=== PATIENT | female | born 1930 | race Two or more races ===

== ENCOUNTER 2016-06-03 15:42 | Emergency (ER) | payer MEDICARE, OTHER ==
[2016-06-03] MEDS ORDERED: IPRATROPIUM/ALBUTEROL 0.5-2.5 MG/3 ML AMPUL NEB ONE (15:55)
[2016-06-03] MEDS ORDERED: PREDNISONE 20 MG TABLET PO ONE (15:56)
--- NOTE | 2016-06-03 15:57 | ER Document Report ---
ED Medical Screen (RME) - General Stated Complaint: DIFFICULTY BREATHING Mode of Arrival: Wheelchair Information source: Patient Notes: Patient presents with difficulty breathing for the past 5 days. Patient has had cough. Patient without any chest pain. No fever. hx: Hypertension, diabetes I have greeted and performed a rapid initial assessment of this patient. A comprehensive ED assessment and evaluation of the patient, analysis of test results and completion of the medical decision making process will be conducted by additional ED providers. TRAVEL OUTSIDE OF THE [place] IN LAST 30 DAYS: No - Related Data Allergies/Adverse Reactions: morphine Allergy (Verified 06/03/16 15:53) Shellfish * [Shellfish] Allergy (Verified 06/03/16 15:53) richardson Allergy (Uncoded 06/03/16 15:53) Past Medical History - Past Medical History Cardiac Medical History: Reports: Hx Hypercholesterolemia, Hx Hypertension Pulmonary Medical History: Denies: Hx Tuberculosis Neurological Medical History: Denies: Hx Seizures Renal/ Medical History: Reports: Hx Ovarian Cysts GI Medical History: Reports: Hx Gastroesophageal Reflux Disease Musculoskeltal Medical History: Reports Hx Arthritis Psychiatric Medical History: Reports: Hx Depression Past Surgical History: Reports: Hx Section, Hx Hysterectomy. Denies: Hx Cholecystectomy, Hx Pacemaker - Immunizations Hx Diphtheria, Pertussis, Tetanus Vaccination: No Physical Exam - Vital signs Vitals: Temp Pulse Resp BP Pulse Ox 97.7 F 73 17 174/65 H 100 06/03/16 15:51 06/03/16 15:51 06/03/16 15:51 06/03/16 15:51 06/03/16 15:51 - Respiratory Respiratory status: No respiratory distress Breath sounds: Nonproductive cough, Wheezing - Faint wheeze to right lower lobe Course - Vital Signs Vital signs: Temp Pulse Resp BP Pulse Ox 97.7 F 73 17 174/65 H 100 06/03/16 15:51 06/03/16 15:51 06/03/16 15:51 06/03/16 15:51 06/03/16 15:51
[2016-06-03 16:53] LABS: ABSOLUTE BASOPHILS # (AUTO) 0.1 10^3/uL (0.0-0.2); ABSOLUTE EOSINOPHILS # (AUTO) 0.1 10^3/uL (0.0-0.6); ABSOLUTE LYMPHOCYTES (AUTO) 0.9 10^3/uL (0.5-4.7); ABSOLUTE MONOCYTES (AUTO) 0.5 10^3/uL (0.1-1.4); ABSOLUTE NEUT (AUTO) 2.6 10^3/uL (1.7-8.2); BASOPHILS % (AUTO) 1.3 % (0-2); EOSINOPHILS % (AUTO) 1.3 % (0-6); HEMATOCRIT 32.5 % (36.0-47.0); HEMOGLOBIN 11.1 g/dL (12.0-15.5); HGB HCT DIFFERENCE 0.8; LYMPHOCYTES % (AUTO) 21.9 % (13-45); MEAN CORPUSCULAR HEMOGLOBIN 30.3 pg (27.0-33.4); MEAN CORPUSCULAR VOLUME 89 fl (80-97); MONOCYTES % (AUTO) 11.6 % (3-13); RED BLOOD COUNT 3.65 10^6/uL (3.72-5.28); RED CELL DISTRIBUTION WIDTH 13.5 % (11.5-14.0); SEGMENTED NEUTROPHILS % (AUTO) 63.9 % (42-78)
--- NOTE | 2016-06-03 16:57 | EKG REPORT ---
SEVERITY:- ABNORMAL ECG - ACCELERATED JUNCTIONAL RHYTHM BORDERLINE T ABNORMALITIES, ANT-LAT LEADS : Confirmed by: Marta Burton MD 03-Jun-2016 16:57:15
[2016-06-03 17:18] LABS: ALANINE AMINOTRANSFERASE 34 U/L (9-52); ALBUMIN 4.2 g/dL (3.5-5.0); ALKALINE PHOSPHATASE 60 U/L (38-126); ANION GAP 13 (5-19); ASPARTATE AMINO TRANSFERASE 23 U/L (14-36); BILIRUBIN,TOTAL 0.5 mg/dL (0.2-1.3); BLOOD UREA NITROGEN 21 mg/dL (7-20); CALCIUM 9.7 mg/dL (8.4-10.2); CARBON DIOXIDE 21 mmol/L (22-30); CHLORIDE 91 mmol/L (98-107); CREATINE KINASE 62 U/L (30-135); GLUCOSE 101 mg/dL (75-110); SODIUM 125.3 mmol/L (137-145); TOTAL PROTEIN 6.8 g/dL (6.3-8.2)
[2016-06-03 17:30] LABS: CREATINE KINASE MB 0.79 ng/mL (<4.55)
[2016-06-03 17:33] LABS: TROPONIN I < 0.012 ng/mL
--- NOTE | 2016-06-03 17:34 | ER Document Report ---
ED Respiratory Problem - General Chief Complaint: Breathing Difficulty Stated Complaint: DIFFICULTY BREATHING Time seen by provider: 17:25 Mode of Arrival: Wheelchair TRAVEL OUTSIDE OF THE [place] IN LAST 30 DAYS: No - HPI Patient complains to provider of: Other - 86-year-old female with history of asthma and diabetes presents with cough for 3 days much worse since yesterday. It is nonproductive. She has no fever but feels like she has chest congestion. Today she developed some mild shortness of breath. She has a family member who is currently sick as well. No changes otherwise. No confusion. Symptoms are [id number] - Related Data Allergies/Adverse Reactions: morphine Allergy (Verified 06/03/16 15:53) Shellfish * [Shellfish] Allergy (Verified 06/03/16 15:53) richardson Allergy (Uncoded 06/03/16 15:53) Past Medical History - General Information source: Patient - Social History Smoking Status: Never Smoker Chew tobacco use (# tins/day): No Frequency of alcohol use: None Drug Abuse: None Family History: Reviewed & Not Pertinent Patient has suicidal ideation: No Patient has homicidal ideation: No - Past Medical History Cardiac Medical History: Reports: Hx Hypercholesterolemia, Hx Hypertension Pulmonary Medical History: Denies: Hx Tuberculosis Neurological Medical History: Denies: Hx Seizures Renal/ Medical History: Reports: Hx Ovarian Cysts. Denies: Hx Peritoneal Dialysis GI Medical History: Reports: Hx Gastroesophageal Reflux Disease Musculoskeltal Medical History: Reports Hx Arthritis Psychiatric Medical History: Reports: Hx Depression Past Surgical History: Reports: Hx Section, Hx Hysterectomy. Denies: Hx Cholecystectomy, Hx Pacemaker - Immunizations Hx Diphtheria, Pertussis, Tetanus Vaccination: No Hx Pneumococcal Vaccination: 01/08/09 Review of Systems - Review of Systems -: Yes All other systems reviewed and negative Physical Exam - Vital signs Vitals: Temp Pulse Resp BP Pulse Ox 97.7 F 73 17 174/65 H 100 06/03/16 15:51 06/03/16 15:51 06/03/16 15:51 06/03/16 15:51 06/03/16 15:51 - Notes Notes: GENERAL: Well-appearing, well-nourished and in no acute distress. Dry, noted HEAD: Atraumatic, normocephalic. EYES: sclera anicteric, conjunctiva are normal. ENT: nares patent, oropharynx clear without exudates. Moist mucous membranes. NECK: Normal range of motion, supple without lymphadenopathy LUNGS: Good air movement but there is mild wheezing noted. HEART: Regular rate and rhythm without murmurs ABDOMEN: Soft, normoactive bowel sounds. No guarding, no rebound. No masses appreciated. EXTREMITIES: Normal range of motion, no pitting or edema. No cyanosis. NEUROLOGICAL: Cranial nerves grossly intact. Normal speech, normal gait. Normal sensory, motor, and reflex exams. PSYCH: Normal mood, normal affect. SKIN: Warm, Dry, no rashes or lesions noted. Course - Re-evaluation Re-evalutation: 06/03/16 18:05 Patient is improved overall. I discussed lab findings including the hyponatremia with her family and the patient. They will have it rechecked again next week and her PCP is in the middle of evaluating this. We discussed water restrictions as well. Her oxygen level here has been 100% on room air. This appears consistent with acute bronchitis causing an asthma exacerbation. We will prescribe her prednisone for home as well. We discussed risks including hyperglycemia as well. She will return immediately if she is worsening at all. We will prescribe an inhaler and she has not currently using any - Vital Signs Vital signs: Temp Pulse Resp BP Pulse Ox 97.7 F 73 17 174/65 H 100 06/03/16 15:51 06/03/16 15:51 06/03/16 15:51 06/03/16 15:51 06/03/16 15:51 - Laboratory Result Diagrams: 06/03/16 16:20 06/03/16 16:20 Laboratory results interpreted by me: 06/03/16 06/03/16 06/03/16 16:20 16:20 16:20 RBC 3.65 L Hgb 11.1 L Hct 32.5 L Sodium 125.3 L Chloride 91 L Carbon Dioxide 21 L BUN 21 H Est GFR ( Amer) 57 L Est GFR (Non-Af Amer) 47 L Urine Protein 30 H - Diagnostic Test Radiology reviewed: Image reviewed, Reports reviewed - EKG Interpretation by Me Rate: Normal Rhythm: NSR [place]/QRS: No: RBBB, LBBB Heart block present: 1st Degree Discharge - Discharge Clinical Impression: Acute bronchitis, Asthma exacerbation Condition: Good Disposition: HOME, SELF-CARE Additional Instructions: Start the prednisone as well as the Zithromax tomorrow since you are receiving her first dose here. Return immediately if worsening. Make sure your primary care physician follows up on the low sodium this next week. ASTHMA: You have been diagnosed as having asthma. This is a condition where there is episodic tightness in the bronchial tubes. Allergies, infections, and polluted or cold air may be contributing factors. Emergency treatment of a severe asthma attack may include adrenaline shots , or bronchodilator aerosol. You may feel lightheaded, have a decreased exercise tolerance and a rapid pulse for an hour or two. Rest and get plenty of fluids. Home treatment of asthma requires bronchodilator drugs. These can be administered by injection, inhalation, or by mouth. Antibiotics and corticosteroids may be required for some patients. You should avoid chemical fumes, dusts, pollens, and exercising in very cold or dry air. If you smoke, stop!! If you develop a fever, increased wheezing, chest pain, or severe shortness of breath, you should contact the doctor immediately. STEROID MEDICATION: You have been given an oral medicine of the cortisone/steroid class. This medication is used to control inflammation or allergy. It is usually only given for a short period of time, until the acute process subsides. There are usually no side effects from short-term use of cortisone-like medications. Some persons feel an increased sense of well-being and are not sleepy at bedtime. Long-term use of cortisone medications is best avoided, unless required for a severe condition. If your condition does not remit, or relapses after the course of corticosteroid medication, you should consult your physician. INHALED BRONCHODILATORS: You have received treatment(s) of and/or prescription for an inhaled bronchodilator -- a medication which stimulates the airways in the lung to dilate. This improves the flow of air in asthma, bronchitis, and emphysema. These medicines have some similarity to adrenaline, and can cause similar side effects: shakiness, racing heart, and a sense of nervousness. These side effects decrease with time. Contact your doctor if these side effects are severe. Do not over-use the medicine. Too-frequent use of the inhaler may make it ineffective. Call your doctor if the inhaler is not controlling your symptoms at the prescribed doses. ANTIBIOTIC THERAPY: You have been given an antibiotic prescription. It's important that you take all the medication, unless instructed otherwise by your physician. Failure to complete the entire course can result in relapse of your condition. Common side effects of antibiotics include nausea, intestinal cramping, or diarrhea. Women may develop vaginal yeast infections, and babies can get yeast (thrush) in the mouth following the use of antibiotics. Contact your physician if you develop significant side effects from this medication. Allergy to this antibiotic can result in hives, wheezing, faintness, or itching. If symptoms of allergy occur, stop the medication and call your doctor. AZITHROMYCIN: Azithromycin (Zithromax) is a broad spectrum antibiotic in the same class as erythromycin. It can treat a variety of bacterial infections, but is most frequently used for respiratory infections. Azithromycin is extremely long-lasting. It accumulates in body tissues and continues to kill bacteria for many days. In order to improve absorption, Azithromycin should be taken at least one hour before or two hours after a meal. It does not have the same strong tendency to upset the stomach as erythromycin and is usually very well tolerated. Patients who have had a rash or other true allergic reactions to erythromycin should not take this medication. Call if you develop gastrointestinal distress, severe diarrhea, rash, hives, itching, or shortness of breath. FOLLOW-UP CARE: If you have been referred to a physician for follow-up care, call the physician s office for an appointment as you were instructed or within the next two days. If you experience worsening or a significant change in your symptoms, notify the physician immediately or return to the Emergency Department at any time for re-evaluation. Prescriptions: Albuterol Sulfate [Proair HFA Inhalation Aerosol 8.5 gm MDI] 2 puff IH Q4H PRN # 1 mdi PRN Reason: Azithromycin [Zithromax 250 mg Tablet] 250 mg PO DAILY #4 tablet Prednisone [Deltasone 20 mg Tablet] 2 tab PO DAILY 5 Days Forms: Elevated Blood Pressure
[2016-06-03 17:59] LABS: APPEARANCE,URINE CLEAR; BILIRUBIN,URINE NEGATIVE (NEGATIVE); GLUCOSE, URINE NEGATIVE (NEGATIVE); KETONES,URINE NEGATIVE (NEGATIVE); LEUKOCYTE ESTERASE,URINE NEGATIVE (NEGATIVE); NITRITE,URINE NEGATIVE (NEGATIVE); PROTEIN,URINE 30 mg/dL (NEGATIVE); URINE SPECIFIC GRAVITY 1.013; UROBILINOGEN,URINE NEGATIVE mg/dL (<2.0)
[2016-06-03] MEDS ORDERED: AZITHROMYCIN 250 MG TABLET PO ONE (18:10)
[2016-06-03 18:46] VITALS: BP 162/69
== END 2016-06-03 18:53 | disposition home or self-care (01) ==
LOC: ER 15:42
DX: J20.9 Acute bronchitis, unspecified (principal); J45.901 Unspecified asthma with (acute) exacerbation; R05 Cough; R06.02 Shortness of breath; I44.0 Atrioventricular block, first degree; E11.9 Type 2 diabetes mellitus without complications; I10 Essential (primary) hypertension; Z88.5 Allergy status to narcotic agent; Z91.013 Allergy to seafood; Z91.018 Allergy to other foods; E87.1 Hypo-osmolality and hyponatremia
CPT/HCPCS: 93005; 94640; 99285; 36415; 87040; 82553; 82550; 85025; 80053; 81001; 84484; 71020; 93010; A9270 ×3; J7512; J7620

== ENCOUNTER 2016-07-28 07:47 | Emergency (ER) | payer MEDICARE, OTHER ==
--- NOTE | 2016-07-28 08:28 | ER Document Report ---
ED General - General Stated Complaint: FALL,HEAD INJURY Mode of Arrival: Medic Information source: Patient, Relative Cannot obtain history due to: Altered mental status Notes: 86 yr old female presents by ems as a level 2 trauma, after striking her head on a dresser. pt is not on any blood thinners. pt noted ot be confused and not following commands appropriately. injury occured just prior to arrival. TRAVEL OUTSIDE OF THE [place] IN LAST 30 DAYS: No - HPI Onset: Just prior to arrival Onset/Duration: Sudden Quality of pain: No pain Severity: Moderate Pain Level: Denies Associated symptoms: Slow to respond, Weakness Exacerbated by: Denies Relieved by: Denies Similar symptoms previously: No Recently seen / treated by doctor: No - Related Data Allergies/Adverse Reactions: morphine Allergy (Verified 06/03/16 15:53) Shellfish * [Shellfish] Allergy (Verified 06/03/16 15:53) richardson Allergy (Uncoded 06/03/16 15:53) Past Medical History - General Information source: Patient Cannot obtain history due to: Altered mental status - Social History Smoking Status: Never Smoker Cigarette use (# per day): No Chew tobacco use (# tins/day): No Smoking Education Provided: No Family History: Reviewed & Not Pertinent - Past Medical History Cardiac Medical History: Reports: Hx Hypercholesterolemia, Hx Hypertension Pulmonary Medical History: Denies: Hx Tuberculosis Neurological Medical History: Denies: Hx Seizures Renal/ Medical History: Reports: Hx Ovarian Cysts. Denies: Hx Peritoneal Dialysis GI Medical History: Reports: Hx Gastroesophageal Reflux Disease Musculoskeltal Medical History: Reports Hx Arthritis Psychiatric Medical History: Reports: Hx Depression Past Surgical History: Reports: Hx Section, Hx Hysterectomy. Denies: Hx Cholecystectomy, Hx Pacemaker - Immunizations Hx Diphtheria, Pertussis, Tetanus Vaccination: No Hx Pneumococcal Vaccination: 01/08/09 Review of Systems - Review of Systems Notes: REVIEW OF SYSTEMS: CONSTITUTIONAL : Denies fever, chills, or sweats. Denies recent illness. EENT: Denies eye, ear, throat, or mouth pain or symptoms. Denies nasal or sinus congestion or discharge. Denies throat, tongue, or mouth swelling or difficulty swallowing. CARDIOVASCULAR: Denies chest pain. Denies palpitations or racing or irregular heart beat. Denies ankle edema. RESPIRATORY: Denies cough, cold, or chest congestion. Denies shortness of breath, difficulty breathing, or wheezing. GASTROINTESTINAL: Denies abdominal pain or distention. Denies nausea, vomiting , or diarrhea. Denies blood in vomitus, stools, or per rectum. Denies black, tarry stools. Denies constipation. GENITOURINARY: Denies difficulty urinating, painful urination, burning, frequency, blood in urine, or discharge. FEMALE GENITOURINARY: Denies vaginal bleeding, heavy or abnormal periods, irregular periods. Denies vaginal discharge or odor. MUSCULOSKELETAL: Denies back or neck pain or stiffness. Denies joint pain or swelling. SKIN: HEMATOLOGIC : Denies easy bruising or bleeding. LYMPHATIC: Denies swollen, enlarged glands. NEUROLOGICAL: Denies confusion or altered mental status. Denies passing out or loss of consciousness. Denies dizziness or lightheadedness. Denies headache. Denies weakness or paralysis or loss of use of either side. Denies problems with gait or speech. Denies sensory loss, numbness, or tingling. Denies seizures. PSYCHIATRIC: Denies anxiety or stress. Denies depression, suicidal ideation, or homicidal ideation. ALL OTHER SYSTEMS REVIEWED AND NEGATIVE. Dictation was performed using [employer] voice recognition software PHYSICAL EXAMINATION: GENERAL: Well-appearing, well-nourished and in no acute distress. HEAD: hematoma to head EYES: Pupils equal round and reactive to light, extraocular movements intact, conjunctiva are normal. ENT: Nares patent, oropharynx clear without exudates. Moist mucous membranes. NECK: Normal range of motion, supple without lymphadenopathy LUNGS: Breath sounds clear to auscultation bilaterally and equal. No wheezes rales or rhonchi. HEART: Regular rate and rhythm without murmurs ABDOMEN: Soft, nontender, nondistended abdomen. No guarding, no rebound. No masses appreciated. Female : deferred Musculoskeletal: Normal range of motion, no pitting or edema. No cyanosis. NEUROLOGICAL: not following commands appropriately PSYCH: Normal mood, normal affect. SKIN: Warm, Dry, normal turgor, no rashes or lesions noted. Course - Re-evaluation Re-evalutation: 07/28/16 08:27 Notified regarding subdural and subarrachnoid bleeds, [facility] paged 07/28/16 08:34 Dr Puga accepts patient for transfer, attempting ot fly patient out , bp 184/ 75 - Laboratory Result Diagrams: 07/28/16 08:19 07/28/16 08:19 Critical Care Note - Critical Care Note Total time excluding time spent on procedures (mins): 35 Comments: 35 minutes of critical care time spent in direct contact evaluating and reevaluating the patient, treating symptoms, reviewing labs and studies and speaking with family and consultants excluding any procedures Discharge - Discharge Clinical Impression: Subdural hematoma, Confusion Traumatic subarachnoid hematoma with loss of consciousness Qualifiers: Encounter type: initial encounter Loss of consciousness presence/duration: with LOC of 30 min or less Qualified Code(s): S06.6X1A - Traumatic subarachnoid hemorrhage with loss of consciousness of 30 minutes or less, initial encounter Injury of head Qualifiers: Encounter type: initial encounter Qualified Code(s): S09.90XA - Unspecified injury of head, initial encounter Condition: Fair Disposition: [facility]
[2016-07-28 08:35] LABS: ABSOLUTE BASOPHILS # (AUTO) 0.1 10^3/uL (0.0-0.2); ABSOLUTE EOSINOPHILS # (AUTO) 0.1 10^3/uL (0.0-0.6); ABSOLUTE LYMPHOCYTES (AUTO) 2.2 10^3/uL (0.5-4.7); ABSOLUTE MONOCYTES (AUTO) 0.5 10^3/uL (0.1-1.4); ABSOLUTE NEUT (AUTO) 4.8 10^3/uL (1.7-8.2); BASOPHILS % (AUTO) 0.8 % (0-2); EOSINOPHILS % (AUTO) 1.6 % (0-6); HEMATOCRIT 35.3 % (36.0-47.0); HEMOGLOBIN 12.6 g/dL (12.0-15.5); HGB HCT DIFFERENCE 2.5; MEAN CORPUSCULAR HEMOGLOBIN 30.6 pg (27.0-33.4); MEAN CORPUSCULAR HGB CONC 35.6 g/dL (32.0-36.0); MEAN CORPUSCULAR VOLUME 86 fl (80-97); RED BLOOD COUNT 4.11 10^6/uL (3.72-5.28); RED CELL DISTRIBUTION WIDTH 14.4 % (11.5-14.0); SEGMENTED NEUTROPHILS % (AUTO) 62.6 % (42-78); WHITE BLOOD COUNT 7.7 10^3/uL (4.0-10.5)
[2016-07-28 08:37] LABS: PROTHROMBIN TIME 12.2 SEC (11.4-15.4)
[2016-07-28 08:50] LABS: ALANINE AMINOTRANSFERASE 34 U/L (9-52); ALKALINE PHOSPHATASE 66 U/L (38-126); ANION GAP 12 (5-19); ASPARTATE AMINO TRANSFERASE 26 U/L (14-36); BILIRUBIN,DIRECT 0.2 mg/dL (0.0-0.4); BLOOD UREA NITROGEN 15 mg/dL (7-20); CALCIUM 9.3 mg/dL (8.4-10.2); CARBON DIOXIDE 24 mmol/L (22-30); CHLORIDE 79 mmol/L (98-107); CREATININE RESULT 0.76 mg/dL (0.52-1.25); GLUCOSE 167 mg/dL (75-110); POTASSIUM 4.6 mmol/L (3.6-5.0); TOTAL PROTEIN 7.6 g/dL (6.3-8.2)
[2016-07-28 08:56] LABS: SODIUM 114.8 mmol/L (137-145)
[2016-07-28] MEDS ORDERED: SODIUM CHLORIDE 3% 500 ML IV ONE (08:59)
[2016-07-28 09:47] VITALS: BP 173/68
== END 2016-07-28 09:50 | disposition short-term general hospital (02) ==
LOC: ER 07:47
DX: S06.6X1A Traumatic subarachnoid hemorrhage with loss of consciousness of 30 minutes or less, initial encounter (principal); S06.5X1A Traumatic subdural hemorrhage with loss of consciousness of 30 minutes or less, initial encounter; W22.03XA Walked into furniture, initial encounter; R41.0 Disorientation, unspecified; I10 Essential (primary) hypertension; Z88.5 Allergy status to narcotic agent; Z91.013 Allergy to seafood; Z91.018 Allergy to other foods
CPT/HCPCS: 36415; 70450; 72125; 72128; 72131; 80053; 82962; 85025; 85610; 96365; 99291; J3490

== ENCOUNTER 2016-09-01 11:02 | Inpatient (IN) | payer MEDICARE, OTHER ==
[2016-09-01 14:15] LABS: HEMATOCRIT 32.6 % (36.0-47.0); HEMOGLOBIN 11.2 g/dL (12.0-15.5); MEAN CORPUSCULAR HEMOGLOBIN 30.6 pg (27.0-33.4); MEAN CORPUSCULAR HGB CONC 34.4 g/dL (32.0-36.0); MEAN CORPUSCULAR VOLUME 89 fl (80-97); RED BLOOD COUNT 3.67 10^6/uL (3.72-5.28); RED CELL DISTRIBUTION WIDTH 15.4 % (11.5-14.0); WHITE BLOOD COUNT 5.2 10^3/uL (4.0-10.5)
[2016-09-01 14:31] LABS: ALANINE AMINOTRANSFERASE 45 U/L (9-52); ALKALINE PHOSPHATASE 53 U/L (38-126); ANION GAP 10 (5-19); ASPARTATE AMINO TRANSFERASE 28 U/L (14-36); BILIRUBIN,DIRECT 0.4 mg/dL (0.0-0.4); BILIRUBIN,TOTAL 0.7 mg/dL (0.2-1.3); BLOOD UREA NITROGEN 16 mg/dL (7-20); CALCIUM 9.5 mg/dL (8.4-10.2); CARBON DIOXIDE 20 mmol/L (22-30); CHLORIDE 88 mmol/L (98-107); CREATININE RESULT 0.89 mg/dL (0.52-1.25); GLUCOSE 76 mg/dL (75-110); POTASSIUM 4.9 mmol/L (3.6-5.0); TOTAL PROTEIN 6.3 g/dL (6.3-8.2)
[2016-09-01 14:35] LABS: SODIUM 118.1 mmol/L (137-145)
[2016-09-01 15:04] LABS: THYROID STIMULATING HORMONE 1.4 uIU/mL (0.47-4.68)
--- NOTE | 2016-09-01 15:29 | RADIOLOGY REPORT (SQ) ---
EXAM DESCRIPTION: CHEST SINGLE VIEW COMPLETED DATE/TIME: 09/01/2016 3:16 pm REASON FOR STUDY: HYPONATREMIC/ ENCEPHALOPATHY COMPARISON: 06/03/2016 EXAM PARAMETERS: NUMBER OF VIEWS: One view. TECHNIQUE: Single frontal radiographic view of the chest acquired. RADIATION DOSE: NA LIMITATIONS: None. FINDINGS: LUNGS AND PLEURA: No opacities, masses or pneumothorax. No pleural effusion. MEDIASTINUM AND HILAR STRUCTURES: No masses. Contour normal. HEART AND VASCULAR STRUCTURES: Heart normal in size. Normal vasculature. BONES: No acute findings. HARDWARE: None in the chest. OTHER: No other significant finding. IMPRESSION: NO ACUTE RADIOGRAPHIC FINDING IN THE CHEST. TECHNICAL DOCUMENTATION: JOB ID: [id number]
[2016-09-01 16:39] LABS: APPEARANCE,URINE CLEAR; BILIRUBIN,URINE NEGATIVE (NEGATIVE); GLUCOSE, URINE NEGATIVE (NEGATIVE); KETONES,URINE NEGATIVE (NEGATIVE); LEUKOCYTE ESTERASE,URINE NEGATIVE (NEGATIVE); NITRITE,URINE NEGATIVE (NEGATIVE); PROTEIN,URINE NEGATIVE (NEGATIVE); URINE SPECIFIC GRAVITY 1.006; UROBILINOGEN,URINE NEGATIVE mg/dL (<2.0)
[2016-09-01] MEDS ORDERED: ALBUTEROL SULFATE HFA (90 MCG/PUFF) 200 PUFF/8.5 GM MDI IH PRN (16:45)
[2016-09-01] MEDS ORDERED: (PENDING PHARMACY ID) (Diclofenac Sodium [Voltaren] 1 APPLIC) TP SCH (18:00)
[2016-09-01] MEDS ORDERED: ALPRAZOLAM 0.25 MG TABLET PO ONE (18:30)
[2016-09-01] MEDS: NORMAL SALINE 1000 ML 1,000 ML IV PRN (18:37)
[2016-09-01] MEDS: GLIPIZIDE 5 MG TABLET PO SCH (18:37)
[2016-09-01] MEDS: POTASSIUM CHLORIDE 10 MEQ TABLET.SA PO SCH (18:37)
--- NOTE | 2016-09-01 19:49 | PDOC H&P ---
History of Present Illness Admission Date/PCP: 09/01/16 11:02 MIRYAM DANIEL MD History of Present Illness: JEAN PAUL JURADO is a 86 year old female, she was admitted because of hyponatremic encephalopathy, she was confused and stuporous, she was seen in the office, she had that showed sodium of 114. She was admitted directly from the office to the hospital she has syndrome of inappropriate ADH secretion Past Medical History Cardiac Medical History: Reports: Hyperlipidema, Hypertension Pulmonary Medical History: Denies: Tuberculosis Endocrine Medical History: Reports: Diabetes Mellitus Type 2 GI Medical History: Reports: Gastroesophageal Reflux Disease Musculoskeltal Medical History: Reports: Arthritis Psychiatric Medical History: Reports: Depression Past Surgical History Past Surgical History: Reports: Section, Hysterectomy Social History Smoking Status: Never Smoker Frequency of Alcohol Use: None Hx Recreational Drug Use: No Hx Prescription Drug Abuse: No Family History Family History: Reviewed & Not Pertinent Parental Family History Reviewed: Yes Children Family History Reviewed: Yes Sibling(s) Family History Reviewed.: Yes Medication/Allergy Home Medications: Albuterol Sulfate [Proair HFA] 2 puff IH Q4 PRN 09/01/16 Alprazolam [Xanax 0.25 mg Tablet] 0.25 mg PO TID 09/01/16 Carvedilol [Coreg 25 mg Tablet] 25 mg PO Q12 09/01/16 Diclofenac Sodium [Voltaren] 1 applic TP QID 09/01/16 Esomeprazole Magnesium [Nexium] 40 mg PO DAILY 09/01/16 Furosemide [Lasix 20 mg Tablet] 20 mg PO QAM 09/01/16 Gabapentin [Neurontin 300 mg Capsule] 300 mg PO Q8 09/01/16 Glipizide [Glocotrol 5 Mg Tablet] 5 mg PO BID 09/01/16 Megestrol Acetate 40 mg PO DAILY 09/01/16 Metformin HCl [Glucophage] 500 mg PO BIDACBS 09/01/16 Montelukast Sodium [Singulair 10 mg Tablet] 10 mg PO QHS 09/01/16 Polyethylene Glycol 3350 [Miralax Powder 17 gm/Packet] 1 packet PO DAILY Potassium Chloride [Klor-Con Sprinkle] 10 meq PO QPM 09/01/16 Telmisartan [Micardis 40 mg Tablet] 40 mg PO DAILY 09/01/16 Triamcinolone Acetonide [Aristocort 0.1% Cream 15 gm] 1 applic TP BID 09/01/16 Allergies/Adverse Reactions: morphine Allergy (Verified 06/03/16 15:53) Shellfish * [Shellfish] Allergy (Verified 06/03/16 15:53) richardson Allergy (Uncoded 06/03/16 15:53) Review of Systems Constitutional: ABSENT: chills, fever(s), headache(s), weight gain, weight loss Eyes: ABSENT: visual disturbances Ears: ABSENT: hearing changes Cardiovascular: ABSENT: chest pain, dyspnea on exertion, edema, orthropnea, palpitations Respiratory: ABSENT: cough, hemoptysis Gastrointestinal: ABSENT: abdominal pain, constipation, diarrhea, hematemesis, hematochezia, nausea, vomiting Genitourinary: ABSENT: dysuria, hematuria Musculoskeletal: ABSENT: joint swelling Integumentary: ABSENT: rash, wounds Neurological: PRESENT: confusion Psychiatric: ABSENT: anxiety, depression, homidical ideation, suicidal ideation Endocrine: ABSENT: cold intolerance, heat intolerance, menstrual abnormalities, polydipsia, polyuria Hematologic/Lymphatic: ABSENT: easy bleeding, easy bruising, lymphadenopathy Physical Exam Vital Signs: Temp Pulse Resp BP Pulse Ox 97.9 F 71 24 H 147/85 H 100 09/01/16 17:08 09/01/16 17:08 09/01/16 17:08 09/01/16 17:08 09/01/16 17:08 Intake & Output 08/31/16 09/01/16 09/02/16 06:59 06:59 06:59 Intake Total 572 Balance 572 Weight 71.724 kg General appearance: PRESENT: no acute distress Head exam: PRESENT: atraumatic, normocephalic Eye exam: PRESENT: conjunctiva pink, EOMI, PERRLA Ear exam: PRESENT: normal external ear exam Mouth exam: PRESENT: moist, tongue midline Neck exam: PRESENT: full ROM Cardiovascular exam: PRESENT: RRR, +S1, +S2 Vascular exam: PRESENT: normal capillary refill GI/Abdominal exam: PRESENT: normal bowel sounds, soft Rectal exam: PRESENT: deferred Neurological exam: PRESENT: alert Skin exam: PRESENT: dry, intact, warm Results Laboratory Results: 09/01/16 14:00 09/01/16 14:00 09/01/16 09/01/16 09/01/16 14:00 14:00 14:00 WBC 5.2 RBC 3.67 L Hgb 11.2 L Hct 32.6 L MCV 89 MCH 30.6 MCHC 34.4 RDW 15.4 H Plt Count 179 Sodium 118.1 L* Potassium 4.9 Chloride 88 L Carbon Dioxide 20 L Anion Gap 10 BUN 16 Creatinine 0.89 Est GFR ( Amer) > 60 Est GFR (Non-Af Amer) > 60 Glucose 76 Serum Osmolality 248 L Calcium 9.5 Total Bilirubin 0.7 AST 28 ALT 45 Alkaline Phosphatase 53 Total Protein 6.3 Albumin 4.0 TSH Free T4 Urine Color Urine Appearance Urine pH Ur Specific [place] Urine Protein Urine Glucose (UA) Urine Ketones Urine Blood Urine Nitrite Ur Leukocyte Esterase Urine WBC (Auto) Urine RBC (Auto) Urine Osmolality 09/01/16 09/01/16 09/01/16 14:00 14:46 14:46 WBC RBC Hgb Hct MCV MCH MCHC RDW Plt Count Sodium Potassium Chloride Carbon Dioxide Anion Gap BUN Creatinine Est GFR ( Amer) Est GFR (Non-Af Amer) Glucose Serum Osmolality Calcium Total Bilirubin AST ALT Alkaline Phosphatase Total Protein Albumin TSH 1.40 Free T4 1.60 Urine Color YELLOW Urine Appearance CLEAR Urine pH 7.0 Ur Specific [place] 1.006 Urine Protein NEGATIVE Urine Glucose (UA) NEGATIVE Urine Ketones NEGATIVE Urine Blood NEGATIVE Urine Nitrite NEGATIVE Ur Leukocyte Esterase NEGATIVE Urine WBC (Auto) 0 Urine RBC (Auto) 1 Urine Osmolality 240 L Impressions: Chest X-Ray 09/01/16 12:44 IMPRESSION: NO ACUTE RADIOGRAPHIC FINDING IN THE CHEST. Assessment & Plan - Diagnosis (1) Hyponatremia Is this a current diagnosis for this admission?: YesPlan: History of hyponatremia, she is symptomatic with low serum sodium she was given normal saline infusion (2) SIADH (syndrome of inappropriate ADH production) Is this a current diagnosis for this admission?: YesPlan: She has a history of SIADH,fluid restriction is not effective in this patient patient will be started on low-dose tolvaptan
[2016-09-01] MEDS: MONTELUKAST SODIUM 10 MG TABLET PO SCH (22:02)
[2016-09-01] MEDS: CARVEDILOL 12.5 MG TABLET PO SCH (22:03)
[2016-09-01] MEDS: GABAPENTIN 300 MG CAPSULE PO SCH (22:03)
[2016-09-01] MEDS: ALPRAZOLAM 0.25 MG TABLET PO SCH (22:08)
[2016-09-01] MEDS: TRIAMCINOLONE ACETONIDE 0.1% CREAM 15 GM TOP SCH (22:09)
[2016-09-02] MEDS: GABAPENTIN 300 MG CAPSULE PO SCH ×3 (05:44→21:06)
[2016-09-02] MEDS: ALPRAZOLAM 0.25 MG TABLET PO SCH ×3 (05:45→21:03)
[2016-09-02] MEDS ORDERED: FUROSEMIDE 20 MG TABLET PO SCH (08:00)
[2016-09-02] MEDS ORDERED: (PENDING PHARMACY ID) (Telmisartan [Micardis 40 Mg Tablet] 40 MG) PO SCH (10:00)
[2016-09-02 10:04] LABS: ABSOLUTE MONOCYTES (AUTO) 0.4 10^3/uL (0.1-1.4); ABSOLUTE NEUT (AUTO) 3.3 10^3/uL (1.7-8.2); BASOPHILS % (AUTO) 0.3 % (0-2); EOSINOPHILS % (AUTO) 0.5 % (0-6); LYMPHOCYTES % (AUTO) 21.4 % (13-45); MEAN CORPUSCULAR HEMOGLOBIN 31.2 pg (27.0-33.4); MEAN CORPUSCULAR HGB CONC 35.4 g/dL (32.0-36.0); MEAN CORPUSCULAR VOLUME 88 fl (80-97); MONOCYTES % (AUTO) 8.8 % (3-13); RED BLOOD COUNT 3.52 10^6/uL (3.72-5.28); RED CELL DISTRIBUTION WIDTH 15.4 % (11.5-14.0); WHITE BLOOD COUNT 4.8 10^3/uL (4.0-10.5)
[2016-09-02 10:20] LABS: BLOOD UREA NITROGEN 11 mg/dL (7-20); CALCIUM 9.3 mg/dL (8.4-10.2); CARBON DIOXIDE 18 mmol/L (22-30); CHLORIDE 91 mmol/L (98-107); CREATININE RESULT 0.77 mg/dL (0.52-1.25); GLUCOSE 99 mg/dL (75-110); MAGNESIUM 1.6 mg/dL (1.6-2.3); POTASSIUM 4.6 mmol/L (3.6-5.0)
[2016-09-02 10:31] LABS: ANION GAP 11 (5-19)
[2016-09-02] MEDS: LOSARTAN POTASSIUM 50 MG TABLET PO SCH (11:26)
[2016-09-02] MEDS: GLIPIZIDE 5 MG TABLET PO SCH ×2 (11:27→18:32)
[2016-09-02] MEDS: LANSOPRAZOLE 30 MG TAB.RAP.DR PO SCH (11:27)
[2016-09-02] MEDS: CARVEDILOL 12.5 MG TABLET PO SCH ×2 (11:27→21:03)
[2016-09-02] MEDS: METFORMIN HCL 500 MG TABLET PO SCH ×2 (11:27→18:34)
[2016-09-02] MEDS: MEGESTROL ACETATE 20 MG TABLET PO SCH (11:28)
[2016-09-02] MEDS: POLYETHYLENE GLYCOL 3350 POWDER 17 GM/1 PACKET PO SCH (11:33)
[2016-09-02] MEDS: TRIAMCINOLONE ACETONIDE 0.1% CREAM 15 GM TOP SCH ×2 (11:33→22:26)
--- NOTE | 2016-09-02 16:59 | PDOC PROGRESS REPORT ---
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 The serum sodium from today's lab is 120, the goal of treatment is to achieve serum sodium of 125 once this is achieved she will be started on TOLVAPTAN Physical Exam Vital Signs: Temp Pulse Resp BP Pulse Ox 98.0 F 71 20 125/65 98 09/02/16 11:04 09/02/16 11:04 09/02/16 11:04 09/02/16 11:04 09/02/16 11:04 Intake & Output 09/01/16 09/02/16 09/03/16 06:59 06:59 06:59 Intake Total 1172 237 Output Total 2024 650 Balance -853 -413 Weight 72.3 kg General appearance: PRESENT: no acute distress Head exam: PRESENT: atraumatic, normocephalic Eye exam: PRESENT: conjunctiva pink, EOMI, PERRLA Neck exam: PRESENT: full ROM Respiratory exam: PRESENT: clear to auscultation corazon Cardiovascular exam: PRESENT: RRR, +S1, +S2 Vascular exam: PRESENT: normal capillary refill GI/Abdominal exam: PRESENT: normal bowel sounds, soft Rectal exam: PRESENT: deferred Neurological exam: PRESENT: alert, CN II-XII grossly intact Psychiatric exam: PRESENT: appropriate affect, normal mood Skin exam: PRESENT: dry, intact, warm Results Laboratory Results: 09/02/16 09:27 09/02/16 09:27 09/02/16 09/02/16 09:27 09:27 WBC 4.8 RBC 3.52 L Hgb 11.0 L Hct 31.0 L MCV 88 MCH 31.2 MCHC 35.4 RDW 15.4 H Plt Count 177 Seg Neutrophils % 69.0 Lymphocytes % 21.4 Monocytes % 8.8 Eosinophils % 0.5 Basophils % 0.3 Absolute Neutrophils 3.3 Absolute Lymphocytes 1.0 Absolute Monocytes 0.4 Absolute Eosinophils 0.0 Absolute Basophils 0.0 Sodium 120.0 L* Potassium 4.6 Chloride 91 L Carbon Dioxide 18 L Anion Gap 11 BUN 11 Creatinine 0.77 Est GFR ( Amer) > 60 Est GFR (Non-Af Amer) > 60 Glucose 99 Calcium 9.3 Magnesium 1.6 Impressions: Chest X-Ray 09/01/16 12:44 IMPRESSION: NO ACUTE RADIOGRAPHIC FINDING IN THE CHEST. Assessment & Plan - Diagnosis (1) Hyponatremia Is this a current diagnosis for this admission?: YesPlan: Symptomatic hyponatremia, she will continue normal saline at the present infusion rate (2) SIADH (syndrome of inappropriate ADH production) Is this a current diagnosis for this admission?: YesPlan: She has a history of SIADH,fluid restriction is not effective in this patient patient will be started on low-dose tolvaptan
[2016-09-02] MEDS: POTASSIUM CHLORIDE 10 MEQ TABLET.SA PO SCH (18:32)
[2016-09-02] MEDS: MONTELUKAST SODIUM 10 MG TABLET PO SCH (21:03)
[2016-09-03] MEDS: ALPRAZOLAM 0.25 MG TABLET PO SCH ×3 (05:14→21:16)
[2016-09-03] MEDS: METFORMIN HCL 500 MG TABLET PO SCH ×2 (08:12→16:31)
[2016-09-03] MEDS: MEGESTROL ACETATE 20 MG TABLET PO SCH (09:40)
[2016-09-03] MEDS: GLIPIZIDE 5 MG TABLET PO SCH ×2 (09:40→17:16)
[2016-09-03] MEDS: LANSOPRAZOLE 30 MG TAB.RAP.DR PO SCH (09:41)
[2016-09-03] MEDS: CARVEDILOL 12.5 MG TABLET PO SCH ×2 (09:41→21:16)
[2016-09-03] MEDS: LOSARTAN POTASSIUM 50 MG TABLET PO SCH (09:41)
[2016-09-03] MEDS: POLYETHYLENE GLYCOL 3350 POWDER 17 GM/1 PACKET PO SCH (09:44)
[2016-09-03] MEDS: TRIAMCINOLONE ACETONIDE 0.1% CREAM 15 GM TOP SCH ×2 (09:46→19:04)
[2016-09-03 10:25] LABS: ANION GAP 11 (5-19); BLOOD UREA NITROGEN 13 mg/dL (7-20); CALCIUM 9.6 mg/dL (8.4-10.2); CARBON DIOXIDE 18 mmol/L (22-30); CHLORIDE 92 mmol/L (98-107); GLUCOSE 114 mg/dL (75-110); POTASSIUM 5.1 mmol/L (3.6-5.0)
[2016-09-03 10:35] LABS: SODIUM 121.2 mmol/L (137-145)
--- NOTE | 2016-09-03 11:53 | PDOC PROGRESS REPORT ---
Subjective Progress Note for:: 09/03/16 Subjective:: She was seen by the bedside, she continues to require normal saline at a low infusion rate Physical Exam Vital Signs: Temp Pulse Resp BP Pulse Ox 97.8 F 73 18 148/80 H 99 09/03/16 03:23 09/03/16 03:23 09/03/16 03:23 09/03/16 03:23 09/03/16 03:23 Intake & Output 09/02/16 09/03/16 09/04/16 06:59 06:59 06:59 Intake Total 1172 1887 Output Total 2024 0850 Balance -853 -1813 Weight 72.3 kg 72.2 kg General appearance: PRESENT: no acute distress Eye exam: PRESENT: PERRLA Respiratory exam: PRESENT: clear to auscultation corazon Cardiovascular exam: PRESENT: +S1, +S2 GI/Abdominal exam: PRESENT: soft Neurological exam: PRESENT: alert, CN II-XII grossly intact Results Laboratory Results: 09/02/16 09:27 09/03/16 09:53 09/03/16 09:53 Sodium 121.2 L Potassium 5.1 H Chloride 92 L Carbon Dioxide 18 L Anion Gap 11 BUN 13 Creatinine 0.80 Est GFR ( Amer) > 60 Est GFR (Non-Af Amer) > 60 Glucose 114 H Calcium 9.6 Impressions: Chest X-Ray 09/01/16 12:44 IMPRESSION: NO ACUTE RADIOGRAPHIC FINDING IN THE CHEST. Assessment & Plan - Diagnosis (1) Hyponatremia Is this a current diagnosis for this admission?: Yes (2) SIADH (syndrome of inappropriate ADH production) Is this a current diagnosis for this admission?: Yes
[2016-09-03] MEDS: POTASSIUM CHLORIDE 10 MEQ TABLET.SA PO SCH (17:16)
[2016-09-03] MEDS: MONTELUKAST SODIUM 10 MG TABLET PO SCH (21:16)
[2016-09-03] MEDS: GABAPENTIN 300 MG CAPSULE PO SCH (21:16)
[2016-09-04] MEDS: ALPRAZOLAM 0.25 MG TABLET PO SCH ×3 (05:09→21:09)
[2016-09-04 06:14] LABS: ANION GAP 9 (5-19); BLOOD UREA NITROGEN 16 mg/dL (7-20); CALCIUM 9.3 mg/dL (8.4-10.2); CARBON DIOXIDE 17 mmol/L (22-30); CHLORIDE 92 mmol/L (98-107); CREATININE RESULT 0.85 mg/dL (0.52-1.25); GLUCOSE 144 mg/dL (75-110); POTASSIUM 4.6 mmol/L (3.6-5.0)
[2016-09-04 06:22] LABS: SODIUM 118.1 mmol/L (137-145)
[2016-09-04] MEDS: METFORMIN HCL 500 MG TABLET PO SCH ×2 (08:41→16:42)
[2016-09-04] MEDS: POLYETHYLENE GLYCOL 3350 POWDER 17 GM/1 PACKET PO SCH (08:56)
[2016-09-04] MEDS: GLIPIZIDE 5 MG TABLET PO SCH ×2 (09:09→17:30)
[2016-09-04] MEDS: LANSOPRAZOLE 30 MG TAB.RAP.DR PO SCH (09:09)
[2016-09-04] MEDS: MEGESTROL ACETATE 20 MG TABLET PO SCH (09:09)
[2016-09-04] MEDS: CARVEDILOL 12.5 MG TABLET PO SCH ×2 (09:14→21:10)
[2016-09-04] MEDS: LOSARTAN POTASSIUM 50 MG TABLET PO SCH (09:14)
[2016-09-04] MEDS: TRIAMCINOLONE ACETONIDE 0.1% CREAM 15 GM TOP SCH ×2 (09:26→21:13)
[2016-09-04] MEDS ORDERED: TOLVAPTAN 15 MG TABLET PO ONE (11:30)
--- NOTE | 2016-09-04 13:07 | PDOC PROGRESS REPORT ---
Subjective Progress Note for:: 09/04/16 Subjective:: She was seen by the bedside, the serum sodium from today's lab work is 118, she is started on tolvaptan Physical Exam Vital Signs: Temp Pulse Resp BP Pulse Ox 97.2 F 75 16 113/56 L 100 09/04/16 11:01 09/04/16 11:01 09/04/16 11:01 09/04/16 11:01 09/04/16 11:01 Intake & Output 09/03/16 09/04/16 09/05/16 06:59 06:59 06:59 Intake Total 1887 2313 237 Output Total 3700 9650 350 Balance -1813 -377 -113 Weight 72.2 kg General appearance: PRESENT: no acute distress, well-developed Eye exam: PRESENT: PERRLA Respiratory exam: PRESENT: clear to auscultation corazon Cardiovascular exam: PRESENT: +S1, +S2 GI/Abdominal exam: PRESENT: soft Neurological exam: PRESENT: alert, CN II-XII grossly intact Results Laboratory Results: 09/02/16 09:27 09/04/16 05:42 09/04/16 05:42 Sodium 118.1 L* Potassium 4.6 Chloride 92 L Carbon Dioxide 17 L Anion Gap 9 BUN 16 Creatinine 0.85 Est GFR ( Amer) > 60 Est GFR (Non-Af Amer) > 60 Glucose 144 H Calcium 9.3 Impressions: Chest X-Ray 09/01/16 12:44 IMPRESSION: NO ACUTE RADIOGRAPHIC FINDING IN THE CHEST. Assessment & Plan - Diagnosis (1) Hyponatremia Is this a current diagnosis for this admission?: Yes (2) SIADH (syndrome of inappropriate ADH production) Is this a current diagnosis for this admission?: YesPlan: She is started on tolvaptan
[2016-09-04] MEDS: POTASSIUM CHLORIDE 10 MEQ TABLET.SA PO SCH (17:30)
[2016-09-04] MEDS: GABAPENTIN 300 MG CAPSULE PO SCH (21:09)
[2016-09-04] MEDS: MONTELUKAST SODIUM 10 MG TABLET PO SCH (21:09)
[2016-09-04] MEDS: NORMAL SALINE 1000 ML 1,000 ML IV PRN (21:16)
[2016-09-05 05:11] LABS: ANION GAP 9 (5-19); BLOOD UREA NITROGEN 19 mg/dL (7-20); CALCIUM 9.8 mg/dL (8.4-10.2); CARBON DIOXIDE 15 mmol/L (22-30); CHLORIDE 105 mmol/L (98-107); CREATININE RESULT 0.95 mg/dL (0.52-1.25); GLUCOSE 97 mg/dL (75-110); POTASSIUM 4.8 mmol/L (3.6-5.0)
[2016-09-05] MEDS: ALPRAZOLAM 0.25 MG TABLET PO SCH (05:45)
[2016-09-05] MEDS: METFORMIN HCL 500 MG TABLET PO SCH (08:24)
[2016-09-05] MEDS ORDERED: TOLVAPTAN 15 MG TABLET PO SCH (10:00)
[2016-09-05] MEDS: GLIPIZIDE 5 MG TABLET PO SCH (10:57)
[2016-09-05] MEDS: LOSARTAN POTASSIUM 50 MG TABLET PO SCH (10:57)
[2016-09-05] MEDS: CARVEDILOL 12.5 MG TABLET PO SCH (10:57)
[2016-09-05] MEDS: LANSOPRAZOLE 30 MG TAB.RAP.DR PO SCH (10:57)
[2016-09-05] MEDS: MEGESTROL ACETATE 20 MG TABLET PO SCH (10:58)
[2016-09-05] MEDS: TRIAMCINOLONE ACETONIDE 0.1% CREAM 15 GM TOP SCH (11:01)
[2016-09-05] MEDS: POLYETHYLENE GLYCOL 3350 POWDER 17 GM/1 PACKET PO SCH (11:02)
--- NOTE | 2016-09-05 11:39 | PDOC DISCHARGE SUMMARY ---
General - Admit/Disc Date/PCP Admission Date/Primary Care Provider: 09/01/16 11:02 MIRYAM DANIEL MD Discharge Date: 09/05/16 - Discharge Diagnosis (1) Hyponatremia Is this a current diagnosis for this admission?: Yes (2) SIADH (syndrome of inappropriate ADH production) Is this a current diagnosis for this admission?: Yes (3) Type 2 diabetes mellitus Is this a current diagnosis for this admission?: Yes (4) Metabolic encephalopathy Is this a current diagnosis for this admission?: Yes - Additional Information Discharge Diet: Diabetic Discharge Activity: Activity As Tolerated Home Medications: Albuterol Sulfate [Proair HFA] 2 puff IH Q4 PRN 09/01/16 Alprazolam [Xanax 0.25 mg Tablet] 0.25 mg PO TID 09/01/16 Carvedilol [Coreg 25 mg Tablet] 25 mg PO Q12 09/01/16 Diclofenac Sodium [Voltaren] 1 applic TP QID 09/01/16 Esomeprazole Magnesium [Nexium] 40 mg PO DAILY 09/01/16 Gabapentin [Neurontin 300 mg Capsule] 300 mg PO Q8 09/01/16 Glipizide [Glucotrol 5 mg Tablet] 5 mg PO BID 09/01/16 Megestrol Acetate 40 mg PO DAILY 09/01/16 Metformin HCl [Glucophage] 500 mg PO BIDACBS 09/01/16 Montelukast Sodium [Singulair 10 mg Tablet] 10 mg PO QHS 09/01/16 Polyethylene Glycol 3350 [Miralax Powder 17 gm/Packet] 1 packet PO DAILY Telmisartan [Micardis 40 mg Tablet] 40 mg PO DAILY 09/01/16 Triamcinolone Acetonide [Aristocort 0.1% Cream] 1 applic TP BID 09/01/16 Melatonin 1 mg PO QHS 09/02/16 Tolvaptan [Samsca 15 mg Tablet] 15 mg PO DAILY #30 tablet 09/05/16 History of Present Illness History of Present Illness: JEAN PAUL JURADO is a 86 year old female, she was admitted because of hyponatremic encephalopathy, she was confused and stuporous, she was seen in the office, The serum sodium done in the office was 114. She was admitted directly from the office to the hospital, she has syndrome of inappropriate ADH secretion. Hospital Course Hospital Course: Patient was admitted because of symptomatic severe hyponatremia, the serum sodium was 114, she was treated with fluid restriction, low dose sodium chloride infusion. She has a history of hyponatremia due to SIADH, on this admission she was treated with tolvaptan, the most recent serum sodium is 129. We will continue tolvaptan for the next 3-6 months. Physical Exam Vital Signs: Temp Pulse Resp BP Pulse Ox 98.8 F 74 20 108/52 L 100 09/05/16 04:01 09/05/16 04:01 09/05/16 04:01 09/05/16 04:01 09/05/16 04:01 Intake & Output 09/04/16 09/05/16 09/06/16 06:59 06:59 06:59 Intake Total 2313 2432 Output Total 2690 2050 Balance -377 -918 Weight 72 kg General appearance: PRESENT: no acute distress Eye exam: PRESENT: PERRLA Respiratory exam: PRESENT: clear to auscultation corazon Cardiovascular exam: PRESENT: +S1, +S2 GI/Abdominal exam: PRESENT: soft Neurological exam: PRESENT: alert, CN II-XII grossly intact Results Laboratory Results: 09/02/16 09:27 09/05/16 04:40 09/05/16 04:40 Sodium 129.0 L Potassium 4.8 Chloride 105 Carbon Dioxide 15 L Anion Gap 9 BUN 19 Creatinine 0.95 Est GFR ( Amer) > 60 Est GFR (Non-Af Amer) 56 L Glucose 97 Calcium 9.8 Impressions: Chest X-Ray 09/01/16 12:44 IMPRESSION: NO ACUTE RADIOGRAPHIC FINDING IN THE CHEST.
[2016-09-05 11:56] VITALS: BP 129/65
== END 2016-09-05 12:42 | disposition home or self-care (01) | DRG 643 ==
LOC: 3S 11:02 → 3N 11:52
PROVIDERS: ADMIT Internal Medicine; ATTEND Internal Medicine
DX: E22.2 Syndrome of inappropriate secretion of antidiuretic hormone (principal); G93.41 Metabolic encephalopathy; E11.9 Type 2 diabetes mellitus without complications; E78.5 Hyperlipidemia, unspecified; I10 Essential (primary) hypertension; K21.9 Gastro-esophageal reflux disease without esophagitis; M19.90 Unspecified osteoarthritis, unspecified site; F32.9 Major depressive disorder, single episode, unspecified; Z79.84 Long term (current) use of oral hypoglycemic drugs; Z79.51 Long term (current) use of inhaled steroids; Z79.899 Other long term (current) drug therapy
CPT/HCPCS: 36415; 71010; 80048; 80076; 81001; 82962; 83036; 83735; 83930; 83935; 84300; 84439; 84443; 85025; 85027; A9270-GY; J3490; J7030

== ENCOUNTER → 2016-09-22 | Outpatient (CLI) | payer MEDICARE, OTHER ==
--- NOTE | 2016-09-22 21:44 | RADIOLOGY REPORT (SQ) ---
EXAM DESCRIPTION: CT ABD/PELVIS WITH IV ORAL COMPLETED DATE/TIME: 09/22/2016 8:16 pm REASON FOR STUDY: Cystocele, unspecified N81.10 CYSTOCELE, UNSPECIFIED COMPARISON: 01/25/2016 TECHNIQUE: CT scan of the abdomen and pelvis performed using helical scanning technique with dynamic intravenous contrast injection. No oral contrast. Images reviewed with lung, soft tissue, and bone windows. Reconstructed coronal and sagittal MPR images reviewed. Delayed images for evaluation of the urinary system also acquired. All images stored on PACS. All CT scanners at this facility use dose modulation, iterative reconstruction, and/or weight based d osing when appropriate to reduce radiation dose to as low as reasonably achievable (ALARA). [facility]: Dose Right [facility]: CareDose [facility]: Dose Right [facility]: Teradose 4D [facility]: Zhou Heiya CONTRAST TYPE AND DOSE: contrast/concentration: Isovue 370.00 mg/ml; Total Contrast Delivered: 81.0 ml; Total Saline Delivered: 68.0 ml RENAL FUNCTION: GFR > 60. RADIATION DOSE: 16.97. LIMITATIONS: None. FINDINGS: LOWER CHEST: No significant findings. No nodules or infiltrates. LIVER: Normal size. No masses or dilated ducts. SPLEEN: Normal size. No focal lesions. PANCREAS: No masses. No significant calcifications. No adjacent inflammation or peripancreatic fluid collections. Pancreatic duct not dilated. GALLBLADDER: No identified stones by CT criteria. No inflammatory changes to suggest cholecystitis. ADRENAL GLANDS: No significant masses or asymmetry. RIGHT KIDNEY AND URETER: No solid masses. Similar cysts. No significant calcifications. No hydron ephrosis or hydroureter. LEFT KIDNEY AND URETER: No solid masses. Similar cysts. No significant calcifications. No hydrone phrosis or hydroureter. AORTA AND VESSELS: No aneurysm. No dissection. Renal arteries, SMA, celiac without significant stenos is. RETROPERITONEUM: No retroperitoneal adenopathy, hemorrhage or masses. BOWEL AND PERITONEAL CAVITY: Colonic diverticulosis. No masses or inflammatory changes. No free flui d or peritoneal masses. APPENDIX: Normal. PELVIS: Prior hysterectomy. No mass or free fluid. Normal bladder. ABDOMINAL WALL: No masses. No hernias. BONES: No significant or acute findings. OTHER: No other significant finding. IMPRESSION: NO ACUTE FINDING IN THE ABDOMEN OR PELVIS ON CT SCAN WITH IV CONTRAST. TECHNICAL DOCUMENTATION: JOB ID: [id number] Quality ID # [id number]: Final reports with documentation of one or more dose reduction techniques (e.g., Au tomated exposure control, adjustment of the mA and/or kV according to patient size, use of iterative reconstruction technique) 2010 [employer]- All Rights Reserved
== END ==
LOC: RAD 17:21
PROVIDERS: ATTEND Internal Medicine
DX: N81.10 Cystocele, unspecified (principal)
CPT/HCPCS: 74177; 82565

== ENCOUNTER 2016-09-28 16:25 | Observation (INO) | payer MEDICARE, OTHER ==
[2016-09-28] MEDS ORDERED: DEXTROSE 40% GEL 15 GM TUBE PO PRN (18:01)
[2016-09-28] MEDS ORDERED: DEXTROSE 50%-WATER SYRINGE 12.5 GM/25 ML DOSE IV PRN (18:01)
[2016-09-28] MEDS ORDERED: INSULIN LISPRO 100 UNIT/ML 3 ML VIAL SUBCUT PRN (18:01)
[2016-09-28] MEDS ORDERED: DEXTROSE 40% GEL 15 GM TUBE X 2 PO PRN (18:01)
[2016-09-28] MEDS ORDERED: DEXTROSE 50%-WATER SYRINGE 25 GM/50 ML DOSE IV PRN (18:01)
[2016-09-28] MEDS ORDERED: GLUCAGON,HUMAN RECOMB 1 MG INJ IM PRN (18:01)
[2016-09-28 18:50] LABS: PROTHROMBIN TIME 12.2 SEC (11.4-15.4)
[2016-09-28 18:51] LABS: PARTIAL THROMBOPLASTIN TIME 27.8 SEC (23.5-35.8)
[2016-09-28 18:53] LABS: ALANINE AMINOTRANSFERASE 39 U/L (9-52); ALBUMIN 3.9 g/dL (3.5-5.0); ALKALINE PHOSPHATASE 62 U/L (38-126); ANION GAP 13 (5-19); ASPARTATE AMINO TRANSFERASE 19 U/L (14-36); BILIRUBIN,DIRECT 0.3 mg/dL (0.0-0.4); BILIRUBIN,TOTAL 0.5 mg/dL (0.2-1.3); BLOOD UREA NITROGEN 26 mg/dL (7-20); CALCIUM 9.7 mg/dL (8.4-10.2); CARBON DIOXIDE 20 mmol/L (22-30); CHLORIDE 99 mmol/L (98-107); CREATININE RESULT 1.11 mg/dL (0.52-1.25); GLUCOSE 89 mg/dL (75-110); POTASSIUM 5.3 mmol/L (3.6-5.0); TOTAL PROTEIN 6.4 g/dL (6.3-8.2)
[2016-09-28 18:55] LABS: APPEARANCE,URINE CLEAR; BILIRUBIN,URINE NEGATIVE (NEGATIVE); GLUCOSE, URINE NEGATIVE (NEGATIVE); KETONES,URINE NEGATIVE (NEGATIVE); LEUKOCYTE ESTERASE,URINE NEGATIVE (NEGATIVE); NITRITE,URINE NEGATIVE (NEGATIVE); PROTEIN,URINE NEGATIVE (NEGATIVE); URINE SPECIFIC GRAVITY 1.006; UROBILINOGEN,URINE NEGATIVE mg/dL (<2.0)
--- NOTE | 2016-09-28 18:55 | RADIOLOGY REPORT (SQ) ---
EXAM DESCRIPTION: CHEST SINGLE VIEW COMPLETED DATE/TIME: 09/28/2016 6:38 pm REASON FOR STUDY: possible pnemonia COMPARISON: 09/01/2016 EXAM PARAMETERS: NUMBER OF VIEWS: One view. TECHNIQUE: Single frontal radiographic view of the chest acquired. RADIATION DOSE: NA LIMITATIONS: None. FINDINGS: LUNGS AND PLEURA: No acute opacities, masses or pneumothorax. No pleural effusion. MEDIASTINUM AND HILAR STRUCTURES: Stable. HEART AND VASCULAR STRUCTURES: Stable. BONES: No acute findings. HARDWARE: None in the chest. OTHER: No other significant finding. IMPRESSION: NO ACUTE RADIOGRAPHIC FINDING IN THE CHEST. TECHNICAL DOCUMENTATION: JOB ID: [id number]
[2016-09-28 19:09] LABS: FREE T3 3.37 pg/mL (2.77-5.27)
[2016-09-28 19:23] LABS: THYROID STIMULATING HORMONE 2.89 uIU/mL (0.47-4.68)
[2016-09-28 19:25] LABS: ABSOLUTE LYMPHOCYTES (AUTO) 2.1 10^3/uL (0.5-4.7); ABSOLUTE MONOCYTES (AUTO) 0.4 10^3/uL (0.1-1.4); ABSOLUTE NEUT (AUTO) 4.3 10^3/uL (1.7-8.2); BASOPHILS % (AUTO) 0.5 % (0-2); EOSINOPHILS % (AUTO) 0.3 % (0-6); HEMOGLOBIN 11.4 g/dL (12.0-15.5); HGB HCT DIFFERENCE 0.2; LYMPHOCYTES % (AUTO) 30.5 % (13-45); MEAN CORPUSCULAR HEMOGLOBIN 30.9 pg (27.0-33.4); MEAN CORPUSCULAR HGB CONC 33.6 g/dL (32.0-36.0); MONOCYTES % (AUTO) 6.3 % (3-13); RED BLOOD COUNT 3.69 10^6/uL (3.72-5.28); RED CELL DISTRIBUTION WIDTH 15.8 % (11.5-14.0); SEGMENTED NEUTROPHILS % (AUTO) 62.4 % (42-78); WHITE BLOOD COUNT 6.8 10^3/uL (4.0-10.5)
[2016-09-28 19:30] LABS: MEAN CORPUSCULAR VOLUME 92 fl (80-97)
[2016-09-28] MEDS ORDERED: ENOXAPARIN SODIUM INJ 30 MG/0.3 ML DISP.SYRIN SUBCUT ONE (19:30)
[2016-09-28] MEDS: MONTELUKAST SODIUM 10 MG TABLET PO SCH (20:04)
[2016-09-28] MEDS: ACETAMINOPHEN 325 MG TABLET PO PRN (20:04)
[2016-09-28] MEDS: GABAPENTIN 300 MG CAPSULE PO SCH (20:04)
[2016-09-28] MEDS ORDERED: LOSARTAN POTASSIUM 50 MG TABLET PO ONE (20:45)
[2016-09-28] MEDS ORDERED: LANSOPRAZOLE 30 MG TAB.RAP.DR PO ONE (20:45)
[2016-09-28] MEDS ORDERED: METFORMIN HCL 500 MG TABLET PO ONE (20:45)
[2016-09-28] MEDS ORDERED: GLIPIZIDE 5 MG TABLET PO ONE (20:45)
[2016-09-28] MEDS ORDERED: (PENDING PHARMACY ID) (Melatonin [Melatonin] 3 MG) PO SCH (21:00)
[2016-09-28] MEDS: ALPRAZOLAM 0.25 MG TABLET PO PRN (21:04)
[2016-09-28] MEDS: CARVEDILOL 12.5 MG TABLET PO SCH (21:04)
[2016-09-29] MEDS: MEGESTROL ACETATE 20 MG TABLET PO SCH (08:22)
[2016-09-29] MEDS: METFORMIN HCL 500 MG TABLET PO SCH ×2 (08:23→17:54)
[2016-09-29] MEDS: CARVEDILOL 12.5 MG TABLET PO SCH ×2 (08:23→21:29)
[2016-09-29] MEDS: GLIPIZIDE 5 MG TABLET PO SCH ×2 (08:23→17:54)
[2016-09-29] MEDS: ENOXAPARIN SODIUM INJ 30 MG/0.3 ML DISP.SYRIN SUBCUT SCH (08:24)
[2016-09-29] MEDS: TOLVAPTAN 15 MG TABLET PO SCH (08:26)
[2016-09-29 08:33] LABS: ANION GAP 11 (5-19); BLOOD UREA NITROGEN 23 mg/dL (7-20); CALCIUM 9.9 mg/dL (8.4-10.2); CARBON DIOXIDE 22 mmol/L (22-30); CHLORIDE 101 mmol/L (98-107); CREATININE RESULT 1.06 mg/dL (0.52-1.25); GLUCOSE 97 mg/dL (75-110); POTASSIUM 5.1 mmol/L (3.6-5.0)
[2016-09-29] MEDS: ALPRAZOLAM 0.25 MG TABLET PO PRN ×2 (13:50→21:29)
[2016-09-29] MEDS ORDERED: (PENDING PHARMACY ID) (Telmisartan [Micardis 40 Mg Tablet] 40 MG) PO SCH (17:00)
[2016-09-29] MEDS: LANSOPRAZOLE 30 MG TAB.RAP.DR PO SCH (17:54)
[2016-09-29] MEDS: LOSARTAN POTASSIUM 50 MG TABLET PO SCH (17:54)
--- NOTE | 2016-09-29 18:49 | PDOC H&P ---
History of Present Illness Admission Date/PCP: 09/28/16 23:35 MIRYAM DANIEL MD History of Present Illness: JEAN PAUL JURADO is a 86 year old female, she has multiple comorbid conditions, patient spouse called the office because she was confused and she slumped into unconsiouness, he was concerned that she may have hyponatremia with associated encephalopathy, he was requesting that patient needed to the admitted directly to the hospital. She was admitted for observation, the blood work that was done in the office yesterday demonstrated serum sodium 126, he was concerned that the serum sodium will drop to below 120. The blood work that was done in the hospital revealed serum sodium ,132. MRI of the brain was done, there is no acute pathology, she complained of vaginal burning, she was seen by [employer] physician, she was diagnosed as having candidiasis. Patient spouse is is upset because she says she was dying and she made phone calls to family in [place] and across the country to wish them bye from this world. Past Medical History Cardiac Medical History: Reports: Hyperlipidema, Hypertension Endocrine Medical History: Reports: Diabetes Mellitus Type 2 GI Medical History: Reports: Gastroesophageal Reflux Disease Musculoskeltal Medical History: Reports: Arthritis Psychiatric Medical History: Reports: Depression Past Surgical History Past Surgical History: Reports: Section, Hysterectomy Social History Smoking Status: Never Smoker Frequency of Alcohol Use: None Hx Recreational Drug Use: No Hx Prescription Drug Abuse: No Family History Family History: Reviewed & Not Pertinent Parental Family History Reviewed: Yes Children Family History Reviewed: Yes Sibling(s) Family History Reviewed.: Yes Medication/Allergy Home Medications: Alprazolam [Xanax 0.25 mg Tablet] 0.5 tab PO Q8HP PRN 09/28/16 Carvedilol [Coreg 25 mg Tablet] 25 mg PO Q12 09/28/16 Gabapentin [Neurontin 300 mg Capsule] 300 mg PO DAILY@209909/28/16 Glipizide [Glucotrol 5 mg Tablet] 5 mg PO BID 09/28/16 Megestrol Acetate 40 mg PO QAM 09/28/16 Melatonin 3 mg PO DAILY@209909/28/16 Metformin HCl [Glucophage] 500 mg PO BID 09/28/16 Montelukast Sodium [Singulair 10 mg Tablet] 10 mg PO DAILY@199909/28/16 Pantoprazole Sodium [Protonix] 40 mg PO DAILY@1700 09/28/16 Telmisartan [Micardis 40 mg Tablet] 40 mg PO DAILY@1700 09/28/16 Tolvaptan [Samsca 15 mg Tablet] 15 mg PO QAM 09/28/16 Allergies/Adverse Reactions: morphine Allergy (Verified 06/03/16 15:53) Shellfish * [Shellfish] Allergy (Verified 06/03/16 15:53) richardson Allergy (Uncoded 06/03/16 15:53) Review of Systems Constitutional: PRESENT: anorexia Eyes: ABSENT: visual disturbances Ears: ABSENT: hearing changes Cardiovascular: ABSENT: chest pain, dyspnea on exertion, edema, orthropnea, palpitations Respiratory: ABSENT: cough, hemoptysis Gastrointestinal: ABSENT: abdominal pain, constipation, diarrhea, hematemesis, hematochezia, nausea, vomiting Genitourinary: ABSENT: dysuria, hematuria Musculoskeletal: ABSENT: joint swelling Integumentary: ABSENT: rash, wounds Neurological: ABSENT: abnormal gait, abnormal speech, confusion, dizziness, focal weakness, syncope Psychiatric: ABSENT: anxiety, depression, homidical ideation, suicidal ideation Endocrine: ABSENT: cold intolerance, heat intolerance, menstrual abnormalities, polydipsia, polyuria Hematologic/Lymphatic: ABSENT: easy bleeding, easy bruising, lymphadenopathy Physical Exam Vital Signs: Temp Pulse Resp BP Pulse Ox 97.5 F 87 20 115/52 L 100 09/29/16 15:02 09/29/16 15:02 09/29/16 15:02 09/29/16 15:02 09/29/16 15:02 Intake & Output 09/28/16 09/29/16 09/30/16 06:59 06:59 06:59 Intake Total 235 20 Balance 235 20 Weight 69.4 kg General appearance: PRESENT: no acute distress Eye exam: PRESENT: PERRLA Respiratory exam: PRESENT: clear to auscultation corazon Cardiovascular exam: PRESENT: +S1, +S2 GI/Abdominal exam: PRESENT: soft Neurological exam: PRESENT: alert, CN II-XII grossly intact Results Laboratory Results: 09/28/16 19:16 09/29/16 07:59 09/28/16 09/28/16 09/28/16 17:49 18:13 18:13 WBC Cancelled RBC Cancelled Hgb Cancelled Hct Cancelled MCV Cancelled MCH Cancelled MCHC Cancelled RDW Cancelled Plt Count Cancelled Seg Neutrophils % Cancelled Lymphocytes % Cancelled Monocytes % Cancelled Eosinophils % Cancelled Basophils % Cancelled Absolute Neutrophils Cancelled Absolute Lymphocytes Cancelled Absolute Monocytes Cancelled Absolute Eosinophils Cancelled Absolute Basophils Cancelled Sodium 132.0 L Potassium 5.3 H Chloride 99 Carbon Dioxide 20 L Anion Gap 13 BUN 26 H Creatinine 1.11 Est GFR ( Amer) 56 L Est GFR (Non-Af Amer) 46 L Glucose 89 Calcium 9.7 Total Bilirubin 0.5 AST 19 ALT 39 Alkaline Phosphatase 62 Total Protein 6.4 Albumin 3.9 TSH Free T4 Free T3 pg/mL Urine Color YELLOW Urine Appearance CLEAR Urine pH 6.0 Ur Specific Bivins 1.006 Urine Protein NEGATIVE Urine Glucose (UA) NEGATIVE Urine Ketones NEGATIVE Urine Blood NEGATIVE Urine Nitrite NEGATIVE Ur Leukocyte Esterase NEGATIVE Urine WBC (Auto) 1 09/28/16 09/28/16 09/29/16 18:13 19:16 07:59 WBC 6.8 RBC 3.69 L Hgb 11.4 L Hct 34.0 L MCV 92 D MCH 30.9 MCHC 33.6 RDW 15.8 H Plt Count 177 Seg Neutrophils % 62.4 Lymphocytes % 30.5 Monocytes % 6.3 Eosinophils % 0.3 Basophils % 0.5 Absolute Neutrophils 4.3 Absolute Lymphocytes 2.1 Absolute Monocytes 0.4 Absolute Eosinophils 0.0 Absolute Basophils 0.0 Sodium 134.0 L Potassium 5.1 H Chloride 101 Carbon Dioxide 22 Anion Gap 11 BUN 23 H Creatinine 1.06 Est GFR ( Amer) 59 L Est GFR (Non-Af Amer) 49 L Glucose 97 Calcium 9.9 Total Bilirubin AST ALT Alkaline Phosphatase Total Protein Albumin TSH 2.89 Free T4 1.51 Free T3 pg/mL 3.37 Urine Color Urine Appearance Urine pH Ur Specific Bivins Urine Protein Urine Glucose (UA) Urine Ketones Urine Blood Urine Nitrite Ur Leukocyte Esterase Urine WBC (Auto) Impressions: Chest X-Ray 09/28/16 00:00 IMPRESSION: NO ACUTE RADIOGRAPHIC FINDING IN THE CHEST. Assessment & Plan - Diagnosis (1) Hyponatremia Is this a current diagnosis for this admission?: YesPlan: She was admitted for observation, the hyponatremia is normal on this admission (2) Metabolic encephalopathy Is this a current diagnosis for this admission?: Yes (3) SIADH (syndrome of inappropriate ADH production) Is this a current diagnosis for this admission?: Yes (4) Type 2 diabetes mellitus Qualifiers: Diabetes mellitus complication status: without complication Diabetes mellitus residential insulin use: unspecified terminal supervisor insulin use status Qualified Code(s): E11.9 - Type 2 diabetes mellitus without complications Is this a current diagnosis for this admission?: Yes
[2016-09-29] MEDS: MONTELUKAST SODIUM 10 MG TABLET PO SCH (20:13)
[2016-09-29] MEDS: GABAPENTIN 300 MG CAPSULE PO SCH (20:13)
--- NOTE | 2016-09-29 23:01 | RADIOLOGY REPORT (SQ) ---
EXAM DESCRIPTION: MRI HEAD WITHOUT COMPLETED DATE/TIME: 09/29/2016 9:44 pm REASON FOR STUDY: confusion COMPARISON: Brain CT scan dated 07/28/2016 TECHNIQUE: Multiplanar imaging includes non-contrasted T1, T2, FLAIR, and Diffusion with ADC map seq uences. Images stored on PACS. LIMITATIONS: None. FINDINGS: ANATOMY: No anomalies. Normal vascular flow voids. Pituitary fossa normal. CSF SPACES: Normal in size and contour. No hemorrhage. CEREBRUM: A few high-signal intensity lesions scattered throughout the white matter on FLAIR imaging with distribution suggesting chronic micro-vascular ischemic change. Sulci and gyri normal in size a nd contour. No evidence of hemorrhage, mass or extraaxial fluid collection. POSTERIOR FOSSA: No signal alteration. No hemorrhage. No edema, masses or mass effect. Internal erik tory canals, cerebello-pontine angles, mastoids normal. DIFFUSION: Negative for acute or sub-acute infarction. ORBITS: No masses. Globes normal. PARANASAL SINUSES: No fluid levels. Mucosa normal. OTHER: No other significant finding. IMPRESSION: MINIMAL MICROVASCULAR ISCHEMIC CHANGE. OTHERWISE NORMAL STUDY. TECHNICAL DOCUMENTATION: JOB ID: [id number]- All Rights Reserved
[2016-09-30] MEDS: MEGESTROL ACETATE 20 MG TABLET PO SCH (08:26)
[2016-09-30] MEDS: TOLVAPTAN 15 MG TABLET PO SCH (08:27)
[2016-09-30] MEDS: CARVEDILOL 12.5 MG TABLET PO SCH (09:45)
[2016-09-30] MEDS: METFORMIN HCL 500 MG TABLET PO SCH ×2 (09:45→17:07)
[2016-09-30] MEDS: GLIPIZIDE 5 MG TABLET PO SCH ×2 (09:45→17:07)
[2016-09-30] MEDS: ENOXAPARIN SODIUM INJ 30 MG/0.3 ML DISP.SYRIN SUBCUT SCH (09:46)
[2016-09-30] MEDS: ACETAMINOPHEN 325 MG TABLET PO PRN (14:50)
[2016-09-30] MEDS: LANSOPRAZOLE 30 MG TAB.RAP.DR PO SCH (17:07)
[2016-09-30] MEDS: LOSARTAN POTASSIUM 50 MG TABLET PO SCH (17:07)
--- NOTE | 2016-09-30 17:17 | PDOC DISCHARGE SUMMARY ---
General - Admit/Disc Date/PCP Admission Date/Primary Care Provider: 09/28/16 23:35 MIRYAM DANIEL MD Discharge Date: 09/30/16 - Discharge Diagnosis (1) Hyponatremia Is this a current diagnosis for this admission?: Yes (2) Metabolic encephalopathy Is this a current diagnosis for this admission?: Yes (3) SIADH (syndrome of inappropriate ADH production) Is this a current diagnosis for this admission?: Yes (4) Type 2 diabetes mellitus Is this a current diagnosis for this admission?: Yes - Additional Information Discharge Diet: Diabetic Discharge Activity: Activity As Tolerated Home Medications: Alprazolam [Xanax 0.25 mg Tablet] 0.5 tab PO Q8HP PRN 09/28/16 Carvedilol [Coreg 25 mg Tablet] 25 mg PO Q12 09/28/16 Gabapentin [Neurontin 300 mg Capsule] 300 mg PO DAILY@209909/28/16 Glipizide [Glucotrol 5 mg Tablet] 5 mg PO BID 09/28/16 Megestrol Acetate 40 mg PO QAM 09/28/16 Melatonin 3 mg PO DAILY@209909/28/16 Metformin HCl [Glucophage] 500 mg PO BID 09/28/16 Montelukast Sodium [Singulair 10 mg Tablet] 10 mg PO DAILY@199909/28/16 Pantoprazole Sodium [Protonix] 40 mg PO DAILY@169909/28/16 Telmisartan [Micardis 40 mg Tablet] 40 mg PO DAILY@169909/28/16 Tolvaptan [Samsca 15 mg Tablet] 15 mg PO QAM 09/28/16 History of Present Illness History of Present Illness: JEAN PAUL JURADO is a 86 year old female, she has multiple comorbid conditions, patient spouse called the office because she was confused and she slumped into unconsiouness, he was concerned that she may have hyponatremia with associated encephalopathy, he was requesting that patient needed to the admitted directly to the hospital. She was admitted for observation, the blood work that was done in the office yesterday demonstrated serum sodium 126, he was concerned that the serum sodium will drop to below 120. The blood work that was done in the hospital revealed serum sodium ,132. MRI of the brain was done, there is no acute pathology, she complained of vaginal burning, she was seen by [employer] physician, she was diagnosed as having candidiasis. Patient spouse is is upset because she says she was dying and she made phone calls to family in [place] and across the country to wish them bye from this world. Hospital Course Hospital Course: Patient was admitted for evaluation of hyponatremia. See H&P for details, she was seen by [employer] because of vaginal burning. Physical Exam Vital Signs: Temp Pulse Resp BP Pulse Ox 97.6 F 81 20 126/59 H 100 09/30/16 11:33 09/30/16 14:00 09/30/16 11:33 09/30/16 11:33 09/30/16 11:33 Intake & Output 09/29/16 09/30/16 10/01/16 06:59 06:59 06:59 Intake Total 235 383 237 Output Total 3883 500 Balance 239 -9510 -368 Weight 69.4 kg 71.4 kg General appearance: PRESENT: no acute distress Head exam: PRESENT: atraumatic, normocephalic Neck exam: PRESENT: full ROM Cardiovascular exam: PRESENT: RRR, +S1, +S2 Vascular exam: PRESENT: normal capillary refill GI/Abdominal exam: PRESENT: normal bowel sounds, soft Rectal exam: PRESENT: deferred Neurological exam: PRESENT: alert, awake, oriented to person, oriented to place , oriented to time, oriented to situation, CN II-XII grossly intact Psychiatric exam: PRESENT: appropriate affect, normal mood Skin exam: PRESENT: dry, intact, warm Results Laboratory Results: 09/28/16 19:16 09/29/16 07:59 09/28/16 17:49 Catheterized Urine Urine Culture - Final NO GROWTH 2 DAYS Impressions: Chest X-Ray 09/28/16 00:00 IMPRESSION: NO ACUTE RADIOGRAPHIC FINDING IN THE CHEST. Head MRI 09/29/16 00:00 IMPRESSION: MINIMAL MICROVASCULAR ISCHEMIC CHANGE. OTHERWISE NORMAL STUDY.
[2016-09-30 17:52] LABS: ANION GAP 14 (5-19); BLOOD UREA NITROGEN 19 mg/dL (7-20); CALCIUM 9.6 mg/dL (8.4-10.2); CARBON DIOXIDE 19 mmol/L (22-30); CHLORIDE 99 mmol/L (98-107); CREATININE RESULT 0.89 mg/dL (0.52-1.25); GLUCOSE 107 mg/dL (75-110); POTASSIUM 5.4 mmol/L (3.6-5.0); SODIUM 132.3 mmol/L (137-145)
[2016-09-30 18:08] VITALS: BP 143/64
== END 2016-09-30 18:59 | disposition home or self-care (01) ==
LOC: UNDOADMIN 16:25 → 3N 16:25 → INTOOBSV 23:35
PROVIDERS: ADMIT Internal Medicine; ATTEND Internal Medicine
DX: E87.1 Hypo-osmolality and hyponatremia (principal); G93.41 Metabolic encephalopathy; E22.2 Syndrome of inappropriate secretion of antidiuretic hormone; E11.9 Type 2 diabetes mellitus without complications; B37.89 Other sites of candidiasis; F03.90 Unspecified dementia, unspecified severity, without behavioral disturbance, psychotic disturbance, mood disturbance, and anxiety; I10 Essential (primary) hypertension; F32.9 Major depressive disorder, single episode, unspecified; K21.9 Gastro-esophageal reflux disease without esophagitis; Z79.899 Other long term (current) drug therapy; Z79.84 Long term (current) use of oral hypoglycemic drugs; Z79.818 Long term (current) use of other agents affecting estrogen receptors and estrogen levels; Z90.710 Acquired absence of both cervix and uterus
CPT/HCPCS: 36415 ×3; 87086; 84439; 82962 ×3; 84443; 85025; 85610; 85730; 80076; 80048 ×3; 81001; 84481; 70551; 71010; G0378 ×3; G0379; A9270 ×22; J1650 ×3

== ENCOUNTER 2016-10-19 12:43 | Inpatient (IN) | payer MEDICARE, OTHER ==
[2016-10-19] MEDS ORDERED: FENTANYL 25 MCG/HR PATCH.TD72 TD ONE (13:21)
[2016-10-19 13:50] LABS: ALANINE AMINOTRANSFERASE 36 U/L (9-52); ALKALINE PHOSPHATASE 52 U/L (38-126); ANION GAP 10 (5-19); ASPARTATE AMINO TRANSFERASE 21 U/L (14-36); BILIRUBIN,DIRECT 0.3 mg/dL (0.0-0.4); BILIRUBIN,TOTAL 0.7 mg/dL (0.2-1.3); BLOOD UREA NITROGEN 14 mg/dL (7-20); CALCIUM 9.4 mg/dL (8.4-10.2); CARBON DIOXIDE 20 mmol/L (22-30); CHLORIDE 91 mmol/L (98-107); CREATININE RESULT 0.78 mg/dL (0.52-1.25); GLUCOSE 173 mg/dL (75-110); POTASSIUM 5.2 mmol/L (3.6-5.0); TOTAL PROTEIN 6.6 g/dL (6.3-8.2)
[2016-10-19 14:07] LABS: ABSOLUTE LYMPHOCYTES (AUTO) 1.3 10^3/uL (0.5-4.7); ABSOLUTE MONOCYTES (AUTO) 0.4 10^3/uL (0.1-1.4); ABSOLUTE NEUT (AUTO) 2.7 10^3/uL (1.7-8.2); BASOPHILS % (AUTO) 0.5 % (0-2); EOSINOPHILS % (AUTO) 0.5 % (0-6); HEMATOCRIT 34.2 % (36.0-47.0); HEMOGLOBIN 11.7 g/dL (12.0-15.5); HGB HCT DIFFERENCE 0.9; LYMPHOCYTES % (AUTO) 29.7 % (13-45); MEAN CORPUSCULAR HGB CONC 34.1 g/dL (32.0-36.0); MEAN CORPUSCULAR VOLUME 91 fl (80-97); MONOCYTES % (AUTO) 8.1 % (3-13); RED BLOOD COUNT 3.76 10^6/uL (3.72-5.28); RED CELL DISTRIBUTION WIDTH 15.3 % (11.5-14.0); SEGMENTED NEUTROPHILS % (AUTO) 61.2 % (42-78); WHITE BLOOD COUNT 4.5 10^3/uL (4.0-10.5)
[2016-10-19] MEDS ORDERED: NORMAL SALINE 1000 ML 250 ML IV ONE (14:14)
[2016-10-19] MEDS ORDERED: FENTANYL CITRATE INJ/PF 100 MCG/2 ML AMPUL IV ONE (14:49)
--- NOTE | 2016-10-19 15:16 | RADIOLOGY REPORT (SQ) ---
EXAM DESCRIPTION: CT HEAD WITHOUT COMPLETED DATE/TIME: 10/19/2016 1:49 pm REASON FOR STUDY: fall, pain, hx brain bleed COMPARISON: 07/28/2016 TECHNIQUE: Axial images acquired through the brain without intravenous contrast. Images reviewed wi th bone, brain and subdural windows. Images stored on PACS. All CT scanners at this facility use dose modulation, iterative reconstruction, and/or weight based d osing when appropriate to reduce radiation dose to as low as reasonably achievable (ALARA). [facility]: Dose Right [facility]: CareDose [facility]: Dose Right [facility]: Teradose 4D [facility]: Comprehend Systems RADIATION DOSE: Up-to-date CT equipment and radiation dose reduction techniques were employed. CTDIv ol: 64.6 mGy. DLP: 1163 mGy-cm. mGy. LIMITATIONS: None. FINDINGS: VENTRICLES: Prominent. CEREBRUM: No masses. No hemorrhage. No midline shift. Areas of low density in the white matter mos t likely due to chronic micro-vascular ischemic change. No evidence for acute infarction. CEREBELLUM: No masses. No hemorrhage. No alteration of density. No evidence for acute infarction. EXTRAAXIAL SPACES: Mild age-related involutional change. No fluid collections. No masses. ORBITS AND GLOBE: No intra- or extraconal masses. Normal contour of globe without masses. CALVARIUM: No fracture. PARANASAL SINUSES: No fluid or mucosal thickening. SOFT TISSUES: No mass or hematoma. OTHER: No other significant finding. IMPRESSION: MILD CHRONIC CHANGES OF ATROPHY AND MICROVASCULAR ISCHEMIA. NO ACUTE PROCESS. TECHNICAL DOCUMENTATION: JOB ID: [id number] Quality ID # [id number]: Final reports with documentation of one or more dose reduction techniques (e.g., Au tomated exposure control, adjustment of the mA and/or kV according to patient size, use of iterative reconstruction technique) 2010 [employer]- All Rights Reserved
--- NOTE | 2016-10-19 15:16 | RADIOLOGY REPORT (SQ) ---
EXAM DESCRIPTION: HIP LEFT AP/LATERAL COMPLETED DATE/TIME: 10/19/2016 1:45 pm REASON FOR STUDY: fall, pain, hx brain bleed COMPARISON: None. NUMBER OF VIEWS: Two views. TECHNIQUE: AP and frog-leg view of the left hip. LIMITATIONS: None. FINDINGS: MINERALIZATION: Normal. LEFT HIP: There is a subcapital left hip fracture. There resulting varus deformity. OPPOSITE HIP: No fracture or dislocation. No worrisome bone lesions. SOFT TISSUES: No findings. OTHER: No other significant finding. IMPRESSION: Subcapital left hip fracture. TECHNICAL DOCUMENTATION: JOB ID: [id number] [employer]- All Rights Reserved
--- NOTE | 2016-10-19 15:16 | RADIOLOGY REPORT (SQ) ---
EXAM DESCRIPTION: CHEST SINGLE VIEW COMPLETED DATE/TIME: 10/19/2016 1:45 pm REASON FOR STUDY: pre op, probably hip fx COMPARISON: 06/03/2016 EXAM PARAMETERS: NUMBER OF VIEWS: One view. TECHNIQUE: Single frontal radiographic view of the chest acquired. RADIATION DOSE: NA LIMITATIONS: None. FINDINGS: LUNGS AND PLEURA: No opacities, masses or pneumothorax. No pleural effusion. MEDIASTINUM AND HILAR STRUCTURES: No masses. Contour normal. HEART AND VASCULAR STRUCTURES: Heart normal in size. Normal vasculature. BONES: No acute findings. HARDWARE: None in the chest. OTHER: No other significant finding. IMPRESSION: NO ACUTE RADIOGRAPHIC FINDING IN THE CHEST. TECHNICAL DOCUMENTATION: JOB ID: [id number]
--- NOTE | 2016-10-19 15:24 | ER Document Report ---
ED Hip Pain/Injury - General Chief Complaint: Hip Injury Stated Complaint: HIP INJURY Time Seen by Provider: 10/19/16 13:03 Mode of Arrival: Medic Information source: Relative, Emergency Med Personnel Notes: Patient is an 86-year-old female who presents to the ER today after fall via EMS with left hip pain and deformity. Patient also hit her head and has a history of a brain bleed per her . Patient is unstable on her feet usually and was leaving the doctor's office whenever she tried to turn, lost her footing and not when she fell on the left hip. states that she did not lose consciousness. He denies that she had any nausea or vomiting since the incident. He states that she has been acting normally but complaining of a lot of pain to the hip. TRAVEL OUTSIDE OF THE [place] IN LAST 30 DAYS: No - Related Data Allergies/Adverse Reactions: morphine Allergy (Verified 06/03/16 15:53) Shellfish * [Shellfish] Allergy (Verified 06/03/16 15:53) richardson Allergy (Uncoded 06/03/16 15:53) Past Medical History - General Information source: Relative, Emergency Med Personnel - Social History Smoking Status: Never Smoker Chew tobacco use (# tins/day): No Frequency of alcohol use: None Drug Abuse: None Family History: Reviewed & Not Pertinent - Past Medical History Cardiac Medical History: Reports: Hx Hypercholesterolemia, Hx Hypertension Pulmonary Medical History: Denies: Hx Tuberculosis Neurological Medical History: Denies: Hx Seizures Endocrine Medical History: Reports: Hx Diabetes Mellitus Type 2 Renal/ Medical History: Reports: Hx Ovarian Cysts. Denies: Hx Peritoneal Dialysis GI Medical History: Reports: Hx Gastroesophageal Reflux Disease Musculoskeltal Medical History: Reports Hx Arthritis Psychiatric Medical History: Reports: Hx Depression Past Surgical History: Reports: Hx Section, Hx Hysterectomy. Denies: Hx Cholecystectomy, Hx Pacemaker - Immunizations Hx Diphtheria, Pertussis, Tetanus Vaccination: No Hx Pneumococcal Vaccination: 01/08/09 Review of Systems - Review of Systems Constitutional: No symptoms reported EENT: No symptoms reported Cardiovascular: No symptoms reported Respiratory: No symptoms reported Gastrointestinal: No symptoms reported Genitourinary: No symptoms reported Female Genitourinary: No symptoms reported Musculoskeletal: See HPI Skin: No symptoms reported Hematologic/Lymphatic: No symptoms reported Neurological/Psychological: See HPI Physical Exam - Vital signs Vitals: Temp Pulse Resp BP Pulse Ox 97.9 F 69 16 156/61 H 96 10/19/16 12:53 10/19/16 12:53 10/19/16 12:53 10/19/16 12:53 10/19/16 12:53 - Notes Notes: PHYSICAL EXAMINATION: GENERAL: in no acute distress. HEAD: Atraumatic, normocephalic. EYES: Pupils equal round and reactive to light, extraocular movements intact, sclera anicteric, conjunctiva are normal. ENT: ear canals without erythema or foreign body, TMs pearly roberts with good bony landmarks, nares patent, oropharynx clear without exudates. Moist mucous membranes. NECK: Normal range of motion, supple without lymphadenopathy LUNGS: CTAB and equal. No wheezes rales or rhonchi. HEART: Regular rate and rhythm without murmurs ABDOMEN: Soft, no tenderness. No guarding, no rebound EXTREMITIES: left leg externally rotated and shortened, no pitting edema. No cyanosis. NEUROLOGICAL: Cranial nerves grossly intact. Normal sensory/motor exams. PSYCH: on pain medications, drowsy SKIN: Warm, Dry, normal turgor, no rashes or lesions noted Course - Re-evaluation Re-evalutation: 10/19/16 15:54 X-ray of the left hip reveals a subcapital femoral neck fracture, displaced. 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 Jacksonoh her primary care provider except the admission at this time. 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
[2016-10-19] MEDS ORDERED: HYDROMORPHONE HCL INJ/PF 2 MG/ML AMPULE IV ONE (16:01)
[2016-10-19] MEDS ORDERED: NORMAL SALINE 1000 ML 1,000 ML IV PRN (16:13)
[2016-10-19] MEDS ORDERED: DEXTROSE 50%-WATER 25 GM/50 ML DISP.SYRIN IV PRN ×2 (16:19)
[2016-10-19] MEDS ORDERED: GLUCAGON,HUMAN RECOMB 1 MG INJ IM PRN (16:19)
[2016-10-19] MEDS ORDERED: DEXTROSE 40% GEL 15 GM TUBE PO PRN ×2 (16:19)
[2016-10-19 16:54] LABS: LIPASE 157.5 U/L (23-300); MAGNESIUM 1.8 mg/dL (1.6-2.3); PHOSPHORUS 3.9 mg/dL (2.5-4.5)
[2016-10-19 17:31] LABS: THYROID STIMULATING HORMONE 1.68 uIU/mL (0.47-4.68)
[2016-10-19 17:47] LABS: PROTHROMBIN TIME 13.2 SEC (11.4-15.4)
[2016-10-19 18:08] LABS: CREATINE KINASE MB 1.23 ng/mL (<4.55); TROPONIN I 0.015 ng/mL
[2016-10-19] MEDS: OXYCODONE-ACETAMINOPHEN 5-325 MG TABLET PO PRN ×2 (18:27→22:38)
--- NOTE | 2016-10-19 18:54 | PDOC CONSULTATION ---
Consultation Consult Date: 10/19/16 Attending physician:: MIRYAM DANIEL Consult reason:: Left femoral neck fracture History of Present Illness Admission Date/PCP: 10/19/16 16:14 MIRYAM DANIEL MD Patient complains of: Left hip pain History of Present Illness: JEAN PAUL JURADO is a 86 year old female status post fall onto her left hip. Patient had significant pain and inability to get up and ambulate and weight- bear. Patient has chronic hyponatremia after discussing with her she has gone as low as 114 and as high as 132 and lives between 125-130. Currently she has sodium of 121. Patient is Frisian and was difficult to converse a therefore the gave most of the history. She denies any other extremity injuries. Mostly complains of left hip pain denies any numbness or tingling or paresthesias. Denies any previous surgeries on left hip. Past Medical History Cardiac Medical History: Reports: Hyperlipidema, Hypertension Pulmonary Medical History: Denies: Tuberculosis Neurological Medical History: Denies: Seizures Endocrine Medical History: Reports: Diabetes Mellitus Type 2 GI Medical History: Reports: Gastroesophageal Reflux Disease Musculoskeltal Medical History: Reports: Arthritis Psychiatric Medical History: Reports: Depression Past Surgical History Past Surgical History: Reports: Section, Hysterectomy Denies: Cholecystectomy, Pacemaker Social History Smoking Status: Never Smoker Frequency of Alcohol Use: None Hx Recreational Drug Use: No Hx Prescription Drug Abuse: No Family History Family History: Reviewed & Not Pertinent Parental Family History Reviewed: No Children Family History Reviewed: No Sibling(s) Family History Reviewed.: No Medication/Allergy Allergies/Adverse Reactions: morphine Allergy (Verified 06/03/16 15:53) Shellfish * [Shellfish] Allergy (Verified 06/03/16 15:53) richardson Allergy (Uncoded 06/03/16 15:53) Review of Systems All systems: reviewed and no additional remarkable complaints except as stated - For musculoskeletal which showed deformity and pain on the left lower extremity and groin area. Physical Exam Vital Signs: Temp Pulse Resp BP Pulse Ox 36.3 C 84 13 167/86 H 100 10/19/16 18:22 10/19/16 18:22 10/19/16 18:22 10/19/16 18:22 10/19/16 18:22 Intake & Output 10/18/16 10/19/1617 06:59 06:59 06:59 Output Total 700 Balance -700 Weight 71.8 kg General appearance: PRESENT: no acute distress Eye exam: PRESENT: EOMI. ABSENT: nystagmus Respiratory exam: PRESENT: symmetrical, unlabored. ABSENT: accessory muscle use , tachypnea Pulses: PRESENT: +2 pedal pulses bilateral Adult Front & Back Image: 1 - Left lower extremity is shortened and externally rotated. Tender to palpation over the groin. Any attempted range of motion of the hip causes significant pain. She does have full neurovascular status distally with flexion and extension of the ankle and toes. Good sensation to gross light touch. Good capillary refill. Results Laboratory Results: 10/19/16 17:23 Ammonia < 8.7 L 10/19/16 10/19/16 10/19/16 17:00 17:23 17:23 Creatine Kinase 31 CK-MB (CK-2) 1.23 Troponin I 0.015 NT-Pro-B Natriuret Pep 857 H Impressions: Head CT 10/19/16 13:03 IMPRESSION: MILD CHRONIC CHANGES OF ATROPHY AND MICROVASCULAR ISCHEMIA. NO ACUTE PROCESS. Hip X-Ray 10/19/16 13:03 IMPRESSION: Subcapital left hip fracture. Chest X-Ray 10/19/16 13:05 IMPRESSION: NO ACUTE RADIOGRAPHIC FINDING IN THE CHEST. Status: Image reviewed by me Assessment & Plan - Diagnosis (1) Fracture of femoral neck, left, closed Qualifiers: Encounter type: initial encounter Qualified Code(s): S72.002A - Fracture of unspecified part of neck of left femur, initial encounter for closed fracture Is this a current diagnosis for this admission?: Yes - Plan Summary Plan Summary: 86-year-old female with displaced left femoral neck fracture. Patient will require left hip hemiarthroplasty. The risk and benefits were discussed with the who agreed and consented for surgery. Patient will be placed n.p.o. after midnight and continue IV normal saline. Will discuss with Dr. Daniel and anesthesia about her chronic hyponatremia and see if she can proceed with surgery tomorrow. In the meantime bedrest, Orellana and pain control.
[2016-10-19] MEDS ORDERED: CARVEDILOL 12.5 MG TABLET PO ONE (19:00)
--- NOTE | 2016-10-19 19:51 | EKG REPORT ---
SEVERITY:- ABNORMAL ECG - ACCELERATED JUNCTIONAL RHYTHM : Confirmed by: Omer Patricia MD 19-Oct-2016 19:50:19
[2016-10-19] MEDS ORDERED: CARVEDILOL 12.5 MG TABLET PO SCH (22:00)
[2016-10-19] MEDS ORDERED: HEPARIN SOD (PORCINE) 5,000 UNIT/ML 1 ML SYRINGE SUBCUT SCH (22:00)
[2016-10-19] MEDS: ALPRAZOLAM 0.25 MG TABLET PO PRN (23:23)
[2016-10-20 00:14] LABS: CREATINE KINASE MB 1.21 ng/mL (<4.55); TROPONIN I 0.021 ng/mL
[2016-10-20] MEDS: OXYCODONE-ACETAMINOPHEN 5-325 MG TABLET PO PRN ×5 (02:32→21:38)
[2016-10-20] MEDS: CARVEDILOL 12.5 MG TABLET PO SCH ×2 (05:07→17:50)
[2016-10-20 06:04] LABS: ABSOLUTE LYMPHOCYTES (AUTO) 0.9 10^3/uL (0.5-4.7); ABSOLUTE MONOCYTES (AUTO) 0.4 10^3/uL (0.1-1.4); ABSOLUTE NEUT (AUTO) 3.9 10^3/uL (1.7-8.2); BASOPHILS % (AUTO) 0.5 % (0-2); EOSINOPHILS % (AUTO) 0.6 % (0-6); HEMATOCRIT 35.8 % (36.0-47.0); HEMOGLOBIN 12.2 g/dL (12.0-15.5); HGB HCT DIFFERENCE 0.8; LYMPHOCYTES % (AUTO) 16.3 % (13-45); MEAN CORPUSCULAR HGB CONC 34.2 g/dL (32.0-36.0); MEAN CORPUSCULAR VOLUME 91 fl (80-97); RED BLOOD COUNT 3.94 10^6/uL (3.72-5.28); RED CELL DISTRIBUTION WIDTH 15.4 % (11.5-14.0); SEGMENTED NEUTROPHILS % (AUTO) 74.6 % (42-78); WHITE BLOOD COUNT 5.2 10^3/uL (4.0-10.5)
[2016-10-20 06:25] LABS: ANION GAP 10 (5-19); BLOOD UREA NITROGEN 11 mg/dL (7-20); CALCIUM 9.3 mg/dL (8.4-10.2); CARBON DIOXIDE 20 mmol/L (22-30); CHLORIDE 95 mmol/L (98-107); CHOLESTEROL 197.99 mg/dL (0-200); CREATINE KINASE 34 U/L (30-135); CREATININE RESULT 0.66 mg/dL (0.52-1.25); Direct HDL 53 mg/dL (>40); GLUCOSE 143 mg/dL (75-110); POTASSIUM 4.6 mmol/L (3.6-5.0); SODIUM 124.9 mmol/L (137-145); TRIGLYCERIDES 124 mg/dL (<150)
[2016-10-20 06:34] LABS: CREATINE KINASE MB 1.25 ng/mL (<4.55); TROPONIN I 0.019 ng/mL
[2016-10-20 06:35] LABS: DIRECT LDL 124 mg/dL (<100)
[2016-10-20 07:44] LABS: APPEARANCE,URINE CLEAR; BILIRUBIN,URINE NEGATIVE (NEGATIVE); GLUCOSE, URINE 150 mg/dL (NEGATIVE); KETONES,URINE NEGATIVE (NEGATIVE); LEUKOCYTE ESTERASE,URINE NEGATIVE (NEGATIVE); NITRITE,URINE NEGATIVE (NEGATIVE); PROTEIN,URINE NEGATIVE (NEGATIVE); URINE SPECIFIC GRAVITY 1.005; UROBILINOGEN,URINE NEGATIVE mg/dL (<2.0)
[2016-10-20 08:10] LABS: URINE BARBITURATES SCREEN NEGATIVE; URINE METHADONE SCREEN NEGATIVE; URINE OPIATES LOW NEGATIVE; URINE PHENCYCLIDINE SCREEN NEGATIVE
[2016-10-20] MEDS: ALPRAZOLAM 0.25 MG TABLET PO PRN ×2 (09:11→21:37)
[2016-10-20] MEDS ORDERED: ONDANSETRON HCL INJ/PF 4 MG/2 ML SDV ONE (10:47)
[2016-10-20] MEDS ORDERED: LIDOCAINE 2% INJ-PF (20 MG/ML) 10 ML AMPUL ONE (10:47)
[2016-10-20] MEDS ORDERED: THROMBIN (BOVINE) 5000 UNIT EPITAXIS KIT ONE (17:01)
[2016-10-20] MEDS ORDERED: BUPIVACAINE INJ/PF LIPOSOME/PF 266 MG/20 ML SDV ONE (17:02)
[2016-10-20] MEDS ORDERED: FENTANYL CITRATE INJ/PF 100 MCG/2 ML AMPUL ONE ×2 (18:08→18:09)
[2016-10-20] MEDS ORDERED: PROPOFOL INJ 200 MG/20 ML VIAL IV ONE (18:09)
--- NOTE | 2016-10-20 18:57 | PDOC H&P ---
History of Present Illness Admission Date/PCP: 10/19/16 16:14 MIRYAM DANIEL MD History of Present Illness: Patient is a 86-year-old female, with a history of type 2 diabetes mellitus, she fell and sustained fracture of the left hip, there was no antecedent history of loss of consciousness, no chest pain or shortness of breath. She has a history of SIADH, the sodium was 120. She was treated previously with tolvaptan for the last 30 days with very good result. There was no encephalopathic symptoms Past Medical History Cardiac Medical History: Reports: Hyperlipidema, Hypertension Endocrine Medical History: Reports: Diabetes Mellitus Type 2 GI Medical History: Reports: Gastroesophageal Reflux Disease Musculoskeltal Medical History: Reports: Arthritis Psychiatric Medical History: Reports: Depression Past Surgical History Past Surgical History: Reports: Section, Hysterectomy Social History Smoking Status: Never Smoker Frequency of Alcohol Use: None Hx Recreational Drug Use: No Hx Prescription Drug Abuse: No - Advance Directive Resuscitation Status: Other Family History Family History: Reviewed & Not Pertinent Parental Family History Reviewed: Yes Children Family History Reviewed: Yes Sibling(s) Family History Reviewed.: Yes Medication/Allergy Home Medications: Alprazolam [Xanax 0.25 mg Tablet] 0.25 mg PO Q8HP PRN 10/19/16 Carvedilol [Coreg 25 mg Tablet] 1 tab PO BID@0800,169910/19/16 Megestrol Acetate 40 mg PO BID@0800,169910/19/16 Melatonin/Pyridoxine HCl (B6) [Melatonin 3 mg Tablet] 1 each PO DAILY@10/19 Montelukast Sodium [Singulair 10 mg Tablet] 10 mg PO DAILY@199910/19/16 Pantoprazole Sodium [Protonix] 40 mg PO DAILY@169910/19/16 Polyethylene Glycol 3350 [Miralax Powder 17 gm/Packet] 1 packet PO QAM 10/19/16 Telmisartan [Micardis 40 mg Tablet] 40 mg PO DAILY@169910/19/16 Tramadol HCl/Acetaminophen [Ultracet 37.5 mg/325 mg Tablet] 1 each PO Q6HP PRN 10/19/16 Allergies/Adverse Reactions: morphine Allergy (Verified 06/03/16 15:53) Shellfish * [Shellfish] Allergy (Verified 06/03/16 15:53) richardson Allergy (Uncoded 06/03/16 15:53) Review of Systems Constitutional: ABSENT: chills, fever(s), headache(s), weight gain, weight loss Eyes: ABSENT: visual disturbances Ears: ABSENT: hearing changes Cardiovascular: ABSENT: chest pain, dyspnea on exertion, edema, orthropnea, palpitations Respiratory: ABSENT: cough, hemoptysis Gastrointestinal: ABSENT: abdominal pain, constipation, diarrhea, hematemesis, hematochezia, nausea, vomiting Genitourinary: ABSENT: dysuria, hematuria Musculoskeletal: PRESENT: as per HPI Integumentary: ABSENT: rash, wounds Neurological: ABSENT: abnormal gait, abnormal speech, confusion, dizziness, focal weakness, syncope Psychiatric: ABSENT: anxiety, depression, homidical ideation, suicidal ideation Endocrine: ABSENT: cold intolerance, heat intolerance, menstrual abnormalities, polydipsia, polyuria Hematologic/Lymphatic: ABSENT: easy bleeding, easy bruising, lymphadenopathy Physical Exam Vital Signs: Temp Pulse Resp BP Pulse Ox 97.6 F 79 19 146/50 H 97 10/20/16 16:16 10/20/16 16:16 10/20/16 16:16 10/20/16 16:16 10/20/16 16:16 Intake & Output 10/19/16 10/20/16 10/21/16 06:59 06:59 06:59 Intake Total 510 0 Output Total 1450 600 Balance -940 -600 Weight 67.614 kg General appearance: PRESENT: mild distress Head exam: PRESENT: atraumatic, normocephalic Eye exam: PRESENT: conjunctiva pink, EOMI, PERRLA Ear exam: PRESENT: normal external ear exam Mouth exam: PRESENT: moist, tongue midline Neck exam: PRESENT: full ROM Respiratory exam: PRESENT: clear to auscultation corazon Cardiovascular exam: PRESENT: RRR, +S1, +S2 Vascular exam: PRESENT: normal capillary refill GI/Abdominal exam: PRESENT: normal bowel sounds, soft Rectal exam: PRESENT: deferred Musculoskeletal exam: PRESENT: deformity Neurological exam: PRESENT: alert, awake, oriented to person, oriented to place , oriented to time, oriented to situation, CN II-XII grossly intact Psychiatric exam: PRESENT: appropriate affect, normal mood Skin exam: PRESENT: dry, intact, warm Results Laboratory Results: 10/20/16 05:52 10/20/16 05:52 10/20/16 10/20/16 10/20/16 05:52 05:52 06:50 WBC 5.2 RBC 3.94 Hgb 12.2 Hct 35.8 L MCV 91 MCH 31.0 MCHC 34.2 RDW 15.4 H Plt Count 149 L Seg Neutrophils % 74.6 Lymphocytes % 16.3 Monocytes % 8.0 Eosinophils % 0.6 Basophils % 0.5 Absolute Neutrophils 3.9 Absolute Lymphocytes 0.9 Absolute Monocytes 0.4 Absolute Eosinophils 0.0 Absolute Basophils 0.0 Sodium 124.9 L Potassium 4.6 Chloride 95 L Carbon Dioxide 20 L Anion Gap 10 BUN 11 Creatinine 0.66 Est GFR ( Amer) > 60 Est GFR (Non-Af Amer) > 60 Glucose 143 H Calcium 9.3 Triglycerides 124 Cholesterol 197.99 LDL Cholesterol Direct 124 H VLDL Cholesterol 25.0 HDL Cholesterol 53 Urine Color STRAW Urine Appearance CLEAR Urine pH 7.0 Ur Specific [place] 1.005 Urine Protein NEGATIVE Urine Glucose (UA) 150 H Urine Ketones NEGATIVE Urine Blood NEGATIVE Urine Nitrite NEGATIVE Ur Leukocyte Esterase NEGATIVE Urine WBC (Auto) 1 Urine RBC (Auto) 0 10/19/16 10/19/16 10/19/16 17:00 17:23 17:23 Creatine Kinase 31 CK-MB (CK-2) 1.23 Troponin I 0.015 NT-Pro-B Natriuret Pep 857 H 10/19/16 10/19/16 10/20/16 23:36 23:36 05:52 Creatine Kinase 35 34 CK-MB (CK-2) 1.21 Troponin I 0.021 NT-Pro-B Natriuret Pep 10/20/16 05:52 Creatine Kinase CK-MB (CK-2) 1.25 Troponin I 0.019 NT-Pro-B Natriuret Pep Impressions: Head CT 10/19/16 13:03 IMPRESSION: MILD CHRONIC CHANGES OF ATROPHY AND MICROVASCULAR ISCHEMIA. NO ACUTE PROCESS. Hip X-Ray 10/19/16 13:03 IMPRESSION: Subcapital left hip fracture. Chest X-Ray 10/19/16 13:05 IMPRESSION: NO ACUTE RADIOGRAPHIC FINDING IN THE CHEST. Assessment & Plan - Diagnosis (1) Fracture of femoral neck, left, closed Is this a current diagnosis for this admission?: YesPlan: Orthopedic consultation is requested for ORIF (2) Hyponatremia Is this a current diagnosis for this admission?: YesPlan: The hypernatremia will be treated with sodium chloride infusion at 50 cc/h (3) SIADH (syndrome of inappropriate ADH production) Is this a current diagnosis for this admission?: Yes (4) Type 2 diabetes mellitus Qualifiers: Diabetes mellitus complication status: with neurologic complications Diabetes mellitus complication detail: with polyneuropathy 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
[2016-10-20] MEDS ORDERED: CEFAZOLIN INJ 1 GM VIAL ONE (18:58)
--- NOTE | 2016-10-20 18:59 | PDOC PROGRESS REPORT ---
Subjective Progress Note for:: 10/20/16 Subjective:: Patient was admitted yesterday when she fell and sustained fracture of the left hip, she was in the OR today for left hip hemiarthroplasty. The sodium is improved compared to yesterday, she has a history of SIADH. Physical Exam Vital Signs: Temp Pulse Resp BP Pulse Ox 97.6 F 79 19 146/50 H 97 10/20/16 16:16 10/20/16 16:16 10/20/16 16:16 10/20/16 16:16 10/20/16 16:16 Intake & Output 10/19/16 10/20/16 10/21/16 06:59 06:59 06:59 Intake Total 510 720 Output Total 1450 600 Balance -940 120 Weight 67.614 kg General appearance: PRESENT: no acute distress Eye exam: PRESENT: PERRLA Respiratory exam: PRESENT: clear to auscultation corazon Cardiovascular exam: PRESENT: +S1, +S2 GI/Abdominal exam: PRESENT: soft Neurological exam: PRESENT: alert, CN II-XII grossly intact Results Laboratory Results: 10/20/16 05:52 10/20/16 05:52 10/20/16 10/20/16 10/20/16 05:52 05:52 06:50 WBC 5.2 RBC 3.94 Hgb 12.2 Hct 35.8 L MCV 91 MCH 31.0 MCHC 34.2 RDW 15.4 H Plt Count 149 L Seg Neutrophils % 74.6 Lymphocytes % 16.3 Monocytes % 8.0 Eosinophils % 0.6 Basophils % 0.5 Absolute Neutrophils 3.9 Absolute Lymphocytes 0.9 Absolute Monocytes 0.4 Absolute Eosinophils 0.0 Absolute Basophils 0.0 Sodium 124.9 L Potassium 4.6 Chloride 95 L Carbon Dioxide 20 L Anion Gap 10 BUN 11 Creatinine 0.66 Est GFR ( Amer) > 60 Est GFR (Non-Af Amer) > 60 Glucose 143 H Calcium 9.3 Triglycerides 124 Cholesterol 197.99 LDL Cholesterol Direct 124 H VLDL Cholesterol 25.0 HDL Cholesterol 53 Urine Color STRAW Urine Appearance CLEAR Urine pH 7.0 Ur Specific [place] 1.005 Urine Protein NEGATIVE Urine Glucose (UA) 150 H Urine Ketones NEGATIVE Urine Blood NEGATIVE Urine Nitrite NEGATIVE Ur Leukocyte Esterase NEGATIVE Urine WBC (Auto) 1 Urine RBC (Auto) 0 10/19/16 10/19/16 10/19/16 17:00 17:23 17:23 Creatine Kinase 31 CK-MB (CK-2) 1.23 Troponin I 0.015 NT-Pro-B Natriuret Pep 857 H 10/19/16 10/19/16 10/20/16 23:36 23:36 05:52 Creatine Kinase 35 34 CK-MB (CK-2) 1.21 Troponin I 0.021 NT-Pro-B Natriuret Pep 10/20/16 05:52 Creatine Kinase CK-MB (CK-2) 1.25 Troponin I 0.019 NT-Pro-B Natriuret Pep Impressions: Head CT 10/19/16 13:03 IMPRESSION: MILD CHRONIC CHANGES OF ATROPHY AND MICROVASCULAR ISCHEMIA. NO ACUTE PROCESS. Hip X-Ray 10/19/16 13:03 IMPRESSION: Subcapital left hip fracture. Chest X-Ray 10/19/16 13:05 IMPRESSION: NO ACUTE RADIOGRAPHIC FINDING IN THE CHEST. 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) Is this a current diagnosis for this admission?: YesPlan: She has a history of SIADH that was managed previously with tolvaptan, fluid restriction is not effective in the management of SIADH. Patient's is concerned about the potential side effect of tolvaptan (4) Type 2 diabetes mellitus Qualifiers: Diabetes mellitus complication status: with neurologic complications Diabetes mellitus complication detail: with polyneuropathy Diabetes mellitus shelter insulin use: without shelter use Qualified Code(s): E11.42 - Type 2 diabetes mellitus with diabetic polyneuropathy; Z79.4 - assisted (current) use of insulin Is this a current diagnosis for this admission?: Yes
[2016-10-20] MEDS ORDERED: EPHEDRINE SULFATE INJ 50 MG/1 ML AMPULE ONE (19:14)
[2016-10-20] MEDS ORDERED: FENTANYL CITRATE INJ/PF 100 MCG/2 ML AMPUL IV PRN (19:35)
--- NOTE | 2016-10-20 21:32 | Operative Report ---
Operative Report DATE OF SURGERY: 10/20/16 PREOPERATIVE DIAGNOSIS: Displaced left femoral neck fracture POSTOPERATIVE DIAGNOSIS: Same OPERATION: Left hip hemiarthroplasty SURGEON: SIRIA CAPONE ANESTHESIA: GA TISSUE REMOVED OR ALTERED: Femoral head COMPLICATIONS: None ESTIMATED BLOOD LOSS: 100 mL INTRAOPERATIVE FINDINGS: As above PROCEDURE: Procedure In Detail: Patient was seen and evaluated in the preoperative holding area. The left lower extremity was initialized and marked. Patient received 2g of Ancef IV for bacterial prophylaxis. Patient was taken back to the operative room where transferred to the operative table and placed under spinal anesthesia. Once they were adequately anesthetized patient was placed in the lateral position an axillary roll was placed in nonoperative left lower extremity was carefully padded.. A surgical team debriefing was performed ensuring all instrumentation was available, the surgical procedure was discussed with possible concerns reviewed. The upper extremity was prepped with chlor prep draped in a sterile fashion. A timeout was done identifying correct patient, procedure and extremity everyone in attendance agree with this and verbalized no concerns. A posterior skin incision was made just posterior to the greater trochanter. Dissection was done down to the gluteus ananda and iliotibial band fascia this was split in line with the skin incision. Any peripheral vasculature was carefully coagulated. A Charley retractor was placed after palpation of the sciatic nerve and the sciatic nerve was safely retracted from the wound throughout the entirety of the case. I then identified the external rotators with the use of a Bovie this was carefully elevated off along with underlying capsule from the neck in a T-shaped capsulotomy was made just superior to the piriformis. This was then tagged. The femoral neck was identified and approximately 1 fingerbreadth above the lesser trochanter a freshening cut was made. Any excess bone remaining was carefully removed. I then used the corkscrew to remove the femoral head from the acetabulum which was then measured on the back table. The excess bone was removed and removed the scopes irrigated with normal saline. I then trial the femoral head according to what was measured on the back table and got good fit within the acetabulum. I then turned my attention to femoral preparation. A box osteotome was first used to get laterally along the trochanter. I then used the lateralizing reamer to avoid medialization of the stem and ultimately varus malalignment. I then began broaching with a 0 broach and broached up to a #6 broach which was somewhat countersunk. I then utilized the calcar reamer reamed out the appropriate level. I then broached up to a #6 broach which I got good proximal fit. I began trialing all the way up to a +4 neck length and had good stability through flexion, internal rotation and adduction. There is no instability with external rotation. Leg lengths were found to be compatible and equal to the other side. At this point the trial implants were removed. The wound was irrigated with normal saline. I then implanted my appropriate size stem the good peripheral fit and placement at my predetermined broach level. I then implanted the final unipolar head. The hip was reduced once again measures stability and good stability throughout all range of motion with no palpable impingement. Leg lengths were equivalent to the nonoperative side. I then want to get gregorio irrigated the wound with normal saline. Utilizing a #5 FiberWire suture I secured the capsule posteriorly into the trochanter. I then irrigated once again with normal saline. The gluteus ananda and tensor fascia bandar was closed with a running 0 Prolene suture. I then injected Exparel in multiple locations throughout the subcutaneous tissues , hip wound and the fascia. I then closed the subcutaneous tissues with interrupted 2-0 Vicryl suture. Skin was closed with the qiana and the incision was covered with Acticoat and OpSite dressing. Sponge counts, instrument counts and needle counts were correct. Patient was then awoken from anesthesia laid supine at which point her leg lengths were once again checked and found to be equal to the nonoperative extremity. Patient was then transferred to the operating stretcher and placed in an abduction pillow. The was no intraoperative crepitations patient tolerated she will was stable to PACU. Postoperative plan: Patient will be started on Lovenox for DVT prophylaxis. She will begin physical therapy on postop day #1. Implants: Accolade II Size 6, 48 Biipolar Head, +4 Neck Length
[2016-10-20] MEDS: NORMAL SALINE 1000 ML 1,000 ML IV PRN (22:15)
[2016-10-20] MEDS: CEFAZOLIN 2 GM/D5W RTU 2 GM/50 ML RTUPB IV SCH (22:16)
[2016-10-21] MEDS: OXYCODONE-ACETAMINOPHEN 5-325 MG TABLET PO PRN ×4 (02:01→17:32)
[2016-10-21 05:41] LABS: ABSOLUTE LYMPHOCYTES (AUTO) 1.1 10^3/uL (0.5-4.7); ABSOLUTE MONOCYTES (AUTO) 0.5 10^3/uL (0.1-1.4); ABSOLUTE NEUT (AUTO) 5.4 10^3/uL (1.7-8.2); BASOPHILS % (AUTO) 0.4 % (0-2); EOSINOPHILS % (AUTO) 0.3 % (0-6); HEMATOCRIT 31.3 % (36.0-47.0); HEMOGLOBIN 10.5 g/dL (12.0-15.5); HGB HCT DIFFERENCE 0.2; LYMPHOCYTES % (AUTO) 15.9 % (13-45); MEAN CORPUSCULAR HEMOGLOBIN 31.1 pg (27.0-33.4); MEAN CORPUSCULAR HGB CONC 33.7 g/dL (32.0-36.0); MEAN CORPUSCULAR VOLUME 92 fl (80-97); MONOCYTES % (AUTO) 6.7 % (3-13); RED BLOOD COUNT 3.39 10^6/uL (3.72-5.28); RED CELL DISTRIBUTION WIDTH 15.3 % (11.5-14.0); SEGMENTED NEUTROPHILS % (AUTO) 76.7 % (42-78)
[2016-10-21 06:00] LABS: ANION GAP 7 (5-19); BLOOD UREA NITROGEN 12 mg/dL (7-20); CALCIUM 8.2 mg/dL (8.4-10.2); CARBON DIOXIDE 20 mmol/L (22-30); CHLORIDE 99 mmol/L (98-107); CREATININE RESULT 0.75 mg/dL (0.52-1.25); GLUCOSE 145 mg/dL (75-110); POTASSIUM 4.3 mmol/L (3.6-5.0); SODIUM 126.4 mmol/L (137-145)
[2016-10-21] MEDS: CARVEDILOL 12.5 MG TABLET PO SCH (06:16)
[2016-10-21] MEDS: CEFAZOLIN 2 GM/D5W RTU 2 GM/50 ML RTUPB IV SCH (06:17)
[2016-10-21] MEDS: NORMAL SALINE 1000 ML 1,000 ML IV PRN ×2 (07:49→16:08)
[2016-10-21] MEDS: ALPRAZOLAM 0.25 MG TABLET PO PRN ×2 (10:02→21:07)
[2016-10-21] MEDS: INSULIN LISPRO 100 UNIT/ML 3 ML VIAL SUBCUT PRN ×3 (11:37→23:36)
[2016-10-21] MEDS ORDERED: DEXTROSE 40% GEL 15 GM TUBE PO PRN ×2 (17:56)
[2016-10-21] MEDS ORDERED: DEXTROSE 50%-WATER 25 GM/50 ML DISP.SYRIN IV PRN ×2 (17:56)
[2016-10-21] MEDS ORDERED: GLUCAGON,HUMAN RECOMB 1 MG INJ IM PRN (17:56)
[2016-10-21] MEDS ORDERED: ONDANSETRON HCL INJ/PF 4 MG/2 ML SDV IV PRN (18:03)
--- NOTE | 2016-10-21 18:10 | PDOC PROGRESS REPORT ---
Subjective Progress Note for:: 10/21/16 Subjective:: No issues overnight complaining of some pain. Physical Exam Vital Signs: Temp Pulse Resp BP Pulse Ox 37.1 C 84 18 115/49 L 97 10/21/16 15:17 10/21/16 15:17 10/21/16 15:17 10/21/16 15:17 10/21/16 15:17 Intake & Output 10/20/16 10/21/16 10/22/16 06:59 06:59 06:59 Intake Total 510 5250 Output Total 1450 1080 Balance -940 4170 Weight 67.614 kg 69.031 kg Adult Front & Back Image: 1 - Dressing is dry clean and intact. Limb lengths are grossly equal. There is sensation to light touch normal ankle range of motion in extension and flexion. Good capillary refill. Results Laboratory Results: 10/21/16 05:02 10/21/16 05:02 10/21/16 10/21/16 05:02 05:02 WBC 7.0 RBC 3.39 L Hgb 10.5 L Hct 31.3 L MCV 92 MCH 31.1 MCHC 33.7 RDW 15.3 H Plt Count 148 L Seg Neutrophils % 76.7 Lymphocytes % 15.9 Monocytes % 6.7 Eosinophils % 0.3 Basophils % 0.4 Absolute Neutrophils 5.4 Absolute Lymphocytes 1.1 Absolute Monocytes 0.5 Absolute Eosinophils 0.0 Absolute Basophils 0.0 Sodium 126.4 L Potassium 4.3 Chloride 99 Carbon Dioxide 20 L Anion Gap 7 BUN 12 Creatinine 0.75 Est GFR ( Amer) > 60 Est GFR (Non-Af Amer) > 60 Glucose 145 H Calcium 8.2 L 10/19/16 10/19/16 10/19/16 17:00 17:23 17:23 Creatine Kinase 31 CK-MB (CK-2) 1.23 Troponin I 0.015 NT-Pro-B Natriuret Pep 857 H 10/19/16 10/19/16 10/20/16 23:36 23:36 05:52 Creatine Kinase 35 34 CK-MB (CK-2) 1.21 Troponin I 0.021 NT-Pro-B Natriuret Pep 10/20/16 05:52 Creatine Kinase CK-MB (CK-2) 1.25 Troponin I 0.019 NT-Pro-B Natriuret Pep Impressions: Head CT 10/19/16 13:03 IMPRESSION: MILD CHRONIC CHANGES OF ATROPHY AND MICROVASCULAR ISCHEMIA. NO ACUTE PROCESS. Hip X-Ray 10/19/16 13:03 IMPRESSION: Subcapital left hip fracture. Chest X-Ray 10/19/16 13:05 IMPRESSION: NO ACUTE RADIOGRAPHIC FINDING IN THE CHEST. Assessment & Plan - Diagnosis (1) Fracture of femoral neck, left, closed Qualifiers: Encounter type: initial encounter Qualified Code(s): S72.002A - Fracture of unspecified part of neck of left femur, initial encounter for closed fracture Is this a current diagnosis for this admission?: Yes - Plan Summary Plan Summary: Patient is 86-year-old female POD #1 from left hip hemiarthroplasty. Continue physical therapy Continue pain control Continue DVT prophylaxis Awaiting residential facility placement
--- NOTE | 2016-10-21 19:31 | PDOC PROGRESS REPORT ---
Subjective Progress Note for:: 10/21/16 Subjective:: She was seen by the bedside, she complained of constipation, urine culture grew gram negative rods, She will be empirically be started on ciprofloxacin. Patient spouse expresses the fact that she no longer communicates in Bengali and she now communicates much more in the [place] language, Bulgarian Physical Exam Vital Signs: Temp Pulse Resp BP Pulse Ox 98.8 F 84 18 115/49 L 97 10/21/16 15:17 10/21/16 15:17 10/21/16 15:17 10/21/16 15:17 10/21/16 15:17 Intake & Output 10/20/16 10/21/16 10/22/16 06:59 06:59 06:59 Intake Total 510 5250 1815 Output Total 1450 1080 700 Balance -940 4170 1115 Weight 67.614 kg 69.031 kg General appearance: PRESENT: no acute distress Eye exam: PRESENT: PERRLA Respiratory exam: PRESENT: clear to auscultation corazon Cardiovascular exam: PRESENT: +S1, +S2 GI/Abdominal exam: PRESENT: soft Neurological exam: PRESENT: alert, CN II-XII grossly intact Results Laboratory Results: 10/21/16 05:02 10/21/16 05:02 10/21/16 10/21/16 05:02 05:02 WBC 7.0 RBC 3.39 L Hgb 10.5 L Hct 31.3 L MCV 92 MCH 31.1 MCHC 33.7 RDW 15.3 H Plt Count 148 L Seg Neutrophils % 76.7 Lymphocytes % 15.9 Monocytes % 6.7 Eosinophils % 0.3 Basophils % 0.4 Absolute Neutrophils 5.4 Absolute Lymphocytes 1.1 Absolute Monocytes 0.5 Absolute Eosinophils 0.0 Absolute Basophils 0.0 Sodium 126.4 L Potassium 4.3 Chloride 99 Carbon Dioxide 20 L Anion Gap 7 BUN 12 Creatinine 0.75 Est GFR ( Amer) > 60 Est GFR (Non-Af Amer) > 60 Glucose 145 H Calcium 8.2 L 10/19/16 10/19/16 10/19/16 17:00 17:23 17:23 Creatine Kinase 31 CK-MB (CK-2) 1.23 Troponin I 0.015 NT-Pro-B Natriuret Pep 857 H 10/19/16 10/19/16 10/20/16 23:36 23:36 05:52 Creatine Kinase 35 34 CK-MB (CK-2) 1.21 Troponin I 0.021 NT-Pro-B Natriuret Pep 10/20/16 05:52 Creatine Kinase CK-MB (CK-2) 1.25 Troponin I 0.019 NT-Pro-B Natriuret Pep Impressions: Head CT 10/19/16 13:03 IMPRESSION: MILD CHRONIC CHANGES OF ATROPHY AND MICROVASCULAR ISCHEMIA. NO ACUTE PROCESS. Hip X-Ray 10/19/16 13:03 IMPRESSION: Subcapital left hip fracture. Chest X-Ray 10/19/16 13:05 IMPRESSION: NO ACUTE RADIOGRAPHIC FINDING IN THE CHEST. 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) Is this a current diagnosis for this admission?: Yes (4) Type 2 diabetes mellitus Qualifiers: Diabetes mellitus complication status: with neurologic complications Diabetes mellitus complication detail: with polyneuropathy Diabetes mellitus meterman insulin use: without chcf use Qualified Code(s): E11.42 - Type 2 diabetes mellitus with diabetic polyneuropathy; Z79.4 - retirement (current) use of insulin Is this a current diagnosis for this admission?: Yes (5) Constipation Qualifiers: Constipation type: unspecified constipation type Qualified Code(s): K59.00 - Constipation, unspecified Is this a current diagnosis for this admission?: Yes - Plan Summary Plan Summary: She is started on intravenous ciprofloxacin for gram-negative grzegorz UTI, she also have constipation, molases enema is ordered for the constipation.
[2016-10-21] MEDS ORDERED: BISACODYL 10 MG SUPP.RECT PR ONE (20:30)
[2016-10-21] MEDS: CIPROFLOXACIN 400 MG/D5W RTU 400 MG/200 ML RTUPB IV SCH (22:08)
[2016-10-21] MEDS: RIVAROXABAN 10 MG TABLET PO SCH (23:59)
[2016-10-22 05:43] LABS: ABSOLUTE LYMPHOCYTES (AUTO) 0.9 10^3/uL (0.5-4.7); ABSOLUTE MONOCYTES (AUTO) 0.6 10^3/uL (0.1-1.4); BASOPHILS % (AUTO) 0.4 % (0-2); EOSINOPHILS % (AUTO) 0.4 % (0-6); HEMOGLOBIN 9.8 g/dL (12.0-15.5); HGB HCT DIFFERENCE 0.4; LYMPHOCYTES % (AUTO) 10.4 % (13-45); MEAN CORPUSCULAR HEMOGLOBIN 31.3 pg (27.0-33.4); MEAN CORPUSCULAR HGB CONC 33.9 g/dL (32.0-36.0); MEAN CORPUSCULAR VOLUME 92 fl (80-97); MONOCYTES % (AUTO) 6.6 % (3-13); RED BLOOD COUNT 3.14 10^6/uL (3.72-5.28); RED CELL DISTRIBUTION WIDTH 15.3 % (11.5-14.0); SEGMENTED NEUTROPHILS % (AUTO) 82.2 % (42-78); WHITE BLOOD COUNT 8.5 10^3/uL (4.0-10.5)
[2016-10-22 05:57] LABS: ANION GAP 10 (5-19); BLOOD UREA NITROGEN 10 mg/dL (7-20); CALCIUM 8.5 mg/dL (8.4-10.2); CARBON DIOXIDE 18 mmol/L (22-30); CHLORIDE 99 mmol/L (98-107); CREATININE RESULT 0.62 mg/dL (0.52-1.25); GLUCOSE 147 mg/dL (75-110); POTASSIUM 4.4 mmol/L (3.6-5.0); SODIUM 127.1 mmol/L (137-145)
[2016-10-22] MEDS ORDERED: BISACODYL 10 MG SUPP.RECT PR ONE (06:30)
[2016-10-22] MEDS: CARVEDILOL 12.5 MG TABLET PO SCH ×2 (06:39→18:49)
--- NOTE | 2016-10-22 08:27 | PDOC PROGRESS REPORT ---
Subjective Progress Note for:: 10/22/16 Subjective:: Communication is difficult because the patient has reverted to speaking only Guatemalan Physical Exam Vital Signs: Temp Pulse Resp BP Pulse Ox 36.8 C 95 16 133/61 H 99 10/22/16 03:12 10/22/16 03:12 10/22/16 03:12 10/22/16 03:12 10/22/16 03:12 Intake & Output 10/21/16 10/22/16 10/23/16 06:59 06:59 06:59 Intake Total 5250 3245 Output Total 1080 1575 Balance 4170 1670 Weight 69.031 kg General appearance: PRESENT: no acute distress Head exam: PRESENT: normocephalic Respiratory exam: PRESENT: unlabored Results Laboratory Results: 10/22/16 05:04 10/22/16 05:04 10/22/16 10/22/16 05:04 05:04 WBC 8.5 RBC 3.14 L Hgb 9.8 L Hct 29.0 L MCV 92 MCH 31.3 MCHC 33.9 RDW 15.3 H Plt Count 144 L Seg Neutrophils % 82.2 H Lymphocytes % 10.4 L Monocytes % 6.6 Eosinophils % 0.4 Basophils % 0.4 Absolute Neutrophils 7.0 Absolute Lymphocytes 0.9 Absolute Monocytes 0.6 Absolute Eosinophils 0.0 Absolute Basophils 0.0 Sodium 127.1 L Potassium 4.4 Chloride 99 Carbon Dioxide 18 L Anion Gap 10 BUN 10 Creatinine 0.62 Est GFR ( Amer) > 60 Est GFR (Non-Af Amer) > 60 Glucose 147 H Calcium 8.5 10/19/16 10/19/16 10/19/16 17:00 17:23 17:23 Creatine Kinase 31 CK-MB (CK-2) 1.23 Troponin I 0.015 NT-Pro-B Natriuret Pep 857 H 10/19/16 10/19/16 10/20/16 23:36 23:36 05:52 Creatine Kinase 35 34 CK-MB (CK-2) 1.21 Troponin I 0.021 NT-Pro-B Natriuret Pep 10/20/16 05:52 Creatine Kinase CK-MB (CK-2) 1.25 Troponin I 0.019 NT-Pro-B Natriuret Pep Impressions: Head CT 10/19/16 13:03 IMPRESSION: MILD CHRONIC CHANGES OF ATROPHY AND MICROVASCULAR ISCHEMIA. NO ACUTE PROCESS. Hip X-Ray 10/19/16 13:03 IMPRESSION: Subcapital left hip fracture. Chest X-Ray 10/19/16 13:05 IMPRESSION: NO ACUTE RADIOGRAPHIC FINDING IN THE CHEST. Status: Imported from PACS Assessment & Plan - Diagnosis (1) Fracture of femoral neck, left, closed Is this a current diagnosis for this admission?: YesPlan: Status post hemiarthroplasty with limited progress with physical therapy. Anticipate discharge to a half-way facility when bed available. - Time Time Spent with patient: 15-24 minutes Anticipated discharge: SNF Within: when bed available
[2016-10-22] MEDS ORDERED: MAGNESIUM CITRATE 296 ML BOTTLE PO ONE (10:00)
[2016-10-22] MEDS: NORMAL SALINE 1000 ML 1,000 ML IV PRN (10:06)
[2016-10-22] MEDS: ALPRAZOLAM 0.25 MG TABLET PO PRN ×2 (10:08→21:17)
[2016-10-22] MEDS: OXYCODONE-ACETAMINOPHEN 5-325 MG TABLET PO PRN ×3 (10:08→18:49)
[2016-10-22] MEDS: CIPROFLOXACIN 400 MG/D5W RTU 400 MG/200 ML RTUPB IV SCH ×2 (10:09→21:17)
--- NOTE | 2016-10-22 16:04 | PDOC PROGRESS REPORT ---
Subjective Progress Note for:: 10/22/16 Subjective:: She was seen by the bedside she is alert, she said she has symptoms of discharge from the eyes I did not really appreciate any discharge or infections when I inspected both eyes but I reassured her that she is on IV ciprofloxacin antibiotic and that it would help if there is any apparent infection in the eyes, if I was to prescribe eyedrop it would be Cipro eyedrop anyway Physical Exam Vital Signs: Temp Pulse Resp BP Pulse Ox 97.5 F 94 16 102/50 L 100 10/22/16 11:09 10/22/16 11:09 10/22/16 11:09 10/22/16 11:09 10/22/16 11:09 Intake & Output 10/21/16 10/22/16 10/23/16 06:59 06:59 06:59 Intake Total 5250 3245 Output Total 1080 1575 Balance 4170 1670 Weight 69.031 kg General appearance: PRESENT: no acute distress Eye exam: PRESENT: PERRLA Respiratory exam: PRESENT: clear to auscultation corazon Cardiovascular exam: PRESENT: +S1, +S2 GI/Abdominal exam: PRESENT: soft Neurological exam: PRESENT: alert, CN II-XII grossly intact Results Laboratory Results: 10/22/16 05:04 10/22/16 05:04 10/22/16 10/22/16 05:04 05:04 WBC 8.5 RBC 3.14 L Hgb 9.8 L Hct 29.0 L MCV 92 MCH 31.3 MCHC 33.9 RDW 15.3 H Plt Count 144 L Seg Neutrophils % 82.2 H Lymphocytes % 10.4 L Monocytes % 6.6 Eosinophils % 0.4 Basophils % 0.4 Absolute Neutrophils 7.0 Absolute Lymphocytes 0.9 Absolute Monocytes 0.6 Absolute Eosinophils 0.0 Absolute Basophils 0.0 Sodium 127.1 L Potassium 4.4 Chloride 99 Carbon Dioxide 18 L Anion Gap 10 BUN 10 Creatinine 0.62 Est GFR ( Amer) > 60 Est GFR (Non-Af Amer) > 60 Glucose 147 H Calcium 8.5 10/19/16 10/19/16 10/19/16 17:00 17:23 17:23 Creatine Kinase 31 CK-MB (CK-2) 1.23 Troponin I 0.015 NT-Pro-B Natriuret Pep 857 H 10/19/16 10/19/16 10/20/16 23:36 23:36 05:52 Creatine Kinase 35 34 CK-MB (CK-2) 1.21 Troponin I 0.021 NT-Pro-B Natriuret Pep 10/20/16 05:52 Creatine Kinase CK-MB (CK-2) 1.25 Troponin I 0.019 NT-Pro-B Natriuret Pep Impressions: Head CT 10/19/16 13:03 IMPRESSION: MILD CHRONIC CHANGES OF ATROPHY AND MICROVASCULAR ISCHEMIA. NO ACUTE PROCESS. Hip X-Ray 10/19/16 13:03 IMPRESSION: Subcapital left hip fracture. Chest X-Ray 10/19/16 13:05 IMPRESSION: NO ACUTE RADIOGRAPHIC FINDING IN THE CHEST. 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) Is this a current diagnosis for this admission?: Yes (4) Type 2 diabetes mellitus Qualifiers: Diabetes mellitus complication status: with neurologic complications Diabetes mellitus complication detail: with polyneuropathy Diabetes mellitus long term care social worker insulin use: without long term care social worker use Qualified Code(s): E11.42 - Type 2 diabetes mellitus with diabetic polyneuropathy; Z79.4 - oil heaterman (current) use of insulin Is this a current diagnosis for this admission?: Yes (5) Constipation Qualifiers: Constipation type: unspecified constipation type Qualified Code(s): K59.00 - Constipation, unspecified Is this a current diagnosis for this admission?: Yes (6) Urinary tract infection Is this a current diagnosis for this admission?: Yes - Plan Summary Plan Summary: Continue IV antibiotic, the plan is to transfer to the group home for rehabilitation on Monday or Monday
[2016-10-22] MEDS: RIVAROXABAN 10 MG TABLET PO SCH (21:16)
[2016-10-23] MEDS: CARVEDILOL 12.5 MG TABLET PO SCH ×2 (06:01→18:16)
[2016-10-23] MEDS: OXYCODONE-ACETAMINOPHEN 5-325 MG TABLET PO PRN ×4 (06:32→18:34)
[2016-10-23] MEDS: CIPROFLOXACIN 400 MG/D5W RTU 400 MG/200 ML RTUPB IV SCH ×2 (09:25→21:01)
[2016-10-23] MEDS: ALPRAZOLAM 0.25 MG TABLET PO PRN ×2 (09:25→21:01)
[2016-10-23] MEDS: NORMAL SALINE 1000 ML 1,000 ML IV PRN (10:34)
[2016-10-23 13:06] LABS: ABSOLUTE LYMPHOCYTES (AUTO) 0.8 10^3/uL (0.5-4.7); ABSOLUTE MONOCYTES (AUTO) 0.4 10^3/uL (0.1-1.4); ABSOLUTE NEUT (AUTO) 4.2 10^3/uL (1.7-8.2); BASOPHILS % (AUTO) 0.2 % (0-2); EOSINOPHILS % (AUTO) 0.9 % (0-6); HEMATOCRIT 23.9 % (36.0-47.0); HGB HCT DIFFERENCE 0.1; LYMPHOCYTES % (AUTO) 15.5 % (13-45); MEAN CORPUSCULAR HGB CONC 33.4 g/dL (32.0-36.0); MEAN CORPUSCULAR VOLUME 93 fl (80-97); MONOCYTES % (AUTO) 6.8 % (3-13); RED BLOOD COUNT 2.58 10^6/uL (3.72-5.28); RED CELL DISTRIBUTION WIDTH 15.2 % (11.5-14.0); SEGMENTED NEUTROPHILS % (AUTO) 76.6 % (42-78); WHITE BLOOD COUNT 5.4 10^3/uL (4.0-10.5)
[2016-10-23 13:16] LABS: ALANINE AMINOTRANSFERASE 24 U/L (9-52); ALBUMIN 2.2 g/dL (3.5-5.0); ALKALINE PHOSPHATASE 47 U/L (38-126); ANION GAP 9 (5-19); ASPARTATE AMINO TRANSFERASE 15 U/L (14-36); BILIRUBIN,DIRECT 0.4 mg/dL (0.0-0.4); BILIRUBIN,TOTAL 0.6 mg/dL (0.2-1.3); BLOOD UREA NITROGEN 14 mg/dL (7-20); CARBON DIOXIDE 17 mmol/L (22-30); CHLORIDE 101 mmol/L (98-107); CREATININE RESULT 0.59 mg/dL (0.52-1.25); GLUCOSE 191 mg/dL (75-110); POTASSIUM 4.1 mmol/L (3.6-5.0); SODIUM 127.1 mmol/L (137-145); TOTAL PROTEIN 4.5 g/dL (6.3-8.2)
[2016-10-23] MEDS ORDERED: TOLVAPTAN 15 MG TABLET PO SCH (13:45)
[2016-10-23] MEDS ORDERED: (PENDING PHARMACY ID) (Tramadol Hcl/Acetaminophen [Ultracet 37.5 Mg/325 Mg Tablet] 1 EACH) PO PRN (13:50)
--- NOTE | 2016-10-23 13:50 | PDOC PROGRESS REPORT ---
Subjective Progress Note for:: 10/23/16 Subjective:: She was seen by the bedside, she recently had left hip hemiarthroplasty, the plan is to transfer to the senior living for rehabilitation. She has SIADH, fluid restriction is not effective in maintaining normal serum sodium she will need to take tolvaptan probably twice a week. Physical Exam Vital Signs: Temp Pulse Resp BP Pulse Ox 98.2 F 77 16 114/63 100 10/23/16 11:20 10/23/16 11:20 10/23/16 11:20 10/23/16 11:20 10/23/16 11:20 Intake & Output 10/22/16 10/23/16 10/24/16 06:59 06:59 06:59 Intake Total 3245 4319 Output Total 1575 1200 Balance 1670 3119 Weight 69 kg General appearance: PRESENT: no acute distress Eye exam: PRESENT: PERRLA Respiratory exam: PRESENT: clear to auscultation corazon Cardiovascular exam: PRESENT: +S1, +S2 GI/Abdominal exam: PRESENT: soft Neurological exam: PRESENT: alert, CN II-XII grossly intact Results Laboratory Results: 10/23/16 12:55 10/23/16 12:55 10/23/16 10/23/16 12:55 12:55 WBC 5.4 RBC 2.58 L Hgb 8.0 L Hct 23.9 L MCV 93 MCH 31.0 MCHC 33.4 RDW 15.2 H Plt Count 138 L Seg Neutrophils % 76.6 Lymphocytes % 15.5 Monocytes % 6.8 Eosinophils % 0.9 Basophils % 0.2 Absolute Neutrophils 4.2 Absolute Lymphocytes 0.8 Absolute Monocytes 0.4 Absolute Eosinophils 0.0 Absolute Basophils 0.0 Sodium 127.1 L Potassium 4.1 Chloride 101 Carbon Dioxide 17 L Anion Gap 9 BUN 14 Creatinine 0.59 Est GFR ( Amer) > 60 Est GFR (Non-Af Amer) > 60 Glucose 191 H Calcium 8.0 L Total Bilirubin 0.6 AST 15 ALT 24 Alkaline Phosphatase 47 Total Protein 4.5 L Albumin 2.2 L 10/20/16 06:50 Orellana Catheter Urine Culture - Final Klebsiella Pneumoniae 10/19/16 10/19/16 10/19/16 17:00 17:23 17:23 Creatine Kinase 31 CK-MB (CK-2) 1.23 Troponin I 0.015 NT-Pro-B Natriuret Pep 857 H 10/19/16 10/19/16 10/20/16 23:36 23:36 05:52 Creatine Kinase 35 34 CK-MB (CK-2) 1.21 Troponin I 0.021 NT-Pro-B Natriuret Pep 10/20/16 05:52 Creatine Kinase CK-MB (CK-2) 1.25 Troponin I 0.019 NT-Pro-B Natriuret Pep Impressions: Head CT 10/19/16 13:03 IMPRESSION: MILD CHRONIC CHANGES OF ATROPHY AND MICROVASCULAR ISCHEMIA. NO ACUTE PROCESS. Hip X-Ray 10/19/16 13:03 IMPRESSION: Subcapital left hip fracture. Chest X-Ray 10/19/16 13:05 IMPRESSION: NO ACUTE RADIOGRAPHIC FINDING IN THE CHEST. 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) Is this a current diagnosis for this admission?: Yes (4) Type 2 diabetes mellitus Qualifiers: Diabetes mellitus complication status: with neurologic complications Diabetes mellitus complication detail: with polyneuropathy Diabetes mellitus ad terminal makeup operator insulin use: without alf use Qualified Code(s): E11.42 - Type 2 diabetes mellitus with diabetic polyneuropathy; Z79.4 - long-term (current) use of insulin Is this a current diagnosis for this admission?: Yes (5) Constipation Qualifiers: Constipation type: unspecified constipation type Qualified Code(s): K59.00 - Constipation, unspecified Is this a current diagnosis for this admission?: Yes (6) Urinary tract infection Qualifiers: Urinary tract infection type: catheter-associated UTI Indwelling urinary catheter type: unspecified Encounter type: initial encounter Qualified Code(s): T83.511A - Infection and inflammatory reaction due to indwelling urethral catheter, initial encounter; N39.0 - Urinary tract infection , site not specified Is this a current diagnosis for this admission?: Yes (7) UTI due to Klebsiella species Is this a current diagnosis for this admission?: YesPlan: She has UTI due to Klebsiella, she was empirically started on ciprofloxacin, the pathogen is sensitive to ciprofloxacin.
[2016-10-23] MEDS ORDERED: ACETAMINOPHEN 325 MG TABLET PO PRN (15:58)
[2016-10-23] MEDS ORDERED: (PENDING PHARMACY ID) (Megestrol Acetate [Megestrol Acetate] 40 MG) PO SCH (17:00)
[2016-10-23] MEDS ORDERED: (PENDING PHARMACY ID) (Carvedilol [Coreg 25 Mg Tablet] 1 TAB) PO SCH (17:00)
[2016-10-23] MEDS ORDERED: (PENDING PHARMACY ID) (Telmisartan [Micardis 40 Mg Tablet] 40 MG) PO SCH (17:00)
[2016-10-23] MEDS ORDERED: CARVEDILOL 12.5 MG TABLET PO SCH (17:00)
[2016-10-23] MEDS: LANSOPRAZOLE 30 MG TAB.RAP.DR PO SCH (18:15)
[2016-10-23] MEDS: LOSARTAN POTASSIUM 50 MG TABLET PO SCH (18:16)
[2016-10-23] MEDS: TOLVAPTAN 15 MG TABLET PO SCH (18:17)
[2016-10-23] MEDS: MEGESTROL ACETATE 20 MG TABLET PO SCH (18:17)
[2016-10-23] MEDS ORDERED: MONTELUKAST SODIUM 10 MG TABLET PO SCH (20:00)
[2016-10-23] MEDS ORDERED: (PENDING PHARMACY ID) (Melatonin/Pyridoxine Hcl (B6) [Melatonin 3 Mg Tablet] 1 EACH) PO SCH (21:00)
[2016-10-23] MEDS: TRAMADOL HCL 50 MG TABLET PO PRN (21:02)
[2016-10-23] MEDS: RIVAROXABAN 10 MG TABLET PO SCH (21:03)
[2016-10-24] MEDS: OXYCODONE-ACETAMINOPHEN 5-325 MG TABLET PO PRN ×4 (02:32→18:33)
[2016-10-24] MEDS: NORMAL SALINE 1000 ML 1,000 ML IV PRN (02:35)
[2016-10-24] MEDS: TRAMADOL HCL 50 MG TABLET PO PRN (04:15)
[2016-10-24 05:37] LABS: ABSOLUTE LYMPHOCYTES (AUTO) 0.8 10^3/uL (0.5-4.7); ABSOLUTE MONOCYTES (AUTO) 0.4 10^3/uL (0.1-1.4); ABSOLUTE NEUT (AUTO) 4.5 10^3/uL (1.7-8.2); BASOPHILS % (AUTO) 0.4 % (0-2); EOSINOPHILS % (AUTO) 0.8 % (0-6); HEMATOCRIT 26.1 % (36.0-47.0); HEMOGLOBIN 8.8 g/dL (12.0-15.5); HGB HCT DIFFERENCE 0.3; MEAN CORPUSCULAR HGB CONC 33.9 g/dL (32.0-36.0); MEAN CORPUSCULAR VOLUME 92 fl (80-97); MONOCYTES % (AUTO) 7.3 % (3-13); RED BLOOD COUNT 2.84 10^6/uL (3.72-5.28); RED CELL DISTRIBUTION WIDTH 15.1 % (11.5-14.0); SEGMENTED NEUTROPHILS % (AUTO) 77.5 % (42-78); WHITE BLOOD COUNT 5.8 10^3/uL (4.0-10.5)
[2016-10-24 05:40] LABS: ALANINE AMINOTRANSFERASE 36 U/L (9-52); ALBUMIN 2.4 g/dL (3.5-5.0); ALKALINE PHOSPHATASE 65 U/L (38-126); ANION GAP 10 (5-19); ASPARTATE AMINO TRANSFERASE 25 U/L (14-36); BILIRUBIN,DIRECT 0.5 mg/dL (0.0-0.4); BILIRUBIN,TOTAL 0.9 mg/dL (0.2-1.3); BLOOD UREA NITROGEN 10 mg/dL (7-20); CALCIUM 8.5 mg/dL (8.4-10.2); CARBON DIOXIDE 17 mmol/L (22-30); CHLORIDE 106 mmol/L (98-107); CREATININE RESULT 0.58 mg/dL (0.52-1.25); GLUCOSE 144 mg/dL (75-110); SODIUM 133.3 mmol/L (137-145); TOTAL PROTEIN 4.8 g/dL (6.3-8.2)
[2016-10-24] MEDS: CARVEDILOL 12.5 MG TABLET PO SCH ×2 (06:09→18:32)
[2016-10-24] MEDS: MEGESTROL ACETATE 20 MG TABLET PO SCH ×2 (07:40→18:34)
[2016-10-24] MEDS ORDERED: POLYETHYLENE GLYCOL 3350 POWDER 17 GM/1 PACKET PO SCH (08:00)
[2016-10-24] MEDS: ALPRAZOLAM 0.25 MG TABLET PO PRN (10:20)
[2016-10-24] MEDS: CIPROFLOXACIN 400 MG/D5W RTU 400 MG/200 ML RTUPB IV SCH (10:21)
--- NOTE | 2016-10-24 12:20 | PDOC TRANSFER SUMMARY ---
General - Admit/Disc Date/PCP Admission Date/Primary Care Provider: 10/19/16 16:14 MIRYAM DANIEL MD Discharge Date: 10/24/16 - Discharge Diagnosis (1) Fracture of femoral neck, left, closed Is this a current diagnosis for this admission?: Yes (2) Hyponatremia Is this a current diagnosis for this admission?: Yes (3) SIADH (syndrome of inappropriate ADH production) Is this a current diagnosis for this admission?: Yes (4) Type 2 diabetes mellitus Is this a current diagnosis for this admission?: Yes (5) Constipation Is this a current diagnosis for this admission?: Yes (6) Urinary tract infection Is this a current diagnosis for this admission?: Yes (7) UTI due to Klebsiella species Is this a current diagnosis for this admission?: Yes (8) Diabetes mellitus Is this a current diagnosis for this admission?: YesSummary: Diet controlled - Additional Information Resuscitation Status: Other Home Medications: Carvedilol [Coreg 25 mg Tablet] 1 tab PO BID@0800,169910/19/16 Megestrol Acetate 40 mg PO BID@0800,169910/19/16 Melatonin/Pyridoxine HCl (B6) [Melatonin 3 mg Tablet] 1 each PO DAILY@10/19 Montelukast Sodium [Singulair 10 mg Tablet] 10 mg PO DAILY@199910/19/16 Pantoprazole Sodium [Protonix] 40 mg PO DAILY@169910/19/16 Polyethylene Glycol 3350 [Miralax Powder 17 gm/Packet] 1 packet PO QAM 10/19/16 Telmisartan [Micardis 40 mg Tablet] 40 mg PO DAILY@169910/19/16 Alprazolam [Xanax 0.25 mg Tablet] 0.25 mg PO Q8HP PRN #60 10/24/16 Rivaroxaban [Xarelto 10 mg Tablet] 10 mg PO QHS #0 tablet 10/24/16 Tolvaptan [Samsca 15 mg Tablet] 15 mg PO QPM #30 tablet 10/24/16 Tramadol HCl/Acetaminophen [Ultracet 37.5 mg/325 mg Tablet] 1 each PO Q6HP PRN # 120 tablet 10/24/16 History of Present Illness Admission Date/PCP: 10/19/16 16:14 MIRYAM DANIEL MD History of Present Illness: Patient is a 86-year-old female, with a history of type 2 diabetes mellitus, she fell and sustained fracture of the left hip, there was no antecedent history of loss of consciousness, no chest pain or shortness of breath. She has a history of SIADH, the sodium was 120. She was treated previously with tolvaptan for the last 30 days with very good result. There was no encephalopathic symptoms Hospital Course Hospital Course: She was admitted for the management of fracture of the left hip, she fell and sustained fracture of the left hip, she was seen by orthopedic she underwent left hip hemiarthroplasty without complications. She has a history of syndrome of inappropriate ADH secretion, SIADH she used fluid restriction in the past without much success she also used tolvaptan medication for 30 days this was quite effective in maintaining normal serum sodium but family was concerned about potential side effects especially regarding liver side effects, she was taken on the medication but the sodium has been dropping ever since then. At this point it would be prudent to use this medication probably twice a week. She be transferred to senior living for rehabilitation Physical Exam Vital Signs: Temp Pulse Resp BP Pulse Ox 97.9 F 80 19 153/81 H 100 10/24/16 07:27 10/24/16 07:27 10/24/16 07:27 10/24/16 07:27 10/24/16 07:27 Intake & Output 10/23/16 10/24/16 10/25/16 06:59 06:59 06:59 Intake Total 4319 3551 Output Total 1200 3375 Balance 3119 176 Weight 69 kg 69 kg General appearance: PRESENT: no acute distress, well-developed, well-nourished Head exam: PRESENT: atraumatic, normocephalic Eye exam: PRESENT: conjunctiva pink, EOMI, PERRLA Ear exam: PRESENT: normal external ear exam Mouth exam: PRESENT: moist, tongue midline Neck exam: ABSENT: carotid bruit, JVD, lymphadenopathy, thyromegaly Respiratory exam: PRESENT: clear to auscultation corazon Cardiovascular exam: PRESENT: RRR, +S1, +S2 Vascular exam: PRESENT: normal capillary refill GI/Abdominal exam: PRESENT: normal bowel sounds, soft Rectal exam: PRESENT: deferred Extremities exam: PRESENT: full ROM Neurological exam: PRESENT: alert, awake, oriented to person, oriented to place , oriented to time, oriented to situation, CN II-XII grossly intact Psychiatric exam: PRESENT: appropriate affect, normal mood. ABSENT: homicidal ideation, suicidal ideation Skin exam: PRESENT: dry, intact, warm. ABSENT: cyanosis, rash Results Laboratory Results: 10/24/16 04:46 10/24/16 04:46 10/23/16 10/23/16 10/24/16 12:55 12:55 04:46 WBC 5.4 5.8 RBC 2.58 L 2.84 L Hgb 8.0 L 8.8 L Hct 23.9 L 26.1 L MCV 93 92 MCH 31.0 31.0 MCHC 33.4 33.9 RDW 15.2 H 15.1 H Plt Count 138 L 186 Seg Neutrophils % 76.6 77.5 Lymphocytes % 15.5 14.0 Monocytes % 6.8 7.3 Eosinophils % 0.9 0.8 Basophils % 0.2 0.4 Absolute Neutrophils 4.2 4.5 Absolute Lymphocytes 0.8 0.8 Absolute Monocytes 0.4 0.4 Absolute Eosinophils 0.0 0.0 Absolute Basophils 0.0 0.0 Sodium 127.1 L Potassium 4.1 Chloride 101 Carbon Dioxide 17 L Anion Gap 9 BUN 14 Creatinine 0.59 Est GFR ( Amer) > 60 Est GFR (Non-Af Amer) > 60 Glucose 191 H Calcium 8.0 L Total Bilirubin 0.6 AST 15 ALT 24 Alkaline Phosphatase 47 Total Protein 4.5 L Albumin 2.2 L 10/24/16 04:46 WBC RBC Hgb Hct MCV MCH MCHC RDW Plt Count Seg Neutrophils % Lymphocytes % Monocytes % Eosinophils % Basophils % Absolute Neutrophils Absolute Lymphocytes Absolute Monocytes Absolute Eosinophils Absolute Basophils Sodium 133.3 L Potassium 4.0 Chloride 106 Carbon Dioxide 17 L Anion Gap 10 BUN 10 Creatinine 0.58 Est GFR ( Amer) > 60 Est GFR (Non-Af Amer) > 60 Glucose 144 H Calcium 8.5 Total Bilirubin 0.9 AST 25 ALT 36 Alkaline Phosphatase 65 Total Protein 4.8 L Albumin 2.4 L 10/19/16 10/19/16 10/19/16 17:00 17:23 17:23 Creatine Kinase 31 CK-MB (CK-2) 1.23 Troponin I 0.015 NT-Pro-B Natriuret Pep 857 H 10/19/16 10/19/16 10/20/16 23:36 23:36 05:52 Creatine Kinase 35 34 CK-MB (CK-2) 1.21 Troponin I 0.021 NT-Pro-B Natriuret Pep 10/20/16 05:52 Creatine Kinase CK-MB (CK-2) 1.25 Troponin I 0.019 NT-Pro-B Natriuret Pep Impressions: Head CT 10/19/16 13:03 IMPRESSION: MILD CHRONIC CHANGES OF ATROPHY AND MICROVASCULAR ISCHEMIA. NO ACUTE PROCESS. Hip X-Ray 10/19/16 13:03 IMPRESSION: Subcapital left hip fracture. Chest X-Ray 10/19/16 13:05 IMPRESSION: NO ACUTE RADIOGRAPHIC FINDING IN THE CHEST. Plan Discharge Plan: She was admitted for the management of fracture of the left hip, she fell and sustained fracture of the left hip, she was seen by orthopedic she underwent left hip hemiarthroplasty without complications. She has a history of syndrome of inappropriate ADH secretion, SIADH she used fluid restriction in the past without much success she also adopted tolvaptan medication for 30 days this was quite effective in maintaining normal serum sodium but family was concerned about side effects especially regarding liver side effects, she was taken on the medication but the sodium has been dropping ever since then. At this point it would be prudent to use this medication probably twice a week. She be transferred to senior living for rehabilitation CHECK CHEM 7 WEEKLY Time Spent: Greater than 30 Minutes
[2016-10-24 16:28] VITALS: BP 185/78
[2016-10-24] MEDS: LANSOPRAZOLE 30 MG TAB.RAP.DR PO SCH (18:30)
[2016-10-24] MEDS: TOLVAPTAN 15 MG TABLET PO SCH (18:34)
[2016-10-24] MEDS: LOSARTAN POTASSIUM 50 MG TABLET PO SCH (18:34)
[2016-10-24] MEDS ORDERED: CIPROFLOXACIN HCL 500 MG TABLET PO SCH (22:00)
== END 2016-10-24 19:30 | DRG 470 ==
LOC: ER 12:43 → UNDOADMIN 16:06 → EH 16:06 → 3S 18:05
PROVIDERS: ADMIT Internal Medicine; ATTEND Internal Medicine
PROC: 0SRS0JA Replacement of Left Hip Joint, Femoral Surface with Synthetic Substitute, Uncemented, Open Approach (ICD-10-PCS; principal; 2016-10-20 16:30)
DX: S72.012A Unspecified intracapsular fracture of left femur, initial encounter for closed fracture (principal); E22.2 Syndrome of inappropriate secretion of antidiuretic hormone; T83.511A Infection and inflammatory reaction due to indwelling urethral catheter, initial encounter; N39.0 Urinary tract infection, site not specified; B96.1 Klebsiella pneumoniae [K. pneumoniae] as the cause of diseases classified elsewhere; W19.XXXA Unspecified fall, initial encounter; Y93.9 Activity, unspecified; Y92.9 Unspecified place or not applicable; Y99.9 Unspecified external cause status; E11.42 Type 2 diabetes mellitus with diabetic polyneuropathy; E78.5 Hyperlipidemia, unspecified; K21.9 Gastro-esophageal reflux disease without esophagitis; M19.90 Unspecified osteoarthritis, unspecified site; F32.9 Major depressive disorder, single episode, unspecified; K59.00 Constipation, unspecified; Z79.899 Other long term (current) drug therapy; Z90.710 Acquired absence of both cervix and uterus; Z88.8 Allergy status to other drugs, medicaments and biological substances; Z91.013 Allergy to seafood
CPT/HCPCS: 01210; 36415; 70450; 71010; 80048; 80053; 80061; 80307; 81001; 82140; 82150; 82550; 82553; 82962; 83036; 83690; 83735; 83880; 84100; 84439; 84443; 84484; 85025; 85610; 87040; 87086; 87088; 87186; 88305; 88311; 93005; 93010; 96361; 96374; 99285; A9270-GY; C9290; G8978-GP; G8979-GP; G8987-GO; G8988-GO; G8989-GO; J0690; J0744; J1170; J1815; J2405; J2704; J3010; J3490; J7030

== ENCOUNTER 2016-10-26 04:07 | Emergency (ER) | payer MEDICARE, OTHER ==
--- NOTE | 2016-10-26 04:39 | ER Document Report ---
ED General - General Chief Complaint: Fall Injury Stated Complaint: FALL/HIP PAIN Time Seen by Provider: 10/26/16 04:31 Mode of Arrival: Medic Information source: Patient, Emergency Med Personnel TRAVEL OUTSIDE OF THE [place] IN LAST 30 DAYS: No - HPI Notes: Patient is an 86-year-old female currently on Xarelto recovering in the [facility] after a left total hip replacement presents with report that she needed to go urinate and could not get assistance so she went to get out of bed on her own and fell striking her head. She reports no loss of consciousness, but does report a mild headache. She reports no neck pain or back pain. She does not feel that she is injured her hip in the fall, but is requesting an xray of the same. She denies any chest pain, difficulty breathing, numbness, paresthesia. - Related Data Allergies/Adverse Reactions: morphine Allergy (Verified 06/03/16 15:53) Shellfish * [Shellfish] Allergy (Verified 06/03/16 15:53) richardson Allergy (Uncoded 06/03/16 15:53) Past Medical History - General Information source: Patient, Emergency Med Personnel - Social History Smoking Status: Never Smoker Frequency of alcohol use: None Drug Abuse: None Lives with: [facility] Family History: Reviewed & Not Pertinent - Past Medical History Cardiac Medical History: Reports: Hx Hypercholesterolemia, Hx Hypertension Pulmonary Medical History: Denies: Hx Tuberculosis Neurological Medical History: Denies: Hx Seizures Endocrine Medical History: Reports: Hx Diabetes Mellitus Type 2 Renal/ Medical History: Reports: Hx Ovarian Cysts. Denies: Hx Peritoneal Dialysis GI Medical History: Reports: Hx Gastroesophageal Reflux Disease Musculoskeltal Medical History: Reports Hx Arthritis Psychiatric Medical History: Reports: Hx Depression Past Surgical History: Reports: Hx Section, Hx Hysterectomy. Denies: Hx Cholecystectomy, Hx Pacemaker - Immunizations Hx Diphtheria, Pertussis, Tetanus Vaccination: No Hx Pneumococcal Vaccination: 01/08/09 Review of Systems - Review of Systems Notes: REVIEW OF SYSTEMS: CONSTITUTIONAL : Denies fever, chills, or sweats. Denies recent illness. EENT: Denies eye, ear, throat, or mouth pain or symptoms. Denies nasal or sinus congestion or discharge. Denies throat, tongue, or mouth swelling or difficulty swallowing. CARDIOVASCULAR: Denies chest pain. Denies palpitations or racing or irregular heart beat. Denies ankle edema. RESPIRATORY: Denies cough, cold, or chest congestion. Denies shortness of breath, difficulty breathing, or wheezing. GASTROINTESTINAL: Denies abdominal pain or distention. Denies nausea, vomiting , or diarrhea. Denies blood in vomitus, stools, or per rectum. Denies black, tarry stools. Denies constipation. GENITOURINARY: Denies difficulty urinating, painful urination, burning, frequency, blood in urine, or discharge. FEMALE GENITOURINARY: Denies vaginal bleeding, heavy or abnormal periods, irregular periods. Denies vaginal discharge or odor. MUSCULOSKELETAL: Denies back or neck pain or stiffness. Denies joint pain or swelling. SKIN: Denies rash, lesions or sores. HEMATOLOGIC : Denies easy bruising or bleeding. LYMPHATIC: Denies swollen, enlarged glands. NEUROLOGICAL: Denies confusion or altered mental status. Denies passing out or loss of consciousness. Denies dizziness or lightheadedness. Denies weakness or paralysis or loss of use of either side. Denies problems with gait or speech. Denies sensory loss, numbness, or tingling. Denies seizures. PSYCHIATRIC: Denies anxiety or stress. Denies depression, suicidal ideation, or homicidal ideation. ALL OTHER SYSTEMS REVIEWED AND NEGATIVE. Dictation was performed using [employer] voice recognition software -: Yes All other systems reviewed and negative Physical Exam - Vital signs Vitals: BP 152/99 H 10/26/16 04:12 - Notes Notes: PHYSICAL EXAMINATION: GENERAL: Well-appearing, well-nourished and in no acute distress. HEAD: Patient has occipital contusion with mild venous bleeding. No obvious deeper laceration noted. No bony deformity or step-off. EYES: Pupils equal round and reactive to light, extraocular movements intact, conjunctiva are normal. ENT: Nares patent, oropharynx clear without exudates. Moist mucous membranes. NECK: Normal range of motion, supple without lymphadenopathy. Nontender. No pain on axial loading. Good range of motion. LUNGS: Breath sounds clear to auscultation bilaterally and equal. No wheezes rales or rhonchi. HEART: Regular rate and rhythm without murmurs ABDOMEN: Soft, nontender, nondistended abdomen. No guarding, no rebound. No masses appreciated. Female : deferred Musculoskeletal: Normal range of motion, no pitting or edema. No cyanosis. Contusion appreciated left hip region which appears old from recent surgical repair. Dressing is in place And appears clear. NEUROLOGICAL: Cranial nerves grossly intact. Normal speech, normal gait. Normal sensory, motor exams. Patient was alert and oriented 3. PSYCH: Normal mood, normal affect. SKIN: Warm, Dry, normal turgor, no rashes or lesions noted. Course - Re-evaluation Re-evalutation: 10/26/16 06:33 There is concern regarding the patient's use of Xarelto with the head injury. Patient also has a previous history of a intracranial hemorrhage after a fall. Patient's neck is completely nontender. CT scan of the head and a left hip x-ray are ordered. Lab studies are ordered including PT/INR and chemistries regarding patient's history of chronic hyponatremia. 10/26/16 06:[address] over to Dr. Zaragoza at 0610. - Vital Signs Vital signs: Temp Pulse Resp BP Pulse Ox 26 H 152/99 H 100 10/26/16 05:00 10/26/16 04:12 10/26/16 05:00 - Laboratory Result Diagrams: 10/26/16 04:57 10/26/16 04:57 Laboratory results interpreted by me: 10/26/16 10/26/16 04:57 04:57 RBC 3.31 L Hgb 9.9 L Hct 29.8 L RDW 15.2 H Sodium 132.9 L Potassium 3.5 L Carbon Dioxide 21 L Glucose 171 H Direct Bilirubin 0.7 H AST 63 H ALT 60 H Total Protein 6.1 L Albumin 3.2 L - EKG Interpretation by Nv EKG shows normal: Sinus rhythm Rate: Tachycardia Additional EKG results interpreted by me: 10/26/16 04:39 EKG as interpreted by ma showed sinus tachycardia heart rate of 102. There is no gross evidence for acute ND or ischemia noted. There is no old EKG available for comparison. 10/26/16 04:39 Discharge - Discharge Clinical Impression: Accidental fall Qualifiers: Encounter type: initial encounter Qualified Code(s): W19.XXXA - Unspecified fall, initial encounter Injury of head Qualifiers: Encounter type: initial encounter Qualified Code(s): S09.90XA - Unspecified injury of head, initial encounter
[2016-10-26 05:25] LABS: ABSOLUTE LYMPHOCYTES (AUTO) 1.1 10^3/uL (0.5-4.7); ABSOLUTE MONOCYTES (AUTO) 0.5 10^3/uL (0.1-1.4); ABSOLUTE NEUT (AUTO) 4.9 10^3/uL (1.7-8.2); BASOPHILS % (AUTO) 0.6 % (0-2); EOSINOPHILS % (AUTO) 0.5 % (0-6); HEMATOCRIT 29.8 % (36.0-47.0); HEMOGLOBIN 9.9 g/dL (12.0-15.5); HGB HCT DIFFERENCE -0.1; LYMPHOCYTES % (AUTO) 16.5 % (13-45); MEAN CORPUSCULAR HGB CONC 33.3 g/dL (32.0-36.0); MEAN CORPUSCULAR VOLUME 90 fl (80-97); MONOCYTES % (AUTO) 7.4 % (3-13); RED BLOOD COUNT 3.31 10^6/uL (3.72-5.28); RED CELL DISTRIBUTION WIDTH 15.2 % (11.5-14.0); WHITE BLOOD COUNT 6.6 10^3/uL (4.0-10.5)
[2016-10-26 05:29] LABS: ALANINE AMINOTRANSFERASE 60 U/L (9-52); ALBUMIN 3.2 g/dL (3.5-5.0); ALKALINE PHOSPHATASE 111 U/L (38-126); ANION GAP 11 (5-19); ASPARTATE AMINO TRANSFERASE 63 U/L (14-36); BILIRUBIN,DIRECT 0.7 mg/dL (0.0-0.4); BILIRUBIN,TOTAL 1.3 mg/dL (0.2-1.3); BLOOD UREA NITROGEN 16 mg/dL (7-20); CARBON DIOXIDE 21 mmol/L (22-30); CHLORIDE 101 mmol/L (98-107); CREATININE RESULT 0.77 mg/dL (0.52-1.25); GLUCOSE 171 mg/dL (75-110); POTASSIUM 3.5 mmol/L (3.6-5.0); SODIUM 132.9 mmol/L (137-145); TOTAL PROTEIN 6.1 g/dL (6.3-8.2)
--- NOTE | 2016-10-26 06:12 | RADIOLOGY REPORT (SQ) ---
EXAM DESCRIPTION: CT HEAD WITHOUT COMPLETED DATE/TIME: 10/26/2016 6:00 am REASON FOR STUDY: fall with head injury COMPARISON: 10/19/2016. TECHNIQUE: Axial images acquired through the brain without intravenous contrast. Images reviewed wi th bone, brain and subdural windows. Images stored on PACS. All CT scanners at this facility use dose modulation, iterative reconstruction, and/or weight based d osing when appropriate to reduce radiation dose to as low as reasonably achievable (ALARA). [facility]: Dose Right [facility]: CareDose [facility]: Dose Right [facility]: Teradose 4D [facility]: [employer] RADIATION DOSE: Up-to-date CT equipment and radiation dose reduction techniques were employed. CTDIv ol: 55.2 mGy. DLP: 1194 mGy-cm.mGy. LIMITATIONS: None. FINDINGS: VENTRICLES: Prominent. CEREBRUM: No masses. No hemorrhage. No midline shift. Areas of low density in the white matter mos t likely due to chronic micro-vascular ischemic change. No evidence for acute infarction. CEREBELLUM: No masses. No hemorrhage. No alteration of density. No evidence for acute infarction. EXTRAAXIAL SPACES: Age-related involutional change. No fluid collections. No masses. ORBITS AND GLOBE: No intra- or extraconal masses. Normal contour of globe without masses. CALVARIUM: No fracture. PARANASAL SINUSES: No fluid or mucosal thickening. SOFT TISSUES: No mass or hematoma. OTHER: No other significant finding. IMPRESSION: CHRONIC CHANGES OF ATROPHY AND MICROVASCULAR ISCHEMIA. NO ACUTE PROCESS. TECHNICAL DOCUMENTATION: JOB ID: [id number] Quality ID # [id number]: Final reports with documentation of one or more dose reduction techniques (e.g., Au tomated exposure control, adjustment of the mA and/or kV according to patient size, use of iterative reconstruction technique) 2010 [email or web address]- All Rights Reserved
--- NOTE | 2016-10-26 06:29 | RADIOLOGY REPORT (SQ) ---
EXAM DESCRIPTION: HIP LEFT AP/LATERAL COMPLETED DATE/TIME: 10/26/2016 6:13 am REASON FOR STUDY: fall with recent LHR COMPARISON: None. NUMBER OF VIEWS: Two views. TECHNIQUE: AP pelvis and additional frog-leg view of the left hip. LIMITATIONS: None. FINDINGS: MINERALIZATION: Normal. LEFT HIP: Intact hip prosthesis. RIGHT HIP: No fracture or dislocation. Degenerative changes. No worrisome bone lesions. PUBIS AND ISCHIUM: No fracture. PELVIS: No fracture. SACRUM: No fracture or dislocation. No worrisome bone lesions. LOWER LUMBAR SPINE: No fracture or dislocation. No worrisome bone lesions. Degenerative disc disease . SOFT TISSUES: Skin qiana. No acute findings. OTHER: No other significant finding. IMPRESSION: INTACT LEFT HIP PROSTHESIS. NO ACUTE TRAUMATIC FINDINGS. TECHNICAL DOCUMENTATION: JOB ID: [id number] [employer]- All Rights Reserved
[2016-10-26 06:35] LABS: PROTHROMBIN TIME 14.2 SEC (11.4-15.4)
[2016-10-26 09:12] VITALS: BP 146/66
--- NOTE | 2016-10-26 12:05 | EKG REPORT ---
SEVERITY:- OTHERWISE NORMAL ECG - SINUS TACHYCARDIA : Confirmed by: Marta Burton MD 26-Oct-2016 12:03:18
== END 2016-10-26 09:14 | disposition home or self-care (01) ==
LOC: ER 04:07
DX: S09.90XA Unspecified injury of head, initial encounter (principal); M25.552 Pain in left hip; W19.XXXA Unspecified fall, initial encounter; Z79.01 Long term (current) use of anticoagulants; Z96.642 Presence of left artificial hip joint
CPT/HCPCS: 36415; 70450; 80053; 85025; 85610; 93005; 93010; 99284

== ENCOUNTER 2016-10-31 17:07 | Emergency (ER) | payer MEDICARE, OTHER ==
--- NOTE | 2016-10-31 18:47 | RADIOLOGY REPORT (SQ) ---
EXAM DESCRIPTION: HIP LEFT AP/LATERAL COMPLETED DATE/TIME: 10/31/2016 6:36 pm REASON FOR STUDY: left hip pain, fall COMPARISON: 10/26/2016 NUMBER OF VIEWS: Two views. TECHNIQUE: AP pelvis and additional frog-leg view of the left hip. LIMITATIONS: None. FINDINGS: MINERALIZATION: Normal. LEFT HIP: No fracture or dislocation. No worrisome bone lesions. Bipolar prosthesis. RIGHT HIP: No fracture or dislocation. No worrisome bone lesions. PUBIS AND ISCHIUM: No fracture. PELVIS: No fracture. SACRUM: No fracture or dislocation. No worrisome bone lesions. LOWER LUMBAR SPINE: Degenerative disc disease. SOFT TISSUES: Surgical qiana OTHER: No other significant finding. IMPRESSION: Bipolar prosthesis left hip. No acute fracture. TECHNICAL DOCUMENTATION: JOB ID: [id number]- All Rights Reserved
--- NOTE | 2016-10-31 20:02 | ER Document Report ---
ED Extremity Problem, Lower - General Chief Complaint: Leg Pain Stated Complaint: LEFT LEG PAIN Time Seen by Provider: 10/31/16 18:03 Notes: Patient is an 86-year-old female, past medical history left hip replacement 2 weeks ago, presents with increasing swelling of her left lower extremity over the past few days. She is on Xarelto daily. Patient denies pain, fevers, numbness, tingling or rash. TRAVEL OUTSIDE OF THE [place] IN LAST 30 DAYS: No - Related Data Allergies/Adverse Reactions: morphine Allergy (Verified 06/03/16 15:53) Shellfish * [Shellfish] Allergy (Verified 06/03/16 15:53) richardson Allergy (Uncoded 06/03/16 15:53) Past Medical History - General Information source: Patient, Relative - Social History Smoking Status: Never Smoker Chew tobacco use (# tins/day): No Frequency of alcohol use: None Drug Abuse: None Family History: Reviewed & Not Pertinent - Past Medical History Cardiac Medical History: Reports: Hx Hypercholesterolemia, Hx Hypertension Pulmonary Medical History: Denies: Hx Tuberculosis Neurological Medical History: Denies: Hx Seizures Endocrine Medical History: Reports: Hx Diabetes Mellitus Type 2 Renal/ Medical History: Reports: Hx Ovarian Cysts. Denies: Hx Peritoneal Dialysis GI Medical History: Reports: Hx Gastroesophageal Reflux Disease Musculoskeltal Medical History: Reports Hx Arthritis Psychiatric Medical History: Reports: Hx Depression Past Surgical History: Reports: Hx Section, Hx Hysterectomy. Denies: Hx Cholecystectomy, Hx Pacemaker - Immunizations Hx Diphtheria, Pertussis, Tetanus Vaccination: No Hx Pneumococcal Vaccination: 01/08/09 Review of Systems - Review of Systems Notes: REVIEW OF SYSTEMS: CONSTITUTIONAL: -fevers, -chills EENT: -eye pain, -difficulty swallowing, -nasal congestion CARDIOVASCULAR:-chest pain, -syncope. RESPIRATORY: -cough, -SOB GASTROINTESTINAL: -abdominal pain, - nausea, -vomiting, -diarrhea GENITOURINARY: -dysuria, -hematuria MUSCULOSKELETAL: +left leg swelling, -back pain, -neck pain SKIN: -rash or skin lesions. HEMATOLOGIC: -easy bruising or bleeding. LYMPHATIC: -swollen, enlarged glands. NEUROLOGICAL: -altered mental status or loss of consciousness, -headache, - neurologic symptoms PSYCHIATRIC: -anxiety, -depression. ALL OTHER SYSTEMS REVIEWED AND NEGATIVE. Physical Exam - Vital signs Vitals: Temp Pulse Resp BP Pulse Ox 97.9 F 81 16 132/55 H 99 10/31/16 17:11 10/31/16 17:11 10/31/16 17:11 10/31/16 17:11 10/31/16 17:11 - Notes Notes: PHYSICAL EXAMINATION: GENERAL: Well-appearing, well-nourished and in no acute distress. HEAD: Atraumatic, normocephalic. EYES: Pupils equal round and reactive to light, extraocular movements intact, sclera anicteric, conjunctiva are normal. ENT: nares patent, oropharynx clear without exudates. Moist mucous membranes. NECK: Normal range of motion, supple without lymphadenopathy LUNGS: Breath sounds clear to auscultation bilaterally and equal. No wheezes rales or rhonchi. HEART: Regular rate and rhythm without murmurs ABDOMEN: Soft, nontender, normoactive bowel sounds. No guarding, no rebound. No masses appreciated. EXTREMITIES: 2+ pitting edema up to left knee, no redness or tenderness of left leg, well-healing left hip surgical wound, normal range of motion, strong distal pulses. No cyanosis. NEUROLOGICAL: Cranial nerves grossly intact. Normal speech, normal gait. Normal sensory and motor exams. PSYCH: Normal mood, normal affect. SKIN: Warm, Dry, normal turgor, no rashes or lesions noted. Course - Re-evaluation Re-evalutation: Patient appears well. Her left hip x-ray shows her prosthesis without any complications. No DVT on ultrasound. Patient is already on Eliquis. Instructed her to continue the compression stockings and elevation of the leg with follow-up at her primary care physician. - Vital Signs Vital signs: Temp Pulse Resp BP Pulse Ox 97.8 F 77 16 147/79 H 98 10/31/16 20:19 10/31/16 20:19 10/31/16 20:19 10/31/16 20:19 10/31/16 20:19 - Diagnostic Test Radiology reviewed: Image reviewed, Reports reviewed Radiology results interpreted by me: [place] US: No DVT Discharge - Discharge Clinical Impression: Leg edema, left Condition: Stable Disposition: HOME, SELF-CARE Additional Instructions: You ultrasound looking at your left leg does not show any evidence of blood clot in your deep veins. Your x-ray looking at your left hip does not show any abnormalities of your prosthesis. Follow-up with your primary care physician for further evaluation and treatment. Keep the leg elevated and wear the compression stockings as much as possible. Edema, Peripheral You have swelling in your legs. This is called peripheral edema. It can be caused by "leaky capillaries," inflammation, disease of the leg veins, or excess salt and water in your body. Edema may be a sign of heart, kidney, or liver disease. A medical evaluation can determine if there is a serious underlying cause for your edema. Avoid prolonged standing. If you must sit for a long time, occasionally get up and walk around or elevate your legs. Support stockings can be helpful in limiting swelling. Often diuretic or water pills are used to remove excess salt and water from your body. Call the doctor or return if you develop increased swelling, pain, or redness, shortness of breath, chest pain, or any other significant change. Referrals: MIRYAM DANIEL MD [Primary Care Provider] - Follow up as needed
[2016-10-31 20:22] VITALS: BP 147/79
--- NOTE | 2016-10-31 21:11 | RADIOLOGY REPORT (SQ) ---
EXAM DESCRIPTION: VENOUS UNILATERAL LOWER COMPLETED DATE/TIME: 10/31/2016 8:09 pm REASON FOR STUDY: LLE swelling COMPARISON: None. TECHNIQUE: Dynamic and static mejia scale and color images acquired of the left leg venous system. Se lected spectral images acquired with additional compression and augmentation maneuvers. The contralat eral common femoral vein and saphenofemoral junction were also imaged. Images stored on PACS. LIMITATIONS: None. FINDINGS: COMMON FEMORAL: Normal phasicity, compression and augmentation. No visualized echogenic ma terial on mejia scale. No defects on color images. FEMORAL: Normal compression and augmentation. No visualized echogenic material on mejia scale. No defe cts on color images. POPLITEAL: Normal compression, augmentation. No visualized echogenic material on mejia scale. No defec ts on color images. CALF VESSELS: Normal compression, augmentation. No visualized echogenic material on mejia scale. No de fects on color images. GSV and SSV: Normal greater saphenous vein. Subacute thrombus small saphenous vein. ANY DEEP VENOUS INSUFFICIENCY: Not evaluated. ANY EVIDENCE OF POPLITEAL CYST: No. OTHER: No other significant finding. CONTRALATERAL COMMON FEMORAL VEIN AND SAPHENOFEMORAL JUNCTION: Normal phasicity, compression and augmentation. No visualized echogenic material on mejia scale. No de fects on color images. IMPRESSION: No DVT. Subacute thrombus small saphenous. COMMENT: Pertinent findings on the imaging study reported as a CRITICAL RESULT to SHAHAB POWELL MD at18:08 on 10/31/2016. Category of Critical Result: Positive venous doppler TECHNICAL DOCUMENTATION: JOB ID: [id number] [employer]- All Rights Reserved
== END 2016-10-31 20:19 | disposition home or self-care (01) ==
LOC: ER 17:07
DX: R60.0 Localized edema (principal); Z96.642 Presence of left artificial hip joint; E11.9 Type 2 diabetes mellitus without complications; I10 Essential (primary) hypertension; Z79.01 Long term (current) use of anticoagulants; Z88.5 Allergy status to narcotic agent; Z91.013 Allergy to seafood; Z91.018 Allergy to other foods
CPT/HCPCS: 93971; 99284

== ENCOUNTER 2016-12-10 07:55 | Emergency (ER) | payer MEDICARE, OTHER ==
--- NOTE | 2016-12-10 08:20 | ER Document Report ---
ED Hip Pain/Injury - General Mode of Arrival: Ambulatory Information source: Patient TRAVEL OUTSIDE OF THE [place] IN LAST 30 DAYS: No - HPI Patient complains to provider of: Pain, Hip Occurred: This morning Where: Home Onset/Duration: Sudden Quality of pain: Sharp Pain Level: 4 Skin Color: Normal Skin Temperature: Warm Rotation of extremity: Inward Pain with palpation of the pelvis: Yes <CLAUDIA WHITTAKER - Last Filed: 12/10/16 11:43> <SHAHAB RIVAS - Last Filed: 12/10/16 12:54> - General Chief Complaint: Hip Injury Stated Complaint: LEFT HIP PAIN Time Seen by Provider: 12/10/16 08:01 Notes: Patient was attempting to get up to the bedside commode and felt her left hip pop and come out of place. Patient is recent status post left total hip replacement about 6 weeks ago. Patient denies any fall. (CLAUDIA WHITTAKER) - Related Data Allergies/Adverse Reactions: morphine Allergy (Verified 12/10/16 08:13) Shellfish * [Shellfish] Allergy (Verified 12/10/16 08:13) richardson Allergy (Uncoded 12/10/16 08:13) Past Medical History - General Information source: Patient - Social History Smoking Status: Never Smoker Frequency of alcohol use: None Drug Abuse: None Lives with: Spouse/Significant other Family History: Reviewed & Not Pertinent - Past Medical History Cardiac Medical History: Reports: Hx Hypercholesterolemia, Hx Hypertension Pulmonary Medical History: Denies: Hx Tuberculosis Neurological Medical History: Denies: Hx Seizures Endocrine Medical History: Reports: Hx Diabetes Mellitus Type 2 Renal/ Medical History: Reports: Hx Ovarian Cysts. Denies: Hx Peritoneal Dialysis GI Medical History: Reports: Hx Gastroesophageal Reflux Disease Musculoskeltal Medical History: Reports Hx Arthritis Psychiatric Medical History: Reports: Hx Depression Past Surgical History: Reports: Hx Section, Hx Hysterectomy. Denies: Hx Cholecystectomy, Hx Pacemaker - Immunizations Hx Diphtheria, Pertussis, Tetanus Vaccination: No Hx Pneumococcal Vaccination: 01/08/09 <CLAUDIA WHITTAKER - Last Filed: 12/10/16 11:43> Review of Systems - Review of Systems Constitutional: No symptoms reported. denies: Fever EENT: No symptoms reported Cardiovascular: No symptoms reported Respiratory: No symptoms reported Gastrointestinal: No symptoms reported Genitourinary: Frequency - due to medications Female Genitourinary: No symptoms reported Musculoskeletal: Joint pain - left hip Skin: No symptoms reported Hematologic/Lymphatic: No symptoms reported Neurological/Psychological: No symptoms reported <CLAUDIA WHITTAKER - Last Filed: 12/10/16 11:43> Physical Exam - General General appearance: Appears well, Alert In distress: None - Respiratory Respiratory status: No respiratory distress Chest status: Nontender Breath sounds: Normal. No: Rales, Rhonchi, Stridor, Wheezing Chest palpation: Normal - Cardiovascular Rhythm: Regular Heart sounds: S1 appreciated, S2 appreciated Murmur: No Pulses: Normal: Dorsalis pedis - Abdominal Inspection: Normal Distension: No distension - Back Back: Normal, Nontender - Extremities General upper extremity: Normal inspection, Normal ROM General lower extremity: Tender - left hip, Other - LLE leg shortening - Neurological Neuro grossly intact: Yes [place] Coma Scale Eye Opening: Spontaneous [place] Coma Scale Verbal: Oriented [place] Coma Scale Motor: Obeys Commands [place] Coma Scale Total: 15 - Psychological Associated symptoms: Normal affect, Normal mood - Skin Skin Temperature: Warm Skin Moisture: Dry Skin Color: Normal <CLAUDIA WHITTAKER - Last Filed: 12/10/16 11:43> - Vital signs Vitals: Temp Pulse Resp BP Pulse Ox 97.6 F 82 17 155/82 H 100 12/10/16 08:13 12/10/16 08:13 12/10/16 08:13 12/10/16 08:13 12/10/16 08:13 Course - Diagnostic Test Radiology reviewed: Image reviewed, Reports reviewed <BRENDA WHITTAKERUMESH - Last Filed: 12/10/16 11:43> <SHAHAB RIVAS - Last Filed: 12/10/16 12:54> - Re-evaluation Re-evalutation: 12/10/16 09:08 network control operator attempted to page Dr Florentino, message left for return call. Technical Support Analyst unsure of who is taking call for their practice today. 12/10/16 09:31 Dr Florentino called stating that he is currently not on-call for the practice but Dr. malcolm is. Advises having an ER provider attempted sedation and reduction in having her discharged back to the halfway. 12/10/16 10:11 Dr Decker called and will be by to perform reduction 12/10/16 10:[address] Rivas to bedside for reduction via conscious sedation. 12/10/16 10:36 Dr. decker reviewed postreduction film and agrees with discharge plan of care. Dr. Rivas advises leaving a Clemente catheter in and having patient see her primary doctor on Monday to have this removed. Pt with SIADH and takes medications that causes her to void numerous times a day. Pt's spouse educated on clemente care (CLAUDIA WHITTAKER) - Vital Signs Vital signs: Temp Pulse Resp BP Pulse Ox 97.6 F 99 19 126/69 H 100 12/10/16 08:13 12/10/16 11:49 12/10/16 11:49 12/10/16 11:49 12/10/16 11:49 Procedures - Conscious Sedation Conscious sedation Time started: 10:25 Time completed: 10:45 Consent obtained: Yes Indication: Dislocated hip Last meal: 17:00 yesterday Pt with a mild systemic disease.: P2. - ASA Classification. Airway Evaluation: Normal anatomy Mallampati Classification: Class 1 Used during procedure: Suction available, IV access obtained, Pulse ox on pt., radiation monitor on pt. Medications administered: Diprivan Reversal agents: None I personally performed/intraservice time: Sedation, Procedure, 30 min or less Complications: No <SHAHAB RIVAS - Last Filed: 12/10/16 12:54> Discharge <CLAUDIA WHITTAKER - Last Filed: 12/10/16 11:43> <SHAHAB RIVAS - Last Filed: 12/10/16 12:54> - Discharge Clinical Impression: Hx of essential hypertension Hip dislocation, left Qualifiers: Encounter type: initial encounter Qualified Code(s): S73.005A - Unspecified dislocation of left hip, initial encounter Condition: Stable Disposition: HOME, SELF-CARE Instructions: Dislocated Artificial Hip ([facility]), Clemente Catheter Care ([facility]) Additional Instructions: Return immediately for any new or worsening symptoms Followup with your primary care provider on Monday to have clemente catheter removed. Follow up with Dr Florentino this week for a recheck, call Monday for an appointment Forms: Elevated Blood Pressure Referrals: MIRYAM DANIEL MD [Primary Care Provider] - 12/12/16 SIRIA GUERRERO MD [ACTIVE STAFF] - Follow up in 3-5 days
[2016-12-10] MEDS ORDERED: FENTANYL CITRATE INJ/PF 100 MCG/2 ML AMPUL IV ONE (09:08)
--- NOTE | 2016-12-10 09:11 | RADIOLOGY REPORT (SQ) ---
EXAM DESCRIPTION: HIP LEFT AP/LATERAL COMPLETED DATE/TIME: 12/10/2016 9:03 am REASON FOR STUDY: ?dislocation, hx hip replacement COMPARISON: 10/26/2016. NUMBER OF VIEWS: Two views. TECHNIQUE: AP pelvis and additional frog-leg view of the left hip. LIMITATIONS: None. FINDINGS: MINERALIZATION: Normal. LEFT HIP: Superior dislocation of the hip prosthesis. No acute fracture. RIGHT HIP: No fracture or dislocation. Degenerative changes. No worrisome bone lesions. PUBIS AND ISCHIUM: No fracture. PELVIS: No fracture. SACRUM: No fracture or dislocation. No worrisome bone lesions. LOWER LUMBAR SPINE: No fracture or dislocation. No worrisome bone lesions. Degenerative disc disease . SOFT TISSUES: No findings. OTHER: No other significant finding. IMPRESSION: SUPERIOR DISLOCATION OF THE LEFT HIP PROSTHESIS. TECHNICAL DOCUMENTATION: JOB ID: [id number] [employer]- All Rights Reserved
[2016-12-10] MEDS ORDERED: PROPOFOL INJ 200 MG/20 ML VIAL IV ONE (09:37)
[2016-12-10] MEDS ORDERED: NORMAL SALINE 1000 ML 1,000 ML IV PRN (10:13)
--- NOTE | 2016-12-10 10:46 | RADIOLOGY REPORT (SQ) ---
EXAM DESCRIPTION: PELVIS AP COMPLETED DATE/TIME: 12/10/2016 10:37 am REASON FOR STUDY: post reduction COMPARISON: 12/10/2016. NUMBER OF VIEWS: One view TECHNIQUE: AP Pelvis LIMITATIONS: None. FINDINGS: MINERALIZATION: Normal. HIPS: No acute fracture or dislocation. Interval closed reduction of the dislocation of the left hip prosthesis, now in satisfactory position. No worrisome bone lesions. PELVIS AND SACRUM: No acute fracture or dislocation. No worrisome bone lesions. PUBIS AND ISCHIUM: No acute fracture. LOWER LUMBAR SPINE: Degenerative changes. No acute findings as visualized. SOFT TISSUES: No findings. OTHER: No other significant finding. IMPRESSION: SATISFACTORY POSITION OF THE LEFT HIP PROSTHESIS FOLLOWING CLOSED REDUCTION. TECHNICAL DOCUMENTATION: JOB ID: [id number] [employer]- All Rights Reserved
[2016-12-10 11:50] VITALS: BP 126/69
== END 2016-12-10 11:30 | disposition home or self-care (01) ==
LOC: ER 07:55
DX: T84.021A Dislocation of internal left hip prosthesis, initial encounter (principal); X58.XXXA Exposure to other specified factors, initial encounter; Y92.009 Unspecified place in unspecified non-institutional (private) residence as the place of occurrence of the external cause; E78.00 Pure hypercholesterolemia, unspecified; I10 Essential (primary) hypertension; E11.9 Type 2 diabetes mellitus without complications; K21.9 Gastro-esophageal reflux disease without esophagitis; Z96.642 Presence of left artificial hip joint; Z88.6 Allergy status to analgesic agent; Z91.013 Allergy to seafood; Z90.710 Acquired absence of both cervix and uterus
CPT/HCPCS: 99284; 99153; 99152; 51702; J3010; 72170

== ENCOUNTER 2016-12-12 08:29 | Inpatient (IN) | payer MEDICARE, OTHER ==
[2016-12-12] MEDS ORDERED: NORMAL SALINE 1000 ML 1,000 ML IV ONE ×3 (08:44→10:25)
--- NOTE | 2016-12-12 09:11 | EKG REPORT ---
SEVERITY:- ABNORMAL ECG - ATRIAL FIBRILLATION : Confirmed by: Omer Patricia MD 12-Dec-2016 09:11:37
--- NOTE | 2016-12-12 10:15 | RADIOLOGY REPORT (SQ) ---
EXAM DESCRIPTION: CHEST SINGLE VIEW COMPLETED DATE/TIME: 12/12/2016 10:05 am REASON FOR STUDY: hypotension COMPARISON: 10/19/2016 EXAM PARAMETERS: NUMBER OF VIEWS: One view. TECHNIQUE: Single frontal radiographic view of the chest acquired. RADIATION DOSE: NA LIMITATIONS: None. FINDINGS: LUNGS AND PLEURA: No new opacities, masses or pneumothorax. No pleural effusion. MEDIASTINUM AND HILAR STRUCTURES: No masses. Contour normal. HEART AND VASCULAR STRUCTURES: Heart stable in size. Normal vasculature. BONES: No acute findings. HARDWARE: None in the chest. OTHER: No other significant finding. IMPRESSION: NO ACUTE RADIOGRAPHIC FINDING IN THE CHEST. NO SIGNIFICANT CHANGE FROM PRIOR STUDY. TECHNICAL DOCUMENTATION: JOB ID: [id number]
--- NOTE | 2016-12-12 10:17 | RADIOLOGY REPORT (SQ) ---
EXAM DESCRIPTION: PELVIS AP COMPLETED DATE/TIME: 12/12/2016 10:05 am REASON FOR STUDY: not walking on left leg, was dislocated sat. COMPARISON: 12/10/2016 NUMBER OF VIEWS: One view TECHNIQUE: AP Pelvis LIMITATIONS: None. FINDINGS: MINERALIZATION: Normal. HIPS: Dislocated prosthetic left femoral head. No acute osseous abnormality. PELVIS AND SACRUM: No acute fracture or dislocation. No worrisome bone lesions. PUBIS AND ISCHIUM: No acute fracture. LOWER LUMBAR SPINE: No significant findings as visualized. SOFT TISSUES: No findings. OTHER: No other significant finding. IMPRESSION: DISLOCATED PROSTHETIC LEFT FEMORAL HEAD. TECHNICAL DOCUMENTATION: JOB ID: [id number] [employer]- All Rights Reserved
[2016-12-12 10:24] LABS: APPEARANCE,URINE CLEAR; BILIRUBIN,URINE NEGATIVE (NEGATIVE); GLUCOSE, URINE NEGATIVE (NEGATIVE); KETONES,URINE NEGATIVE (NEGATIVE); LEUKOCYTE ESTERASE,URINE NEGATIVE (NEGATIVE); NITRITE,URINE NEGATIVE (NEGATIVE); PROTEIN,URINE NEGATIVE (NEGATIVE); URINE SPECIFIC GRAVITY 1.009; UROBILINOGEN,URINE NEGATIVE mg/dL (<2.0)
[2016-12-12 10:45] LABS: ABSOLUTE LYMPHOCYTES (AUTO) 1.4 10^3/uL (0.5-4.7); ABSOLUTE MONOCYTES (AUTO) 0.5 10^3/uL (0.1-1.4); ABSOLUTE NEUT (AUTO) 10.1 10^3/uL (1.7-8.2); BASOPHILS % (AUTO) 0.2 % (0-2); EOSINOPHILS % (AUTO) 0.4 % (0-6); HEMOGLOBIN 11.8 g/dL (12.0-15.5); HGB HCT DIFFERENCE 0.4; LYMPHOCYTES % (AUTO) 11.4 % (13-45); MEAN CORPUSCULAR HEMOGLOBIN 30.3 pg (27.0-33.4); MEAN CORPUSCULAR HGB CONC 33.8 g/dL (32.0-36.0); MEAN CORPUSCULAR VOLUME 90 fl (80-97); MONOCYTES % (AUTO) 3.8 % (3-13); RED BLOOD COUNT 3.91 10^6/uL (3.72-5.28); RED CELL DISTRIBUTION WIDTH 16.3 % (11.5-14.0); SEGMENTED NEUTROPHILS % (AUTO) 84.2 % (42-78); VENOUS BLOOD BASE EXCESS -4.4 mmol/L; VENOUS BLOOD HCO3 20.6 mmol/L (20-32); VENOUS BLOOD PCO2 37.6 mmHg (35-63); VENOUS BLOOD PH 7.36 (7.30-7.42); WHITE BLOOD COUNT 11.9 10^3/uL (4.0-10.5)
[2016-12-12 10:51] LABS: PROTHROMBIN TIME 13.6 SEC (11.4-15.4)
[2016-12-12 11:02] LABS: ALANINE AMINOTRANSFERASE 27 U/L (9-52); ALBUMIN 3.7 g/dL (3.5-5.0); ALKALINE PHOSPHATASE 101 U/L (38-126); ANION GAP 15 (5-19); ASPARTATE AMINO TRANSFERASE 44 U/L (14-36); BILIRUBIN,DIRECT 0.4 mg/dL (0.0-0.4); BILIRUBIN,TOTAL 0.8 mg/dL (0.2-1.3); BLOOD UREA NITROGEN 40 mg/dL (7-20); CALCIUM 9.1 mg/dL (8.4-10.2); CARBON DIOXIDE 16 mmol/L (22-30); CHLORIDE 103 mmol/L (98-107); CREATINE KINASE 1064 U/L (30-135); GLUCOSE 116 mg/dL (75-110); POTASSIUM 4.2 mmol/L (3.6-5.0); SODIUM 134.1 mmol/L (137-145); TOTAL PROTEIN 6.4 g/dL (6.3-8.2)
[2016-12-12] MEDS ORDERED: LIDOCAINE 5% (700 MG) TRANSDERMAL ADH..PATCH TP ONE (11:19)
--- NOTE | 2016-12-12 12:00 | RADIOLOGY REPORT (SQ) ---
EXAM DESCRIPTION: CT HEAD WITHOUT COMPLETED DATE/TIME: 12/12/2016 11:49 am REASON FOR STUDY: syncope COMPARISON: 10/26/2016 TECHNIQUE: Axial images acquired through the brain without intravenous contrast. Images reviewed wi th bone, brain and subdural windows. Images stored on PACS. All CT scanners at this facility use dose modulation, iterative reconstruction, and/or weight based d osing when appropriate to reduce radiation dose to as low as reasonably achievable (ALARA). [facility]: Dose Right [facility]: CareDose [facility]: Dose Right [facility]: Teradose 4D [facility]: Smart [employer] RADIATION DOSE: Up-to-date CT equipment and radiation dose reduction techniques were employed. CTDIv ol: 64.6 mGy. DLP: 1163 mGy-cm.mGy. LIMITATIONS: None. FINDINGS: VENTRICLES: Prominent. CEREBRUM: No masses. No hemorrhage. No midline shift. Areas of low density in the white matter mos t likely due to chronic micro-vascular ischemic change. No evidence for acute infarction. CEREBELLUM: No masses. No hemorrhage. No alteration of density. No evidence for acute infarction. EXTRAAXIAL SPACES: Age-related involutional change. No fluid collections. No masses. ORBITS AND GLOBE: No intra- or extraconal masses. Normal contour of globe without masses. CALVARIUM: No fracture. PARANASAL SINUSES: No fluid or mucosal thickening. SOFT TISSUES: No mass or hematoma. OTHER: No other significant finding. IMPRESSION: NO ACUTE INTRACRANIAL PROCESS. NO SIGNIFICANT CHANGE FROM PRIOR STUDY. TECHNICAL DOCUMENTATION: JOB ID: [id number] Quality ID # [id number]: Final reports with documentation of one or more dose reduction techniques (e.g., Au tomated exposure control, adjustment of the mA and/or kV according to patient size, use of iterative reconstruction technique) 2010 [employer]- All Rights Reserved
--- NOTE | 2016-12-12 14:23 | RADIOLOGY REPORT (SQ) ---
EXAM DESCRIPTION: NM LUNG VENT/PERF SCAN COMPLETED DATE/TIME: 12/12/2016 2:03 pm REASON FOR STUDY: SOB, Hip replacement 6 weeks ago COMPARISON: CHEST RADIOGRAPH FROM 12/12/2016 RADIONUCLIDE AND DOSE: 5.41 millicuries TC-99m MAA Intravenous 32.8 millicuries TC-99m DTPA Inhaled aerosol TECHNIQUE: Eight views of the lungs acquired post ventilation of DTPA aerosol. Eight matching views of the lungs acquired following injection of MAA. LIMITATIONS: None. FINDINGS: VENTILATION: Symmetric and heterogeneous distribution of DTPA aerosol during ventilatory p hase. No significant areas of photopenia. PERFUSION: Perfusion images with normal homogenous activity and no wedge-shaped or segmental defects. No ventilation-perfusion mismatches. OTHER: No other significant finding. IMPRESSION: LOW PROBABILITY FOR PULMONARY EMBOLI. TECHNICAL DOCUMENTATION: JOB ID: [id number] [employer]- All Rights Reserved
[2016-12-12] MEDS ORDERED: FENTANYL CITRATE INJ/PF 100 MCG/2 ML AMPUL IV ONE (14:27)
[2016-12-12] MEDS ORDERED: ONDANSETRON HCL INJ/PF 4 MG/2 ML SDV IV ONE (14:27)
--- NOTE | 2016-12-12 14:27 | ER Document Report ---
ED General - General Chief Complaint: Syncope Stated Complaint: POSSIBLE SYNCOPAL EPISODES Time Seen by Provider: 12/12/16 08:42 TRAVEL OUTSIDE OF THE [place] IN LAST 30 DAYS: No - HPI Patient complains to provider of: Syncopal episodes Notes: Patient coming in for evaluation multiple syncopal episodes according to the at bedside is been ongoing for the last few days. States that the patient normally just will pass out while sitting up difficult to arouse. Patient been recently seen for UTI recently finished up antibiotics for UTI denies fever states night sweats. Patient upon my evaluation was to be no obvious respiratory distress patient also complains of left hip pain patient has a history of left hip arthroplasty. Patient's vital signs showed hypotension upon arrival - Related Data Allergies/Adverse Reactions: morphine Allergy (Verified 12/10/16 08:13) Shellfish * [Shellfish] Allergy (Verified 12/10/16 08:13) richardson Allergy (Uncoded 12/10/16 08:13) Past Medical History - Social History Smoking Status: Never Smoker Chew tobacco use (# tins/day): No Frequency of alcohol use: None Drug Abuse: None Family History: Reviewed & Not Pertinent Patient has suicidal ideation: No Patient has homicidal ideation: No - Past Medical History Cardiac Medical History: Reports: Hx Hypercholesterolemia, Hx Hypertension Pulmonary Medical History: Denies: Hx Tuberculosis Neurological Medical History: Denies: Hx Seizures Endocrine Medical History: Reports: Hx Diabetes Mellitus Type 2 Renal/ Medical History: Reports: Hx Ovarian Cysts. Denies: Hx Peritoneal Dialysis GI Medical History: Reports: Hx Gastroesophageal Reflux Disease Musculoskeltal Medical History: Reports Hx Arthritis Psychiatric Medical History: Reports: Hx Depression Past Surgical History: Reports: Hx Section, Hx Hysterectomy, Hx Orthopedic Surgery - left hip surg. Denies: Hx Cholecystectomy, Hx Pacemaker - Immunizations Hx Diphtheria, Pertussis, Tetanus Vaccination: No Hx Pneumococcal Vaccination: 01/08/09 Review of Systems - Review of Systems Constitutional: No symptoms reported EENT: No symptoms reported Cardiovascular: Syncope Respiratory: No symptoms reported Gastrointestinal: No symptoms reported Genitourinary: No symptoms reported Female Genitourinary: No symptoms reported Musculoskeletal: No symptoms reported Skin: No symptoms reported Hematologic/Lymphatic: No symptoms reported Neurological/Psychological: No symptoms reported -: Yes All other systems reviewed and negative Physical Exam - Vital signs Vitals: BP 88/58 L 12/12/16 08:33 Interpretation: Hypotensive - General General appearance: Appears well, Alert - HEENT Head: Normocephalic, Atraumatic Eyes: Normal Pupils: PERRL - Respiratory Respiratory status: No respiratory distress Chest status: Nontender Breath sounds: Normal Chest palpation: Normal - Cardiovascular Rhythm: Regular Heart sounds: Normal auscultation Murmur: No - Abdominal Inspection: Normal Distension: No distension Bowel sounds: Normal Tenderness: Nontender Organomegaly: No organomegaly - Back Back: Normal, Nontender - Extremities General upper extremity: Normal inspection, Nontender, Normal color, Normal ROM , Normal temperature General lower extremity: Normal inspection, Nontender, Normal color, Normal ROM , Normal temperature, Normal weight bearing. No: Jose C's sign - Neurological Neuro grossly intact: Yes Cognition: Normal Orientation: AAOx4 Vin Coma Scale Eye Opening: Spontaneous Vin Coma Scale Verbal: Oriented Vin Coma Scale Motor: Obeys Commands Vin Coma Scale Total: 15 Speech: Normal Motor strength normal: LUE, RUE, LLE, RLE Sensory: Normal - Psychological Associated symptoms: Normal affect, Normal mood - Skin Skin Temperature: Warm Skin Moisture: Dry Skin Color: Normal Course - Re-evaluation Re-evalutation: 12/12/16 14:42 Patient laboratory studies showed elevation in CK with renal failure. No signs of obvious infection. Patient's blood pressure did improve with 2 L bolus. X- ray of the left hip shows dislocation patient has a history of hip dislocation now apparently the patient's third time for this hip to be dislocated. Due to the patient's presentation hypotension concerning for sedating the patient and relocating the hip discussed with covering orthopedic Dr. Ross agrees with current management and agrees to see the patient in consultation once patient is admitted. Discussed with covering PCP Dr. Barton requesting head CT and VQ scan. These are negative for head bleed or PE. Patient blood pressure now has stabilized. At this time no signs of sepsis or infection we will continue to monitor patient will admit the patient for multiple syncopal episodes of hypotension hip dislocation - Vital Signs Vital signs: Temp Pulse Resp BP Pulse Ox 98.2 F 85 13 117/73 100 12/12/16 08:43 12/12/16 08:43 12/12/16 11:01 12/12/16 11:01 12/12/16 11:01 - Laboratory Result Diagrams: 12/12/16 10:36 12/12/16 10:36 Laboratory results interpreted by me: 12/12/16 12/12/16 12/12/16 10:10 10:36 10:36 WBC 11.9 H Hgb 11.8 L Hct 35.0 L RDW 16.3 H Seg Neutrophils % 84.2 H Lymphocytes % 11.4 L Absolute Neutrophils 10.1 H Sodium 134.1 L Carbon Dioxide 16 L BUN 40 H Creatinine 1.90 H Est GFR ( Amer) 30 L Est GFR (Non-Af Amer) 25 L Glucose 116 H AST 44 H Creatine Kinase 1064 H Urine Blood MODERATE H Critical Care Note - Critical Care Note Total time excluding time spent on procedures (mins): 35 Comments: Multiple evaluations for hypotension Discharge - Discharge Clinical Impression: Dehydration, Elevated CK Hip dislocation, left Qualifiers: Encounter type: subsequent encounter Qualified Code(s): S73.005D - Unspecified dislocation of left hip, subsequent encounter Hypotension Qualifiers: Hypotension type: unspecified hypotension type Qualified Code(s): I95.9 - Hypotension, unspecified Acute renal failure Qualifiers: Acute renal failure type: unspecified Qualified Code(s): N17.9 - Acute kidney failure, unspecified Condition: Stable Disposition: ADMITTED INPATIENT Admitting Provider: Deepthi Barton covering Unit Admitted: IMCU Referrals: MIRYAM DANIEL MD [Primary Care Provider] - Follow up as needed
[2016-12-12] MEDS ORDERED: NORMAL SALINE 1000 ML 1,000 ML IV PRN (16:09)
[2016-12-12] MEDS ORDERED: ONDANSETRON HCL INJ/PF 4 MG/2 ML SDV IV PRN (16:09)
[2016-12-12] MEDS ORDERED: DEXTROSE 40% GEL 15 GM TUBE PO PRN ×2 (16:14)
[2016-12-12] MEDS ORDERED: GLUCAGON,HUMAN RECOMB 1 MG INJ IM PRN (16:14)
[2016-12-12] MEDS ORDERED: INSULIN LISPRO 100 UNIT/ML 3 ML VIAL SUBCUT PRN (16:14)
[2016-12-12] MEDS ORDERED: DEXTROSE 50%-WATER 25 GM/50 ML DISP.SYRIN IV PRN ×2 (16:14)
[2016-12-12] MEDS ORDERED: ALBUTEROL SULFATE HFA (90 MCG/PUFF) 8 GM MDI (1 MDI/ER DISP) IH PRN (16:14)
[2016-12-12] MEDS ORDERED: ALBUTEROL SULFATE HFA (90 MCG/PUFF) 200 PUFF/8.5 GM MDI IH PRN (16:22)
[2016-12-12] MEDS ORDERED: (PENDING PHARMACY ID) (Carvedilol [Coreg 25 Mg Tablet] 1 TAB) PO SCH (17:00)
[2016-12-12] MEDS ORDERED: (PENDING PHARMACY ID) (Telmisartan [Micardis 40 Mg Tablet] 40 MG) PO SCH (17:00)
[2016-12-12 17:22] LABS: CREATINE KINASE MB 3.46 ng/mL (<4.55); TROPONIN I 0.073 ng/mL
--- NOTE | 2016-12-12 17:32 | PDOC H&P ---
History of Present Illness Admission Date/PCP: 12/12/16 15:28 MIRYAM DANIEL MD Patient complains of: syncopal episode History of Present Illness: JEAN PAUL JURADO is a 86 year old female This is a 86-year-old female with a history of the left hip dislocations with the recently back together but also a couple of days back in the ER and patient was discharged. Patient also have a urinary tract infections currently finishing the antibiotic brought to the emergency department by EMS with her 's with the complaining of passing out episodes since last couple of days According to the 's patients get a little more sleepy and when he tried to push her to wake up but denied any seizures activity patients denied any chest pain denied any shortness of the breath Patients try to let her walk but patient unable to walk since last couple of days and I believe that hip dislocation is probably affected unable to walk Emergency department initial workup so some elevated CPK and elevated BUN and creatinine most likely underlying dehydration's Patient's a CT head is negative and VQ scan was negative for any PE Past Medical History Cardiac Medical History: Reports: Hyperlipidema, Hypertension Pulmonary Medical History: Denies: Tuberculosis Neurological Medical History: Denies: Seizures Endocrine Medical History: Reports: Diabetes Mellitus Type 2 Renal/ Medical History: Reports: Chronic Kidney Disease GI Medical History: Reports: Gastroesophageal Reflux Disease Musculoskeltal Medical History: Reports: Arthritis Psychiatric Medical History: Reports: Depression Past Surgical History Past Surgical History: Reports: Section, Hysterectomy, Orthopedic Surgery - left hip surg Denies: Cholecystectomy, Pacemaker Social History Lives with: Family Smoking Status: Never Smoker Frequency of Alcohol Use: None Hx Recreational Drug Use: No Hx Prescription Drug Abuse: No Family History Family History: Reviewed & Not Pertinent Parental Family History Reviewed: Yes Children Family History Reviewed: Yes Sibling(s) Family History Reviewed.: Yes Medication/Allergy Home Medications: Albuterol Sulfate [Proair HFA] 2 puff IH QIDP PRN 12/12/16 Carvedilol [Coreg 25 mg Tablet] 1 tab PO BID@0800,1700 12/12/16 Doxepin HCl [Sinequan 10 Mg Capsule] 10 mg PO DAILY@199912/12/16 Montelukast Sodium [Singulair 10 mg Tablet] 10 mg PO QAM 12/12/16 Oxycodone HCl/Acetaminophen [Percocet 7.5-325 mg Tablet] 1 each PO TID@0200,1200 ,2000 12/12/16 Pantoprazole Sodium [Protonix] 40 mg PO DAILY@169912/12/16 Pioglitazone HCl [Actos 15 mg Tablet] 15 mg PO DAILY@169912/12/16 Polyethylene Glycol 3350 [Miralax Powder 17 gm/Packet] 17 gm PO QAM 12/12/16 Sitagliptin Phosphate [Januvia] 100 mg PO DAILY@169912/12/16 Telmisartan [Micardis 40 mg Tablet] 40 mg PO DAILY@169912/12/16 Tolvaptan [Samsca 15 mg Tablet] 15 mg PO MOWEFR@0800 12/12/16 Allergies/Adverse Reactions: morphine Allergy (Verified 12/10/16 08:13) Shellfish * [Shellfish] Allergy (Verified 12/10/16 08:13) richardson Allergy (Uncoded 12/10/16 08:13) Review of Systems All systems: reviewed and no additional remarkable complaints except as stated Physical Exam Vital Signs: Temp Pulse Resp BP Pulse Ox 98.2 F 85 17 121/61 100 12/12/16 08:43 12/12/16 08:43 12/12/16 16:21 12/12/16 16:21 12/12/16 16:21 General appearance: PRESENT: no acute distress, well-developed, well-nourished Head exam: PRESENT: atraumatic, normocephalic Eye exam: PRESENT: conjunctiva pink, EOMI, PERRLA. ABSENT: scleral icterus Ear exam: PRESENT: normal external ear exam Mouth exam: PRESENT: moist, tongue midline Neck exam: PRESENT: full ROM. ABSENT: carotid bruit, JVD, lymphadenopathy, thyromegaly Respiratory exam: PRESENT: clear to auscultation corazon Cardiovascular exam: PRESENT: RRR. ABSENT: diastolic murmur, rubs, systolic murmur Pulses: PRESENT: normal dorsalis pedis pul, +2 pedal pulses bilateral Vascular exam: PRESENT: normal capillary refill GI/Abdominal exam: PRESENT: normal bowel sounds, soft. ABSENT: distended, guarding, mass, organolmegaly, rebound, tenderness Rectal exam: PRESENT: deferred Extremities exam: PRESENT: pedal edema Neurological exam: PRESENT: alert, awake, oriented to person, oriented to place. ABSENT: motor sensory deficit Psychiatric exam: PRESENT: appropriate affect, normal mood. ABSENT: homicidal ideation, suicidal ideation Skin exam: PRESENT: dry, intact, warm. ABSENT: cyanosis, rash Results Impressions: Pelvis X-Ray 12/12/16 00:00 IMPRESSION: DISLOCATED PROSTHETIC LEFT FEMORAL HEAD. Chest X-Ray 12/12/16 08:43 IMPRESSION: NO ACUTE RADIOGRAPHIC FINDING IN THE CHEST. NO SIGNIFICANT CHANGE FROM PRIOR STUDY. Head CT 12/12/16 11:35 IMPRESSION: NO ACUTE INTRACRANIAL PROCESS. NO SIGNIFICANT CHANGE FROM PRIOR STUDY. Lung Scan-VQ NM 12/12/16 11:36 IMPRESSION: LOW PROBABILITY FOR PULMONARY EMBOLI. Assessment & Plan - Diagnosis (1) Acute renal failure Qualifiers: Acute renal failure type: unspecified Qualified Code(s): N17.9 - Acute kidney failure, unspecified Is this a current diagnosis for this admission?: Yes Plan: Most likely from underlying dehydration's start the patient on IV fluid (2) Dehydration Plan: Continues to IV fluid (3) Elevated CK Plan: Likely due to the immobility since last couple of days while patient unable to move due to the hip dislocations continues IV fluid (4) Hip dislocation, left Qualifiers: Encounter type: subsequent encounter Qualified Code(s): S73.005D - Unspecified dislocation of left hip, subsequent encounter Is this a current diagnosis for this admission?: Yes Plan: Follow with the Dr. 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) Plan: Patient's current sodium is stable' Patient is currently taking the symsa 3 times a week (8) Syncopal episodes Qualifiers: Syncope type: unspecified Qualified Code(s): R55 - Syncope and collapse Is this a current diagnosis for this admission?: Yes Plan: Patient CT head is negative no other neurological symptoms most likely related to the patient's taking the oxycodone 3 times a day and also taking the doxepin and Xanax I believe the patient's describing most likely a drowsiness rather than the syncopal episodes will currently cut down the Xanax and cut down the oxycodone (9) Urinary tract infection Qualifiers: Urinary tract infection type: site unspecified Is this a current diagnosis for this admission?: Yes Plan: We send the urine for the culture continues IV Rocephin - Time Time Spent: 30 to 50 Minutes Medications reviewed and adjusted accordingly: Yes Anticipated discharge: Home Within: Other - Inpatient Certification Medical Necessity: Need For IV Fluids, Need for IV Antibiotics Post Hospital Care: D/[facility] Rn Documentation - Plan Summary Plan Summary: We will continues IV fluid get the urine culture and get the echocardiogram and continues to monitor Extensive discussions with the regarding the patient's current conditions and the test results in patients currently a DNR
[2016-12-12] MEDS: SITAGLIPTIN PHOSPHATE 50 MG TABLET PO SCH (19:15)
[2016-12-12] MEDS: LANSOPRAZOLE 30 MG TAB.RAP.DR PO SCH (19:16)
[2016-12-12] MEDS: CEFTRIAXONE 1 GM/D5W RTU 1 GM/50 ML RTUPB IV SCH (19:17)
[2016-12-12] MEDS: LOSARTAN POTASSIUM 50 MG TABLET PO SCH (19:17)
[2016-12-12] MEDS: OXYCODONE-ACETAMINOPHEN 5-325 MG TABLET PO SCH (19:22)
[2016-12-12] MEDS: OXYCODONE HCL IR 5 MG TABLET PO SCH (19:23)
[2016-12-12] MEDS ORDERED: (PENDING PHARMACY ID) (Oxycodone Hcl/Acetaminophen [Percocet 7.5-325 Mg Tablet] 1 EACH) PO SCH (20:00)
[2016-12-12] MEDS ORDERED: FAMOTIDINE INJ/PF 20 MG/2 ML SDV IV SCH (22:00)
[2016-12-12] MEDS ORDERED: DOXEPIN HCL 10 MG CAPSULE ONE (22:07)
[2016-12-12] MEDS: FAMOTIDINE INJ/PF 20 MG/2 ML SDV IV SCH (22:25)
[2016-12-12] MEDS: DOXEPIN HCL 10 MG CAPSULE PO SCH (22:27)
[2016-12-12 22:50] LABS: CREATINE KINASE MB 3.15 ng/mL (<4.55); TROPONIN I 0.07 ng/mL
[2016-12-13] MEDS: OXYCODONE HCL IR 5 MG TABLET PO SCH ×3 (01:41→19:35)
[2016-12-13] MEDS: OXYCODONE-ACETAMINOPHEN 5-325 MG TABLET PO SCH ×3 (01:41→19:34)
[2016-12-13 04:49] LABS: ANION GAP 10 (5-19); BLOOD UREA NITROGEN 25 mg/dL (7-20); CALCIUM 8.6 mg/dL (8.4-10.2); CARBON DIOXIDE 17 mmol/L (22-30); CHLORIDE 108 mmol/L (98-107); CREATINE KINASE 595 U/L (30-135); CREATININE RESULT 1.08 mg/dL (0.52-1.25); GLUCOSE 105 mg/dL (75-110); MAGNESIUM 1.9 mg/dL (1.6-2.3); POTASSIUM 4.1 mmol/L (3.6-5.0); SODIUM 134.7 mmol/L (137-145)
[2016-12-13 04:52] LABS: ABSOLUTE EOSINOPHILS # (AUTO) 0.1 10^3/uL (0.0-0.6); ABSOLUTE LYMPHOCYTES (AUTO) 0.8 10^3/uL (0.5-4.7); ABSOLUTE MONOCYTES (AUTO) 0.4 10^3/uL (0.1-1.4); ABSOLUTE NEUT (AUTO) 5.8 10^3/uL (1.7-8.2); BASOPHILS % (AUTO) 0.6 % (0-2); EOSINOPHILS % (AUTO) 1.1 % (0-6); HEMATOCRIT 27.3 % (36.0-47.0); HGB HCT DIFFERENCE 0.6; LYMPHOCYTES % (AUTO) 11.8 % (13-45); MEAN CORPUSCULAR HEMOGLOBIN 30.3 pg (27.0-33.4); MEAN CORPUSCULAR HGB CONC 33.9 g/dL (32.0-36.0); MEAN CORPUSCULAR VOLUME 89 fl (80-97); MONOCYTES % (AUTO) 5.4 % (3-13); RED BLOOD COUNT 3.05 10^6/uL (3.72-5.28); RED CELL DISTRIBUTION WIDTH 16.4 % (11.5-14.0); SEGMENTED NEUTROPHILS % (AUTO) 81.1 % (42-78); WHITE BLOOD COUNT 7.2 10^3/uL (4.0-10.5)
[2016-12-13 04:59] LABS: HEMOGLOBIN 9.3 g/dL (12.0-15.5)
[2016-12-13 05:01] LABS: CREATINE KINASE MB 2.68 ng/mL (<4.55); TROPONIN I 0.084 ng/mL
--- NOTE | 2016-12-13 06:40 | PDOC CONSULTATION ---
Consultation Consult Date: 12/13/16 Consult reason:: Dislocated left prosthetic hip History of Present Illness Admission Date/PCP: 12/12/16 16:10 MIRYAM DANIEL MD History of Present Illness: The patient is an 86-year-old white female who initially presented in mid October with a left femoral neck fracture. On October 26 the patient underwent a bipolar hemiarthroplasty. She has had multiple ongoing postoperative issues from [facility] and potential urinary tract infections. On December 10 she presented to the emergency room with a left prosthetic hip dislocation. This was reduced uneventfully. The patient had again returned on December 12 primarily for medical conditions at which time it was noted that there was a recurrent dislocation of the left hemiarthroplasty. Orthopedics is now consulted for management of the left hip issues. Past Medical History Cardiac Medical History: Reports: Hyperlipidema, Hypertension Pulmonary Medical History: Denies: Tuberculosis Neurological Medical History: Denies: Seizures Endocrine Medical History: Reports: Diabetes Mellitus Type 2 Renal/ Medical History: Reports: Chronic Kidney Disease GI Medical History: Reports: Gastroesophageal Reflux Disease Musculoskeltal Medical History: Reports: Arthritis Psychiatric Medical History: Reports: Depression Past Surgical History Past Surgical History: Reports: Section, Hysterectomy, Orthopedic Surgery - 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 Denies: Cholecystectomy, Pacemaker Social History Information Source: Patient, Relative Lives with: Family Smoking Status: Former Smoker Number of Years Smokin Last Time Smoked: 15 years ago Frequency of Alcohol Use: None Hx Recreational Drug Use: No Hx Prescription Drug Abuse: No Family History Family History: Reviewed & Not Pertinent Parental Family History Reviewed: No Children Family History Reviewed: No Sibling(s) Family History Reviewed.: No Medication/Allergy Home Medications: Albuterol Sulfate [Proair HFA] 2 puff IH QIDP PRN 12/12/16 Carvedilol [Coreg 25 mg Tablet] 1 tab PO BID@0800,1700 12/12/16 Doxepin HCl [Sinequan 10 Mg Capsule] 10 mg PO DAILY@199912/12/16 Montelukast Sodium [Singulair 10 mg Tablet] 10 mg PO QAM 12/12/16 Oxycodone HCl/Acetaminophen [Percocet 7.5-325 mg Tablet] 1 each PO TID@0200,1200 ,199912/12/16 Pantoprazole Sodium [Protonix] 40 mg PO DAILY@1700 12/12/16 Pioglitazone HCl [Actos 15 mg Tablet] 15 mg PO DAILY@169912/12/16 Polyethylene Glycol 3350 [Miralax Powder 17 gm/Packet] 17 gm PO QAM 12/12/16 Sitagliptin Phosphate [Januvia] 100 mg PO DAILY@169912/12/16 Telmisartan [Micardis 40 mg Tablet] 40 mg PO DAILY@169912/12/16 Tolvaptan [Samsca 15 mg Tablet] 15 mg PO MOWEFR@0800 12/12/16 Allergies/Adverse Reactions: morphine Allergy (Verified 12/10/16 08:13) Shellfish * [Shellfish] Allergy (Verified 12/10/16 08:13) richardson Allergy (Uncoded 12/10/16 08:13) Review of Systems All systems: as per PMH Physical Exam Vital Signs: Temp Pulse Resp BP Pulse Ox 36.8 C 67 18 101/44 L 100 12/12/16 23:30 12/13/16 02:00 12/12/16 23:30 12/12/16 23:30 12/13/16 00:23 Intake & Output 12/11/16 12/12/16 12/13/16 06:59 06:59 06:59 Output Total 950 Balance -950 Weight 65.4 kg Physical Exam: The patient is a frail-appearing elderly female lying in bed. She is quite hard of hearing. Most of the translation is through her son. General appearance: PRESENT: mild distress Head exam: PRESENT: normocephalic Respiratory exam: PRESENT: unlabored Cardiovascular exam: PRESENT: RRR Pulses: PRESENT: +1 pedal pulses bilateral Vascular exam: PRESENT: normal capillary refill GI/Abdominal exam: PRESENT: soft Rectal exam: PRESENT: deferred Extremities exam: PRESENT: other - Left lower extremity is shortened. Motor function to the great toe is intact. There is brisk capillary refill. Neurological exam: PRESENT: alert, awake, oriented to person, oriented to place , oriented to time, oriented to situation. ABSENT: motor sensory deficit Psychiatric exam: PRESENT: appropriate affect, normal mood. ABSENT: homicidal ideation, suicidal ideation Skin exam: PRESENT: dry, intact, warm. ABSENT: cyanosis, rash Results Laboratory Results: 12/13/16 04:18 12/13/16 04:18 12/13/16 12/13/16 04:18 04:18 WBC 7.2 RBC 3.05 L Hgb 9.3 L D Hct 27.3 L MCV 89 MCH 30.3 MCHC 33.9 RDW 16.4 H Plt Count 162 Seg Neutrophils % 81.1 H Lymphocytes % 11.8 L Monocytes % 5.4 Eosinophils % 1.1 Basophils % 0.6 Absolute Neutrophils 5.8 Absolute Lymphocytes 0.8 Absolute Monocytes 0.4 Absolute Eosinophils 0.1 Absolute Basophils 0.0 Sodium 134.7 L Potassium 4.1 Chloride 108 H Carbon Dioxide 17 L Anion Gap 10 BUN 25 H Creatinine 1.08 Est GFR ( Amer) 58 L Est GFR (Non-Af Amer) 48 L Glucose 105 Calcium 8.6 Magnesium 1.9 12/12/16 12/12/16 12/12/16 16:35 16:35 22:13 Creatine Kinase 723 H 671 H CK-MB (CK-2) 3.46 Troponin I 0.073 12/12/16 12/13/16 12/13/16 22:13 04:18 04:18 Creatine Kinase 595 H CK-MB (CK-2) 3.15 2.68 Troponin I 0.070 0.084 Impressions: Pelvis X-Ray 12/12/16 00:00 IMPRESSION: DISLOCATED PROSTHETIC LEFT FEMORAL HEAD. Chest X-Ray 12/12/16 08:43 IMPRESSION: NO ACUTE RADIOGRAPHIC FINDING IN THE CHEST. NO SIGNIFICANT CHANGE FROM PRIOR STUDY. Head CT 12/12/16 11:35 IMPRESSION: NO ACUTE INTRACRANIAL PROCESS. NO SIGNIFICANT CHANGE FROM PRIOR STUDY. Lung Scan-VQ NM 12/12/16 11:36 IMPRESSION: LOW PROBABILITY FOR PULMONARY EMBOLI. Status: Imported from PACS Assessment & Plan - Diagnosis (1) Hip dislocation, left Qualifiers: Encounter type: subsequent encounter Qualified Code(s): S73.005D - Unspecified dislocation of left hip, subsequent encounter Is this a current diagnosis for this admission?: Yes Plan: 86-year-old female with a second dislocation of the left bipolar hemiarthroplasty in 2 days. I reviewed the history fairly carefully with the patient's son and there is no unobserved falls or other situations may provoke a recurrent dislocation. The abduction pillow that was supplied at the time of the emergency room visit was not used because of issues with the Orellana catheter. The patient does have a urinary tract infection and one reason for recurrent dislocation can be periprosthetic infection. Labs have been ordered in anticipation of this. The next issue is whether or not a simple closed reduction is appropriate or whether one should consider revision to provide better stability. I think that we only had to dislocations and while there had been an adequate reduction with films in the emergency room we did not optimize her care with an abduction pillow worn orthosis. Therefore my inclination is to provide a closed reduction today once we have medical clearance in place the patient not only in an abduction pillow but potentially also in the immobilizer. I think if she dislocates again after this then we probably should be considering revision. - Time Time Spent: 50 to 70 Minutes Anticipated discharge: Home with Homehealth Within: Other
[2016-12-13] MEDS ORDERED: HYDROMORPHONE HCL INJ/PF 2 MG/ML AMPULE ONE (11:56)
[2016-12-13] MEDS ORDERED: MIDAZOLAM 2 MG/2 ML INJ ONE (11:56)
[2016-12-13] MEDS ORDERED: FENTANYL CITRATE INJ/PF 100 MCG/2 ML AMPUL ONE ×2 (11:56)
[2016-12-13] MEDS ORDERED: EPHEDRINE SULFATE INJ 50 MG/1 ML AMPULE ONE (11:57)
[2016-12-13] MEDS ORDERED: PROPOFOL INJ 200 MG/20 ML VIAL IV ONE (11:57)
[2016-12-13] MEDS ORDERED: ONDANSETRON HCL INJ/PF 4 MG/2 ML SDV IV PRN (12:30)
[2016-12-13] MEDS ORDERED: FENTANYL CITRATE INJ/PF 100 MCG/2 ML AMPUL IV PRN ×3 (12:30)
[2016-12-13] MEDS ORDERED: DIPHENHYDRAMINE HCL 50 MG/ML VIAL IV PRN (12:30)
--- NOTE | 2016-12-13 13:13 | Operative Report ---
Operative Report DATE OF SURGERY: 12/13/16 PREOPERATIVE DIAGNOSIS: Left Hip Dislocation POSTOPERATIVE DIAGNOSIS: Same OPERATION: Failed Closed Reduction Left Hip Hemiarthroplasty SURGEON: CONNOR VILLASENOR COMPLICATIONS: Unsuccessful closed reduction ESTIMATED BLOOD LOSS: None PROCEDURE: Indication for procedure: 86-year-old female who sustained a left periprosthetic hip dislocation. This is her second dislocation. Most recent dislocation occurred on 12/10/16 which closed reduction was successfully performed in the emergency room. I discussed treatment options with the family and the joint decision was made to proceed with closed reduction. The understood of closed reduction was unsuccessful she may require future surgical intervention. Risks and benefits were explained they verbalized understanding consented for the procedure. Procedure detail: Patient was brought to the operating room transfer to the operating table. Timeout was done identifying correct patient, extremity and procedure everyone in attendance gives verbalized no concerns. Once patient was diagnosed size closed reduction of the left hip was attempted first with flexion internal rotation and adduction while my school psychologist assistant held back pressure along the pelvis. I was unable to successfully reduce the fracture with this manner thus traction and internal rotation were attempted without reduction. After multiple attempts reduction of the periprosthetic hip dislocation could not be achieved. Patient was awoken from anesthesia transferred from the operating room table to the operative stretcher. Patient tolerated well stable to PACU. Postoperative plan: Given patient's failed closed reduction she will require revision left hip arthroplasty with possible constrained liner. Patient will require cardiac clearance prior to operative treatment.
--- NOTE | 2016-12-13 14:18 | RADIOLOGY REPORT (SQ) ---
EXAM DESCRIPTION: HIP IN OPERATING RM COMPLETED DATE/TIME: 12/13/2016 1:51 pm REASON FOR STUDY: ATTEMPTED/UNSUCCESSFUL LEFT HIP CLOSE REDUCTION IN OR COMPARISON: Left hip films 03/21/2012 FLUOROSCOPY TIME: 1.7 minutes 4 C-arm images saved to PACS. TECHNIQUE: Intra-operative images acquired during surgical procedure to evaluate progress. NUMBER OF IMAGES: 4 C arm images LIMITATIONS: None. FINDINGS: Left hip replacement dislocated superiorly out of the acetabulum. Please see the operativ e report for further details IMPRESSION: Intra procedural imaging and fluoro COMMENT: Quality ID [id number]: Final reports for procedures using fluoroscopy that document radiation exp osure indices, or exposure time and number of fluorographic images (if radiation exposure indices are not available) Please consult full operative report of the attending physician for description of the procedure. TECHNICAL DOCUMENTATION: JOB ID: [id number] [employer]- All Rights Reserved
[2016-12-13] MEDS: MONTELUKAST SODIUM 10 MG TABLET PO SCH (15:12)
[2016-12-13] MEDS: POLYETHYLENE GLYCOL 3350 POWDER 17 GM/1 PACKET PO SCH (15:12)
[2016-12-13] MEDS: FAMOTIDINE INJ/PF 20 MG/2 ML SDV IV SCH ×2 (15:13→22:41)
[2016-12-13] MEDS ORDERED: OXYCODONE HCL IR 5 MG TABLET PO ONE (16:00)
[2016-12-13] MEDS ORDERED: OXYCODONE-ACETAMINOPHEN 5-325 MG TABLET PO ONE (16:00)
[2016-12-13] MEDS: LOSARTAN POTASSIUM 50 MG TABLET PO SCH (17:57)
[2016-12-13] MEDS: SITAGLIPTIN PHOSPHATE 50 MG TABLET PO SCH (17:58)
[2016-12-13] MEDS: LANSOPRAZOLE 30 MG TAB.RAP.DR PO SCH (17:58)
[2016-12-13] MEDS: CEFTRIAXONE 1 GM/D5W RTU 1 GM/50 ML RTUPB IV SCH (18:41)
--- NOTE | 2016-12-13 18:48 | XCELERA REPORT ---
[address] [address] Transthoracic Echocardiogram Report Name: JEAN PAUL JURADO Age: 86 yrs Gender: Female : 1930 Patient Status: Inpatient Patient Location: [address] [place] [address] Study Date: 12/13/2016 08:28 AM Height: 68 in Weight: 138 lb BSA: 1.7 m2 Procedure: A two-dimensional transthoracic echocardiogram with color flow and Doppler was performed. The study was technically limited with all images being suboptimal in quality. Study Quality: Technically suboptimal. Images were not obtained from all of the standard acoustic windows due to the limited scope of the study. Reason For Study: sycoplal episode / Encounter for pre-operative cardiovascular exam History: sycoplal episode / Encounter for pre-operative cardiovascular exam. Ordering Physician: KEMAR ARGUETA Performed By: Yary Wagner Interpretation Summary The left ventricle is normal in size. There is normal left ventricular wall thickness. No True 2 chamber apical views obtained.Hence cannot comment on the apical and basal anterior kelly, and the apical and basal inferior kelly.The mid anterior and the mid inferior and the rest of the kelly contract normally.LVEF is greater than 60%. Doppler measurements suggest impaired left ventricular relaxation, which is associated with grade I/IV or mild diastolic dysfunction The left atrial size is normal. There is no evidence of mitral valve prolapse. There is no mitral valve stenosis. There is a trace to mild amount of mitral regurgitation There is no aortic valve stenosis No aortic regurgitation is present. There is no tricuspid stenosis. There is a trace to mild amount of tricuspid regurgitation Right ventricular systolic pressure is normal. RVSP is 22 mm of Hg , with RA mean of 10. There is no pericardial effusion. MMode/2D Measurements & Calculations RVDd: 3.0 cm LVIDd: 3.0 cm FS: 32.5 % Ao root diam: 2.3 cm IVSd: 0.83 cm LVIDs: 2.0 cm EDV(Teich): 34.8 ml LVPWd: 0.89 cm ESV(Teich): 13.1 ml Ao root area: 4.0 cm2 EF(Teich): 62.5 % Doppler Measurements & Calculations MV E max alireza: MV dec slope: Ao V2 max: LV V1 max P.7 cm/sec 167.0 cm/sec 8.7 mmHg MV A max alireza: 304.3 cm/sec2 Ao max PG: LV V1 max: 94.8 cm/sec MV dec time: 11.2 mmHg 147.9 cm/sec MV E/A: 0.92 0.29 sec PA V2 max: TR max alireza: 137.6 cm/sec 175.1 cm/sec PA max PG: TR max P.3 mmHg 7.6 mmHg Left Ventricle The left ventricle is normal in size. There is normal left ventricular wall thickness. No True 2 chamber apical views obtained.Hence cannot comment on the apical and basal anterior kelly, and the apical and basal inferior kelly.The mid anterior and the mid inferior and the rest of the kelly contract normally.LVEF is greater than 60%. Doppler measurements suggest impaired left ventricular relaxation, which is associated with grade I/IV or mild diastolic dysfunction. Right Ventricle The right ventricle is not well visualized secondary to technical limitations. Atria Right atrium not well visualized secondary to technical limitations. The left atrial size is normal. Mitral Valve There is no evidence of mitral valve prolapse. There is no vegetation seen on the mitral valve. There is no mitral valve stenosis. There is a trace to mild amount of mitral regurgitation. Aortic Valve There is no aortic valve stenosis. There is no LVOT obstruction. No aortic regurgitation is present. Tricuspid Valve There is no tricuspid stenosis. There is a trace to mild amount of tricuspid regurgitation. Right ventricular systolic pressure is normal. RVSP is 22 mm of Hg , with RA mean of 10. Pulmonic Valve The pulmonic valve is not well visualized. Great Vessels The aortic root is not well visualized. Effusions There is no pericardial effusion. : KEMAR ARGUETA > Marta Burton
--- NOTE | 2016-12-13 20:45 | PDOC PROGRESS REPORT ---
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 Physical Exam Vital Signs: Temp Pulse Resp BP Pulse Ox 98.1 F 81 16 120/52 L 100 12/13/16 16:20 12/13/16 16:20 12/13/16 16:20 12/13/16 16:20 12/13/16 16:20 Intake & Output 12/12/16 12/13/16 12/14/16 06:59 06:59 06:59 Intake Total 900 2342 Output Total 1100 750 Balance -200 1592 Weight 67.3 kg General appearance: PRESENT: no acute distress, well-developed, well-nourished Head exam: PRESENT: atraumatic, normocephalic Eye exam: PRESENT: conjunctiva pink, EOMI, PERRLA Ear exam: PRESENT: normal external ear exam Mouth exam: PRESENT: moist, tongue midline Neck exam: PRESENT: full ROM Respiratory exam: PRESENT: clear to auscultation corazon Cardiovascular exam: PRESENT: RRR, +S1, +S2 Pulses: PRESENT: normal dorsalis pedis pul, +2 pedal pulses bilateral Vascular exam: PRESENT: normal capillary refill GI/Abdominal exam: PRESENT: normal bowel sounds, soft Rectal exam: PRESENT: deferred Neurological exam: PRESENT: alert, awake, oriented to person, oriented to place , oriented to time, oriented to situation, CN II-XII grossly intact Psychiatric exam: PRESENT: appropriate affect, normal mood Skin exam: PRESENT: dry, intact, warm. ABSENT: cyanosis, rash Results Laboratory Results: 12/13/16 04:18 12/13/16 04:18 12/13/16 12/13/16 04:18 04:18 WBC 7.2 RBC 3.05 L Hgb 9.3 L D Hct 27.3 L MCV 89 MCH 30.3 MCHC 33.9 RDW 16.4 H Plt Count 162 Seg Neutrophils % 81.1 H Lymphocytes % 11.8 L Monocytes % 5.4 Eosinophils % 1.1 Basophils % 0.6 Absolute Neutrophils 5.8 Absolute Lymphocytes 0.8 Absolute Monocytes 0.4 Absolute Eosinophils 0.1 Absolute Basophils 0.0 Sodium 134.7 L Potassium 4.1 Chloride 108 H Carbon Dioxide 17 L Anion Gap 10 BUN 25 H Creatinine 1.08 Est GFR ( Amer) 58 L Est GFR (Non-Af Amer) 48 L Glucose 105 Calcium 8.6 Magnesium 1.9 12/12/16 12/12/16 12/12/16 16:35 16:35 22:13 Creatine Kinase 723 H 671 H CK-MB (CK-2) 3.46 Troponin I 0.073 12/12/16 12/13/16 12/13/16 22:13 04:18 04:18 Creatine Kinase 595 H CK-MB (CK-2) 3.15 2.68 Troponin I 0.070 0.084 Impressions: Pelvis X-Ray 12/12/16 00:00 IMPRESSION: DISLOCATED PROSTHETIC LEFT FEMORAL HEAD. Chest X-Ray 12/12/16 08:43 IMPRESSION: NO ACUTE RADIOGRAPHIC FINDING IN THE CHEST. NO SIGNIFICANT CHANGE FROM PRIOR STUDY. Head CT 12/12/16 11:35 IMPRESSION: NO ACUTE INTRACRANIAL PROCESS. NO SIGNIFICANT CHANGE FROM PRIOR STUDY. Lung Scan-VQ NM 12/12/16 11:36 IMPRESSION: LOW PROBABILITY FOR PULMONARY EMBOLI. Hip X-Ray 12/13/16 00:00 IMPRESSION: Intra procedural imaging and fluoro Assessment & Plan - Diagnosis (1) Dehydration Is this a current diagnosis for this admission?: Yes (2) Hip dislocation, left Qualifiers: Encounter type: subsequent encounter Qualified Code(s): S73.005D - Unspecified dislocation of left hip, subsequent encounter Is this a current diagnosis for this admission?: Yes (3) Hypotension Qualifiers: Hypotension type: unspecified hypotension type Qualified Code(s): I95.9 - Hypotension, unspecified Is this a current diagnosis for this admission?: Yes (4) Syncopal episodes Qualifiers: Syncope type: unspecified Qualified Code(s): R55 - Syncope and collapse Is this a current diagnosis for this admission?: Yes - Plan Summary Plan Summary: She will continue present treatment
[2016-12-13] MEDS: DOXEPIN HCL 10 MG CAPSULE PO SCH (22:41)
[2016-12-14] MEDS: OXYCODONE HCL IR 5 MG TABLET PO SCH ×2 (01:27→09:38)
[2016-12-14] MEDS: OXYCODONE-ACETAMINOPHEN 5-325 MG TABLET PO SCH ×2 (01:28→09:37)
[2016-12-14 04:51] LABS: ABSOLUTE EOSINOPHILS # (AUTO) 0.1 10^3/uL (0.0-0.6); ABSOLUTE LYMPHOCYTES (AUTO) 1.1 10^3/uL (0.5-4.7); ABSOLUTE MONOCYTES (AUTO) 0.3 10^3/uL (0.1-1.4); ABSOLUTE NEUT (AUTO) 4.3 10^3/uL (1.7-8.2); BASOPHILS % (AUTO) 0.8 % (0-2); EOSINOPHILS % (AUTO) 1.4 % (0-6); HEMATOCRIT 29.3 % (36.0-47.0); HEMOGLOBIN 9.8 g/dL (12.0-15.5); HGB HCT DIFFERENCE 0.1; LYMPHOCYTES % (AUTO) 18.7 % (13-45); MEAN CORPUSCULAR HEMOGLOBIN 30.3 pg (27.0-33.4); MEAN CORPUSCULAR HGB CONC 33.4 g/dL (32.0-36.0); MEAN CORPUSCULAR VOLUME 91 fl (80-97); MONOCYTES % (AUTO) 5.5 % (3-13); RED BLOOD COUNT 3.23 10^6/uL (3.72-5.28); RED CELL DISTRIBUTION WIDTH 15.8 % (11.5-14.0); SEGMENTED NEUTROPHILS % (AUTO) 73.6 % (42-78); WHITE BLOOD COUNT 5.9 10^3/uL (4.0-10.5)
[2016-12-14 05:17] LABS: BLOOD UREA NITROGEN 18 mg/dL (7-20); CALCIUM 8.8 mg/dL (8.4-10.2); CARBON DIOXIDE 21 mmol/L (22-30); CREATININE RESULT 0.78 mg/dL (0.52-1.25); GLUCOSE 109 mg/dL (75-110); POTASSIUM 4.1 mmol/L (3.6-5.0); SODIUM 136.2 mmol/L (137-145)
[2016-12-14 05:19] LABS: ANION GAP 9 (5-19); CHLORIDE 106 mmol/L (98-107)
[2016-12-14] MEDS: POLYETHYLENE GLYCOL 3350 POWDER 17 GM/1 PACKET PO SCH (08:43)
[2016-12-14] MEDS: MONTELUKAST SODIUM 10 MG TABLET PO SCH (08:43)
[2016-12-14] MEDS: FAMOTIDINE INJ/PF 20 MG/2 ML SDV IV SCH ×2 (09:37→21:15)
--- NOTE | 2016-12-14 10:16 | PDOC PROGRESS REPORT ---
Subjective Progress Note for:: 12/13/16 Subjective:: Addendum to consult of 12/13/2016: In view of the patient having a normal LV ejection fraction, and no history of coronary artery disease the patient will be at moderate cardiac risk in view of her age for this procedure. Postoperatively would recommend serial EKGs and telemetry monitoring and troponin I serially. Thank you. Physical Exam Vital Signs: Temp Pulse Resp BP Pulse Ox 98.5 F 96 16 130/70 H 100 12/14/16 08:18 12/14/16 08:18 12/14/16 08:18 12/14/16 09:06 12/14/16 08:18 Intake & Output 12/13/16 12/14/16 12/15/16 06:59 06:59 06:59 Intake Total 900 3262 Output Total 1100 1400 Balance -200 1862 Weight 67.3 kg 69.6 kg Results Laboratory Results: 12/14/16 04:38 12/14/16 04:38 12/14/16 12/14/16 04:38 04:38 WBC 5.9 RBC 3.23 L Hgb 9.8 L Hct 29.3 L MCV 91 MCH 30.3 MCHC 33.4 RDW 15.8 H Plt Count 176 Seg Neutrophils % 73.6 Lymphocytes % 18.7 Monocytes % 5.5 Eosinophils % 1.4 Basophils % 0.8 Absolute Neutrophils 4.3 Absolute Lymphocytes 1.1 Absolute Monocytes 0.3 Absolute Eosinophils 0.1 Absolute Basophils 0.0 Sodium 136.2 L Potassium 4.1 Chloride 106 Carbon Dioxide 21 L Anion Gap 9 BUN 18 Creatinine 0.78 Est GFR ( Amer) > 60 Est GFR (Non-Af Amer) > 60 Glucose 109 Calcium 8.8 12/12/16 12/12/16 12/12/16 16:35 16:35 22:13 Creatine Kinase 723 H 671 H CK-MB (CK-2) 3.46 Troponin I 0.073 12/12/16 12/13/16 12/13/16 22:13 04:18 04:18 Creatine Kinase 595 H CK-MB (CK-2) 3.15 2.68 Troponin I 0.070 0.084 Impressions: Pelvis X-Ray 12/12/16 00:00 IMPRESSION: DISLOCATED PROSTHETIC LEFT FEMORAL HEAD. Chest X-Ray 12/12/16 08:43 IMPRESSION: NO ACUTE RADIOGRAPHIC FINDING IN THE CHEST. NO SIGNIFICANT CHANGE FROM PRIOR STUDY. Head CT 12/12/16 11:35 IMPRESSION: NO ACUTE INTRACRANIAL PROCESS. NO SIGNIFICANT CHANGE FROM PRIOR STUDY. Lung Scan-VQ NM 12/12/16 11:36 IMPRESSION: LOW PROBABILITY FOR PULMONARY EMBOLI. Hip X-Ray 12/13/16 00:00 IMPRESSION: Intra procedural imaging and fluoro
--- NOTE | 2016-12-14 10:20 | CONSULTATION REPORT E ---
Consultation Report NAME: JEAN PAUL JURADO : 1930 AGE: 86Y DATE: 12/13/2016 326 A TO: REUBEN BEARD M.D. FROM: MIRYAM DANIEL M.D. Requesting Physician REASON FOR CONSULTATION: Syncope and preoperative cardiac risk assessment. HISTORY: The patient not a very good historian but history obtained from both the daughter and the . Patient is an 86-year-old female with known history of hypertension and diabetes mellitus who in mid October fractured a left femoral neck and had a bipolar hemiarthroplasty. Subsequently, the patient again has had a dislocation I which was reduced. The patient has been treated for UTI and she came in for frequent falls as per the hospitalist. The patient is on Samsca which can cause dehydration and orthostatic hypotension. The patient also has been postoperatively in the past has had problems with SIADH and urinary tract infection. The patient at present looks a little drowsy and tongue appears dry and she appears to be dehydrated. She has no chest pain, no chest discomfort. There is no PND or orthopnea. She denies any leg edema. The hospitalist is trying to reduce high dose medication in a close manner but was unsuccessful and hence the patient being taken to the operating room in the near future for surgical treatment of the dislocation. PAST MEDICAL HISTORY: 1. Positive history of hypertension. 2. History of diabetes mellitus. 3. History of chronic kidney disease. 4. Depression. 5. Arthritis. 6. Bipedal edema. There is no history of coronary artery disease or congestive heart failure. There are no palpitations. The patient has been having frequent falls most likely secondary to orthostatic hypotension due to the patient being on Samsca. There is no history of asthma, COPD. No history of pulmonary embolism. No history of sleep apnea. The patient on admission was found to be hypotensive. PAST SURGICAL HISTORY: 1. History of . 2. Hysterectomy. 3. Orthopedic surgery. 4. Left hip surgery. ALLERGIES: 1. MORPHINE. 2. SHELLFISH. 3. . MEDICATIONS: Include: 1. Albuterol sulfate 2 puffs inhalation q.i.d. p.r.n. 2. She is on hypoglycemic precautions with glucose 40% gel, 15 g and 30 g p.o. p.r.n hypoglycemia. She is also on hypoglycemic precautions with Dextrose 50%, 12.5 g g IV p.r.n. hypoglycemia. 3. She is on Sinequan 10 mg p.o. daily. 4. She is on Pepcid 10 mg IV q.12 hours. 5. She is on fentanyl citrate sublingually 100 mcg x2. 6. She is on Glucagon 1 mg IM p.r.n. hypoglycemia. 7. She is on hydromorphone 2 mg x1. 8. She is on ceftriaxone 1 g mL IV q. p.r.n. 9. She is on insulin sliding scale coverage with regular insulin. 10. She is on losartan 50 mg p.o. daily. 11. 30 mg p.o. daily. 12. She is on 2 mg IV push x1. 13. She is on Singulair 10 mg p.o. q. a.m. 14. Oxycodone 2.5 mg p.o. q.i.d. 15. She is on polyethylene glycol 17 g p.o. q. a.m. 16. She is on Actos 15 mg p.o. daily. REVIEW OF SYSTEMS: CONSTITUTIONAL: Denies any fever, chills or rigors. Complains of generalized weakness and frequent falls. HEAD: Has dizziness and frequent falls but no vertigo. The states that he caught her in time before she could fall, her head could hit the ground and hence there is no head injury. EYES: No history of amblyopia or diplopia. No history of amaurosis fugax. EARS: No history of tinnitus. No history of hearing loss. No history of recurrent ear infections. NOSE: No history of nose bleeds. No history of nasal polyps. MOUTH: Mouth is dry. There is no altered taste sensation. There are no ulcers in the mouth. THROAT: There is no odynophagia or dysphagia. No history of recurrent sore throats. LUNGS: The daughter claims that the patient has a history of asthma and is on Singular for that but no recent attacks. No cough or sputum production. No history of COPD. No history of sleep apnea. No history of pulmonary embolism. No history of chest pain. No history of hemoptysis. CARDIAC: History of hypertension. History of hyperlipidemia. No history of cardiac arrhythmia in the past but the case will explore since Samsca can also cause cardiac dysrhythmias. No history of congestive heart failure. No history of PND, orthopnea or leg edema. MUSCULOSKELETAL: History of recurrent left hip dislocations. History of arthritis. No history of collagen vascular disease. RENAL: History of chronic kidney disease. History of UTI. The patient's chronic kidney disease is stage III. No history of hematuria, pyuria, or dysuria but the patient seems to be having recurrent urinary tract infections. GASTROINTESTINAL: No history of fatty food intolerance. No history of jaundice. No history of cirrhosis. No history of GI bleed. No history of altered bowel movements. CENTRAL NERVOUS SYSTEM: No history of TIA or CVA. No history of headaches, migraines, or seizures. PSYCHIATRIC: History of depression well controlled. No history of suicidal ideation, no history of homicidal ideation. VASCULAR: No history of calf or buttock claudication. No history of DVT. HEMATOLOGICAL: No history of anemia or bleeding diathesis or clotting disorders. PHYSICAL EXAMINATION: GENERAL: On examination, the patient appears to be slightly drowsy. She is well-built and well-nourished, in no acute distress except for drowsiness. VITAL SIGNS: She is afebrile with a temperature of 98 degrees Fahrenheit, pulse is 82 beats per minute, blood pressure 163/81, respirations are 19 per minute, O2 saturations are 97% on room air. HEENT: Head is atraumatic, normocephalic. Eyes: Pupils are equal, round and regular, reactive to light and accommodation. Extraocular movements are normal. There is no conjunctival pallor. There is no scleral icterus. Ears: Tympanic membranes are intact, external auditory canals are clear. Nose: There is no deviated nasal septum, there is no inflammation of the nasal mucous membrane. Mouth: Mucous membranes of the mouth are dry, tongue is dry. There are no ulcers in the mouth. There is no bleeding from the gums. Throat: There is no redness of the oropharynx, there are no exudates. SKIN: There are pruritus. There is no yellowish discoloration of the skin. There is no petechiae or ecchymosis. NECK: Supple. There is no JVD. Carotids are equal. There is no bruit. There is no goiter. There is no lymphadenopathy. Trachea is central. LUNGS: Clear to auscultation and percussion. HEART: S1 and S2 is heard. There is no S3 gallop. There is no S4 gallop. There is a systolic murmur in the left sternal border and the apex. There is no rub. ABDOMEN: Soft, nontender. There is no hepatosplenomegaly. Bowel sounds are well heard. There are no tender areas or masses. EXTREMITIES: Femorals are slightly diminished. There are no femoral bruits. Leg pulses diminished. The left hip is dislocated and foreshortened. There is no cyanosis or clubbing. There is no DVT or cellulitis. There is no calf tenderness. CENTRAL NERVOUS SYSTEM: The patient is conscious but drowsy but answers questions. There are no focal deficits. PSYCHIATRIC: At present the patient is drowsy and a full psychiatric evaluation could not be done. LABORATORY DATA: The patient's sodium is 134.7, potassium is 4.1, chloride is 108, CO2 is 70. The patient's BUN is 25, creatinine is 1.08. GFR is reduced at 48 mL which is chronic kidney disease stage III. Glucose is 105. Calcium is 8.6. Magnesium is 4.9. Her troponin I is 0.084. Her CPK is elevated at 595. Her CK-MB is negative. Earlier, the patient's troponin I on December 12 was 0.073 and 0.070 and CPK-MB negative. The patient's ProTime was 13.6. INR at 0.97. The patient's white count is 7,200, hemoglobin is 9.3, hematocrit is 27.3 and the platelet count is 162,000. DIAGNOSTIC STUDIES: Her EKG shows atrial fibrillation. It is not known how long the patient has had atrial fibrillation. The patient's lung VQ scan shows low probability for pulmonary emboli. The patient's pelvis x-ray shows dislocated prosthetic left femoral head. The patient's head CT shows no acute intracranial process, no significant change from prior studies. The patient's chest x-ray shows no acute radiographic findings in the chest. No significant change. The patient's echocardiogram is technically suboptimal study. The left ventricle is normal in size. There is normal left ventricle wall thickness. No true two-chamber apical use obtained; hence, cannot comment on it. Apical and basal anterior kelly and apical and basal inferior kelly. The mid anterior, mid inferior and the rest of the wall contracts normally and the ejection fraction is 60%. Doppler measurements suggest impaired left ventricular relaxation with 104 or mild diastolic dysfunction. The left atrial size is normal. There is no history of mitral valve prolapse. There is no mitral valve stenosis. There is trace to moderate amount of mitral regurgitation. There is no aortic valve stenosis. There is no aortic regurgitation. There is no tricuspid stenosis. There is trace to mild amount of tricuspid regurgitation. The atrial systolic pressure is normal at 22 with a right atrial mean of 10. There is no pericardial effusion. IMPRESSION: 1. SYNCOPE AND FALL SECONDARY TO DEHYDRATION. Samsca is probably the culprit. 2. DEHYDRATION. 3. ATRIAL FIBRILLATION, QUESTIONABLE ONSET. 4. DISLOCATION OF THE LEFT HIP FOR OPEN REDUCTION IN THE OR LATER THIS ADMISSION. 5. HYPERTENSION. BLOOD PRESSURE SLIGHTLY ELEVATED. 6. DIABETES MELLITUS. 7. URINARY TRACT INFECTION. 8. CHRONIC KIDNEY DISEASE STAGE III. 9. DEPRESSION. 10. ARTHRITIS. 11. HYPERLIPIDEMIA. Note the patient was initially seen from 2:00 to 2:30 and subsequently I saw the patient after 7:00 and discussed the echo findings with the . This took around half an hour. So, a total of 60 minutes was spent on this patient. RECOMMENDATIONS: Would strongly recommend gentle hydration of the patient. Continue antibiotics. Continue current medication. Note more than 50% of the time was spent on direct patient care and also discussions of and medications have been reviewed. CODE STATUS: Note that the patient is a FULL CODE. Her is the surrogate healthcare decision maker. Note this case with multiple medical problems that the patient has, the medical decision making was of high complexity. Will follow with you. DICTATING PHYSICIAN: REUBEN BEARD M.D. [id number] PHY#: [id number] ID: [id number] JOB#: [id number] ACCT: [id number] cc:REUBEN BEARD M.D. >
--- NOTE | 2016-12-14 12:30 | PDOC PROGRESS REPORT ---
Subjective Progress Note for:: 12/14/16 Subjective:: Patient seems to be doing about the same. Pt is denying any chest arm or neck discomfort. Patient denying any PND, orthopnea. Patient denied any sustained palpitations, dizziness, syncope, near syncope. Patient denying any fever chills. Patient denying any other significant discomfort. Patient in the room. Patient is currently sinus rhythm. Previously she was in atrial fibrillation. Review of systems: Rest review of systems negative. Medications: Medications have been reviewed. Physical Exam Vital Signs: Temp Pulse Resp BP Pulse Ox 98.5 F 96 16 130/70 H 100 12/14/16 08:18 12/14/16 08:18 12/14/16 08:18 12/14/16 09:06 12/14/16 08:18 Intake & Output 12/13/16 12/14/16 12/15/16 06:59 06:59 06:59 Intake Total 900 3262 Output Total 1100 1400 Balance -200 1862 Weight 67.3 kg 69.6 kg Exam: GENERAL: well-nourished and in no acute distress. Alert and oriented x3 HEAD: Atraumatic, normocephalic. EYES: Pupils equal round and reactive to light, extraocular movements intact, sclera anicteric, conjunctiva are normal. ENT: TMs normal, nares patent, oropharynx clear without exudates. Moist mucous membranes. No oral ulcerations or bleeding gums noted NECK: supple without lymphadenopathy. Trachea is central. No cervical or axillary lymphadenopathy noted. Carotids are 2+, JVD WNL LUNGS: Respiration seems nonlabored, no significant accessory muscle action noted. Breath sounds clear to auscultation bilaterally and equal noted. No wheezes rales or rhonchi noted. No significant dullness noted on percussion. CHEST: Palpation of the chest wall shows no significant chest wall tenderness. No other significant abnormalities noted. 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 ABDOMEN: Soft, no significant tenderness appreciated, normoactive bowel sounds. No guarding, no rebound. No rigidity noted . No masses appreciated. EXTREMITIES: Pedal pulses are 1-2+, no calf tenderness noted. No clubbing or cyanosis.trace to 1+ pedal edema noted NEUROLOGICAL: Focused neurological exam showed no significant neurologic deficit. Normal speech, no focal weakness appreciated. PSYCH: Normal mood, normal affect. Judgment and insight within normal limits. SKIN: No significant ecchymosis, rash, ulcerations or signs of pruritus noted. MUSCULOSKELETAL EXAM: No significant joint swelling noted. Left hip displacement noted. Results Laboratory Results: 12/14/16 04:38 12/14/16 04:38 12/14/16 12/14/16 04:38 04:38 WBC 5.9 RBC 3.23 L Hgb 9.8 L Hct 29.3 L MCV 91 MCH 30.3 MCHC 33.4 RDW 15.8 H Plt Count 176 Seg Neutrophils % 73.6 Lymphocytes % 18.7 Monocytes % 5.5 Eosinophils % 1.4 Basophils % 0.8 Absolute Neutrophils 4.3 Absolute Lymphocytes 1.1 Absolute Monocytes 0.3 Absolute Eosinophils 0.1 Absolute Basophils 0.0 Sodium 136.2 L Potassium 4.1 Chloride 106 Carbon Dioxide 21 L Anion Gap 9 BUN 18 Creatinine 0.78 Est GFR ( Amer) > 60 Est GFR (Non-Af Amer) > 60 Glucose 109 Calcium 8.8 12/12/16 12/12/16 12/12/16 16:35 16:35 22:13 Creatine Kinase 723 H 671 H CK-MB (CK-2) 3.46 Troponin I 0.073 12/12/16 12/13/16 12/13/16 22:13 04:18 04:18 Creatine Kinase 595 H CK-MB (CK-2) 3.15 2.68 Troponin I 0.070 0.084 EKG Comments: Telemetry strips shows sinus rhythm. EKG shows no acute ST-T wave changes Impressions: Pelvis X-Ray 12/12/16 00:00 IMPRESSION: DISLOCATED PROSTHETIC LEFT FEMORAL HEAD. Chest X-Ray 12/12/16 08:43 IMPRESSION: NO ACUTE RADIOGRAPHIC FINDING IN THE CHEST. NO SIGNIFICANT CHANGE FROM PRIOR STUDY. Head CT 12/12/16 11:35 IMPRESSION: NO ACUTE INTRACRANIAL PROCESS. NO SIGNIFICANT CHANGE FROM PRIOR STUDY. Lung Scan-VQ NM 12/12/16 11:36 IMPRESSION: LOW PROBABILITY FOR PULMONARY EMBOLI. Hip X-Ray 12/13/16 00:00 IMPRESSION: Intra procedural imaging and fluoro Assessment & Plan - Diagnosis (1) Syncopal episodes Qualifiers: Syncope type: unspecified Qualified Code(s): R55 - Syncope and collapse Is this a current diagnosis for this admission?: Yes (2) Hypotension Qualifiers: Hypotension type: unspecified hypotension type Qualified Code(s): I95.9 - Hypotension, unspecified Is this a current diagnosis for this admission?: Yes (3) Hip dislocation, left Qualifiers: Encounter type: subsequent encounter Qualified Code(s): S73.005D - Unspecified dislocation of left hip, subsequent encounter Is this a current diagnosis for this admission?: Yes (4) Diabetes mellitus Qualifiers: Diabetes mellitus type: type 2 Diabetes mellitus complication status: with unspecified complications Diabetes mellitus retirement insulin use: unspecified retirement insulin use status Qualified Code(s): 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 Because probably multifactorial. Currently no significant pauses or cardiac dysrhythmia noted as cause. Most likely related to general debility and hypotension. Continue to monitor patient. Hypotension: Blood pressure now more stable. Dislocated left hip: Patient to undergo surgery for this condition. Patient felt to be at moderate risk mainly due to general debility. Hyponatremia: Continue current management plans with fluid restriction and medications Diabetes mellitus: Recommend good control but avoid any hyper or hypoglycemia. Syndrome of inappropriate ADH secretion. Continue current management plans. Recurrent falls and general debility: Patient will benefit from some physical therapy. Paroxysmal atrial fibrillation: Patient currently in sinus rhythm. Will leave anticoagulation decision to primary school teacher librarian as patient does have history of multiple falls. - Time Time with patient: 15-25 minutes - CODE STATUS was discussed, patient remains full code. Patient's is the surrogate decision-maker multiple medical problems were addressed. More than 50% of the time spent coordinating care, discussing management plans with involved caregivers. Management plans discussed with involved personnels. Medical decision making was of moderate to high complexity, patient's has multiple comorbidities. Medications reviewed and adjusted accordingly: Yes
[2016-12-14] MEDS ORDERED: NORMAL SALINE 1000 ML 1,000 ML IV PRN (13:30)
[2016-12-14] MEDS: PIOGLITAZONE HCL 15 MG TABLET PO SCH (17:23)
[2016-12-14] MEDS: CEFTRIAXONE 1 GM/D5W RTU 1 GM/50 ML RTUPB IV SCH (17:23)
[2016-12-14] MEDS: LANSOPRAZOLE 30 MG TAB.RAP.DR PO SCH (17:23)
[2016-12-14] MEDS: SITAGLIPTIN PHOSPHATE 50 MG TABLET PO SCH (17:24)
[2016-12-14] MEDS: LOSARTAN POTASSIUM 50 MG TABLET PO SCH (17:24)
--- NOTE | 2016-12-14 17:32 | PDOC PROGRESS REPORT ---
Subjective Progress Note for:: 12/14/16 Subjective:: Patient is scheduled for left hip arthroplasty tomorrow, she continues to have pain, the oxycodone frequency was changed to every 4 hours as needed. Physical Exam Vital Signs: Temp Pulse Resp BP Pulse Ox 98.0 F 73 16 102/47 L 100 12/14/16 14:57 12/14/16 14:57 12/14/16 14:57 12/14/16 14:57 12/14/16 14:57 Intake & Output 12/13/16 12/14/16 12/15/16 06:59 06:59 06:59 Intake Total 900 3262 Output Total 1100 1400 Balance -200 1862 Weight 67.3 kg 69.6 kg General appearance: PRESENT: mild distress Eye exam: PRESENT: PERRLA Respiratory exam: PRESENT: clear to auscultation corazon Cardiovascular exam: PRESENT: +S1, +S2 GI/Abdominal exam: PRESENT: soft Results Laboratory Results: 12/14/16 04:38 12/14/16 04:38 12/14/16 12/14/16 04:38 04:38 WBC 5.9 RBC 3.23 L Hgb 9.8 L Hct 29.3 L MCV 91 MCH 30.3 MCHC 33.4 RDW 15.8 H Plt Count 176 Seg Neutrophils % 73.6 Lymphocytes % 18.7 Monocytes % 5.5 Eosinophils % 1.4 Basophils % 0.8 Absolute Neutrophils 4.3 Absolute Lymphocytes 1.1 Absolute Monocytes 0.3 Absolute Eosinophils 0.1 Absolute Basophils 0.0 Sodium 136.2 L Potassium 4.1 Chloride 106 Carbon Dioxide 21 L Anion Gap 9 BUN 18 Creatinine 0.78 Est GFR ( Amer) > 60 Est GFR (Non-Af Amer) > 60 Glucose 109 Calcium 8.8 12/12/16 12/12/16 12/12/16 16:35 16:35 22:13 Creatine Kinase 723 H 671 H CK-MB (CK-2) 3.46 Troponin I 0.073 12/12/16 12/13/16 12/13/16 22:13 04:18 04:18 Creatine Kinase 595 H CK-MB (CK-2) 3.15 2.68 Troponin I 0.070 0.084 Impressions: Pelvis X-Ray 12/12/16 00:00 IMPRESSION: DISLOCATED PROSTHETIC LEFT FEMORAL HEAD. Chest X-Ray 12/12/16 08:43 IMPRESSION: NO ACUTE RADIOGRAPHIC FINDING IN THE CHEST. NO SIGNIFICANT CHANGE FROM PRIOR STUDY. Head CT 12/12/16 11:35 IMPRESSION: NO ACUTE INTRACRANIAL PROCESS. NO SIGNIFICANT CHANGE FROM PRIOR STUDY. Lung Scan-VQ NM 12/12/16 11:36 IMPRESSION: LOW PROBABILITY FOR PULMONARY EMBOLI. Hip X-Ray 12/13/16 00:00 IMPRESSION: Intra procedural imaging and fluoro Assessment & Plan - Diagnosis (1) Dehydration Is this a current diagnosis for this admission?: Yes (2) Hip dislocation, left Qualifiers: Encounter type: subsequent encounter Qualified Code(s): S73.005D - Unspecified dislocation of left hip, subsequent encounter Is this a current diagnosis for this admission?: Yes (3) Hypotension Qualifiers: Hypotension type: unspecified hypotension type Qualified Code(s): I95.9 - Hypotension, unspecified Is this a current diagnosis for this admission?: Yes (4) Syncopal episodes Qualifiers: Syncope type: unspecified Qualified Code(s): R55 - Syncope and collapse Is this a current diagnosis for this admission?: Yes
[2016-12-14] MEDS: DOXEPIN HCL 10 MG CAPSULE PO SCH (18:52)
[2016-12-14] MEDS: OXYCODONE-ACETAMINOPHEN 5-325 MG TABLET PO PRN ×2 (18:52→23:14)
[2016-12-14] MEDS: OXYCODONE HCL IR 5 MG TABLET PO PRN ×2 (18:52→23:14)
--- NOTE | 2016-12-14 19:50 | EKG REPORT ---
SEVERITY:- NORMAL ECG - SINUS RHYTHM : Confirmed by: Omer Patricia MD 14-Dec-2016 19:49:41
[2016-12-15] MEDS: NORMAL SALINE 1000 ML 1,000 ML IV PRN ×2 (03:09→12:32)
[2016-12-15] MEDS: OXYCODONE-ACETAMINOPHEN 5-325 MG TABLET PO PRN ×4 (03:16→22:31)
[2016-12-15] MEDS: OXYCODONE HCL IR 5 MG TABLET PO PRN ×3 (03:16→13:38)
[2016-12-15 05:30] LABS: ABSOLUTE EOSINOPHILS # (AUTO) 0.1 10^3/uL (0.0-0.6); ABSOLUTE MONOCYTES (AUTO) 0.4 10^3/uL (0.1-1.4); ABSOLUTE NEUT (AUTO) 3.4 10^3/uL (1.7-8.2); BASOPHILS % (AUTO) 0.8 % (0-2); EOSINOPHILS % (AUTO) 2.1 % (0-6); HEMATOCRIT 28.2 % (36.0-47.0); HEMOGLOBIN 9.3 g/dL (12.0-15.5); HGB HCT DIFFERENCE -0.3; LYMPHOCYTES % (AUTO) 20.6 % (13-45); MEAN CORPUSCULAR HEMOGLOBIN 29.5 pg (27.0-33.4); MEAN CORPUSCULAR HGB CONC 33.1 g/dL (32.0-36.0); MEAN CORPUSCULAR VOLUME 89 fl (80-97); MONOCYTES % (AUTO) 7.6 % (3-13); RED BLOOD COUNT 3.17 10^6/uL (3.72-5.28); RED CELL DISTRIBUTION WIDTH 15.6 % (11.5-14.0); SEGMENTED NEUTROPHILS % (AUTO) 68.9 % (42-78); WHITE BLOOD COUNT 4.9 10^3/uL (4.0-10.5)
[2016-12-15 05:50] LABS: ANION GAP 5 (5-19); BLOOD UREA NITROGEN 11 mg/dL (7-20); CALCIUM 8.6 mg/dL (8.4-10.2); CARBON DIOXIDE 20 mmol/L (22-30); CHLORIDE 105 mmol/L (98-107); CREATININE RESULT 0.64 mg/dL (0.52-1.25); GLUCOSE 117 mg/dL (75-110); SODIUM 130.3 mmol/L (137-145)
[2016-12-15] MEDS ORDERED: ONDANSETRON HCL INJ/PF 4 MG/2 ML SDV IV PRN (08:30)
[2016-12-15] MEDS: MONTELUKAST SODIUM 10 MG TABLET PO SCH (08:45)
[2016-12-15] MEDS: POLYETHYLENE GLYCOL 3350 POWDER 17 GM/1 PACKET PO SCH (08:45)
[2016-12-15] MEDS ORDERED: LIDOCAINE 2% INJ-PF (20 MG/ML) 10 ML AMPUL ONE (08:53)
[2016-12-15] MEDS ORDERED: GLYCOPYRROLATE INJ 0.4 MG/2 ML VIAL ONE (08:53)
[2016-12-15] MEDS ORDERED: PHENYLEPHRINE HCL INJ/PF 10 MG/1 ML SDV ONE ×3 (08:53→19:39)
[2016-12-15] MEDS ORDERED: ONDANSETRON HCL INJ/PF 4 MG/2 ML SDV ONE (08:53)
[2016-12-15] MEDS: FAMOTIDINE 20 MG TABLET PO SCH (10:40)
[2016-12-15] MEDS ORDERED: EPHEDRINE SULFATE INJ 50 MG/1 ML AMPULE ONE (14:22)
[2016-12-15] MEDS ORDERED: FENTANYL CITRATE INJ/PF 100 MCG/2 ML AMPUL ONE (14:22)
[2016-12-15] MEDS ORDERED: KETAMINE HCL INJ 500 MG/10 ML VIAL ONE (14:22)
[2016-12-15] MEDS ORDERED: MIDAZOLAM 2 MG/2 ML INJ ONE (14:22)
[2016-12-15] MEDS ORDERED: ACETAMINOPHEN 100 ML IV ONE (14:23)
[2016-12-15] MEDS ORDERED: PROPOFOL INJ 200 MG/20 ML VIAL IV ONE (14:23)
[2016-12-15] MEDS: LOSARTAN POTASSIUM 50 MG TABLET PO SCH (17:18)
[2016-12-15] MEDS: SITAGLIPTIN PHOSPHATE 50 MG TABLET PO SCH (17:18)
[2016-12-15] MEDS: PIOGLITAZONE HCL 15 MG TABLET PO SCH (17:18)
[2016-12-15] MEDS: CEFTRIAXONE 1 GM/D5W RTU 1 GM/50 ML RTUPB IV SCH (17:18)
[2016-12-15] MEDS: LANSOPRAZOLE 30 MG TAB.RAP.DR PO SCH (17:18)
[2016-12-15] MEDS ORDERED: FENTANYL CITRATE INJ/PF 100 MCG/2 ML AMPUL IV PRN ×3 (18:08)
[2016-12-15] MEDS ORDERED: PROMETHAZINE HCL INJ 25 MG/1 ML VIAL IV PRN ×2 (18:08)
[2016-12-15] MEDS ORDERED: DIPHENHYDRAMINE HCL 50 MG/ML VIAL IV PRN (18:08)
[2016-12-15] MEDS ORDERED: MEPERIDINE HCL/PF INJ 25 MG/1 ML DISP.SYRIN IV PRN (18:08)
[2016-12-15] MEDS ORDERED: RINGERS SOLUTION,LACTATED 1,000 ML IV PRN (19:17)
--- NOTE | 2016-12-15 19:30 | PDOC PROGRESS REPORT ---
Subjective Progress Note for:: 12/15/16 Subjective:: Patient seen on morning rounds. Patient seems to be doing about the same. Pt is denying any chest arm or neck discomfort. Patient denying any PND, orthopnea. Patient denied any sustained palpitations, dizziness, syncope, near syncope. Patient denying any fever chills. Patient denying any other significant discomfort. Patient in the room. Patient did not yet have left hip prosthesis replacement when rounded this morning. Patient is currently maintaining sinus rhythm. Previously she was in atrial fibrillation. Review of systems: Rest review of systems negative. Medications: Medications have been reviewed. Physical Exam Vital Signs: Temp Pulse Resp BP Pulse Ox 97.8 F 80 18 176/74 H 100 12/15/16 15:53 12/15/16 15:53 12/15/16 15:53 12/15/16 15:53 12/15/16 15:53 Intake & Output 12/14/16 12/15/16 12/16/16 06:59 06:59 06:59 Intake Total 3262 2177 1000 Output Total 1400 1125 1925 Balance 1862 1052 -925 Weight 69.6 kg 74 kg Exam: GENERAL: well-nourished and in no acute distress. Alert and oriented x 2, patient not oriented as regards date HEAD: Atraumatic, normocephalic. EYES: Pupils equal round and reactive to light, extraocular movements intact, sclera anicteric, conjunctiva are normal. ENT: TMs normal, nares patent, oropharynx clear without exudates. Moist mucous membranes. No oral ulcerations or bleeding gums noted NECK: supple without lymphadenopathy. Trachea is central. No cervical or axillary lymphadenopathy noted. Carotids are 2+, JVD WNL LUNGS: Respiration seems nonlabored, no significant accessory muscle action noted. Breath sounds clear to auscultation bilaterally and equal noted. No wheezes rales or rhonchi noted. No significant dullness noted on percussion. CHEST: Palpation of the chest wall shows no significant chest wall tenderness. No other significant abnormalities noted. 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 ABDOMEN: Soft, no significant tenderness appreciated, normoactive bowel sounds. No guarding, no rebound. No rigidity noted . No masses appreciated. EXTREMITIES: Pedal pulses are 1-2+, no calf tenderness noted. No clubbing or cyanosis.trace to 1+ pedal edema noted NEUROLOGICAL: Focused neurological exam showed no significant neurologic deficit. Normal speech, no focal weakness appreciated. PSYCH: Normal mood, normal affect. Judgment and insight within normal limits. SKIN: No significant ecchymosis, rash, ulcerations or signs of pruritus noted. MUSCULOSKELETAL EXAM: No significant joint swelling noted. Findings consistent with left hip displacement noted. Results Laboratory Results: 12/15/16 05:13 12/15/16 05:13 12/15/16 12/15/16 12/15/16 05:13 05:13 16:05 WBC 4.9 RBC 3.17 L Hgb 9.3 L Hct 28.2 L MCV 89 MCH 29.5 MCHC 33.1 RDW 15.6 H Plt Count 187 Seg Neutrophils % 68.9 Lymphocytes % 20.6 Monocytes % 7.6 Eosinophils % 2.1 Basophils % 0.8 Absolute Neutrophils 3.4 Absolute Lymphocytes 1.0 Absolute Monocytes 0.4 Absolute Eosinophils 0.1 Absolute Basophils 0.0 Sodium 130.3 L Potassium 4.0 Chloride 105 Carbon Dioxide 20 L Anion Gap 5 BUN 11 Creatinine 0.64 Est GFR ( Amer) > 60 Est GFR (Non-Af Amer) > 60 Glucose 117 H Calcium 8.6 Blood Type B POSITIVE Antibody Screen NEGATIVE 12/12/16 12/12/16 12/12/16 16:35 16:35 22:13 Creatine Kinase 723 H 671 H CK-MB (CK-2) 3.46 Troponin I 0.073 12/12/16 12/13/16 12/13/16 22:13 04:18 04:18 Creatine Kinase 595 H CK-MB (CK-2) 3.15 2.68 Troponin I 0.070 0.084 Impressions: Pelvis X-Ray 12/12/16 00:00 IMPRESSION: DISLOCATED PROSTHETIC LEFT FEMORAL HEAD. Chest X-Ray 12/12/16 08:43 IMPRESSION: NO ACUTE RADIOGRAPHIC FINDING IN THE CHEST. NO SIGNIFICANT CHANGE FROM PRIOR STUDY. Head CT 12/12/16 11:35 IMPRESSION: NO ACUTE INTRACRANIAL PROCESS. NO SIGNIFICANT CHANGE FROM PRIOR STUDY. Lung Scan-VQ NM 12/12/16 11:36 IMPRESSION: LOW PROBABILITY FOR PULMONARY EMBOLI. Hip X-Ray 12/13/16 00:00 IMPRESSION: Intra procedural imaging and fluoro Assessment & Plan - Diagnosis (1) Syncopal episodes Qualifiers: Syncope type: unspecified Qualified Code(s): R55 - Syncope and collapse Is this a current diagnosis for this admission?: Yes (2) Hypotension Qualifiers: Hypotension type: unspecified hypotension type Qualified Code(s): I95.9 - Hypotension, unspecified Is this a current diagnosis for this admission?: Yes (3) Hip dislocation, left Qualifiers: Encounter type: subsequent encounter Qualified Code(s): S73.005D - Unspecified dislocation of left hip, subsequent encounter Is this a current diagnosis for this admission?: Yes (4) Diabetes mellitus Qualifiers: Diabetes mellitus type: type 2 Diabetes mellitus complication status: with unspecified complications Diabetes mellitus moth exterminator insulin use: unspecified moth exterminator insulin use status Qualified Code(s): 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 Because probably multifactorial. Currently no significant pauses or other cardiac dysrhythmia noted as cause. Most likely related to general debility and hypotension. Continue to monitor patient. Hypotension: Blood pressure now more stable. Dislocated left hip: Patient to undergo surgery for this condition. Patient felt to be at moderate risk mainly due to general debility. Hyponatremia: Continue current management plans with fluid restriction and medications Diabetes mellitus: Recommend good control but avoid any hyper or hypoglycemia. Syndrome of inappropriate ADH secretion. Continue current management plans. Recurrent falls and general debility: Patient will benefit from some physical therapy. Paroxysmal atrial fibrillation: Patient currently in sinus rhythm. Will leave anticoagulation decision to anthropological linguist as patient does have history of multiple falls. - Time Time with patient: 15-25 minutes - CODE STATUS was discussed, patient remains full code. Surrogate decision-maker unchanged. Multiple medical problems were addressed. More than 50% of the time spent coordinating care, discussing management plans with involved caregivers. Management plans discussed with involved personnels. Medical decision making was of moderate to high complexity , patient's has multiple comorbidities. Medications reviewed and adjusted accordingly: Yes
[2016-12-15] MEDS ORDERED: NITROGLYCERIN 0.4 MG/TAB 25 TAB/BOTTLE ONE (19:41)
[2016-12-15] MEDS ORDERED: OXYCODONE-ACETAMINOPHEN 5-325 MG TABLET PO PRN (19:47)
--- NOTE | 2016-12-15 21:21 | PDOC PROGRESS REPORT ---
Subjective Progress Note for:: 12/15/16 Subjective:: Patient had left hip replacement done today, she developed hypotension, paroxysmal atrial fibrillation, patient is being transferred to ICU for close monitoring and also started on amiodarone with neosynephrine Physical Exam Vital Signs: Temp Pulse Resp BP Pulse Ox 97.8 F 80 18 176/74 H 100 12/15/16 15:53 12/15/16 15:53 12/15/16 15:53 12/15/16 15:53 12/15/16 15:53 Intake & Output 12/14/16 12/15/16 12/16/16 06:59 06:59 06:59 Intake Total 3262 2177 1000 Output Total 1400 1125 1925 Balance 1862 1052 -925 Weight 69.6 kg 74 kg General appearance: PRESENT: no acute distress Eye exam: PRESENT: PERRLA Respiratory exam: PRESENT: clear to auscultation corazon Cardiovascular exam: PRESENT: +S1, +S2 GI/Abdominal exam: PRESENT: soft Neurological exam: PRESENT: alert Results Laboratory Results: 12/15/16 05:13 12/15/16 05:13 12/15/16 12/15/16 12/15/16 05:13 05:13 16:05 WBC 4.9 RBC 3.17 L Hgb 9.3 L Hct 28.2 L MCV 89 MCH 29.5 MCHC 33.1 RDW 15.6 H Plt Count 187 Seg Neutrophils % 68.9 Lymphocytes % 20.6 Monocytes % 7.6 Eosinophils % 2.1 Basophils % 0.8 Absolute Neutrophils 3.4 Absolute Lymphocytes 1.0 Absolute Monocytes 0.4 Absolute Eosinophils 0.1 Absolute Basophils 0.0 Sodium 130.3 L Potassium 4.0 Chloride 105 Carbon Dioxide 20 L Anion Gap 5 BUN 11 Creatinine 0.64 Est GFR ( Amer) > 60 Est GFR (Non-Af Amer) > 60 Glucose 117 H Calcium 8.6 Blood Type B POSITIVE Antibody Screen NEGATIVE 12/12/16 12/12/16 12/12/16 16:35 16:35 22:13 Creatine Kinase 723 H 671 H CK-MB (CK-2) 3.46 Troponin I 0.073 12/12/16 12/13/16 12/13/16 22:13 04:18 04:18 Creatine Kinase 595 H CK-MB (CK-2) 3.15 2.68 Troponin I 0.070 0.084 Impressions: Pelvis X-Ray 12/12/16 00:00 IMPRESSION: DISLOCATED PROSTHETIC LEFT FEMORAL HEAD. Chest X-Ray 12/12/16 08:43 IMPRESSION: NO ACUTE RADIOGRAPHIC FINDING IN THE CHEST. NO SIGNIFICANT CHANGE FROM PRIOR STUDY. Head CT 12/12/16 11:35 IMPRESSION: NO ACUTE INTRACRANIAL PROCESS. NO SIGNIFICANT CHANGE FROM PRIOR STUDY. Lung Scan-VQ NM 12/12/16 11:36 IMPRESSION: LOW PROBABILITY FOR PULMONARY EMBOLI. Hip X-Ray 12/13/16 00:00 IMPRESSION: Intra procedural imaging and fluoro Assessment & Plan - Diagnosis (1) Dehydration Is this a current diagnosis for this admission?: Yes (2) Hip dislocation, left Qualifiers: Encounter type: subsequent encounter Qualified Code(s): S73.005D - Unspecified dislocation of left hip, subsequent encounter Is this a current diagnosis for this admission?: Yes (3) Hypotension Qualifiers: Hypotension type: unspecified hypotension type Qualified Code(s): I95.9 - Hypotension, unspecified Is this a current diagnosis for this admission?: Yes (4) Syncopal episodes Qualifiers: Syncope type: unspecified Qualified Code(s): R55 - Syncope and collapse Is this a current diagnosis for this admission?: Yes (5) Paroxysmal atrial fibrillation Is this a current diagnosis for this admission?: Yes - Plan Summary Plan Summary: Patient is transferred to ICU for close monitoring start amiodarone IV fluid vasopressors with Rashard-Synephrine
[2016-12-15] MEDS ORDERED: AMIODARONE HCL 150 MG in DEXTROSE 5%-WATER 100 ML IV ONE (22:00)
[2016-12-15] MEDS ORDERED: AMIODARONE HCL INJ 150 MG/3 ML VIAL IV ONE (22:12)
[2016-12-15] MEDS ORDERED: DEXTROSE 5%-WATER 500 ML with AMIODARONE HCL 900 MG IV PRN ×2 (22:26)
[2016-12-15 22:30] LABS: ABSOLUTE BASOPHILS # (AUTO) 0.1 10^3/uL (0.0-0.2); ABSOLUTE EOSINOPHILS # (AUTO) 0.1 10^3/uL (0.0-0.6); ABSOLUTE LYMPHOCYTES (AUTO) 1.3 10^3/uL (0.5-4.7); ABSOLUTE MONOCYTES (AUTO) 0.5 10^3/uL (0.1-1.4); ABSOLUTE NEUT (AUTO) 5.5 10^3/uL (1.7-8.2); BASOPHILS % (AUTO) 0.8 % (0-2); EOSINOPHILS % (AUTO) 1.7 % (0-6); HEMOGLOBIN 10.8 g/dL (12.0-15.5); HGB HCT DIFFERENCE 1.4; LYMPHOCYTES % (AUTO) 17.1 % (13-45); MEAN CORPUSCULAR HGB CONC 34.7 g/dL (32.0-36.0); MEAN CORPUSCULAR VOLUME 89 fl (80-97); MONOCYTES % (AUTO) 6.6 % (3-13); RED BLOOD COUNT 3.47 10^6/uL (3.72-5.28); RED CELL DISTRIBUTION WIDTH 15.4 % (11.5-14.0); SEGMENTED NEUTROPHILS % (AUTO) 73.8 % (42-78); WHITE BLOOD COUNT 7.4 10^3/uL (4.0-10.5)
[2016-12-15 22:43] LABS: ALANINE AMINOTRANSFERASE 20 U/L (9-52); ALBUMIN 2.4 g/dL (3.5-5.0); ALKALINE PHOSPHATASE 69 U/L (38-126); ANION GAP 10 (5-19); ASPARTATE AMINO TRANSFERASE 23 U/L (14-36); BILIRUBIN,DIRECT 0.3 mg/dL (0.0-0.4); BILIRUBIN,TOTAL 0.6 mg/dL (0.2-1.3); BLOOD UREA NITROGEN 10 mg/dL (7-20); CALCIUM 8.7 mg/dL (8.4-10.2); CARBON DIOXIDE 18 mmol/L (22-30); CHLORIDE 103 mmol/L (98-107); CREATININE RESULT 0.66 mg/dL (0.52-1.25); GLUCOSE 120 mg/dL (75-110); SODIUM 130.7 mmol/L (137-145); TOTAL PROTEIN 4.8 g/dL (6.3-8.2)
[2016-12-16] MEDS: NORMAL SALINE 1000 ML 1,000 ML IV PRN ×2 (00:07→06:35)
[2016-12-16] MEDS: OXYCODONE-ACETAMINOPHEN 5-325 MG TABLET PO PRN ×5 (02:26→19:28)
--- NOTE | 2016-12-16 07:59 | EKG REPORT ---
SEVERITY:- ABNORMAL ECG - ATRIAL FIBRILLATION MULTIFORM VENTRICULAR PREMATURE COMPLEXES LOW VOLTAGE IN FRONTAL LEADS BORDERLINE ST DEPRESSION, ANTEROLATERAL LEADS BORDERLINE PROLONGED QT INTERVAL : Confirmed by: Omer Patricia MD 16-Dec-2016 07:57:57
[2016-12-16] MEDS: POLYETHYLENE GLYCOL 3350 POWDER 17 GM/1 PACKET PO SCH (08:28)
[2016-12-16] MEDS: FAMOTIDINE 20 MG TABLET PO SCH (08:28)
[2016-12-16 09:08] LABS: ABSOLUTE LYMPHOCYTES (AUTO) 0.8 10^3/uL (0.5-4.7); ABSOLUTE MONOCYTES (AUTO) 0.5 10^3/uL (0.1-1.4); ABSOLUTE NEUT (AUTO) 5.7 10^3/uL (1.7-8.2); BASOPHILS % (AUTO) 0.4 % (0-2); EOSINOPHILS % (AUTO) 0.7 % (0-6); HEMATOCRIT 27.1 % (36.0-47.0); HEMOGLOBIN 9.3 g/dL (12.0-15.5); HGB HCT DIFFERENCE 0.8; LYMPHOCYTES % (AUTO) 11.6 % (13-45); MEAN CORPUSCULAR HEMOGLOBIN 30.3 pg (27.0-33.4); MEAN CORPUSCULAR HGB CONC 34.5 g/dL (32.0-36.0); MEAN CORPUSCULAR VOLUME 88 fl (80-97); RED BLOOD COUNT 3.09 10^6/uL (3.72-5.28); RED CELL DISTRIBUTION WIDTH 15.6 % (11.5-14.0); SEGMENTED NEUTROPHILS % (AUTO) 80.3 % (42-78); WHITE BLOOD COUNT 7.1 10^3/uL (4.0-10.5)
[2016-12-16 09:36] LABS: ALANINE AMINOTRANSFERASE 21 U/L (9-52); ALBUMIN 2.3 g/dL (3.5-5.0); ALKALINE PHOSPHATASE 62 U/L (38-126); ANION GAP 8 (5-19); ASPARTATE AMINO TRANSFERASE 21 U/L (14-36); BILIRUBIN,DIRECT 0.4 mg/dL (0.0-0.4); BILIRUBIN,TOTAL 0.7 mg/dL (0.2-1.3); BLOOD UREA NITROGEN 10 mg/dL (7-20); CALCIUM 8.2 mg/dL (8.4-10.2); CARBON DIOXIDE 20 mmol/L (22-30); CHLORIDE 101 mmol/L (98-107); CREATININE RESULT 0.62 mg/dL (0.52-1.25); GLUCOSE 116 mg/dL (75-110); POTASSIUM 3.9 mmol/L (3.6-5.0); SODIUM 128.8 mmol/L (137-145); TOTAL PROTEIN 4.4 g/dL (6.3-8.2)
[2016-12-16] MEDS: SITAGLIPTIN PHOSPHATE 50 MG TABLET PO SCH (17:16)
[2016-12-16] MEDS: CEFTRIAXONE 1 GM/D5W RTU 1 GM/50 ML RTUPB IV SCH (17:17)
--- NOTE | 2016-12-16 18:44 | Operative Report ---
Operative Report DATE OF SURGERY: 12/15/16 PREOPERATIVE DIAGNOSIS: Left Hip Dislocation POSTOPERATIVE DIAGNOSIS: Same OPERATION: Revision of left hip hemiarthroplasty SURGEON: SIRIA CAPONE ANESTHESIA: Spinal TISSUE REMOVED OR ALTERED: None COMPLICATIONS: None ESTIMATED BLOOD LOSS: 100mL INTRAOPERATIVE FINDINGS: As above PROCEDURE: Patient was given preoperative antibiotics and then received spinal anesthetic. Patient was then placed in a lateral decubitus position with the left side up. The left lower extremity was prepped and draped in a normal sterile surgical fashion. Timeout was done identifying the left dislocated hip as the correct site. Same previous incision was used. Skin knife was used to dissect and expose the scar tissue and subcutaneous tissue. Immediately exposed the gluteus ananda which was then cut and then released. Immediate fluid and serosanguineous hematoma was drained from the hip. This was cultured. Retractors were placed and immediately showed the displaced hemiarthroplasty. Patient dislocated hip ribs through the repaired capsule and repaired external rotators. I needed to reflect some of the capsule tissue and I was able to reduce the hip again. The hip would pop out at 90 with about 45 of internal rotation. At this point I proceeded to use a bone tamp and a mallet and remove the inner femoral head of the bipolar head. We measured again to show that it was a 47 mm head outer diameter. Head was a -3 mm inner diameter. We proceeded to trial with a 0 [address] length and all way up to a +12. We felt the best stability was at +8 mm. Less 12 gave too much tension and the patient would have a flexion contracture. We proceeded then to place a +847 mm bipolar head again. Reduced the hip and noticed that the patient would be stable at 90 of flexion with about 80 of internal rotation. In the position of sleep there was no dislocation. At this point copious irrigation was used and then we proceeded to attempt to repair whatever was left of the capsule and external rotators. I also reapproximated the IT band and gluteus ananda layer with the #1 Vicryl. I used 0 Vicryl and 2-0 Vicryl to close the subcutaneous tissue and dermis. I used qiana for skin. I applied Acticoat covered by 4 x 4 dressing and Medipore tape. Patient was placed in a abduction pillow after removing the drapes. Pegboard then was removed and the patient was laid flat and transferred to her bed in a supine position. Patient will adhere to posterior hip precautions. Patient was sent to PACU in a stable condition.
--- NOTE | 2016-12-16 18:47 | PDOC PROGRESS REPORT ---
Subjective Progress Note for:: 12/16/16 Subjective:: Patient in ICU alert and talking. Pain better control. A. fib with hypotension has resolved. They state she will be transferred to the floor later tonight. Physical Exam Vital Signs: Temp Pulse Resp BP Pulse Ox 36.8 C 79 23 H 123/51 L 100 12/16/16 16:00 12/16/16 16:00 12/16/16 16:00 12/16/16 16:00 12/16/16 16:00 Intake & Output 12/15/16 12/16/16 12/17/16 06:59 06:59 06:59 Intake Total 2177 3725 1531 Output Total 1125 2815 795 Balance 1052 910 736 Weight 74 kg 72.3 kg General appearance: PRESENT: no acute distress Adult Front & Back Image: 1 - Dressing is dry clean and intact. A-frame pillow is between legs as instructed. Patient has a slight longer extremity on the left side compared to the right but this was expected and discussed preoperatively. Navarro is neurovascular intact distally. Results Laboratory Results: 12/16/16 08:40 12/16/16 08:40 12/15/16 12/15/16 12/16/16 22:20 22:20 08:40 WBC 7.4 7.1 RBC 3.47 L 3.09 L Hgb 10.8 L 9.3 L Hct 31.0 L 27.1 L MCV 89 88 MCH 31.0 30.3 MCHC 34.7 34.5 RDW 15.4 H 15.6 H Plt Count 218 202 Seg Neutrophils % 73.8 80.3 H Lymphocytes % 17.1 11.6 L Monocytes % 6.6 7.0 Eosinophils % 1.7 0.7 Basophils % 0.8 0.4 Absolute Neutrophils 5.5 5.7 Absolute Lymphocytes 1.3 0.8 Absolute Monocytes 0.5 0.5 Absolute Eosinophils 0.1 0.0 Absolute Basophils 0.1 0.0 Sodium 130.7 L Potassium 4.0 Chloride 103 Carbon Dioxide 18 L Anion Gap 10 BUN 10 Creatinine 0.66 Est GFR ( Amer) > 60 Est GFR (Non-Af Amer) > 60 Glucose 120 H Calcium 8.7 Total Bilirubin 0.6 AST 23 ALT 20 Alkaline Phosphatase 69 Total Protein 4.8 L Albumin 2.4 L 12/16/16 08:40 WBC RBC Hgb Hct MCV MCH MCHC RDW Plt Count Seg Neutrophils % Lymphocytes % Monocytes % Eosinophils % Basophils % Absolute Neutrophils Absolute Lymphocytes Absolute Monocytes Absolute Eosinophils Absolute Basophils Sodium 128.8 L Potassium 3.9 Chloride 101 Carbon Dioxide 20 L Anion Gap 8 BUN 10 Creatinine 0.62 Est GFR ( Amer) > 60 Est GFR (Non-Af Amer) > 60 Glucose 116 H Calcium 8.2 L Total Bilirubin 0.7 AST 21 ALT 21 Alkaline Phosphatase 62 Total Protein 4.4 L Albumin 2.3 L 12/12/16 12/12/16 12/12/16 16:35 16:35 22:13 Creatine Kinase 723 H 671 H CK-MB (CK-2) 3.46 Troponin I 0.073 12/12/16 12/13/16 12/13/16 22:13 04:18 04:18 Creatine Kinase 595 H CK-MB (CK-2) 3.15 2.68 Troponin I 0.070 0.084 Impressions: Pelvis X-Ray 12/12/16 00:00 IMPRESSION: DISLOCATED PROSTHETIC LEFT FEMORAL HEAD. Chest X-Ray 12/12/16 08:43 IMPRESSION: NO ACUTE RADIOGRAPHIC FINDING IN THE CHEST. NO SIGNIFICANT CHANGE FROM PRIOR STUDY. Head CT 12/12/16 11:35 IMPRESSION: NO ACUTE INTRACRANIAL PROCESS. NO SIGNIFICANT CHANGE FROM PRIOR STUDY. Lung Scan-VQ NM 12/12/16 11:36 IMPRESSION: LOW PROBABILITY FOR PULMONARY EMBOLI. Hip X-Ray 12/13/16 00:00 IMPRESSION: Intra procedural imaging and fluoro Status: Image reviewed by me Assessment & Plan - Plan Summary Plan Summary: 86-year-old female postop day 1 from revision left hip hemiarthroplasty. X-ray still pending due to being in ICU but limb lengths are grossly equal despite slight elongation of the left side. Strict posterior hip precaution. Start physical therapy was transferred out of ICU. X-rays once out of ICU.
[2016-12-16] MEDS: DOXEPIN HCL 10 MG CAPSULE PO SCH (20:03)
--- NOTE | 2016-12-16 20:03 | PDOC PROGRESS REPORT ---
Subjective Progress Note for:: 12/16/16 Subjective:: Patient was seen by the bedside, she was transferred to intensive care unit yesterday after she had total hip arthroplasty of the left side, she had hypotension yesterday this was treated with IV Rashard-Synephrine, the blood pressure is stabilized she also developed atrial fibrillation with rapid ventricular response this was treated with intravenous amiodarone in the setting of hypotension . The plan is to transfer patient to intermediate care unit from the intensive care unit. Physical Exam Vital Signs: Temp Pulse Resp BP Pulse Ox 98.2 F 72 21 H 133/54 H 100 12/16/16 16:00 12/16/16 19:39 12/16/16 19:00 12/16/16 18:53 12/16/16 19:00 Intake & Output 12/15/16 12/16/16 12/17/16 06:59 06:59 06:59 Intake Total 2177 3725 1531 Output Total 1125 2815 795 Balance 1052 910 736 Weight 74 kg 72.3 kg General appearance: PRESENT: no acute distress Eye exam: PRESENT: PERRLA Respiratory exam: PRESENT: clear to auscultation corazon Cardiovascular exam: PRESENT: +S1, +S2 GI/Abdominal exam: PRESENT: soft Neurological exam: PRESENT: alert Results Laboratory Results: 12/16/16 08:40 12/16/16 08:40 12/15/16 12/15/16 12/16/16 22:20 22:20 08:40 WBC 7.4 7.1 RBC 3.47 L 3.09 L Hgb 10.8 L 9.3 L Hct 31.0 L 27.1 L MCV 89 88 MCH 31.0 30.3 MCHC 34.7 34.5 RDW 15.4 H 15.6 H Plt Count 218 202 Seg Neutrophils % 73.8 80.3 H Lymphocytes % 17.1 11.6 L Monocytes % 6.6 7.0 Eosinophils % 1.7 0.7 Basophils % 0.8 0.4 Absolute Neutrophils 5.5 5.7 Absolute Lymphocytes 1.3 0.8 Absolute Monocytes 0.5 0.5 Absolute Eosinophils 0.1 0.0 Absolute Basophils 0.1 0.0 Sodium 130.7 L Potassium 4.0 Chloride 103 Carbon Dioxide 18 L Anion Gap 10 BUN 10 Creatinine 0.66 Est GFR ( Amer) > 60 Est GFR (Non-Af Amer) > 60 Glucose 120 H Calcium 8.7 Total Bilirubin 0.6 AST 23 ALT 20 Alkaline Phosphatase 69 Total Protein 4.8 L Albumin 2.4 L 12/16/16 08:40 WBC RBC Hgb Hct MCV MCH MCHC RDW Plt Count Seg Neutrophils % Lymphocytes % Monocytes % Eosinophils % Basophils % Absolute Neutrophils Absolute Lymphocytes Absolute Monocytes Absolute Eosinophils Absolute Basophils Sodium 128.8 L Potassium 3.9 Chloride 101 Carbon Dioxide 20 L Anion Gap 8 BUN 10 Creatinine 0.62 Est GFR ( Amer) > 60 Est GFR (Non-Af Amer) > 60 Glucose 116 H Calcium 8.2 L Total Bilirubin 0.7 AST 21 ALT 21 Alkaline Phosphatase 62 Total Protein 4.4 L Albumin 2.3 L 12/12/16 12/12/16 12/12/16 16:35 16:35 22:13 Creatine Kinase 723 H 671 H CK-MB (CK-2) 3.46 Troponin I 0.073 12/12/16 12/13/16 12/13/16 22:13 04:18 04:18 Creatine Kinase 595 H CK-MB (CK-2) 3.15 2.68 Troponin I 0.070 0.084 Impressions: Pelvis X-Ray 12/12/16 00:00 IMPRESSION: DISLOCATED PROSTHETIC LEFT FEMORAL HEAD. Chest X-Ray 12/12/16 08:43 IMPRESSION: NO ACUTE RADIOGRAPHIC FINDING IN THE CHEST. NO SIGNIFICANT CHANGE FROM PRIOR STUDY. Head CT 12/12/16 11:35 IMPRESSION: NO ACUTE INTRACRANIAL PROCESS. NO SIGNIFICANT CHANGE FROM PRIOR STUDY. Lung Scan-VQ NM 12/12/16 11:36 IMPRESSION: LOW PROBABILITY FOR PULMONARY EMBOLI. Hip X-Ray 12/13/16 00:00 IMPRESSION: Intra procedural imaging and fluoro Assessment & Plan - Diagnosis (1) Dehydration Is this a current diagnosis for this admission?: Yes (2) Hip dislocation, left Qualifiers: Encounter type: subsequent encounter Qualified Code(s): S73.005D - Unspecified dislocation of left hip, subsequent encounter Is this a current diagnosis for this admission?: Yes (3) Hypotension Qualifiers: Hypotension type: unspecified hypotension type Qualified Code(s): I95.9 - Hypotension, unspecified Is this a current diagnosis for this admission?: Yes (4) Syncopal episodes Qualifiers: Syncope type: unspecified Qualified Code(s): R55 - Syncope and collapse Is this a current diagnosis for this admission?: Yes (5) Paroxysmal atrial fibrillation Is this a current diagnosis for this admission?: Yes (7) Type 2 diabetes mellitus Qualifiers: Diabetes mellitus complication status: with neurologic complications Diabetes mellitus complication detail: with polyneuropathy Diabetes mellitus correction insulin use: without superintendent marine oil terminal use Qualified Code(s): E11.42 - Type 2 diabetes mellitus with diabetic polyneuropathy Is this a current diagnosis for this admission?: Yes - Plan Summary Plan Summary: The IV amiodarone will be discontinued she will be downgraded to IMCU for continuity of care
[2016-12-16] MEDS: RIVAROXABAN 10 MG TABLET PO SCH (21:22)
[2016-12-17] MEDS: OXYCODONE-ACETAMINOPHEN 5-325 MG TABLET PO PRN ×4 (05:49→20:03)
[2016-12-17] MEDS: POLYETHYLENE GLYCOL 3350 POWDER 17 GM/1 PACKET PO SCH (07:39)
[2016-12-17] MEDS: FAMOTIDINE 20 MG TABLET PO SCH (09:15)
[2016-12-17] MEDS: NORMAL SALINE 1000 ML 1,000 ML IV PRN ×2 (09:16→18:10)
[2016-12-17] MEDS: HYDROMORPHONE HCL INJ/PF 2 MG/ML AMPULE IV PRN ×2 (12:25→17:24)
--- NOTE | 2016-12-17 12:30 | PDOC PROGRESS REPORT ---
Subjective Progress Note for:: 12/16/16 Subjective:: Patient seen on morning rounds. In SR. Previously she was in atrial fibrillation. She was noted to go into atrial fibrillation with rapid ventricular response after surgery and was subsequently moved to the unit and placed on amiodarone bolus and drip protocol. Patient claims some left hip pain. Review of systems: Rest review of systems negative. Medications: Medications have been reviewed. Physical Exam Vital Signs: Temp Pulse Resp BP Pulse Ox 98.2 F 72 21 H 133/54 H 100 12/16/16 16:00 12/16/16 19:39 12/16/16 19:00 12/16/16 18:53 12/16/16 19:00 Intake & Output 12/15/16 12/16/16 12/17/16 06:59 06:59 06:59 Intake Total 2177 3725 1531 Output Total 1125 2815 970 Balance 1052 910 561 Weight 74 kg 72.3 kg Exam: GENERAL: well-nourished and in no acute distress. Alert and oriented x3 HEAD: Atraumatic, normocephalic. EYES: Pupils equal round and reactive to light, extraocular movements intact, sclera anicteric, conjunctiva are normal. ENT: TMs normal, nares patent, oropharynx clear without exudates. Moist mucous membranes. No oral ulcerations or bleeding gums noted NECK: supple without lymphadenopathy. Trachea is central. No cervical or axillary lymphadenopathy noted. Carotids are 2+, JVD WNL LUNGS: Respiration seems nonlabored, no significant accessory muscle action noted. Breath sounds clear to auscultation bilaterally and equal noted. No wheezes rales or rhonchi noted. No significant dullness noted on percussion. CHEST: Palpation of the chest wall shows no significant chest wall tenderness. No other significant abnormalities noted. 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 ABDOMEN: Soft, no significant tenderness appreciated, normoactive bowel sounds. No guarding, no rebound. No rigidity noted . No masses appreciated. EXTREMITIES: Pedal pulses are 1-2+, no calf tenderness noted. No clubbing or cyanosis.trace to 1+ pedal edema noted NEUROLOGICAL: Focused neurological exam showed no significant neurologic deficit. Normal speech, no focal weakness appreciated. PSYCH: Normal mood, normal affect. Judgment and insight within normal limits. SKIN: No significant ecchymosis, rash, ulcerations or signs of pruritus noted. MUSCULOSKELETAL EXAM: No significant joint swelling noted. Results Laboratory Results: 12/16/16 08:40 12/16/16 08:40 12/15/16 12/15/16 12/16/16 22:20 22:20 08:40 WBC 7.4 7.1 RBC 3.47 L 3.09 L Hgb 10.8 L 9.3 L Hct 31.0 L 27.1 L MCV 89 88 MCH 31.0 30.3 MCHC 34.7 34.5 RDW 15.4 H 15.6 H Plt Count 218 202 Seg Neutrophils % 73.8 80.3 H Lymphocytes % 17.1 11.6 L Monocytes % 6.6 7.0 Eosinophils % 1.7 0.7 Basophils % 0.8 0.4 Absolute Neutrophils 5.5 5.7 Absolute Lymphocytes 1.3 0.8 Absolute Monocytes 0.5 0.5 Absolute Eosinophils 0.1 0.0 Absolute Basophils 0.1 0.0 Sodium 130.7 L Potassium 4.0 Chloride 103 Carbon Dioxide 18 L Anion Gap 10 BUN 10 Creatinine 0.66 Est GFR ( Amer) > 60 Est GFR (Non-Af Amer) > 60 Glucose 120 H Calcium 8.7 Total Bilirubin 0.6 AST 23 ALT 20 Alkaline Phosphatase 69 Total Protein 4.8 L Albumin 2.4 L 12/16/16 08:40 WBC RBC Hgb Hct MCV MCH MCHC RDW Plt Count Seg Neutrophils % Lymphocytes % Monocytes % Eosinophils % Basophils % Absolute Neutrophils Absolute Lymphocytes Absolute Monocytes Absolute Eosinophils Absolute Basophils Sodium 128.8 L Potassium 3.9 Chloride 101 Carbon Dioxide 20 L Anion Gap 8 BUN 10 Creatinine 0.62 Est GFR ( Amer) > 60 Est GFR (Non-Af Amer) > 60 Glucose 116 H Calcium 8.2 L Total Bilirubin 0.7 AST 21 ALT 21 Alkaline Phosphatase 62 Total Protein 4.4 L Albumin 2.3 L 12/12/16 12/12/16 12/12/16 16:35 16:35 22:13 Creatine Kinase 723 H 671 H CK-MB (CK-2) 3.46 Troponin I 0.073 12/12/16 12/13/16 12/13/16 22:13 04:18 04:18 Creatine Kinase 595 H CK-MB (CK-2) 3.15 2.68 Troponin I 0.070 0.084 Impressions: Pelvis X-Ray 12/12/16 00:00 IMPRESSION: DISLOCATED PROSTHETIC LEFT FEMORAL HEAD. Chest X-Ray 12/12/16 08:43 IMPRESSION: NO ACUTE RADIOGRAPHIC FINDING IN THE CHEST. NO SIGNIFICANT CHANGE FROM PRIOR STUDY. Head CT 12/12/16 11:35 IMPRESSION: NO ACUTE INTRACRANIAL PROCESS. NO SIGNIFICANT CHANGE FROM PRIOR STUDY. Lung Scan-VQ NM 12/12/16 11:36 IMPRESSION: LOW PROBABILITY FOR PULMONARY EMBOLI. Hip X-Ray 12/13/16 00:00 IMPRESSION: Intra procedural imaging and fluoro Assessment & Plan - Diagnosis (1) Syncopal episodes Qualifiers: Syncope type: unspecified Qualified Code(s): R55 - Syncope and collapse Is this a current diagnosis for this admission?: Yes (2) Hypotension Qualifiers: Hypotension type: unspecified hypotension type Qualified Code(s): I95.9 - Hypotension, unspecified Is this a current diagnosis for this admission?: Yes (3) Hip dislocation, left Qualifiers: Encounter type: subsequent encounter Qualified Code(s): S73.005D - Unspecified dislocation of left hip, subsequent encounter Is this a current diagnosis for this admission?: Yes (4) Diabetes mellitus Qualifiers: Diabetes mellitus type: type 2 Diabetes mellitus complication status: with unspecified complications Diabetes mellitus ferry terminal supervisor insulin use: unspecified penitentiary insulin use status Qualified Code(s): 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 Recommend switch to p.o. amiodarone when drip off. Patient started on Xarelto by surgeon. Syncopal episodes: This was on presentation. Because probably multifactorial. Currently no significant pauses or other cardiac dysrhythmia noted as cause. Most likely related to general debility and postural hypotension. Continue to monitor patient. Hypotension: Resolved. Blood pressure now more stable. Dislocated left hip: Patient is status post repeat replacement by surgical means. Hyponatremia: Continue current management plans with fluid restriction and medications Diabetes mellitus: Recommend good control but avoid any hyper or hypoglycemia. Syndrome of inappropriate ADH secretion. Continue current management plans. Recurrent falls and general debility: Patient will benefit from some physical therapy. Paroxysmal atrial fibrillation: Patient currently in sinus rhythm. Will leave anticoagulation decision to superintendent of generation as patient does have history of multiple falls. Patient on DVT prophylaxis dose of Xarelto. - Time Time with patient: 15-25 minutes - CODE STATUS : was discussed, patient remains DO NOT RESUSCITATE. Surrogate decision-maker unchanged. Multiple medical problems were addressed. More than 50% of the time spent coordinating care, discussing management plans with involved caregivers. Management plans discussed with involved personnels. Medical decision making was of moderate to high complexity, patient's has multiple comorbidities. Medications reviewed and adjusted accordingly: Yes
--- NOTE | 2016-12-17 12:33 | PDOC PROGRESS REPORT ---
Subjective Progress Note for:: 12/17/16 Subjective:: Patient claims to be feeling bad all over nonspecifically. However denying any cardiovascular related symptoms such as chest pain. Patient claims some left hip pain. Review of systems: Rest review of systems negative. Telemetry strips reviewed showed patient in sinus rhythm. Medications: Medications have been reviewed. Physical Exam Vital Signs: Temp Pulse Resp BP Pulse Ox 97.6 F 72 20 107/39 L 100 12/17/16 08:00 12/17/16 08:00 12/17/16 08:00 12/17/16 08:00 12/17/16 08:00 Intake & Output 12/16/16 12/17/16 12/18/16 06:59 06:59 06:59 Intake Total 3725 1541 Output Total 2815 1195 Balance 910 346 Weight 72.3 kg 76.7 kg Exam: GENERAL: well-nourished and in no acute distress. Alert and oriented x3 HEAD: Atraumatic, normocephalic. EYES: Pupils equal round and reactive to light, extraocular movements intact, sclera anicteric, conjunctiva are normal. ENT: TMs normal, nares patent, oropharynx clear without exudates. Moist mucous membranes. No oral ulcerations or bleeding gums noted NECK: supple without lymphadenopathy. Trachea is central. No cervical or axillary lymphadenopathy noted. Carotids are 2+, JVD WNL LUNGS: Respiration seems nonlabored, no significant accessory muscle action noted. Breath sounds clear to auscultation bilaterally and equal noted. No wheezes rales or rhonchi noted. No significant dullness noted on percussion. CHEST: Palpation of the chest wall shows no significant chest wall tenderness. No other significant abnormalities noted. 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 ABDOMEN: Soft, no significant tenderness appreciated, normoactive bowel sounds. No guarding, no rebound. No rigidity noted . No masses appreciated. EXTREMITIES: Pedal pulses are 1-2+, no calf tenderness noted. No clubbing or cyanosis.trace to 1+ pedal edema noted NEUROLOGICAL: Focused neurological exam showed no significant neurologic deficit. Normal speech, no focal weakness appreciated. PSYCH: Normal mood, normal affect. Judgment and insight within normal limits. SKIN: No significant ecchymosis, rash, ulcerations or signs of pruritus noted. MUSCULOSKELETAL EXAM: No significant joint swelling noted. Results Laboratory Results: 12/16/16 08:40 12/16/16 08:40 12/12/16 12/12/16 12/12/16 16:35 16:35 22:13 Creatine Kinase 723 H 671 H CK-MB (CK-2) 3.46 Troponin I 0.073 12/12/16 12/13/16 12/13/16 22:13 04:18 04:18 Creatine Kinase 595 H CK-MB (CK-2) 3.15 2.68 Troponin I 0.070 0.084 EKG Comments: Telemetry strips shows patient maintaining sinus rhythm. Impressions: Pelvis X-Ray 12/12/16 00:00 IMPRESSION: DISLOCATED PROSTHETIC LEFT FEMORAL HEAD. Chest X-Ray 12/12/16 08:43 IMPRESSION: NO ACUTE RADIOGRAPHIC FINDING IN THE CHEST. NO SIGNIFICANT CHANGE FROM PRIOR STUDY. Head CT 12/12/16 11:35 IMPRESSION: NO ACUTE INTRACRANIAL PROCESS. NO SIGNIFICANT CHANGE FROM PRIOR STUDY. Lung Scan-VQ NM 12/12/16 11:36 IMPRESSION: LOW PROBABILITY FOR PULMONARY EMBOLI. Hip X-Ray 12/13/16 00:00 IMPRESSION: Intra procedural imaging and fluoro Assessment & Plan - Diagnosis (1) Syncopal episodes Qualifiers: Syncope type: unspecified Qualified Code(s): R55 - Syncope and collapse Is this a current diagnosis for this admission?: Yes (2) Hypotension Qualifiers: Hypotension type: unspecified hypotension type Qualified Code(s): I95.9 - Hypotension, unspecified Is this a current diagnosis for this admission?: Yes (3) Hip dislocation, left Qualifiers: Encounter type: subsequent encounter Qualified Code(s): S73.005D - Unspecified dislocation of left hip, subsequent encounter Is this a current diagnosis for this admission?: Yes (4) Diabetes mellitus Qualifiers: Diabetes mellitus type: type 2 Diabetes mellitus complication status: with unspecified complications Diabetes mellitus tank terminal gauger insulin use: unspecified tank terminal gauger insulin use status Qualified Code(s): E11.8 - Type 2 diabetes mellitus with unspecified complications Is this a current diagnosis for this admission?: Yes (5) Hyponatremia Is this a current diagnosis for this admission?: Yes (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 amiodarone at 200 p.o. twice daily and also tolvaptan at 7.5 mg p.o. daily. Syncopal episodes: This was on presentation. Because probably multifactorial. Currently no significant pauses or other cardiac dysrhythmia noted as cause. Most likely related to general debility and orthostatic hypotension. Continue to monitor patient. Patient will benefit from physical therapy. Hypotension: Resolved. Blood pressure now more stable. Dislocated left hip: Status post surgery for replacement of dislocated hip in proper position. Hyponatremia: Continue current management plans with fluid restriction and medications. Consider tolvaptan therapy. Patient claims that this is a chronic condition and has been fully evaluated before. Patient was on tolvaptan therapy as an outpatient. Will restart at half dose. Diabetes mellitus: Recommend good control but avoid any hyper or hypoglycemia. Syndrome of inappropriate ADH secretion. Continue current management plans. Continue tolvaptan therapy Recurrent falls and general debility: Patient will benefit from some physical therapy. Paroxysmal atrial fibrillation: Patient currently in sinus rhythm. Will leave anticoagulation decision to primary care pediatrician as patient does have history of multiple falls. - Time Time with patient: 15-25 minutes - CODE STATUS was discussed, patient remains full code. Surrogate decision-maker unchanged. Multiple medical problems were addressed. More than 50% of the time spent coordinating care, discussing management plans with involved caregivers. Management plans discussed with involved personnels. Medical decision making was of moderate to high complexity , patient's has multiple comorbidities. Patient has been stable from cardiac standpoint. Continue amiodarone therapy as paroxysmal atrial fibrillation could have been because of patient's fall. Started tolvaptan therapy Medications reviewed and adjusted accordingly: Yes
[2016-12-17 12:39] LABS: ABSOLUTE EOSINOPHILS # (AUTO) 0.1 10^3/uL (0.0-0.6); ABSOLUTE LYMPHOCYTES (AUTO) 1.1 10^3/uL (0.5-4.7); ABSOLUTE MONOCYTES (AUTO) 0.5 10^3/uL (0.1-1.4); ABSOLUTE NEUT (AUTO) 5.1 10^3/uL (1.7-8.2); BASOPHILS % (AUTO) 0.4 % (0-2); EOSINOPHILS % (AUTO) 1.3 % (0-6); HEMATOCRIT 25.3 % (36.0-47.0); HEMOGLOBIN 8.4 g/dL (12.0-15.5); HGB HCT DIFFERENCE -0.1; LYMPHOCYTES % (AUTO) 16.8 % (13-45); MEAN CORPUSCULAR HEMOGLOBIN 28.9 pg (27.0-33.4); MEAN CORPUSCULAR HGB CONC 33.1 g/dL (32.0-36.0); MEAN CORPUSCULAR VOLUME 88 fl (80-97); MONOCYTES % (AUTO) 6.8 % (3-13); RED BLOOD COUNT 2.89 10^6/uL (3.72-5.28); RED CELL DISTRIBUTION WIDTH 15.7 % (11.5-14.0); SEGMENTED NEUTROPHILS % (AUTO) 74.7 % (42-78); WHITE BLOOD COUNT 6.8 10^3/uL (4.0-10.5)
[2016-12-17 12:56] LABS: ALANINE AMINOTRANSFERASE 19 U/L (9-52); ALBUMIN 2.2 g/dL (3.5-5.0); ALKALINE PHOSPHATASE 64 U/L (38-126); ANION GAP 8 (5-19); ASPARTATE AMINO TRANSFERASE 16 U/L (14-36); BILIRUBIN,DIRECT 0.3 mg/dL (0.0-0.4); BILIRUBIN,TOTAL 0.4 mg/dL (0.2-1.3); BLOOD UREA NITROGEN 9 mg/dL (7-20); CALCIUM 8.2 mg/dL (8.4-10.2); CARBON DIOXIDE 19 mmol/L (22-30); CHLORIDE 102 mmol/L (98-107); CREATININE RESULT 0.63 mg/dL (0.52-1.25); GLUCOSE 141 mg/dL (75-110); POTASSIUM 3.8 mmol/L (3.6-5.0); SODIUM 129.2 mmol/L (137-145); TOTAL PROTEIN 4.4 g/dL (6.3-8.2)
[2016-12-17] MEDS ORDERED: BISACODYL 5 MG TABEC PO ONE (13:00)
[2016-12-17] MEDS: TOLVAPTAN 15 MG TABLET PO SCH (13:23)
--- NOTE | 2016-12-17 15:45 | PDOC PROGRESS REPORT ---
Subjective Progress Note for:: 12/17/16 Subjective:: Patient complains of pain, she is status post left hip arthroplasty., History of SIADH, the serum sodium from today's lab work, 128 Physical Exam Vital Signs: Temp Pulse Resp BP Pulse Ox 97.9 F 87 18 129/52 H 98 12/17/16 11:35 12/17/16 11:35 12/17/16 11:35 12/17/16 11:35 12/17/16 11:35 Intake & Output 12/16/16 12/17/16 12/18/16 06:59 06:59 06:59 Intake Total 3725 1541 237 Output Total 2815 1195 300 Balance 910 346 -63 Weight 72.3 kg 76.7 kg General appearance: PRESENT: no acute distress Eye exam: PRESENT: PERRLA Respiratory exam: PRESENT: clear to auscultation corazon Cardiovascular exam: PRESENT: +S1, +S2 GI/Abdominal exam: PRESENT: soft Neurological exam: PRESENT: alert Results Laboratory Results: 12/17/16 12:25 12/17/16 12:25 12/17/16 12/17/16 12:25 12:25 WBC 6.8 RBC 2.89 L Hgb 8.4 L Hct 25.3 L MCV 88 MCH 28.9 MCHC 33.1 RDW 15.7 H Plt Count 201 Seg Neutrophils % 74.7 Lymphocytes % 16.8 Monocytes % 6.8 Eosinophils % 1.3 Basophils % 0.4 Absolute Neutrophils 5.1 Absolute Lymphocytes 1.1 Absolute Monocytes 0.5 Absolute Eosinophils 0.1 Absolute Basophils 0.0 Sodium 129.2 L Potassium 3.8 Chloride 102 Carbon Dioxide 19 L Anion Gap 8 BUN 9 Creatinine 0.63 Est GFR ( Amer) > 60 Est GFR (Non-Af Amer) > 60 Glucose 141 H Calcium 8.2 L Total Bilirubin 0.4 AST 16 ALT 19 Alkaline Phosphatase 64 Total Protein 4.4 L Albumin 2.2 L 12/12/16 12/12/16 12/12/16 16:35 16:35 22:13 Creatine Kinase 723 H 671 H CK-MB (CK-2) 3.46 Troponin I 0.073 12/12/16 12/13/16 12/13/16 22:13 04:18 04:18 Creatine Kinase 595 H CK-MB (CK-2) 3.15 2.68 Troponin I 0.070 0.084 Impressions: Pelvis X-Ray 12/12/16 00:00 IMPRESSION: DISLOCATED PROSTHETIC LEFT FEMORAL HEAD. Chest X-Ray 12/12/16 08:43 IMPRESSION: NO ACUTE RADIOGRAPHIC FINDING IN THE CHEST. NO SIGNIFICANT CHANGE FROM PRIOR STUDY. Head CT 12/12/16 11:35 IMPRESSION: NO ACUTE INTRACRANIAL PROCESS. NO SIGNIFICANT CHANGE FROM PRIOR STUDY. Lung Scan-VQ NM 12/12/16 11:36 IMPRESSION: LOW PROBABILITY FOR PULMONARY EMBOLI. Hip X-Ray 12/13/16 00:00 IMPRESSION: Intra procedural imaging and fluoro Assessment & Plan - Diagnosis (1) Dehydration Is this a current diagnosis for this admission?: Yes (2) Hip dislocation, left Qualifiers: Encounter type: subsequent encounter Qualified Code(s): S73.005D - Unspecified dislocation of left hip, subsequent encounter Is this a current diagnosis for this admission?: Yes (3) Hypotension Qualifiers: Hypotension type: unspecified hypotension type Qualified Code(s): I95.9 - Hypotension, unspecified Is this a current diagnosis for this admission?: Yes (4) Syncopal episodes Qualifiers: Syncope type: unspecified Qualified Code(s): R55 - Syncope and collapse Is this a current diagnosis for this admission?: Yes (5) Paroxysmal atrial fibrillation Is this a current diagnosis for this admission?: Yes (7) Type 2 diabetes mellitus Qualifiers: Diabetes mellitus complication status: with neurologic complications Diabetes mellitus complication detail: with polyneuropathy Diabetes mellitus longterm insulin use: without terminal press operator use Qualified Code(s): E11.42 - Type 2 diabetes mellitus with diabetic polyneuropathy Is this a current diagnosis for this admission?: Yes
[2016-12-17] MEDS: AMIODARONE HCL 200 MG TABLET PO SCH (17:23)
[2016-12-17] MEDS: SITAGLIPTIN PHOSPHATE 50 MG TABLET PO SCH (17:23)
[2016-12-17] MEDS: CEFTRIAXONE 1 GM/D5W RTU 1 GM/50 ML RTUPB IV SCH (17:24)
--- NOTE | 2016-12-17 18:40 | PDOC PROGRESS REPORT ---
Subjective Progress Note for:: 12/17/16 Subjective:: Patient complaining of left hip pain. No acute issues overnight. Physical Exam Vital Signs: Temp Pulse Resp BP Pulse Ox 36.6 C 80 20 110/42 L 100 12/17/16 15:53 12/17/16 15:53 12/17/16 15:53 12/17/16 15:53 12/17/16 15:53 Intake & Output 12/16/16 12/17/16 12/18/16 06:59 06:59 06:59 Intake Total 3725 1541 1794 Output Total 2815 1195 500 Balance 707 022 9684 Weight 72.3 kg 76.7 kg General appearance: PRESENT: no acute distress Adult Front & Back Image: 1 - Bulky dressing is dry clean and intact. Limb lengths are grossly equal despite being a slight longer on the left side. A-frame pillow between her legs as instructed. Neurovascular intact distally. Results Laboratory Results: 12/17/16 12:25 12/17/16 12:25 12/17/16 12/17/16 12:25 12:25 WBC 6.8 RBC 2.89 L Hgb 8.4 L Hct 25.3 L MCV 88 MCH 28.9 MCHC 33.1 RDW 15.7 H Plt Count 201 Seg Neutrophils % 74.7 Lymphocytes % 16.8 Monocytes % 6.8 Eosinophils % 1.3 Basophils % 0.4 Absolute Neutrophils 5.1 Absolute Lymphocytes 1.1 Absolute Monocytes 0.5 Absolute Eosinophils 0.1 Absolute Basophils 0.0 Sodium 129.2 L Potassium 3.8 Chloride 102 Carbon Dioxide 19 L Anion Gap 8 BUN 9 Creatinine 0.63 Est GFR ( Amer) > 60 Est GFR (Non-Af Amer) > 60 Glucose 141 H Calcium 8.2 L Total Bilirubin 0.4 AST 16 ALT 19 Alkaline Phosphatase 64 Total Protein 4.4 L Albumin 2.2 L 12/12/16 12/12/16 12/12/16 16:35 16:35 22:13 Creatine Kinase 723 H 671 H CK-MB (CK-2) 3.46 Troponin I 0.073 12/12/16 12/13/16 12/13/16 22:13 04:18 04:18 Creatine Kinase 595 H CK-MB (CK-2) 3.15 2.68 Troponin I 0.070 0.084 Impressions: Pelvis X-Ray 12/12/16 00:00 IMPRESSION: DISLOCATED PROSTHETIC LEFT FEMORAL HEAD. Chest X-Ray 12/12/16 08:43 IMPRESSION: NO ACUTE RADIOGRAPHIC FINDING IN THE CHEST. NO SIGNIFICANT CHANGE FROM PRIOR STUDY. Head CT 12/12/16 11:35 IMPRESSION: NO ACUTE INTRACRANIAL PROCESS. NO SIGNIFICANT CHANGE FROM PRIOR STUDY. Lung Scan-VQ NM 12/12/16 11:36 IMPRESSION: LOW PROBABILITY FOR PULMONARY EMBOLI. Hip X-Ray 12/13/16 00:00 IMPRESSION: Intra procedural imaging and fluoro Assessment & Plan - Plan Summary Plan Summary: Patient is postop day 2 from revision hemiarthroplasty of the left hip for instability. Patient is stable so far and needs better pain control. Continue PT. is not agreeing to nursing facility and prefers to do home health with him assisting in her care. Patient can be weight-bear as tolerated with posterior hip precautions. Hematocrit is 25 and if goes lower will require blood transfusion. X-ray in the PACU was canceled so I reordered x-rays of the left hip for tonight.
[2016-12-17] MEDS: DOXEPIN HCL 10 MG CAPSULE PO SCH (20:02)
--- NOTE | 2016-12-17 20:11 | RADIOLOGY REPORT (SQ) ---
EXAM DESCRIPTION: HIP LEFT AP/LATERAL COMPLETED DATE/TIME: 12/17/2016 7:33 pm REASON FOR STUDY: Hip repair COMPARISON: 12/10/2016 NUMBER OF VIEWS: Two views. TECHNIQUE: AP pelvis and additional frog-leg view of the left hip. LIMITATIONS: None. FINDINGS: MINERALIZATION: Normal. LEFT HIP: Today's examination demonstrates reduction of a previously described superior dislocation o f the left hip prosthesis. Femoral acetabular alignment appears grossly normal. RIGHT HIP: No fracture or dislocation. No worrisome bone lesions. PUBIS AND ISCHIUM: No fracture. PELVIS: No fracture. SACRUM: No fracture or dislocation. No worrisome bone lesions. LOWER LUMBAR SPINE: Re- demonstration of lower lumbar spondylotic change. No acute findings. SOFT TISSUES: Subcutaneous gas and skin qiana are seen in the region of the surgical site. OTHER: No other significant finding. IMPRESSION: Status post reduction of a previously described superior dislocation of the left hip pro sthesis. No evidence of complication. TECHNICAL DOCUMENTATION: JOB ID: [id number] [employer]- All Rights Reserved
[2016-12-17] MEDS: RIVAROXABAN 10 MG TABLET PO SCH (22:07)
[2016-12-18] MEDS: HYDROMORPHONE HCL INJ/PF 2 MG/ML AMPULE IV PRN ×3 (00:07→10:09)
[2016-12-18] MEDS: OXYCODONE-ACETAMINOPHEN 5-325 MG TABLET PO PRN ×3 (01:41→20:13)
[2016-12-18 06:11] LABS: ABSOLUTE EOSINOPHILS # (AUTO) 0.1 10^3/uL (0.0-0.6); ABSOLUTE MONOCYTES (AUTO) 0.4 10^3/uL (0.1-1.4); ABSOLUTE NEUT (AUTO) 3.9 10^3/uL (1.7-8.2); BASOPHILS % (AUTO) 0.8 % (0-2); HEMATOCRIT 24.4 % (36.0-47.0); HEMOGLOBIN 8.2 g/dL (12.0-15.5); HGB HCT DIFFERENCE 0.2; LYMPHOCYTES % (AUTO) 18.8 % (13-45); MEAN CORPUSCULAR HEMOGLOBIN 29.7 pg (27.0-33.4); MEAN CORPUSCULAR HGB CONC 33.8 g/dL (32.0-36.0); MEAN CORPUSCULAR VOLUME 88 fl (80-97); MONOCYTES % (AUTO) 6.5 % (3-13); RED BLOOD COUNT 2.77 10^6/uL (3.72-5.28); RED CELL DISTRIBUTION WIDTH 15.6 % (11.5-14.0); SEGMENTED NEUTROPHILS % (AUTO) 71.9 % (42-78); WHITE BLOOD COUNT 5.5 10^3/uL (4.0-10.5)
[2016-12-18 06:35] LABS: ALANINE AMINOTRANSFERASE 23 U/L (9-52); ALBUMIN 2.2 g/dL (3.5-5.0); ALKALINE PHOSPHATASE 64 U/L (38-126); ANION GAP 5 (5-19); ASPARTATE AMINO TRANSFERASE 21 U/L (14-36); BILIRUBIN,DIRECT 0.4 mg/dL (0.0-0.4); BILIRUBIN,TOTAL 0.4 mg/dL (0.2-1.3); BLOOD UREA NITROGEN 9 mg/dL (7-20); CALCIUM 8.8 mg/dL (8.4-10.2); CARBON DIOXIDE 22 mmol/L (22-30); CHLORIDE 105 mmol/L (98-107); CREATININE RESULT 0.63 mg/dL (0.52-1.25); GLUCOSE 117 mg/dL (75-110); POTASSIUM 4.6 mmol/L (3.6-5.0); SODIUM 132.2 mmol/L (137-145); TOTAL PROTEIN 4.5 g/dL (6.3-8.2)
[2016-12-18] MEDS: POLYETHYLENE GLYCOL 3350 POWDER 17 GM/1 PACKET PO SCH (08:20)
[2016-12-18] MEDS: FAMOTIDINE 20 MG TABLET PO SCH (10:09)
[2016-12-18] MEDS: AMIODARONE HCL 200 MG TABLET PO SCH ×2 (10:10→18:04)
[2016-12-18] MEDS: TOLVAPTAN 15 MG TABLET PO SCH (13:34)
--- NOTE | 2016-12-18 15:19 | PDOC PROGRESS REPORT ---
Subjective Progress Note for:: 12/18/16 Subjective:: Patient is seen by the bedside, there is no new complaints other than pain, we will discontinue the Orellana catheter Physical Exam Vital Signs: Temp Pulse Resp BP Pulse Ox 98.0 F 72 20 139/56 H 99 12/18/16 11:38 12/18/16 11:38 12/18/16 11:38 12/18/16 11:38 12/18/16 11:38 Intake & Output 12/17/16 12/18/16 12/19/16 06:59 06:59 06:59 Intake Total 1541 2894 237 Output Total 1195 1725 300 Balance 346 1169 -63 Weight 76.7 kg 83.1 kg General appearance: PRESENT: no acute distress Eye exam: PRESENT: PERRLA Respiratory exam: PRESENT: clear to auscultation corazon Cardiovascular exam: PRESENT: +S1, +S2 GI/Abdominal exam: PRESENT: soft Neurological exam: PRESENT: alert Results Laboratory Results: 12/18/16 05:24 12/18/16 05:24 12/18/16 12/18/16 05:24 05:24 WBC 5.5 RBC 2.77 L Hgb 8.2 L Hct 24.4 L MCV 88 MCH 29.7 MCHC 33.8 RDW 15.6 H Plt Count 207 Seg Neutrophils % 71.9 Lymphocytes % 18.8 Monocytes % 6.5 Eosinophils % 2.0 Basophils % 0.8 Absolute Neutrophils 3.9 Absolute Lymphocytes 1.0 Absolute Monocytes 0.4 Absolute Eosinophils 0.1 Absolute Basophils 0.0 Sodium 132.2 L Potassium 4.6 Chloride 105 Carbon Dioxide 22 Anion Gap 5 BUN 9 Creatinine 0.63 Est GFR ( Amer) > 60 Est GFR (Non-Af Amer) > 60 Glucose 117 H Calcium 8.8 Total Bilirubin 0.4 AST 21 ALT 23 Alkaline Phosphatase 64 Total Protein 4.5 L Albumin 2.2 L 12/12/16 12/12/16 12/12/16 16:35 16:35 22:13 Creatine Kinase 723 H 671 H CK-MB (CK-2) 3.46 Troponin I 0.073 12/12/16 12/13/16 12/13/16 22:13 04:18 04:18 Creatine Kinase 595 H CK-MB (CK-2) 3.15 2.68 Troponin I 0.070 0.084 Impressions: Pelvis X-Ray 12/12/16 00:00 IMPRESSION: DISLOCATED PROSTHETIC LEFT FEMORAL HEAD. Chest X-Ray 12/12/16 08:43 IMPRESSION: NO ACUTE RADIOGRAPHIC FINDING IN THE CHEST. NO SIGNIFICANT CHANGE FROM PRIOR STUDY. Head CT 12/12/16 11:35 IMPRESSION: NO ACUTE INTRACRANIAL PROCESS. NO SIGNIFICANT CHANGE FROM PRIOR STUDY. Lung Scan-VQ NM 12/12/16 11:36 IMPRESSION: LOW PROBABILITY FOR PULMONARY EMBOLI. Hip X-Ray 12/17/16 00:00 IMPRESSION: Status post reduction of a previously described superior dislocation of the left hip prosthesis. No evidence of complication. Assessment & Plan - Diagnosis (1) Dehydration Is this a current diagnosis for this admission?: Yes (2) Hip dislocation, left Qualifiers: Encounter type: subsequent encounter Qualified Code(s): S73.005D - Unspecified dislocation of left hip, subsequent encounter Is this a current diagnosis for this admission?: Yes (3) Hypotension Qualifiers: Hypotension type: unspecified hypotension type Qualified Code(s): I95.9 - Hypotension, unspecified Is this a current diagnosis for this admission?: Yes (4) Syncopal episodes Qualifiers: Syncope type: unspecified Qualified Code(s): R55 - Syncope and collapse Is this a current diagnosis for this admission?: Yes (5) Paroxysmal atrial fibrillation Is this a current diagnosis for this admission?: Yes (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
[2016-12-18] MEDS: SITAGLIPTIN PHOSPHATE 50 MG TABLET PO SCH (18:04)
[2016-12-18] MEDS: CEFTRIAXONE 1 GM/D5W RTU 1 GM/50 ML RTUPB IV SCH (18:04)
[2016-12-18] MEDS: DOXEPIN HCL 10 MG CAPSULE PO SCH (20:13)
[2016-12-18] MEDS: RIVAROXABAN 10 MG TABLET PO SCH (21:38)
[2016-12-19] MEDS: HYDROMORPHONE HCL INJ/PF 2 MG/ML AMPULE IV PRN ×4 (00:07→18:50)
[2016-12-19] MEDS: OXYCODONE-ACETAMINOPHEN 5-325 MG TABLET PO PRN ×4 (05:28→20:06)
[2016-12-19] MEDS: POLYETHYLENE GLYCOL 3350 POWDER 17 GM/1 PACKET PO SCH (06:16)
[2016-12-19] MEDS: AMIODARONE HCL 200 MG TABLET PO SCH ×2 (10:02→18:49)
[2016-12-19] MEDS: FAMOTIDINE 20 MG TABLET PO SCH (10:02)
[2016-12-19 13:49] LABS: ABSOLUTE EOSINOPHILS # (AUTO) 0.1 10^3/uL (0.0-0.6); ABSOLUTE LYMPHOCYTES (AUTO) 1.1 10^3/uL (0.5-4.7); ABSOLUTE MONOCYTES (AUTO) 0.3 10^3/uL (0.1-1.4); ABSOLUTE NEUT (AUTO) 3.1 10^3/uL (1.7-8.2); EOSINOPHILS % (AUTO) 2.3 % (0-6); HEMOGLOBIN 8.4 g/dL (12.0-15.5); HGB HCT DIFFERENCE 0.2; LYMPHOCYTES % (AUTO) 23.4 % (13-45); MEAN CORPUSCULAR HGB CONC 33.7 g/dL (32.0-36.0); MEAN CORPUSCULAR VOLUME 86 fl (80-97); MONOCYTES % (AUTO) 7.4 % (3-13); RED BLOOD COUNT 2.91 10^6/uL (3.72-5.28); RED CELL DISTRIBUTION WIDTH 15.6 % (11.5-14.0); SEGMENTED NEUTROPHILS % (AUTO) 65.9 % (42-78); WHITE BLOOD COUNT 4.7 10^3/uL (4.0-10.5)
[2016-12-19 14:15] LABS: ALANINE AMINOTRANSFERASE 25 U/L (9-52); ALBUMIN 2.4 g/dL (3.5-5.0); ALKALINE PHOSPHATASE 80 U/L (38-126); ANION GAP 8 (5-19); ASPARTATE AMINO TRANSFERASE 24 U/L (14-36); BILIRUBIN,DIRECT 0.4 mg/dL (0.0-0.4); BILIRUBIN,TOTAL 0.5 mg/dL (0.2-1.3); BLOOD UREA NITROGEN 9 mg/dL (7-20); CALCIUM 8.7 mg/dL (8.4-10.2); CARBON DIOXIDE 24 mmol/L (22-30); CHLORIDE 98 mmol/L (98-107); CREATININE RESULT 0.57 mg/dL (0.52-1.25); GLUCOSE 126 mg/dL (75-110); POTASSIUM 3.6 mmol/L (3.6-5.0); TOTAL PROTEIN 4.6 g/dL (6.3-8.2)
[2016-12-19] MEDS ORDERED: CEFTRIAXONE 1 GM/D5W RTU 1 GM/50 ML RTUPB IV SCH (18:00)
[2016-12-19] MEDS: SITAGLIPTIN PHOSPHATE 50 MG TABLET PO SCH (18:50)
[2016-12-19] MEDS: DOXEPIN HCL 10 MG CAPSULE PO SCH (20:06)
[2016-12-19] MEDS: RIVAROXABAN 10 MG TABLET PO SCH (20:07)
--- NOTE | 2016-12-19 20:16 | PDOC DISCHARGE SUMMARY ---
General - Admit/Disc Date/PCP Admission Date/Primary Care Provider: 12/12/16 16:10 MIRYAM DANIEL MD Discharge Date: 12/19/16 - Discharge Diagnosis (1) Syncopal episodes Is this a current diagnosis for this admission?: Yes (2) Dehydration Is this a current diagnosis for this admission?: Yes (3) Hip dislocation, left Is this a current diagnosis for this admission?: Yes (4) Hypotension Is this a current diagnosis for this admission?: Yes (5) Paroxysmal atrial fibrillation Is this a current diagnosis for this admission?: Yes (6) SIADH (syndrome of inappropriate ADH production) Is this a current diagnosis for this admission?: Yes (7) Type 2 diabetes mellitus Is this a current diagnosis for this admission?: Yes - Additional Information Resuscitation Status: Full Code Discharge Diet: Diabetic Discharge Activity: Supervised Activity Home Medications: Albuterol Sulfate [Proair HFA] 2 puff IH QIDP PRN 12/12/16 Carvedilol [Coreg 25 mg Tablet] 1 tab PO BID@0800,169912/12/16 Doxepin HCl [Sinequan 10 mg Capsule] 10 mg PO DAILY@199912/12/16 Montelukast Sodium [Singulair 10 mg Tablet] 10 mg PO QAM 12/12/16 Pantoprazole Sodium [Protonix] 40 mg PO DAILY@169912/12/16 Pioglitazone HCl [Actos 15 mg Tablet] 15 mg PO DAILY@169912/12/16 Polyethylene Glycol 3350 [Miralax Powder 17 gm/Packet] 17 gm PO QA12/12/16 Sitagliptin Phosphate [Januvia] 100 mg PO DAILY@169912/12/16 Telmisartan [Micardis 40 mg Tablet] 40 mg PO DAILY@169912/12/16 Oxycodone HCl/Acetaminophen [Percocet 10-325 Mg Tablet] 1 each PO Q6H #120 tablet 12/19/16 Rivaroxaban [Xarelto 10 mg Tablet] 10 mg PO QHS #15 tablet 12/19/16 History of Present Illness History of Present Illness: JEAN PAUL JURADO is a 86 year old female she was admitted because of dislocation of the left hip joint, hospital course was complicated with hyponatremia she presented to the emergency room because of episode of loss of consciousness, this was thought to be due to low blood pressure. She was seen in consultation by orthopedic and she underwent revision of left hip hemiarthroplasty she developed paroxysmal atrial fibrillation with rapid irregular response and low blood pressure postoperatively, this was treated with intravenous vasopressor , phenylephrine and also amiodarone she was managed in intensive care unit for few days. She also have SIADH this was managed with fluid restriction and normal saline.She had a lot of pain requiring opioid therapy Hospital Course Hospital Course: Patient was admitted into the hospital for the management of syncope, left hip dislocation. Hospital course was complicated with paroxysmal atrial fibrillation she was seen in consultation by orthopedic and cardiology. She underwent revision of left hip hemiarthroplasty by orthopedic postoperatively she developed paroxysmal atrial fibrillation, low blood pressure this was managed with intravenous phenylephrine, intravenous amiodarone in intensive care unit she was subsequently downgraded to IMCU. She had a lot of pain postoperatively she required opioid therapy with Percocet p.o. and intravenously on a as needed basis with Dilaudid. Patient family prefer to go home with physical therapy and home meds other than in [facility] for rehabilitation Physical Exam Vital Signs: Temp Pulse Resp BP Pulse Ox 98.4 F 76 16 170/58 H 98 12/19/16 15:22 12/19/16 15:22 12/19/16 15:22 12/19/16 15:22 12/19/16 15:22 Intake & Output 12/18/16 12/19/16 12/20/16 06:59 06:59 06:59 Intake Total 2894 577 474 Output Total 1725 2400 1500 Balance 9875 -7556 -1415 Weight 83.1 kg 83.1 kg 83.1 kg General appearance: PRESENT: no acute distress, well-developed, well-nourished Head exam: PRESENT: atraumatic, normocephalic Eye exam: PRESENT: conjunctiva pink, EOMI, PERRLA Ear exam: PRESENT: normal external ear exam Mouth exam: PRESENT: moist, tongue midline Neck exam: PRESENT: full ROM Respiratory exam: PRESENT: clear to auscultation corazon Cardiovascular exam: PRESENT: RRR, +S1, +S2 Vascular exam: PRESENT: normal capillary refill GI/Abdominal exam: PRESENT: normal bowel sounds, soft Rectal exam: PRESENT: deferred Neurological exam: PRESENT: alert, CN II-XII grossly intact Psychiatric exam: PRESENT: appropriate affect, normal mood Skin exam: PRESENT: dry, intact, warm Results Laboratory Results: 12/19/16 13:24 12/19/16 13:24 12/19/16 12/19/16 13:24 13:24 WBC 4.7 RBC 2.91 L Hgb 8.4 L Hct 25.0 L MCV 86 MCH 29.0 MCHC 33.7 RDW 15.6 H Plt Count 275 Seg Neutrophils % 65.9 Lymphocytes % 23.4 Monocytes % 7.4 Eosinophils % 2.3 Basophils % 1.0 Absolute Neutrophils 3.1 Absolute Lymphocytes 1.1 Absolute Monocytes 0.3 Absolute Eosinophils 0.1 Absolute Basophils 0.0 Sodium 130.0 L Potassium 3.6 Chloride 98 Carbon Dioxide 24 Anion Gap 8 BUN 9 Creatinine 0.57 Est GFR ( Amer) > 60 Est GFR (Non-Af Amer) > 60 Glucose 126 H Calcium 8.7 Total Bilirubin 0.5 AST 24 ALT 25 Alkaline Phosphatase 80 Total Protein 4.6 L Albumin 2.4 L 12/15/16 17:34 Hip - Joint Gram Stain - Final 12/15/16 17:34 Hip - Joint Wound Culture - Final NO AEROBIC OR ANAEROBIC ORGANISMS RECOVERED 12/12/16 12/12/16 12/12/16 16:35 16:35 22:13 Creatine Kinase 723 H 671 H CK-MB (CK-2) 3.46 Troponin I 0.073 12/12/16 12/13/16 12/13/16 22:13 04:18 04:18 Creatine Kinase 595 H CK-MB (CK-2) 3.15 2.68 Troponin I 0.070 0.084 Impressions: Pelvis X-Ray 12/12/16 00:00 IMPRESSION: DISLOCATED PROSTHETIC LEFT FEMORAL HEAD. Chest X-Ray 12/12/16 08:43 IMPRESSION: NO ACUTE RADIOGRAPHIC FINDING IN THE CHEST. NO SIGNIFICANT CHANGE FROM PRIOR STUDY. Head CT 12/12/16 11:35 IMPRESSION: NO ACUTE INTRACRANIAL PROCESS. NO SIGNIFICANT CHANGE FROM PRIOR STUDY. Lung Scan-VQ NM 12/12/16 11:36 IMPRESSION: LOW PROBABILITY FOR PULMONARY EMBOLI. Hip X-Ray 12/17/16 00:00 IMPRESSION: Status post reduction of a previously described superior dislocation of the left hip prosthesis. No evidence of complication.
[2016-12-20] MEDS: HYDROMORPHONE HCL INJ/PF 2 MG/ML AMPULE IV PRN ×2 (04:38→11:17)
[2016-12-20 05:45] LABS: ABSOLUTE BASOPHILS # (AUTO) 0.1 10^3/uL (0.0-0.2); ABSOLUTE EOSINOPHILS # (AUTO) 0.1 10^3/uL (0.0-0.6); ABSOLUTE MONOCYTES (AUTO) 0.3 10^3/uL (0.1-1.4); ABSOLUTE NEUT (AUTO) 3.1 10^3/uL (1.7-8.2); BASOPHILS % (AUTO) 1.3 % (0-2); EOSINOPHILS % (AUTO) 2.2 % (0-6); HEMATOCRIT 25.8 % (36.0-47.0); HGB HCT DIFFERENCE 1.2; LYMPHOCYTES % (AUTO) 22.1 % (13-45); MEAN CORPUSCULAR HEMOGLOBIN 29.7 pg (27.0-33.4); MEAN CORPUSCULAR VOLUME 85 fl (80-97); MONOCYTES % (AUTO) 6.9 % (3-13); RED BLOOD COUNT 3.04 10^6/uL (3.72-5.28); RED CELL DISTRIBUTION WIDTH 15.6 % (11.5-14.0); SEGMENTED NEUTROPHILS % (AUTO) 67.5 % (42-78); WHITE BLOOD COUNT 4.6 10^3/uL (4.0-10.5)
[2016-12-20] MEDS: POLYETHYLENE GLYCOL 3350 POWDER 17 GM/1 PACKET PO SCH (05:49)
[2016-12-20 05:55] LABS: ALANINE AMINOTRANSFERASE 30 U/L (9-52); ALBUMIN 2.8 g/dL (3.5-5.0); ALKALINE PHOSPHATASE 88 U/L (38-126); ANION GAP 8 (5-19); ASPARTATE AMINO TRANSFERASE 23 U/L (14-36); BILIRUBIN,DIRECT 0.3 mg/dL (0.0-0.4); BILIRUBIN,TOTAL 0.5 mg/dL (0.2-1.3); BLOOD UREA NITROGEN 8 mg/dL (7-20); CALCIUM 9.1 mg/dL (8.4-10.2); CARBON DIOXIDE 27 mmol/L (22-30); CHLORIDE 96 mmol/L (98-107); CREATININE RESULT 0.57 mg/dL (0.52-1.25); GLUCOSE 116 mg/dL (75-110); POTASSIUM 3.6 mmol/L (3.6-5.0); SODIUM 130.8 mmol/L (137-145); TOTAL PROTEIN 5.5 g/dL (6.3-8.2)
[2016-12-20] MEDS: OXYCODONE-ACETAMINOPHEN 5-325 MG TABLET PO PRN ×2 (06:51→13:46)
[2016-12-20] MEDS: AMIODARONE HCL 200 MG TABLET PO SCH (09:33)
[2016-12-20] MEDS: FAMOTIDINE 20 MG TABLET PO SCH (09:33)
[2016-12-20 14:54] VITALS: BP 122/52
== END 2016-12-20 15:50 | disposition home or self-care (01) | DRG 982 ==
LOC: ER 08:29 → UNDOADMIN 15:28 → EH 15:28 → 3S 16:10 → EH 17:15 → ICU 12-15 21:04 → 3S 12-17 00:30
PROVIDERS: ADMIT Family Medicine; ATTEND Family Medicine
PROC: 0SSBXZZ Reposition Left Hip Joint, External Approach (ICD-10-PCS; principal; 2016-12-13 12:00)
PROC: 0SRS01A Replacement of Left Hip Joint, Femoral Surface with Metal Synthetic Substitute, Uncemented, Open Approach (ICD-10-PCS; 2016-12-15)
PROC: 0SPS0JZ Removal of Synthetic Substitute from Left Hip Joint, Femoral Surface, Open Approach (ICD-10-PCS; 2016-12-15)
DX: N17.9 Acute kidney failure, unspecified (principal); E22.2 Syndrome of inappropriate secretion of antidiuretic hormone; N39.0 Urinary tract infection, site not specified; T84.021D Dislocation of internal left hip prosthesis, subsequent encounter; Z66 Do not resuscitate; E86.0 Dehydration; R55 Syncope and collapse; I95.9 Hypotension, unspecified; E78.00 Pure hypercholesterolemia, unspecified; E11.22 Type 2 diabetes mellitus with diabetic chronic kidney disease; I12.9 Hypertensive chronic kidney disease with stage 1 through stage 4 chronic kidney disease, or unspecified chronic kidney disease; N18.3 Chronic kidney disease, stage 3 (moderate); I48.0 Paroxysmal atrial fibrillation; E11.42 Type 2 diabetes mellitus with diabetic polyneuropathy; Z79.84 Long term (current) use of oral hypoglycemic drugs; Z79.51 Long term (current) use of inhaled steroids; Z79.899 Other long term (current) drug therapy
CPT/HCPCS: 01200; 01215; 36415; 70450; 71010; 72170; 78582; 80048; 80053; 81001; 82550; 82553; 82803; 82962; 83605; 83735; 84484; 85025; 85610; 86850; 86900; 86901; 87040; 87070; 87075; 87086; 87205; 93005; 93010; 93306; 96361; 96374; 96375; 99285; A9540; A9567; G8978-GP; G8979-GP; G8987-GO; G8988-GO; G8989-GO; J0131; J0282; J0696; J1170; J1815; J2250; J2370; J2405; J2704; J3010; J3490; J7030; L4386; Q9969; S0028

== ENCOUNTER 2017-05-22 12:49 | Observation (INO) | payer MEDICARE, OTHER ==
--- NOTE | 2017-05-22 15:20 | EKG REPORT ---
SEVERITY:- ABNORMAL ECG - SINUS RHYTHM FIRST DEGREE AV BLOCK LOW VOLTAGE IN FRONTAL LEADS : Confirmed by: Jose Cody 22-May-2017 15:19:20
[2017-05-22 15:25] LABS: ABSOLUTE LYMPHOCYTES (AUTO) 0.7 10^3/uL (0.5-4.7); ABSOLUTE MONOCYTES (AUTO) 0.2 10^3/uL (0.1-1.4); ABSOLUTE NEUT (AUTO) 3.8 10^3/uL (1.7-8.2); BASOPHILS % (AUTO) 0.6 % (0-2); EOSINOPHILS % (AUTO) 0.8 % (0-6); HEMATOCRIT 32.4 % (36.0-47.0); HEMOGLOBIN 10.9 g/dL (12.0-15.5); LYMPHOCYTES % (AUTO) 14.5 % (13-45); MEAN CORPUSCULAR HEMOGLOBIN 30.2 pg (27.0-33.4); MEAN CORPUSCULAR HGB CONC 33.7 g/dL (32.0-36.0); MEAN CORPUSCULAR VOLUME 90 fl (80-97); MONOCYTES % (AUTO) 5.1 % (3-13); PLATELET COUNT 142 10^3/uL (150-450); RED BLOOD COUNT 3.61 10^6/uL (3.72-5.28); RED CELL DISTRIBUTION WIDTH 15.3 % (11.5-14.0); TOTAL CELLS COUNTED % (AUTO) 100 %; WHITE BLOOD COUNT 4.9 10^3/uL (4.0-10.5)
[2017-05-22 15:42] LABS: ALANINE AMINOTRANSFERASE 28 U/L (9-52); ALBUMIN 3.9 g/dL (3.5-5.0); ALKALINE PHOSPHATASE 59 U/L (38-126); ANION GAP 8 (5-19); ASPARTATE AMINO TRANSFERASE 23 U/L (14-36); BILIRUBIN,DIRECT 0.3 mg/dL (0.0-0.4); BILIRUBIN,TOTAL 0.3 mg/dL (0.2-1.3); BLOOD UREA NITROGEN 52 mg/dL (7-20); CALCIUM 9.4 mg/dL (8.4-10.2); CARBON DIOXIDE 26 mmol/L (22-30); CHLORIDE 99 mmol/L (98-107); CREATINE KINASE 31 U/L (30-135); GLUCOSE 106 mg/dL (75-110); POTASSIUM 5.4 mmol/L (3.6-5.0); SODIUM 132.5 mmol/L (137-145); TOTAL PROTEIN 6.5 g/dL (6.3-8.2)
[2017-05-22 17:23] LABS: CREATINE KINASE MB 0.8 ng/mL (<4.55); TROPONIN I 0.015 ng/mL
[2017-05-22] MEDS ORDERED: DEXTROSE 50%-WATER SYRINGE 12.5 GM/25 ML DOSE IV PRN (17:52)
[2017-05-22] MEDS ORDERED: GLUCAGON,HUMAN RECOMB 1 MG INJ IM PRN (17:52)
[2017-05-22] MEDS ORDERED: DEXTROSE 40% GEL 15 GM TUBE X 2 PO PRN (17:52)
[2017-05-22] MEDS ORDERED: INSULIN LISPRO 100 UNIT/ML 3 ML VIAL SUBCUT PRN (17:52)
[2017-05-22] MEDS ORDERED: DEXTROSE 40% GEL 15 GM TUBE PO PRN (17:52)
[2017-05-22] MEDS ORDERED: DEXTROSE 50%-WATER SYRINGE 25 GM/50 ML DOSE IV PRN (17:52)
[2017-05-22] MEDS ORDERED: NORMAL SALINE 1000 ML 1,000 ML IV PRN (17:54)
[2017-05-22] MEDS ORDERED: (PENDING PHARMACY ID) (Telmisartan [Micardis 40 Mg Tablet] 40 MG) PO SCH (19:00)
[2017-05-22] MEDS ORDERED: (PENDING PHARMACY ID) (Acetaminophen [Tylenol Extra Strength 500 Mg Tablet] 500 MG) PO PRN (19:00)
[2017-05-22] MEDS ORDERED: DOXEPIN HCL 10 MG CAPSULE PO SCH (20:00)
[2017-05-22] MEDS: ACETAMINOPHEN 325 MG TABLET PO PRN (20:19)
[2017-05-22] MEDS ORDERED: MONTELUKAST SODIUM 10 MG TABLET PO ONE (20:30)
[2017-05-22] MEDS ORDERED: POLYETHYLENE GLYCOL 3350 POWDER 17 GM/1 PACKET PO ONE (20:30)
[2017-05-22] MEDS ORDERED: PIOGLITAZONE HCL 15 MG TABLET PO ONE (20:30)
[2017-05-22] MEDS ORDERED: LANSOPRAZOLE 30 MG TAB.RAP.DR PO ONE (20:30)
[2017-05-22] MEDS ORDERED: SITAGLIPTIN PHOSPHATE 50 MG TABLET PO ONE (20:30)
[2017-05-22] MEDS ORDERED: LOSARTAN POTASSIUM 50 MG TABLET PO ONE (21:00)
[2017-05-22] MEDS ORDERED: GABAPENTIN 300 MG CAPSULE PO ONE (21:00)
[2017-05-22] MEDS ORDERED: GABAPENTIN 300 MG CAPSULE PO SCH (22:00)
[2017-05-22] MEDS ORDERED: CARVEDILOL 12.5 MG TABLET PO SCH (22:00)
--- NOTE | 2017-05-22 22:20 | RADIOLOGY REPORT (SQ) ---
EXAM DESCRIPTION: MRI HEAD WITHOUT COMPLETED DATE/TIME: 05/22/2017 10:10 pm REASON FOR STUDY: CVA E87.6 HYPOKALEMIA E87.1 HYPO-OSMOLALITY AND HYPONATREMIA I10 ESSENTIAL (VISHNU LEBLANC) HYPERTENSION COMPARISON: 09/29/2016 TECHNIQUE: Multiplanar imaging includes non-contrasted T1, T2, FLAIR, and Diffusion with ADC map seq uences. Images stored on PACS. LIMITATIONS: Excessive patient motion. FINDINGS: ANATOMY: No anomalies. Normal vascular flow voids. Pituitary fossa normal. CSF SPACES: Normal in size and contour. No hemorrhage. CEREBRUM: A few high-signal intensity lesions scattered throughout the white matter on FLAIR imaging with distribution suggesting chronic micro-vascular ischemic change. Sulci and gyri normal in size a nd contour. No evidence of hemorrhage, mass or extraaxial fluid collection. POSTERIOR FOSSA: No signal alteration. No hemorrhage. No edema, masses or mass effect. Internal erik tory canals, cerebello-pontine angles, mastoids normal. DIFFUSION: Negative for acute or sub-acute infarction. ORBITS: No masses. Globes normal. PARANASAL SINUSES: No fluid levels. Mucosa normal. OTHER: No other significant finding. IMPRESSION: No acute abnormality in the brain. EVIDENCE OF ACUTE STROKE: NO. TECHNICAL DOCUMENTATION: JOB ID: [id number] [employer]- All Rights Reserved
[2017-05-23 07:22] LABS: ALANINE AMINOTRANSFERASE 26 U/L (9-52); ALBUMIN 3.7 g/dL (3.5-5.0); ALKALINE PHOSPHATASE 64 U/L (38-126); ANION GAP 7 (5-19); ASPARTATE AMINO TRANSFERASE 19 U/L (14-36); BILIRUBIN,DIRECT 0.4 mg/dL (0.0-0.4); BILIRUBIN,TOTAL 0.4 mg/dL (0.2-1.3); BLOOD UREA NITROGEN 33 mg/dL (7-20); CALCIUM 9.8 mg/dL (8.4-10.2); CARBON DIOXIDE 24 mmol/L (22-30); CHLORIDE 103 mmol/L (98-107); CREATINE KINASE 31 U/L (30-135); GLUCOSE 117 mg/dL (75-110); POTASSIUM 4.8 mmol/L (3.6-5.0); SODIUM 133.9 mmol/L (137-145); TOTAL PROTEIN 7.1 g/dL (6.3-8.2)
[2017-05-23 07:32] LABS: CREATINE KINASE MB 0.46 ng/mL (<4.55); TROPONIN I 0.021 ng/mL
[2017-05-23] MEDS ORDERED: MONTELUKAST SODIUM 10 MG TABLET PO SCH ×2 (08:00→10:00)
[2017-05-23] MEDS ORDERED: GABAPENTIN 300 MG CAPSULE PO SCH ×2 (08:00)
[2017-05-23] MEDS: CARVEDILOL 12.5 MG TABLET PO SCH ×2 (08:18→17:29)
[2017-05-23] MEDS: ACETAMINOPHEN 325 MG TABLET PO PRN ×2 (08:20→16:01)
[2017-05-23] MEDS ORDERED: POLYETHYLENE GLYCOL 3350 POWDER 17 GM/1 PACKET PO SCH (10:00)
[2017-05-23] MEDS ORDERED: SITAGLIPTIN PHOSPHATE 50 MG TABLET PO SCH ×2 (17:00→18:00)
[2017-05-23] MEDS ORDERED: PIOGLITAZONE HCL 15 MG TABLET PO SCH ×2 (17:00→18:00)
[2017-05-23] MEDS ORDERED: LANSOPRAZOLE 30 MG TAB.RAP.DR PO SCH ×2 (17:00→18:00)
--- NOTE | 2017-05-23 17:45 | PDOC H&P ---
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 It was felt that her symptoms is probably not metabolic in etiology MRI of the brain was done it was negative for any acute pathology. She was brought in for observation the plan is to have outpatient 30 day event monitor to rule out cardiac arrhythmias Past Medical History Cardiac Medical History: Reports: Hyperlipidema, Hypertension Endocrine Medical History: Reports: Diabetes Mellitus Type 2, Other - SIADH GI Medical History: Reports: Gastroesophageal Reflux Disease Musculoskeltal Medical History: Reports: Arthritis Psychiatric Medical History: Reports: Depression Past Surgical History Past Surgical History: Reports: Section, Hysterectomy, Orthopedic Surgery - 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 Social History Smoking Status: Never Smoker Frequency of Alcohol Use: None Hx Recreational Drug Use: No Drugs: None Hx Prescription Drug Abuse: No - Advance Directive Resuscitation Status: Full Code Family History Family History: Reviewed & Not Pertinent Parental Family History Reviewed: Yes Children Family History Reviewed: Yes Sibling(s) Family History Reviewed.: Yes Medication/Allergy Home Medications: Acetaminophen [Tylenol Extra Strength 500 mg Tablet] 500 mg PO Q8HP PRN Carvedilol [Coreg 25 mg Tablet] 25 mg PO Q12 05/22/17 Doxepin HCl [Sinequan 10 mg Capsule] 10 mg PO DAILY@199905/22/17 Gabapentin [Neurontin 300 mg Capsule] 300 mg PO Q12 05/22/17 Montelukast Sodium [Singulair 10 mg Tablet] 10 mg PO QAM 05/22/17 Pantoprazole Sodium [Protonix] 40 mg PO QPM 05/22/17 Pioglitazone HCl [Actos 15 mg Tablet] 15 mg PO QPM 05/22/17 Polyethylene Glycol 3350 [Miralax Powder 17 gm/Packet] 1 packet PO QAM 05/22/17 Sitagliptin Phosphate [Januvia] 100 mg PO QPM 05/22/17 Telmisartan [Micardis 40 mg Tablet] 40 mg PO QPM 05/22/17 Allergies/Adverse Reactions: morphine Allergy (Verified 12/10/16 08:13) Shellfish * [Shellfish] Allergy (Verified 12/10/16 08:13) richardson Allergy (Uncoded 12/10/16 08:13) Review of Systems Eyes: ABSENT: visual disturbances Ears: ABSENT: hearing changes Cardiovascular: ABSENT: chest pain, dyspnea on exertion, edema, orthropnea, palpitations Respiratory: ABSENT: cough, hemoptysis Gastrointestinal: ABSENT: abdominal pain, constipation, diarrhea, hematemesis, hematochezia, nausea, vomiting Genitourinary: ABSENT: dysuria, hematuria Musculoskeletal: ABSENT: joint swelling Integumentary: ABSENT: rash, wounds Neurological: ABSENT: abnormal gait, abnormal speech, confusion, dizziness, focal weakness, syncope Psychiatric: ABSENT: anxiety, depression, homidical ideation, suicidal ideation Endocrine: ABSENT: cold intolerance, heat intolerance, menstrual abnormalities, polydipsia, polyuria Hematologic/Lymphatic: ABSENT: easy bleeding, easy bruising, lymphadenopathy Physical Exam Vital Signs: Temp Pulse Resp BP Pulse Ox 99.0 F 75 20 145/68 H 100 05/23/17 15:56 05/23/17 15:56 05/23/17 15:56 05/23/17 15:56 05/23/17 15:56 Intake & Output 05/22/17 05/23/17 05/24/17 06:59 06:59 06:59 Intake Total 280 Balance 280 Weight 74.9 kg General appearance: PRESENT: no acute distress, well-developed, well-nourished Head exam: PRESENT: atraumatic, normocephalic Eye exam: PRESENT: conjunctiva pink, EOMI, PERRLA Ear exam: PRESENT: normal external ear exam Mouth exam: PRESENT: moist, tongue midline Neck exam: PRESENT: full ROM Cardiovascular exam: PRESENT: RRR, +S1, +S2 Vascular exam: PRESENT: normal capillary refill Rectal exam: PRESENT: deferred Neurological exam: PRESENT: alert Skin exam: PRESENT: dry, intact, warm Results Laboratory Results: 05/22/17 15:08 05/23/17 05:46 05/23/17 05:46 Sodium 133.9 L Potassium 4.8 Chloride 103 Carbon Dioxide 24 Anion Gap 7 BUN 33 H Creatinine 0.99 Est GFR ( Amer) > 60 Est GFR (Non-Af Amer) 53 L Glucose 117 H Calcium 9.8 Total Bilirubin 0.4 AST 19 ALT 26 Alkaline Phosphatase 64 Total Protein 7.1 Albumin 3.7 05/22/17 05/22/17 05/22/17 15:08 16:48 21:12 Creatine Kinase 31 CK-MB (CK-2) 0.80 Troponin I 0.015 0.016 05/22/17 05/22/17 05/23/17 21:12 21:12 05:46 Creatine Kinase 34 CK-MB (CK-2) 0.85 0.46 Troponin I 0.021 05/23/17 05:46 Creatine Kinase 31 CK-MB (CK-2) Troponin I Impressions: Head MRI 05/22/17 00:00 IMPRESSION: No acute abnormality in the brain. EVIDENCE OF ACUTE STROKE: NO. Assessment & Plan - Diagnosis (1) Syncope Qualifiers: Syncope type: unspecified Qualified Code(s): R55 - Syncope and collapse Is this a current diagnosis for this admission?: Yes Plan: Patient was brought in for observation, MRI brain did not show any acute pathology, 2D echo was ordered but is not done yet, she be discharged home for outpatient 30 day event monitor on outpatient 2D echo (2) SIADH (syndrome of inappropriate ADH production) Is this a current diagnosis for this admission?: Yes (3) Type 2 diabetes mellitus Qualifiers: Diabetes mellitus complication status: with neurologic complications Diabetes mellitus complication detail: with polyneuropathy Diabetes mellitus group home insulin use: without group home use Qualified Code(s): E11.42 - Type 2 diabetes mellitus with diabetic polyneuropathy Is this a current diagnosis for this admission?: Yes
--- NOTE | 2017-05-23 17:53 | PDOC DISCHARGE SUMMARY ---
General - Admit/Disc Date/PCP Admission Date/Primary Care Provider: 05/22/17 13:05 MIRYAM DANIEL MD Discharge Date: 05/23/17 - Discharge Diagnosis (1) Syncope Is this a current diagnosis for this admission?: Yes (2) SIADH (syndrome of inappropriate ADH production) Is this a current diagnosis for this admission?: Yes (3) Type 2 diabetes mellitus Is this a current diagnosis for this admission?: Yes - Additional Information Resuscitation Status: Full Code Home Medications: Acetaminophen [Tylenol Extra Strength 500 mg Tablet] 500 mg PO Q8HP PRN Carvedilol [Coreg 25 mg Tablet] 25 mg PO Q12 05/22/17 Doxepin HCl [Sinequan 10 mg Capsule] 10 mg PO DAILY@199905/22/17 Gabapentin [Neurontin 300 mg Capsule] 300 mg PO Q12 05/22/17 Montelukast Sodium [Singulair 10 mg Tablet] 10 mg PO QAM 05/22/17 Pantoprazole Sodium [Protonix] 40 mg PO QPM 05/22/17 Pioglitazone HCl [Actos 15 mg Tablet] 15 mg PO QPM 05/22/17 Polyethylene Glycol 3350 [Miralax Powder 17 gm/Packet] 1 packet PO QAM 05/22/17 Sitagliptin Phosphate [Januvia] 100 mg PO QPM 05/22/17 Telmisartan [Micardis 40 mg Tablet] 40 mg PO QPM 05/22/17 History of Present Illness History of Present Illness: JEAN PAUL JURADO is a 87 year old female, she was admitted for evaluation of loss of consciousness, patient came to the office with her spouse, the said she had episode of unprovoked loss of consciousness, she has a history of SIADH with hyponatremia, 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 It was felt that her symptoms is probably not metabolic in etiology MRI of the brain was done it was negative for any acute pathology. She was brought in for observation the plan is to have outpatient 30 day event monitor to rule out cardiac arrhythmias Hospital Course Hospital Course: She was admitted for evaluation of loss of consciousness, MRI brain did not show any acute pathology, electrolytes were normal, she was brought in for observation, she is discharged home for outpatient evaluation with 30 day event monitor Physical Exam Vital Signs: Temp Pulse Resp BP Pulse Ox 99.0 F 75 20 145/68 H 100 05/23/17 15:56 05/23/17 15:56 05/23/17 15:56 05/23/17 15:56 05/23/17 15:56 Intake & Output 05/22/17 05/23/17 05/24/17 06:59 06:59 06:59 Intake Total 280 Balance 280 Weight 74.9 kg General appearance: PRESENT: no acute distress, well-developed, well-nourished Head exam: PRESENT: atraumatic, normocephalic Eye exam: PRESENT: conjunctiva pink, EOMI, PERRLA. ABSENT: scleral icterus Ear exam: PRESENT: normal external ear exam Mouth exam: PRESENT: moist, tongue midline Neck exam: PRESENT: full ROM Respiratory exam: PRESENT: clear to auscultation corazon Cardiovascular exam: PRESENT: RRR, +S1, +S2 Pulses: PRESENT: normal dorsalis pedis pul, +2 pedal pulses bilateral Vascular exam: PRESENT: normal capillary refill GI/Abdominal exam: PRESENT: normal bowel sounds, soft Rectal exam: PRESENT: deferred Neurological exam: PRESENT: alert, awake, oriented to person, oriented to place , oriented to time, oriented to situation, CN II-XII grossly intact Psychiatric exam: PRESENT: appropriate affect, normal mood Skin exam: PRESENT: dry, intact, warm Results Laboratory Results: 05/22/17 15:08 05/23/17 05:46 05/23/17 05:46 Sodium 133.9 L Potassium 4.8 Chloride 103 Carbon Dioxide 24 Anion Gap 7 BUN 33 H Creatinine 0.99 Est GFR ( Amer) > 60 Est GFR (Non-Af Amer) 53 L Glucose 117 H Calcium 9.8 Total Bilirubin 0.4 AST 19 ALT 26 Alkaline Phosphatase 64 Total Protein 7.1 Albumin 3.7 05/22/17 05/22/17 05/22/17 15:08 16:48 21:12 Creatine Kinase 31 CK-MB (CK-2) 0.80 Troponin I 0.015 0.016 05/22/17 05/22/17 05/23/17 21:12 21:12 05:46 Creatine Kinase 34 CK-MB (CK-2) 0.85 0.46 Troponin I 0.021 05/23/17 05:46 Creatine Kinase 31 CK-MB (CK-2) Troponin I Impressions: Head MRI 05/22/17 00:00 IMPRESSION: No acute abnormality in the brain. EVIDENCE OF ACUTE STROKE: NO.
[2017-05-23] MEDS ORDERED: LOSARTAN POTASSIUM 50 MG TABLET PO SCH (18:00)
[2017-05-23 18:39] VITALS: BP 145/67
[2017-05-24] MEDS ORDERED: SITAGLIPTIN PHOSPHATE 50 MG TABLET PO SCH (17:00)
== END 2017-05-23 19:10 | disposition home or self-care (01) ==
LOC: ER 12:49 → EH 13:05 → 3W 17:25
PROVIDERS: ADMIT Internal Medicine; ATTEND Internal Medicine
DX: R55 Syncope and collapse (principal); E22.2 Syndrome of inappropriate secretion of antidiuretic hormone; E11.42 Type 2 diabetes mellitus with diabetic polyneuropathy; I10 Essential (primary) hypertension; K21.9 Gastro-esophageal reflux disease without esophagitis; Z79.899 Other long term (current) drug therapy; Z79.84 Long term (current) use of oral hypoglycemic drugs
CPT/HCPCS: 93005; 36415 ×2; 84439; 82553 ×2; 82962 ×2; 82550 ×2; 84443; 85025; 80053 ×2; 84484 ×2; 70551; 93010; G0378 ×3; G0379; A9270 ×12; J3490

== ENCOUNTER 2017-09-19 11:21 | Inpatient (IN) | payer MEDICARE, OTHER ==
--- NOTE | 2017-09-19 12:03 | ER Document Report ---
ED General - General Mode of Arrival: Ambulatory Information source: Patient TRAVEL OUTSIDE OF THE [place] IN LAST 30 DAYS: No <NAM GARCIA - Last Filed: 09/19/17 17:30> <DUGLAS MORROW - Last Filed: 09/19/17 20:02> - General Chief Complaint: Weakness Stated Complaint: ABNORMAL LABS Time Seen by Provider: 09/19/17 11:53 Notes: Patient is an 87 year old female with SiADH syndrome, diabetes, hypertension, manic depression and a history of hyponatremia presents to the emergency department accompanied by complaining of multiple symptoms including multiple syncopal episodes, weakness, and abnormal lab results. states the patient "kept passing out" over the weekend so he brought her to Dr. Correia's office on 09/18/2017 where she had outpatient blood work done. reports receiving a phone call from Dr. Correia's office this morning being and was told the patient had a serum sodium of 118 and instructed to come to the emergency department. (NAM GARCIA) This past reports that he gives the patient weekly and she is to have a banana every day. (DUGLAS MORROW) - Related Data Allergies/Adverse Reactions: morphine Allergy (Verified 09/19/17 11:22) Shellfish * [Shellfish] Allergy (Verified 09/19/17 11:22) richardson Allergy (Uncoded 12/10/16 08:13) Past Medical History - General Information source: Patient, Relative - Social History Smoking Status: Unknown if Ever Smoked Frequency of alcohol use: None Family History: Reviewed & Not Pertinent - Past Medical History Cardiac Medical History: Reports: Hx Hypercholesterolemia, Hx Hypertension Endocrine Medical History: Reports: Hx Diabetes Mellitus Type 2 Renal/ Medical History: Reports: Hx Ovarian Cysts GI Medical History: Reports: Hx Gastroesophageal Reflux Disease Musculoskeltal Medical History: Reports Hx Arthritis Psychiatric Medical History: Reports: Hx Depression Past Surgical History: Reports: Hx Section, Hx Hysterectomy, Hx Orthopedic Surgery - 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 - Immunizations Hx Diphtheria, Pertussis, Tetanus Vaccination: No Hx Pneumococcal Vaccination: 01/08/09 <NAM GARCIA - Last Filed: 09/19/17 17:30> Review of Systems - Review of Systems Constitutional: See HPI, Weakness EENT: No symptoms reported Cardiovascular: No symptoms reported Respiratory: No symptoms reported Gastrointestinal: No symptoms reported Genitourinary: No symptoms reported Female Genitourinary: No symptoms reported Musculoskeletal: No symptoms reported Skin: No symptoms reported Hematologic/Lymphatic: No symptoms reported Neurological/Psychological: See HPI, Lost consciousness -: Yes All other systems reviewed and negative <NAM GARCIA - Last Filed: 09/19/17 17:30> Physical Exam - General General appearance: Alert, Other - Drowsy yet arousable In distress: None - HEENT Head: Normocephalic, Atraumatic Eyes: Normal Extraocular movements intact: Yes Pupils: PERRL Neck: Normal - Respiratory Respiratory status: No respiratory distress Chest status: Nontender Breath sounds: Normal Chest palpation: Normal - Cardiovascular Rhythm: Bradycardia, Other - slightly irregular Heart sounds: Normal auscultation Murmur: No Friction rub: No Gallop: None auscultated Pulses: Normal: Radial, Posterior tibial - Abdominal Inspection: Normal Distension: No distension Bowel sounds: Normal Tenderness: Nontender Organomegaly: No organomegaly - Back Back: Normal - Extremities General upper extremity: Normal ROM General lower extremity: Normal ROM - Neurological Neuro grossly intact: Yes - Psychological Associated symptoms: Normal affect, Normal mood <JOSE,CHERYCALIXTO - Last Filed: 09/19/17 17:30> - Vital signs Vitals: Temp Pulse BP Pulse Ox 98.0 F 29 L 94/54 L 98 09/19/17 11:35 09/19/17 11:35 09/19/17 11:35 09/19/17 11:35 Course - Laboratory Result Diagrams: 09/19/17 11:50 09/19/17 11:50 <JOSENAM ARAYA - Last Filed: 09/19/17 17:30> - Laboratory Result Diagrams: 09/19/17 11:50 09/19/17 18:46 - Diagnostic Test Radiology reviewed: Image reviewed - No acute process noted. - EKG Interpretation by [facility] EKG shows normal: Sinus rhythm, [place], Intervals, QRS Complexes, ST-T Waves Rate: Normal - 53 Heart block present: 1st Degree - Consults Dr. Lacey Consulted provider: will see as inpatient <DUGLAS MORROW - Last Filed: 09/19/17 20:02> - Re-evaluation Re-evalutation: 09/19/17 13:51 At this time the patient's pulse is in the 70s and she is sitting up smiling and talking and doing much better. (DUGLAS MORROW) - Vital Signs Vital signs: Temp Pulse Resp BP Pulse Ox 98.0 F 29 L 16 176/63 H 97 09/19/17 11:35 09/19/17 11:35 09/19/17 19:07 09/19/17 19:07 09/19/17 19:07 - Laboratory Laboratory results interpreted by me: 09/19/17 09/19/17 09/19/17 11:50 11:50 13:10 RBC 3.67 L Hgb 11.2 L Hct 32.8 L Sodium 123.3 L Potassium 6.2 H* Chloride 87 L BUN 40 H Creatinine 1.38 H Est GFR ( Amer) 44 L Est GFR (Non-Af Amer) 36 L Urine Glucose (UA) >=500 H Ur Leukocyte Esterase LARGE H Critical Care Note - Critical Care Note Total time excluding time spent on procedures (mins): 45 <DUGLAS MORROW - Last Filed: 09/19/17 20:02> Discharge <NAM GARCIA - Last Filed: 09/19/17 17:30> - Discharge Admitting Provider: [facility] Unit Admitted: Telemetry <DUGLAS MORROW - Last Filed: 09/19/17 20:02> - Discharge Clinical Impression: Acute hyperkalemia, Hyponatremia, SIADH (syndrome of inappropriate ADH production), Sinus arrest Urinary tract infection Qualifiers: Urinary tract infection type: site unspecified Hematuria presence: without hematuria Qualified Code(s): N39.0 - Urinary tract infection, site not specified Condition: Good Disposition: ADMITTED INPATIENT Scribe Attestation: 09/19/17 12:57 I personally performed the services described in the documentation, reviewed and edited the documentation which was dictated to the scribe in my presence, and it accurately records my words and actions. (DUGLAS MORROW) Scribe Documentation - Scribe Written by Scribe:: Olga Mcmillan, 09/19/2017 12:15 acting as scribe for :: Mayte <NAM GARCIA - Last Filed: 09/19/17 17:30>
[2017-09-19 12:07] LABS: ABSOLUTE BASOPHILS # (AUTO) 0.1 10^3/uL (0.0-0.2); ABSOLUTE EOSINOPHILS # (AUTO) 0.1 10^3/uL (0.0-0.6); ABSOLUTE LYMPHOCYTES (AUTO) 1.4 10^3/uL (0.5-4.7); ABSOLUTE MONOCYTES (AUTO) 0.6 10^3/uL (0.1-1.4); ABSOLUTE NEUT (AUTO) 6.8 10^3/uL (1.7-8.2); BASOPHILS % (AUTO) 0.9 % (0-2); HEMATOCRIT 32.8 % (36.0-47.0); HEMOGLOBIN 11.2 g/dL (12.0-15.5); LYMPHOCYTES % (AUTO) 15.8 % (13-45); MEAN CORPUSCULAR HEMOGLOBIN 30.6 pg (27.0-33.4); MEAN CORPUSCULAR HGB CONC 34.3 g/dL (32.0-36.0); MEAN CORPUSCULAR VOLUME 89 fl (80-97); MONOCYTES % (AUTO) 6.9 % (3-13); PLATELET COUNT 188 10^3/uL (150-450); RED BLOOD COUNT 3.67 10^6/uL (3.72-5.28); RED CELL DISTRIBUTION WIDTH 13.4 % (11.5-14.0); SEGMENTED NEUTROPHILS % (AUTO) 75.4 % (42-78); TOTAL CELLS COUNTED % (AUTO) 100 %; WHITE BLOOD COUNT 9.1 10^3/uL (4.0-10.5)
[2017-09-19 12:27] LABS: ALANINE AMINOTRANSFERASE 20 U/L (9-52); ALBUMIN 4.1 g/dL (3.5-5.0); ALKALINE PHOSPHATASE 54 U/L (38-126); ANION GAP 8 (5-19); ASPARTATE AMINO TRANSFERASE 17 U/L (14-36); BILIRUBIN,DIRECT 0.3 mg/dL (0.0-0.4); BILIRUBIN,TOTAL 0.3 mg/dL (0.2-1.3); BLOOD UREA NITROGEN 40 mg/dL (7-20); CALCIUM 9.4 mg/dL (8.4-10.2); CARBON DIOXIDE 28 mmol/L (22-30); CHLORIDE 87 mmol/L (98-107); CREATINE KINASE 32 U/L (30-135); GLUCOSE 80 mg/dL (75-110); SODIUM 123.3 mmol/L (137-145); TOTAL PROTEIN 6.8 g/dL (6.3-8.2)
[2017-09-19 12:29] LABS: POTASSIUM 6.2 mmol/L (3.6-5.0)
[2017-09-19] MEDS ORDERED: CALCIUM GLUCONATE 1000 MG/10 ML INJ IV ONE (12:31)
[2017-09-19] MEDS ORDERED: SODIUM POLYSTYRENE SULFONATE 15 GM/60 ML PO ONE (12:31)
[2017-09-19] MEDS ORDERED: INSULIN REG, HUMAN 100 UNIT/ML 3 ML VIAL (PYX) IV ONE (12:32)
[2017-09-19] MEDS ORDERED: DEXTROSE 50%-WATER 25 GM/50 ML DISP.SYRIN IV ONE (12:32)
[2017-09-19] MEDS ORDERED: NORMAL SALINE 1000 ML 1,000 ML IV ONE (12:32)
--- NOTE | 2017-09-19 12:55 | RADIOLOGY REPORT (SQ) ---
EXAM DESCRIPTION: CHEST SINGLE VIEW COMPLETED DATE/TIME: 09/19/2017 12:19 pm REASON FOR STUDY: Hyponatremia COMPARISON: 12/12/2016 EXAM PARAMETERS: NUMBER OF VIEWS: One view. TECHNIQUE: Single frontal radiographic view of the chest acquired. RADIATION DOSE: NA LIMITATIONS: None. FINDINGS: LUNGS AND PLEURA: No opacities, masses or pneumothorax. No pleural effusion. MEDIASTINUM AND HILAR STRUCTURES: No masses. Contour normal. HEART AND VASCULAR STRUCTURES: Heart normal in size. Normal vasculature. BONES: No acute findings. HARDWARE: None in the chest. OTHER: No other significant finding. IMPRESSION: NO ACUTE RADIOGRAPHIC FINDING IN THE CHEST. TECHNICAL DOCUMENTATION: JOB ID: [id number] [employer]- All Rights Reserved Reading location - IP/workstation name: [email or web address]
[2017-09-19 13:50] LABS: APPEARANCE,URINE CLOUDY; BILIRUBIN,URINE NEGATIVE (NEGATIVE); COLOR,URINE YELLOW; GLUCOSE, URINE >=500 mg/dL (NEGATIVE); KETONES,URINE NEGATIVE (NEGATIVE); LEUKOCYTE ESTERASE,URINE LARGE (NEGATIVE); NITRITE,URINE NEGATIVE (NEGATIVE); PROTEIN,URINE NEGATIVE (NEGATIVE); URINE SPECIFIC GRAVITY 1.005; UROBILINOGEN,URINE NEGATIVE mg/dL (<2.0)
[2017-09-19] MEDS ORDERED: CEFTRIAXONE 1 GM/D5W RTU 1 GM/50 ML RTUPB IV ONE (14:15)
[2017-09-19 19:31] LABS: INTERNATIONAL RATION (INR) 0.95; PROTHROMBIN TIME 13.2 SEC (11.4-15.4)
[2017-09-19 19:32] LABS: PARTIAL THROMBOPLASTIN TIME 32.6 SEC (23.5-35.8)
[2017-09-19] MEDS ORDERED: (PENDING PHARMACY ID) (Acetaminophen [Tylenol Extra Strength 500 Mg Tablet] 500 MG) PO PRN (19:39)
[2017-09-19 19:46] LABS: ALANINE AMINOTRANSFERASE 22 U/L (9-52); ALBUMIN 4.1 g/dL (3.5-5.0); ALKALINE PHOSPHATASE 64 U/L (38-126); ANION GAP 10 (5-19); ASPARTATE AMINO TRANSFERASE 16 U/L (14-36); BILIRUBIN,DIRECT 0.3 mg/dL (0.0-0.4); BILIRUBIN,TOTAL 0.3 mg/dL (0.2-1.3); BLOOD UREA NITROGEN 29 mg/dL (7-20); CALCIUM 9.8 mg/dL (8.4-10.2); CARBON DIOXIDE 27 mmol/L (22-30); CHLORIDE 92 mmol/L (98-107); GLUCOSE 98 mg/dL (75-110); SODIUM 129.3 mmol/L (137-145); TOTAL PROTEIN 6.7 g/dL (6.3-8.2)
[2017-09-19 19:48] LABS: POTASSIUM 5.2 mmol/L (3.6-5.0)
[2017-09-19] MEDS ORDERED: ACETAMINOPHEN 325 MG TABLET PO PRN (19:58)
[2017-09-19 20:04] LABS: FREE T4 (FREE THYROXINE) 1.43 ng/dL (0.78-2.19)
[2017-09-19 20:18] LABS: THYROID STIMULATING HORMONE 1.37 uIU/mL (0.47-4.68)
[2017-09-19] MEDS: DOXEPIN HCL 10 MG CAPSULE PO SCH (20:24)
[2017-09-19 20:27] LABS: CREATINE KINASE MB 0.66 ng/mL (<4.55)
[2017-09-19 20:38] LABS: TROPONIN I < 0.012 ng/mL
--- NOTE | 2017-09-19 22:42 | PDOC H&P ---
History of Present Illness Admission Date/PCP: 09/19/17 15:46 MIRYAM DANIEL MD History of Present Illness: JEAN PAUL JURADO is a 87 year old female.She has a history of SIADH she had episode of transient loss of consciousness over the weekend when she and the went out for lunch, the said he could not get her to focus, she was unresponsive for a few minutes, she did respond after couple of minutes but he decided not to take her to the ER but to wait until Monday to come to the office for evaluation, in the office she was alert oriented she was responsive, she has history of SIADH the said he was concerned may be the serum sodium is low again blood work was drawn in the office result came back today with sodium of 118 potassium of 5.8 with associated acute kidney injury ,he was called from home to take her to the ER for further evaluation.In the emergency room she was evaluated she was found to have hyperkalemia with a potassium of 6.1 with acute kidney injury and hyponatremia Past Medical History Cardiac Medical History: Reports: Hyperlipidema, Hypertension Pulmonary Medical History: Denies: Tuberculosis Neurological Medical History: Denies: Seizures Endocrine Medical History: Reports: Diabetes Mellitus Type 2 GI Medical History: Reports: Gastroesophageal Reflux Disease Musculoskeltal Medical History: Reports: Arthritis Psychiatric Medical History: Reports: Depression Past Surgical History Past Surgical History: Reports: Section, Hysterectomy, Orthopedic Surgery - 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 Denies: Cholecystectomy Social History Smoking Status: Unknown if Ever Smoked Frequency of Alcohol Use: None Hx Recreational Drug Use: No Drugs: None Hx Prescription Drug Abuse: No - Advance Directive Resuscitation Status: Full Code Family History Family History: Reviewed & Not Pertinent Parental Family History Reviewed: Yes Children Family History Reviewed: Yes Sibling(s) Family History Reviewed.: Yes Medication/Allergy Home Medications: Carvedilol [Coreg 25 mg Tablet] 25 mg PO DAILY@0900,1700 05/22/17 Doxepin HCl [Sinequan 10 mg Capsule] 10 mg PO QHS 05/22/17 Gabapentin [Neurontin 300 mg Capsule] 300 mg PO Q8 05/22/17 Montelukast Sodium [Singulair 10 mg Tablet] 10 mg PO QAM 05/22/17 Pantoprazole Sodium [Protonix] 40 mg PO DAILY@1700 05/22/17 Pioglitazone HCl [Actos 15 mg Tablet] 15 mg PO DAILY@1700 05/22/17 Polyethylene Glycol 3350 [Miralax Powder 17 gm/Packet] 1 packet PO WBRKFST MDD MIXED IN COFFEE 05/22/17 Sitagliptin Phosphate [Januvia] 100 mg PO DAILY@1700 05/22/17 Telmisartan [Micardis 40 mg Tablet] 40 mg PO DAILY@2100 05/22/17 Buspirone HCl [Buspar 15 mg Tablet] 15 mg PO Q12 09/19/17 Sertraline HCl [Zoloft 50 mg Tablet] 100 mg PO QHS 09/19/17 Allergies/Adverse Reactions: morphine Allergy (Verified 09/19/17 20:08) Shellfish * [Shellfish] Allergy (Verified 09/19/17 20:08) richardson Allergy (Uncoded 09/19/17 20:08) Review of Systems Constitutional: PRESENT: anorexia Eyes: ABSENT: visual disturbances Ears: ABSENT: hearing changes Cardiovascular: ABSENT: chest pain, dyspnea on exertion, edema, orthropnea, palpitations Respiratory: ABSENT: cough, hemoptysis Gastrointestinal: ABSENT: abdominal pain, constipation, diarrhea, hematemesis, hematochezia, nausea, vomiting Genitourinary: ABSENT: dysuria, hematuria Musculoskeletal: ABSENT: joint swelling Integumentary: ABSENT: rash, wounds Neurological: PRESENT: confusion, lack of coordination, paresthesias Psychiatric: PRESENT: anxiety Endocrine: ABSENT: cold intolerance, heat intolerance, menstrual abnormalities, polydipsia, polyuria Hematologic/Lymphatic: ABSENT: easy bleeding, easy bruising, lymphadenopathy Physical Exam Vital Signs: Temp Pulse Resp BP Pulse Ox 99.6 F 73 16 159/50 H 100 09/19/17 21:00 09/19/17 21:00 09/19/17 21:00 09/19/17 21:00 09/19/17 21:00 Intake & Output 09/18/17 09/19/17 09/20/17 06:59 06:59 06:59 Weight 68 kg General appearance: PRESENT: other - Elderly female she is very upset Head exam: PRESENT: atraumatic, normocephalic Eye exam: PRESENT: PERRLA Neck exam: PRESENT: full ROM Respiratory exam: PRESENT: clear to auscultation corazon Cardiovascular exam: PRESENT: RRR, +S1, +S2 Pulses: PRESENT: normal dorsalis pedis pul, +2 pedal pulses bilateral Vascular exam: PRESENT: normal capillary refill GI/Abdominal exam: PRESENT: normal bowel sounds, soft Rectal exam: PRESENT: deferred Neurological exam: PRESENT: alert, CN II-XII grossly intact Psychiatric exam: PRESENT: appropriate affect, normal mood Skin exam: PRESENT: dry, intact, warm Results Laboratory Results: 09/19/17 18:46 09/19/17 09/19/17 09/19/17 18:46 18:46 18:46 Sodium 129.3 L Potassium 5.2 H D Chloride 92 L Carbon Dioxide 27 Anion Gap 10 BUN 29 H Creatinine 1.04 Est GFR ( Amer) > 60 Est GFR (Non-Af Amer) 50 L Glucose 98 Calcium 9.8 Total Bilirubin 0.3 AST 16 ALT 22 Alkaline Phosphatase 64 Ammonia < 8.7 L Total Protein 6.7 Albumin 4.1 TSH 1.37 Free T4 1.43 09/19/17 09/19/17 09/19/17 18:46 18:46 18:46 Creatine Kinase 31 CK-MB (CK-2) 0.66 Troponin I < 0.012 NT-Pro-B Natriuret Pep 578 H Impressions: Chest X-Ray 09/19/17 11:55 IMPRESSION: NO ACUTE RADIOGRAPHIC FINDING IN THE CHEST. Assessment & Plan - Diagnosis (1) Acute kidney injury Is this a current diagnosis for this admission?: Yes Plan: She had episode of hypotension outpatient, that is most likely the cause of the acute kidney injury complicated with hyperkalemia, hyponatremia (2) Acute hyperkalemia Is this a current diagnosis for this admission?: Yes Plan: She has severe hyperkalemia with prolonged sinus pause on EKG most likely the cause of the loss of consciousness that she was experiencing outpatient, she is probably treated for hyperkalemia with calcium gluconate, Kayexalate (3) Hyponatremia Is this a current diagnosis for this admission?: Yes Plan: The hyponatremia could be consequence of the acute kidney injury, she has a history of SIADH this could also be the etiology (4) SIADH (syndrome of inappropriate ADH production) Is this a current diagnosis for this admission?: Yes (5) Type 2 diabetes mellitus Qualifiers: (6) Sinus arrest Is this a current diagnosis for this admission?: Yes (7) Urinary tract infection Qualifiers: Urinary tract infection type: site unspecified Hematuria presence: without hematuria Qualified Code(s): N39.0 - Urinary tract infection, site not specified Is this a current diagnosis for this admission?: Yes Plan: She also has UTI (8) Diabetes mellitus Qualifiers: Diabetes mellitus type: type 2 Diabetes mellitus custodial insulin use: unspecified terminal carman insulin use status Diabetes mellitus complication status : with unspecified complications Qualified Code(s): E11.8 - Type 2 diabetes mellitus with unspecified complications Is this a current diagnosis for this admission?: Yes (9) Dyspepsia Is this a current diagnosis for this admission?: Yes
[2017-09-20] MEDS: CARVEDILOL 12.5 MG TABLET PO SCH ×3 (00:53→21:08)
[2017-09-20] MEDS: GABAPENTIN 300 MG CAPSULE PO SCH ×3 (00:54→21:05)
[2017-09-20] MEDS: BUSPIRONE HCL 10 MG TABLET PO SCH ×3 (00:55→21:05)
[2017-09-20] MEDS: SERTRALINE HCL 50 MG TABLET PO SCH ×2 (00:55→21:06)
[2017-09-20] MEDS: HEPARIN SOD (PORCINE) 5,000 UNIT/ML 1 ML SYRINGE SUBCUT SCH ×4 (00:56→21:06)
[2017-09-20 01:09] LABS: CREATINE KINASE MB 0.57 ng/mL (<4.55)
[2017-09-20 01:10] LABS: TROPONIN I < 0.012 ng/mL
--- NOTE | 2017-09-20 07:13 | EKG REPORT ---
SEVERITY:- ABNORMAL ECG - SINUS RHYTHM FIRST DEGREE AV BLOCK : Confirmed by: Omer Patricia MD 20-Sep-2017 07:12:42
[2017-09-20 07:19] LABS: ABSOLUTE BASOPHILS # (AUTO) 0.1 10^3/uL (0.0-0.2); ABSOLUTE EOSINOPHILS # (AUTO) 0.1 10^3/uL (0.0-0.6); ABSOLUTE LYMPHOCYTES (AUTO) 1.1 10^3/uL (0.5-4.7); ABSOLUTE MONOCYTES (AUTO) 0.3 10^3/uL (0.1-1.4); ABSOLUTE NEUT (AUTO) 3.3 10^3/uL (1.7-8.2); BASOPHILS % (AUTO) 1.1 % (0-2); EOSINOPHILS % (AUTO) 1.4 % (0-6); HEMATOCRIT 33.9 % (36.0-47.0); HEMOGLOBIN 11.6 g/dL (12.0-15.5); LYMPHOCYTES % (AUTO) 21.8 % (13-45); MEAN CORPUSCULAR HEMOGLOBIN 30.2 pg (27.0-33.4); MEAN CORPUSCULAR HGB CONC 34.2 g/dL (32.0-36.0); MEAN CORPUSCULAR VOLUME 88 fl (80-97); PLATELET COUNT 185 10^3/uL (150-450); RED BLOOD COUNT 3.84 10^6/uL (3.72-5.28); RED CELL DISTRIBUTION WIDTH 13.5 % (11.5-14.0); SEGMENTED NEUTROPHILS % (AUTO) 68.7 % (42-78); TOTAL CELLS COUNTED % (AUTO) 100 %; WHITE BLOOD COUNT 4.9 10^3/uL (4.0-10.5)
[2017-09-20 07:53] LABS: ALANINE AMINOTRANSFERASE 27 U/L (9-52); ALKALINE PHOSPHATASE 61 U/L (38-126); ANION GAP 10 (5-19); ASPARTATE AMINO TRANSFERASE 17 U/L (14-36); BILIRUBIN,DIRECT 0.2 mg/dL (0.0-0.4); BILIRUBIN,TOTAL 0.2 mg/dL (0.2-1.3); BLOOD UREA NITROGEN 25 mg/dL (7-20); CALCIUM 9.9 mg/dL (8.4-10.2); CARBON DIOXIDE 27 mmol/L (22-30); CHLORIDE 95 mmol/L (98-107); CREATINE KINASE 23 U/L (30-135); GLUCOSE 102 mg/dL (75-110); POTASSIUM 5.1 mmol/L (3.6-5.0); SODIUM 131.9 mmol/L (137-145); TOTAL PROTEIN 6.6 g/dL (6.3-8.2)
[2017-09-20 08:03] LABS: CREATINE KINASE MB 0.42 ng/mL (<4.55)
[2017-09-20 08:07] LABS: TROPONIN I < 0.012 ng/mL
[2017-09-20] MEDS: MONTELUKAST SODIUM 10 MG TABLET PO SCH (08:29)
[2017-09-20] MEDS: LANSOPRAZOLE 30 MG TAB.RAP.DR PO SCH (08:30)
[2017-09-20] MEDS ORDERED: CEFTRIAXONE 1 GM/D5W RTU 1 GM/50 ML RTUPB IV SCH (12:00)
[2017-09-20] MEDS: CEFTRIAXONE SODIUM 1,000 MG in DEXTROSE 5%-WATER 50 ML IV SCH (14:25)
[2017-09-20] MEDS ORDERED: PIOGLITAZONE HCL 15 MG TABLET PO SCH (18:00)
[2017-09-20] MEDS ORDERED: SITAGLIPTIN PHOSPHATE 50 MG TABLET PO SCH (18:00)
[2017-09-20] MEDS: DOXEPIN HCL 10 MG CAPSULE PO SCH (20:59)
--- NOTE | 2017-09-20 21:39 | PDOC PROGRESS REPORT ---
Subjective Progress Note for:: 09/20/17 Subjective:: Patient is seen by the bedside, she continues to improve Reason For Visit: HYPERKALEMIA, HYPONATREMIA, LOSS OF CONSCIOUSNESS Physical Exam Vital Signs: Temp Pulse Resp BP Pulse Ox 98.8 F 65 18 139/57 H 97 09/20/17 19:38 09/20/17 19:38 09/20/17 19:38 09/20/17 19:38 09/20/17 19:38 Intake & Output 09/19/17 09/20/17 09/21/17 06:59 06:59 06:59 Intake Total 20 1780 Output Total 750 1000 Balance -730 780 Weight 70.5 kg General appearance: PRESENT: no acute distress Head exam: PRESENT: atraumatic, normocephalic Eye exam: PRESENT: PERRLA. ABSENT: scleral icterus Ear exam: PRESENT: normal external ear exam Mouth exam: PRESENT: moist, tongue midline Neck exam: PRESENT: full ROM Respiratory exam: PRESENT: clear to auscultation corazon Cardiovascular exam: PRESENT: RRR, +S1, +S2 Vascular exam: PRESENT: normal capillary refill GI/Abdominal exam: PRESENT: normal bowel sounds, soft Rectal exam: PRESENT: deferred Neurological exam: PRESENT: alert, awake, oriented to person, oriented to place , oriented to time, oriented to situation, CN II-XII grossly intact Psychiatric exam: PRESENT: appropriate affect, normal mood Skin exam: PRESENT: dry, intact, warm. ABSENT: cyanosis, rash Results Laboratory Results: 09/20/17 07:00 09/20/17 07:00 09/20/17 09/20/17 07:00 07:00 WBC 4.9 RBC 3.84 Hgb 11.6 L Hct 33.9 L MCV 88 MCH 30.2 MCHC 34.2 RDW 13.5 Plt Count 185 Seg Neutrophils % 68.7 Lymphocytes % 21.8 Monocytes % 7.0 Eosinophils % 1.4 Basophils % 1.1 Absolute Neutrophils 3.3 Absolute Lymphocytes 1.1 Absolute Monocytes 0.3 Absolute Eosinophils 0.1 Absolute Basophils 0.1 Sodium 131.9 L Potassium 5.1 H Chloride 95 L Carbon Dioxide 27 Anion Gap 10 BUN 25 H Creatinine 0.88 Est GFR ( Amer) > 60 Est GFR (Non-Af Amer) > 60 Glucose 102 Calcium 9.9 Magnesium 1.9 Total Bilirubin 0.2 AST 17 ALT 27 Alkaline Phosphatase 61 Total Protein 6.6 Albumin 4.0 09/19/17 09/19/17 09/19/17 18:46 18:46 18:46 Creatine Kinase 31 CK-MB (CK-2) 0.66 Troponin I < 0.012 NT-Pro-B Natriuret Pep 578 H 09/20/17 09/20/17 09/20/17 00:35 00:35 07:00 Creatine Kinase 28 L 23 L CK-MB (CK-2) 0.57 Troponin I < 0.012 NT-Pro-B Natriuret Pep 09/20/17 07:00 Creatine Kinase CK-MB (CK-2) 0.42 Troponin I < 0.012 NT-Pro-B Natriuret Pep Impressions: Chest X-Ray 09/19/17 11:55 IMPRESSION: NO ACUTE RADIOGRAPHIC FINDING IN THE CHEST. Assessment & Plan - Diagnosis (1) Acute kidney injury Is this a current diagnosis for this admission?: Yes (2) Acute hyperkalemia Is this a current diagnosis for this admission?: Yes (3) Hyponatremia Is this a current diagnosis for this admission?: Yes (4) SIADH (syndrome of inappropriate ADH production) Is this a current diagnosis for this admission?: Yes (5) Type 2 diabetes mellitus Qualifiers: (6) Sinus arrest Is this a current diagnosis for this admission?: Yes (7) Urinary tract infection Qualifiers: Urinary tract infection type: site unspecified Hematuria presence: without hematuria Qualified Code(s): N39.0 - Urinary tract infection, site not specified Is this a current diagnosis for this admission?: Yes (8) Diabetes mellitus Qualifiers: Diabetes mellitus type: type 2 Diabetes mellitus first aid nurse insulin use: unspecified first aid nurse insulin use status Diabetes mellitus complication status : with unspecified complications Qualified Code(s): E11.8 - Type 2 diabetes mellitus with unspecified complications Is this a current diagnosis for this admission?: Yes (9) Dyspepsia Is this a current diagnosis for this admission?: Yes
[2017-09-21] MEDS: HEPARIN SOD (PORCINE) 5,000 UNIT/ML 1 ML SYRINGE SUBCUT SCH (05:51)
[2017-09-21] MEDS: LANSOPRAZOLE 30 MG TAB.RAP.DR PO SCH (05:51)
[2017-09-21 06:50] LABS: ABSOLUTE BASOPHILS # (AUTO) 0.1 10^3/uL (0.0-0.2); ABSOLUTE EOSINOPHILS # (AUTO) 0.1 10^3/uL (0.0-0.6); ABSOLUTE LYMPHOCYTES (AUTO) 1.3 10^3/uL (0.5-4.7); ABSOLUTE MONOCYTES (AUTO) 0.3 10^3/uL (0.1-1.4); ABSOLUTE NEUT (AUTO) 2.8 10^3/uL (1.7-8.2); BASOPHILS % (AUTO) 1.2 % (0-2); EOSINOPHILS % (AUTO) 1.7 % (0-6); HEMATOCRIT 33.4 % (36.0-47.0); HEMOGLOBIN 11.6 g/dL (12.0-15.5); LYMPHOCYTES % (AUTO) 28.1 % (13-45); MEAN CORPUSCULAR HEMOGLOBIN 30.6 pg (27.0-33.4); MEAN CORPUSCULAR HGB CONC 34.7 g/dL (32.0-36.0); MEAN CORPUSCULAR VOLUME 88 fl (80-97); MONOCYTES % (AUTO) 7.4 % (3-13); PLATELET COUNT 170 10^3/uL (150-450); RED CELL DISTRIBUTION WIDTH 13.6 % (11.5-14.0); SEGMENTED NEUTROPHILS % (AUTO) 61.6 % (42-78); TOTAL CELLS COUNTED % (AUTO) 100 %; WHITE BLOOD COUNT 4.6 10^3/uL (4.0-10.5)
[2017-09-21 08:45] LABS: ALANINE AMINOTRANSFERASE 25 U/L (9-52); ALKALINE PHOSPHATASE 56 U/L (38-126); ANION GAP 9 (5-19); ASPARTATE AMINO TRANSFERASE 22 U/L (14-36); BILIRUBIN,DIRECT 0.2 mg/dL (0.0-0.4); BILIRUBIN,TOTAL 0.3 mg/dL (0.2-1.3); BLOOD UREA NITROGEN 21 mg/dL (7-20); CALCIUM 9.5 mg/dL (8.4-10.2); CARBON DIOXIDE 25 mmol/L (22-30); CHLORIDE 93 mmol/L (98-107); GLUCOSE 98 mg/dL (75-110); POTASSIUM 4.9 mmol/L (3.6-5.0); TOTAL PROTEIN 6.8 g/dL (6.3-8.2)
[2017-09-21] MEDS: MONTELUKAST SODIUM 10 MG TABLET PO SCH (09:01)
[2017-09-21] MEDS: CARVEDILOL 12.5 MG TABLET PO SCH (09:01)
[2017-09-21] MEDS: GABAPENTIN 300 MG CAPSULE PO SCH (09:01)
[2017-09-21] MEDS: BUSPIRONE HCL 10 MG TABLET PO SCH (09:02)
[2017-09-21] MEDS: CEFTRIAXONE SODIUM 1,000 MG in DEXTROSE 5%-WATER 50 ML IV SCH (11:29)
--- NOTE | 2017-09-21 12:19 | PDOC DISCHARGE SUMMARY ---
General - Admit/Disc Date/PCP Admission Date/Primary Care Provider: 09/19/17 15:46 MIRYAM DANIEL MD Discharge Date: 09/21/17 - Discharge Diagnosis (1) Acute kidney injury Is this a current diagnosis for this admission?: Yes (2) Acute hyperkalemia Is this a current diagnosis for this admission?: Yes (3) Hyponatremia Is this a current diagnosis for this admission?: Yes (4) SIADH (syndrome of inappropriate ADH production) Is this a current diagnosis for this admission?: Yes (5) Type 2 diabetes mellitus Is this a current diagnosis for this admission?: Yes (6) Sinus arrest Is this a current diagnosis for this admission?: Yes (7) Urinary tract infection Is this a current diagnosis for this admission?: Yes (8) Diabetes mellitus Is this a current diagnosis for this admission?: Yes (9) Dyspepsia Is this a current diagnosis for this admission?: Yes (10) Urinary tract infection, E. coli Is this a current diagnosis for this admission?: Yes - Additional Information Resuscitation Status: Full Code Prescriptions: Carvedilol Phosphate [Coreg CR 20 mg Ext. Release Capsule] 1 cap.sr PO DAILY # 30 cap.sr Ciprofloxacin HCl [Cipro 500 mg Tablet] 500 mg PO BID #20 tablet Home Medications: Doxepin HCl [Sinequan 10 mg Capsule] 10 mg PO QHS 05/22/17 Gabapentin [Neurontin 300 mg Capsule] 300 mg PO Q8 05/22/17 Montelukast Sodium [Singulair 10 mg Tablet] 10 mg PO QAM 05/22/17 Pantoprazole Sodium [Protonix] 40 mg PO DAILY@17005/22/17 Pioglitazone HCl [Actos 15 mg Tablet] 15 mg PO DAILY@169905/22/17 Polyethylene Glycol 3350 [Miralax Powder 17 gm/Packet] 1 packet PO WBRKFST MDD MIXED IN COFFEE 05/22/17 Sitagliptin Phosphate [Januvia] 100 mg PO DAILY@169905/22/17 Telmisartan [Micardis 40 mg Tablet] 40 mg PO DAILY@2100 05/22/17 Buspirone HCl [Buspar 15 mg Tablet] 15 mg PO Q12 09/19/17 Sertraline HCl [Zoloft 50 mg Tablet] 100 mg PO QHS 09/19/17 Carvedilol Phosphate [Coreg CR 20 mg Ext. Release Capsule] 1 cap.sr PO DAILY # 30 cap.sr 09/21/17 Ciprofloxacin HCl [Cipro 500 mg Tablet] 500 mg PO BID #20 tablet 09/21/17 History of Present Illness History of Present Illness: JEAN PAUL JURADO is a 87 year old female.She has a history of SIADH she had episode of transient loss of consciousness over the weekend when she and the went out for lunch, the said he could not get her to focus, she was unresponsive for a few minutes, she did respond after couple of minutes but he decided not to take her to the ER but to wait until Monday to come to the office for evaluation, in the office she was alert oriented she was responsive, she has history of SIADH the said he was concerned may be the serum sodium is low again blood work was drawn in the office result came back today with sodium of 118 potassium of 5.8 with associated acute kidney injury ,he was called from home to take her to the ER for further evaluation.In the emergency room she was evaluated she was found to have hyperkalemia with a potassium of 6.1 with acute kidney injury and hyponatremia Hospital Course Hospital Course: Patient was admitted for the management of acute kidney injury associated with hyperkalemia, hyponatremia. She was treated with calcium gluconate, intravenous normal saline, with correlation of the acute kidney injury, hyperkalemia, she also had E. coli UTI sensitive to most of the conventional antibiotic, she was empirically treated with IV Rocephin this was transition to p.o. Cipro. It was felt that the acute kidney injury is most likely secondary to hypotension, patient's stated that he usually when patient wakes up in the morning the blood pressure recorded is usually elevated, about 160 systolic usually she takes her medication for control blood pressure in the morning and this will usually precipitate low blood pressure ,he stated that this has been the pattern for many consecutive days so it was assumed that the low blood pressure is most likely the cause of the acute kidney injury. The Coreg was changed from regular Coreg to slow release Coreg. Physical Exam Vital Signs: Temp Pulse Resp BP Pulse Ox 98.2 F 68 16 169/66 H 98 09/21/17 07:54 09/21/17 07:54 09/21/17 07:54 09/21/17 07:54 09/21/17 07:54 Intake & Output 09/20/17 09/21/17 09/22/17 06:59 06:59 06:59 Intake Total 20 1898 Output Total 750 1350 Balance -730 548 Weight 70.5 kg 72.3 kg General appearance: PRESENT: no acute distress Head exam: PRESENT: atraumatic, normocephalic Eye exam: PRESENT: conjunctiva pink, EOMI, PERRLA Ear exam: PRESENT: normal external ear exam Mouth exam: PRESENT: moist, tongue midline Neck exam: PRESENT: full ROM Respiratory exam: PRESENT: clear to auscultation corazon Cardiovascular exam: PRESENT: RRR, +S1, +S2 Pulses: PRESENT: normal dorsalis pedis pul, +2 pedal pulses bilateral Vascular exam: PRESENT: normal capillary refill GI/Abdominal exam: PRESENT: normal bowel sounds, soft Rectal exam: PRESENT: deferred Neurological exam: PRESENT: alert, awake, oriented to person, oriented to place , oriented to time, oriented to situation, CN II-XII grossly intact Psychiatric exam: PRESENT: appropriate affect, normal mood Skin exam: PRESENT: dry, intact, warm Results Laboratory Results: 09/21/17 06:29 09/21/17 06:29 09/21/17 09/21/17 09/21/17 06:29 06:29 06:29 WBC 4.6 RBC 3.80 Hgb 11.6 L Hct 33.4 L MCV 88 MCH 30.6 MCHC 34.7 RDW 13.6 Plt Count 170 Seg Neutrophils % 61.6 Lymphocytes % 28.1 Monocytes % 7.4 Eosinophils % 1.7 Basophils % 1.2 Absolute Neutrophils 2.8 Absolute Lymphocytes 1.3 Absolute Monocytes 0.3 Absolute Eosinophils 0.1 Absolute Basophils 0.1 Sodium 127.0 L Potassium 4.9 Chloride 93 L Carbon Dioxide 25 Anion Gap 9 BUN 21 H Creatinine 0.84 Est GFR ( Amer) > 60 Est GFR (Non-Af Amer) > 60 Glucose 98 Calcium 9.5 Magnesium 1.7 Total Bilirubin 0.3 AST 22 ALT 25 Alkaline Phosphatase 56 Total Protein 6.8 Albumin 4.0 09/19/17 09/19/17 09/19/17 18:46 18:46 18:46 Creatine Kinase 31 CK-MB (CK-2) 0.66 Troponin I < 0.012 NT-Pro-B Natriuret Pep 578 H 09/20/17 09/20/17 09/20/17 00:35 00:35 07:00 Creatine Kinase 28 L 23 L CK-MB (CK-2) 0.57 Troponin I < 0.012 NT-Pro-B Natriuret Pep 09/20/17 07:00 Creatine Kinase CK-MB (CK-2) 0.42 Troponin I < 0.012 NT-Pro-B Natriuret Pep Impressions: Chest X-Ray 09/19/17 11:55 IMPRESSION: NO ACUTE RADIOGRAPHIC FINDING IN THE CHEST. Qualifiers - * PATIENT BEING DISCHARGED WITH ANY OF THE FOLLOWING DIAGNOSIS: No
[2017-09-21 14:00] VITALS: BP 159/50
== END 2017-09-21 15:48 | disposition home or self-care (01) | DRG 683 ==
LOC: ER 11:21 → EH 15:46 → 4W 21:16 → 4N 09-20 14:16
PROVIDERS: ADMIT Internal Medicine; ATTEND Internal Medicine
DX: N17.9 Acute kidney failure, unspecified (principal); N39.0 Urinary tract infection, site not specified; E87.1 Hypo-osmolality and hyponatremia; E87.5 Hyperkalemia; E11.9 Type 2 diabetes mellitus without complications; I10 Essential (primary) hypertension; E78.00 Pure hypercholesterolemia, unspecified; I45.5 Other specified heart block; K21.9 Gastro-esophageal reflux disease without esophagitis; B96.20 Unspecified Escherichia coli [E. coli] as the cause of diseases classified elsewhere; F31.9 Bipolar disorder, unspecified; Z79.84 Long term (current) use of oral hypoglycemic drugs; Z79.899 Other long term (current) drug therapy
CPT/HCPCS: 36415; 71045; 80053; 81001; 82140; 82550; 82553; 82962; 83036; 83735; 83880; 84439; 84443; 84484; 85025; 85610; 85730; 87040; 87086; 87088; 87186; 93005; 93010; 96361; 96374; 99291; J0696; J1644; J1815; J3490; J7030